=== PATIENT | female | born 1995 | race Caucasian/White ===

== ENCOUNTER 2023-08-20 13:50 | Emergency (ER) | payer SELFPAY ==
[2023-08-20 14:00] VITALS: BP 149/84; PULSE 76; RESP 18; TEMP 36.3; O2SAT 100
--- NOTE | 2023-08-20 14:09 | ED.EAR ---
HPI - Ear Problem General Chief complaint: Ear Stated complaint: Bilateral Ear Irritation Time Seen by Provider: 08/20/23 14:09 Source: patient and RN notes reviewed Mode of arrival: ambulatory Limitations: no limitations History of Present Illness HPI Narrative: 28 year old female accompanied by son presents to [facility] care with complaints of bilateral ear discomfort for the past 4 days. Patient reports that she had sinus issues and cold symptoms before ear pain and has been taking Sudafed and also doing sinus rinse which she feels has helped those symptoms. Patient reports that she she still has a little cough and some sinus drainage, deneis any fevers, chills or sweats or any body aches. Patient reports history of seasonal allergies. MD Complaint: ear pain Location: bilateral Duration: constant Severity: severe Discharge from ear: Reports no Treatment prior to arrival: other (sinus rinse and Sudafed) Related Data Allergies Allergy/AdvReac Type Severity Reaction Status Date / Time latex AdvReac Mild Rash Verified 08/20/23 14:06 Review of Systems Review of Systems: CONSTITUTIONAL: Denies malaise, chills, sweats, or fever. EYES: Denies visual changes, redness, or discharge. ENT: Reports rhinorrhea, congestion, sinus pain, bilateral otalgia and no sore throat. CARDIOVASCULAR: Denies chest pain, palpitations, or edema. RESPIRATORY: Reports cough.? Denies dyspnea. GASTROINTESTINAL: Denies abdominal pain, nausea, vomiting, diarrhea SKIN: Denies rash or itching. MUSCULOSKELETAL: Denies myalgia. NEUROLOGIC: Denies headache. All systems reviewed & are unremarkable except as noted in HPI and below PMFSH Past Medical History Medical History (Updated 08/20/23 @ 14:42 by Harriet Quiles NP) COVID-19 Ear infection History of sinus problem Seasonal allergies Strep throat Surgical History Surgical History (Updated 08/20/23 @ 14:43 by Harriet Quiles NP) Previous section Social History Social History (Updated 08/20/23 @ 14:40 by Harriet Quiles NP) Alcohol intake: former Alcohol use details: no alcohol for 7 years Substance use type: does not use Living arrangements: with family Gender identity (if verbalized by the patient): Female Comments At time of signature, agree with nursing past medical, surgical, social and family history. There is no relevant family history pertinent to the presenting complaint Exam Narrative: GENERAL: Well-appearing, well-nourished, and in no acute distress. HEAD: Normocephalic EYES: PERRLA, conjunctivae clear ENT: Nares clear, turbinates edematous and erythematous, clear discharge. Mucous membranes moist.Bilateral TM's red with bulging right ear; no tragal tenderness. Oropharynx erythematous without lesions. Tonsils not enlarged and without exudate, no drooling, no hoarseness, no trismus, uvula midline.post nasal drainage noted NECK: Supple. No lymphadenopathy CHEST: Clear to auscultation, breath sounds equal. No wheezing, rhonchi, rales, or stridor. No respiratory distress, speaks in full sentences.occasional cough SAO2 100% on room air HEART: Regular rate and rhythm. No murmur heard. SKIN: Warm, dry, no rash. NEURO: Alert and oriented x3. PSYCH: Normal mood and affect Course Course Emergency Course: Patient is aware of diagnosis, understands and agrees to treatment plan.? Anticipatory guidance given.? Patient agrees to follow-up as directed and is aware of reasons to seek care at the emergency department. Portions of this record may have been created with voice recognition software Level of Care: Express Care Visit Vital Signs Vital signs: Vital Signs Temperature 36.3 C L 08/20/23 14:00 Pulse Rate 76 08/20/23 14:00 Respiratory Rate 18 08/20/23 14:00 Blood Pressure 149/84 H 08/20/23 14:00 Pulse Oximetry 100 08/20/23 14:00 Oxygen Delivery Room Air 08/20/23 14:00 Temperature 36.3 C L 08/20/23 14:00 Pulse Rate 76 08/20/23 14:00 Respiratory Rate 18 08/20/23 14:00 Blood Pressure 149/84 H 08/20/23 14:00 Pulse Oximetry 100 08/20/23 14:00 Oxygen Delivery Room Air 08/20/23 14:00 Reviewed Medical Decision Making Differential Diagnosis Differential Diagnosis: URI,otitis media, rhinosinusitis, viral infection, otalgia,pharyngitis Medical Records Medical records reviewed: Yes I reviewed the external patient's medical records. Vital Signs Vital Signs: Vital Signs Temperature 36.3 C L 08/20/23 14:00 Pulse Rate 76 08/20/23 14:00 Respiratory Rate 18 08/20/23 14:00 Blood Pressure 149/84 H 08/20/23 14:00 Pulse Oximetry 100 08/20/23 14:00 Oxygen Delivery Room Air 08/20/23 14:00 Temperature 36.3 C L 08/20/23 14:00 Pulse Rate 76 08/20/23 14:00 Respiratory Rate 18 08/20/23 14:00 Blood Pressure 149/84 H 08/20/23 14:00 Pulse Oximetry 100 08/20/23 14:00 Oxygen Delivery Room Air 08/20/23 14:00 Critical Care Time Critical Care Time Critical Care Time: No Discharge Plan Discharge Clinical Impression: Otitis media Qualifiers: Otitis media type: serous Chronicity: acute Laterality: bilateral Recurrence: non-recurrent Qualified Code(s): H65.03 - Acute serous otitis media, bilateral Patient Disposition: Home, Self-Care Condition: Stable Instructions: Antibiotic Form, Ear Infection (GEN) Additional Instructions: Increase fluids especially juices and water [id number] cough and cold medicine of your choice for your symptoms Zyrtec Claritin or Nusrat daily Tylenol or ibuprofen for any fever pain May continue sinus rinses p.r.n. heat to the face 20-30 minutes 4-6 times a day for pain Salt water gargles, throat lozenges or throat sprays as desired Antibiotic as directed--finished the medication If your symptoms persist, change or worsen significantly before you can contact your personal physician then please, without delay, go to the emergency department for further evaluation. Follow-up with PCP in 7-10 days or sooner if needed Follow up with PCP soon in regards to your blood pressure which is elevated above threshold for referral. Blood pressure above 120/80 may indicate pre-hypertension. 149/84 Prescriptions: New amoxicillin 875 mg tablet 875 mg PO Q12H Qty: 20 0RF Follow-up/Referrals: PHYSICIAN,PROGRAM SUPPORT ASSISTANT [Primary Care Provider] - Time of Disposition: 14:22 Quality [place] Coma Scale Eyes: Open Verbal: Oriented and Alert Motor: Follows Commands Max Coma Total Score: 15
== END 2023-08-20 14:24 | disposition home or self-care (01) ==
PROVIDERS: Emergency Provider Registered Nurse
DX: H65.03 Acute serous otitis media, bilateral (principal); Z86.16 Personal history of COVID-19
CPT/HCPCS: 99213; G0463

== ENCOUNTER 2024-03-06 13:54 | Outpatient (CLI) | payer OTHER, SELFPAY ==
--- NOTE | 2024-03-14 08:32 | WPDHOLTEREM ---
Holter/Event Monitor Holter/Event Monitor Date of procedure: 03/06/24 Holter/Event Procedure: 3-7 Day Holter Monitor Indications: Palpitations Conclusion: 1. 3 days holter monitor on 03/06/24. 2. Underlying rhythm is sinus rhythm. HR range 57-133 bpm; average HR 86 bpm. 3. There are rare premature supraventricular complexes <1%. No supraventricular tachycardia. 4. There occasional premature ventricular complexes 2%, rare ventricular couplets. No ventricular tachycardia. 5. No significant pauses greater than 3 seconds. 6. Patient reports 3 episodes of symptoms of heart fluttering, skipped beats, irregular beats which demonstrate sinus rhythm, HR range 89-102 bpm with 2 episodes with PVC's.
== END 2024-03-06 13:55 | disposition home or self-care (01) ==
LOC: ANHCARD 13:56
PROVIDERS: Visit Provider Advanced Practice Midwife
DX: R00.2 Palpitations (principal)
CPT/HCPCS: 93242

== ENCOUNTER 2024-06-13 10:53 | Outpatient (CLI) | payer OTHER, SELFPAY ==
[2024-06-13] VITALS (7 sets, daily range): BP systolic 92–131; BP diastolic 56–79; PULSE 88–106
[2024-06-13 11:26] LABS: Basophils Percent Auto 0.3 % (0.2-1.2); Eosinophils Absolute Auto 0.1 K/mm3 (0-0.3); Hematocrit 34.3 % (37.0-47.0); Hemoglobin 11.6 g/dL (12.0-15.0); Immature Granulocyte Absolute 0.02 K/mm3 (0.00-0.031); Immature Granulocyte Percent A 0.3 % (0-0.5); Lymphocytes Absolute Auto 1.35 K/mm3 (0.9-3.2); Lymphocytes Percent Auto 19.5 % (18.3-44.2); Mean Corpuscular HGB Conc 33.8 g/dl (32-36); Mean Corpuscular Hemoglobin 30.1 pg (26-34); Mean Corpuscular Volume 89.1 fl (80-100); Mean Platelet Volume 8.9 fl (7.4-10.4); Monocytes Absolute Auto 0.5 K/mm3 (0.1-0.6); Monocytes Percent Auto 7.7 % (2.6-8.5); Neutrophils Absolute Auto 4.9 K/mm3 (1.3-6.7); Neutrophils Percent Auto 71.2 % (45.5-73.1); Platelet Count Result 254 k/mm3 (150-375); Red Blood Count 3.85 M/mm3 (4.2-5.4); Red Cell Distribution Width 12.7 % (11.5-14.5); White Blood Count 6.9 K/mm3 (4.5-10.0)
[2024-06-13 11:37] LABS: Alanine Aminotransferase 16 U/L (6-35); Albumin Level 3.4 g/dL (3.5-5.1); Alkaline Phosphatase 145 U/L (38-126); Anion Gap 8 mmol/L (4-12); Aspartate Amino Transferase 19 U/L (14-36); Bilirubin,Total 0.4 mg/dL (0.2-1.3); Blood Urea Nitrogen 7 mg/dL (7-17); Calcium 9.1 mg/dL (8.4-10.2); Carbon Dioxide 22 mmol/L (22-30); Chloride 105 mmol/L (98-107); Estimated Glomerular Filt Rate > 60; Glucose 103 mg/dL (65-110); Potassium 3.8 mmol/L (3.4-5.0); Sodium 135 mmol/L (137-145); Uric Acid 4.3 mg/dL (2.5-7.5)
[2024-06-13 11:40] LABS: Total Protein Urine Random 7 mg/dL
--- OUTSIDE RECORDS SUMMARY | 2024-06-13 11:49 | XMS_ITS | Clinical Summary ---
Author Organization [facility] [employer] Address [address] [place] [address] Care Team Providers Care Assistant Corporate Secretary Name Role Phone Unknown, Provider Primary Care Provider Unavaila ble Source Comments [facility] [employer],non-owned Affiliates and Associated Physician Practices is amultiple site organization consisting of ambulatory clinics and hospital sitesin [place], [place], [place] and [place]. This disclosure is being madepursuant to the Care Everywhere program and may not contain all information available regarding this patient. Last updated 18.[facility] [employer] Allergies Active Allergy Reactions Criticality Noted Date Comments Latex Rash Medium 04/11/2024 Medications * Be aware that medications may not be up to date on this document. Alwaysverify current medications with the patient. Medication Sig Dispensed Refills Start Date End Date Status Vit-Fe Fumarate-FA ( vitamin) 27-0.8 MG tablet Take 1 (one) tablet by mouth once daily Active aspirin EC (Ecotrin) 81 MG tablet Take 1 (one) tablet by mouth once daily Active IODINE, KELP, PO Take 1 drop by mouth once daily Active Active Problems Problem Noted Date Diagnosed Date Cardiac arrhythmia during 04/11/2024 Overview (04/11/2024): Patient referred to Cardiology for recurrent heart palpitations. Per OSR, Holter monitor is in progress, no results available at this time. Plan: Please send final Cardiology documentation so we may help guide therapy during if needed. History of HELLP syndrome, currently Overview (04/11/2024): HELLP syndrome with last . Delivered at 36 weeks. Following a with HELLP syndrome, there is about a 40-50% risk of some hypertensive disorder of in subsequent pregnancies: ~7% will develop HELLP again, ~18% develop preeclampsia, and ~18% develop gestational hypertension . Plan: Continue LD ASA Monitor BP at every clinic visit and/or ultrasound Start weekly testing at 32 weeks Recommend home BP log 1-2 times a day if able Obesity affecting 04/11/2024 Overview (04/11/2024): Obesity in is associated with increased risk of several adverse maternal and / outcomes. Fetuses exposed to obesity in are at increased risk of loss (both early miscarriage and stillbirth risks are increased), congenital anomalies (particularly cardiac and neural tube defects), , postterm , growth disorders (most commonly LGA/macrosomia), gestational diabetes, and gestational hypertension/preeclampsia. Mothers are at increased risk of anemia, GDM, hypertensive disorders, and maternal morbidity/mortality. Obese patients are more likely to have adverse events surrounding delivery including need for section, anesthesia complications, failed TOLAC, hemorrhage, infections, and VTE. Obese patients are also more likely to have failed cfDNA screening and detection of congenital anomalies can be limited. Recommendations: Limit weight gain to 11-20 pounds Continue LD ASA for preeclampsia prevention Recommend serial growth assessments in the 2nd and 3rd trimester Recommend anesthesia consultation at delivering hospital If patient requires section, a higher dose of preoperative antibiotics may be needed. (3g Ancef for weight >120kg) Recommend prophylactic anticoagulation while inpatient and for up to 6 weeks in highest risk individuals ( section, BMI >40, immobility, infection, etc.) Previous delivery affecting 1 06/12/2023 Overview (04/11/2024): The primary risk with TOLAC is risk of uterine rupture. Current literature estimates this risk ~ 0.5-1.0% for one LTCS, and roughly double that for 2 prior LTCS. Discussed the seriousness of this emergency due to increased morbidity for both mother and baby, particularly if blood supply to the placenta is compromised. Discussed outcomes comparing scheduled repeat CD vs repeat CD after unsuccessful TOLAC vs , including higher blood loss, increased need for blood transfusion, and higher infection rates. Based upon non-recurring indications and data on klein after one , the success rate is stated at 60-80%. The [facility] Network calculator for this patient estimates her success rate at 50%. Discussed this decision is never set in stone and she could change her mind regarding mode of delivery at any point in her . Recommend: Discussion with patient if TOLAC can be offered at your institution. If TOLAC is not offered at your institution, we would be happy to facilitate a transfer of care later in for TOLAC planning purposes at [place]. Estimated Date of Delivery Comme nts Yes 08/06/2024 Based on last me nstrual period of 10/31/2023 Encounters Date Type Department Care Team Description 05/17/2024 10:29 AM VIDEO GAME DESIGNER - 05/17/2024 11:59 PM VIDEO GAME DESIGNER Hospital Encounter [facility] [address] [place] [id number] Mckay Hodge MD Discharge Disposition: Home or Self Care 04/11/2024 1:04 PM VIDEO GAME DESIGNER - 04/11/2024 11:59 PM VIDEO GAME DESIGNER Hospital Encounter [facility] [address] [place] [id number] Jaime Durant MD Discharge Disposition: Home or Self Care 04/11/2024 1:00 PM VIDEO GAME DESIGNER - 04/11/2024 1:03 PM VIDEO GAME DESIGNER Hospital Encounter [facility] [address] [place] [id number] Jaime Durant MD Discharge Disposition: Home or Self Care from Last 3 Months Family History Relation Name Status Comments Father Alive Mother Alive Social History Tobacco Use Types Packs/Day Years Used Date Smoking Tobacco: Never Smokeless Tobacco: Never Tobacco Cessation:Counseling Given: Not Answered Alcohol Use Standard Drinks/Week Comments Not Currently 0 (1 standard drink = 0.6 oz pur e alcohol) Estimated Date of Delivery Comme nts Yes 08/06/2024 Based on last me nstrual period of 10/31/2023 Sex and Gender Information Value Date Recorded Sex Assigned at Not on file Gender Identity Not on file Sexual Orientation Not on file Last Filed Vital Signs Vital Sign Reading Time Taken Comments Blood Pressure 118/60 04/11/2024 2:13 PM VIDEO GAME DESIGNER Pulse 77 04/11/2024 2:13 PM VIDEO GAME DESIGNER Temperature - - Respiratory Rate 18 04/11/2024 2:13 PM VIDEO GAME DESIGNER Oxygen Saturation - - Inhaled Oxygen Concentration - - Weight 95.7 kg (211 lb) 04/11/2024 2:13 PM VIDEO GAME DESIGNER Height 165.1 cm (5' 5 ) 04/11/2024 2:13 PM VIDEO GAME DESIGNER Body Mass Index 35.11 04/11/2024 2:13 PM VIDEO GAME DESIGNER Plan of Treatment Upcoming Encounters Date Type Department Care Team (Late st Contact Info) Description 06/14/2024 11:15 AM VIDEO GAME DESIGNER Hospital Encounter [facility] [address] [place] [address] Gerard Bustamante MD [address] [address] Health Maintenance Due Date Last Done Comments HIV SCREENING 2010 HEPATITIS C SCREENING 05/21/2013 DTAP/TDAP/TD VACCINES (1 - Tdap) 2014 HEPATITIS B VACCINE (1 of 3 - 19+ 3-dose series) 2014 COVID-19 VACCINE ( - 2023-2 5 season) 2024 INFLUENZA VACCINE (#1) 2024 OB-ONE HOUR GLUCOSE 04/30/2024 DEPRESSION SCREENING 05/02/2024 OB-TDAP CURRENT 05/07/2024 OB-RHOGAM INJECTION 05/14/2024 PAP SMEAR 04/30/2025 04/30/2022 ZOSTER VACCINE (1 of 2) 2045 HIB VACCINE Aged Out No longer eligi ble based on patient's age to complete this topic HPV VACCINE Aged Out No longer eligi ble based on patient's age to complete this topic MENINGOCOCCAL (Group B) VACCINE Aged Out No longer eligible based on patient's age to complete this topic MENINGOCOCCAL VACCINE Aged Out No taras tasha eligible based on patient's age to complete this topic PNEUMOCOCCAL VACCINE Aged Out No long er eligible based on patient's age to complete this topic Respiratory Syncytial Virus (RSV) Vaccine Pt: or over 60 yrs (No Doses Required) Completed Procedures Procedure Name Priority Date/Time Associated Diagnosis Comments SONOGRAM - COMPLETE Routine 05/17/2024 1 1:04 AM VIDEO GAME DESIGNER Cardiac arrhythmia during (HCC) History of HELLP syndrome, currently (HCC) Other obesity due to excess calories affecting in third trimester (HCC) Previous delivery affecting (HCC) History of pre-eclampsia in prior , currently ([facility]) History of gestational diabetes in prior , currently (HCC) History of delivery, currently ([facility]) 28 weeks gestation of ([facility]) SONOGRAM - COMPLETE Routine 04/11/2024 1 :20 PM VIDEO GAME DESIGNER Encounter for anatomic survey ([facility]) Palpitations History of pre-eclampsia in prior , currently ([facility]) History of gestational diabetes in prior , currently ([facility]) 23 weeks gestation of ([facility]) History of delivery, currently ([facility]) from Last 3 Months Results * SONOGRAM - COMPLETE (05/17/2024 11:04 AM VIDEO GAME DESIGNER) Only the most recent of2 resultswithin the time period is included. Linked Results Indication ======== Incomplete cardiac views Class I obesity History ====== OB History 2. Para 1 [id number] 1. live 2022. Gest. age 36 w + 5 d. Sex of child: male. Details: IOL d/t HELLP, Preeclampsia, GDM-A1, Emergent d/t failure to progress Lab Tests Test Date Result NIPT Low risk, Male Maternal Assessment Physical Exam Height 165 cm, 5 ft 5 in. Weight 101 kg, 223 lb. Initial weight 94 kg, 208 lb. BMI 37.11 kg/m . Initial BMI 34.61 kg/m . Weight gain 7 kg, 15 lb Method ====== Transabdominal ultrasound. View: Suboptimal view: limited by maternal body habitus, position, and late gestational age ========= Klein . Number of fetuses: 1 Dating ====== Date Details Gest. age AVI LMP 10/31/2023 28 w + 3 d 08/06/2024 Stated AVI 28 w + 3 d 08/06/2024 U/S 05/17/2024 based upon AC, BPD, Femur, HC 30 w + 4 d 07/22/2024 Assigned dating based on the LMP, selected on 04/11/2024 28 w + 3 d 08/06/2024 General Evaluation Cardiac activity present. FHR 124 bpm. movements: visualized. Presentation: cephalic Placenta: Placental site: posterior, fundal Amniotic fluid: Amount of AF: normal. MVP 6.8 cm. NETTE 16.7 cm. Q1 6.8 cm, Q2 3.7 cm, Q3 2.1 cm, Q4 4.1 cm Biometry BPD 74.9 mm 30w 0d 85% Hadlock HC 282.5 mm 31w 0d 89% Hadlock AC 267.0 mm 30w 6d 96% Hadlock Femur 57.9 mm 30w 2d 85% Hadlock Humerus 52.5 mm 30w 4d 93% Benjy HC / AC 1.06 Weight Calculation: EFW 1,604 g 97% Hadlock EFW (lb,oz) 3 lb 9 oz EFW by Hadlock ([id number]) large for gestational age Growth Overview Exam date GA BPD (mm) HC (mm) AC (mm) FL (mm) HL (mm) EFW (g) 04/11/2024 23w 2d 56.8 48% 216.2 50% 194.5 69% 43.3 68% 41.5 89% 658 78% 05/17/2024 28w 3d 74.9 85% 282.5 89% 267 96% 57.9 85% 52.5 93% 1604 97% Anatomy The following structures appear normal: Heart / Thorax [id number] view. The following structures could not be adequately visualized: Heart / Thorax RVOT view. The following structures were documented previously: Head / Neck Cranium. Lateral ventricles. Choroid plexus. Midline falx. Cavum septi pellucidi. Cerebellum. Cisterna magna. Thalami. Nuchal fold. Face Lips. Profile. Nose. Nasal bone. Orbits. Heart / Thorax 4-chamber view. LVOT view. 3-vessel view. Situs. Aortic arch view. Bicaval view. Ductal arch view. Great vessels. Right lung. Left lung. Diaphragm. Abdomen Cord insertion. Stomach. Kidneys. Bladder. Bowel. Genitals. Spine Cervical spine. Thoracic spine. Lumbar spine. Sacral spine. Extremities / Skeleton Arms. Hands. Legs. Feet. sex: male. Impression ========= Single, live, intrauterine at 28w 3d size is large for gestational age Amniotic fluid volume: normal No major malformations were seen within the limits of ultrasound Follow-up ======== Follow up ultrasound for growth and completion of the anatomic survey Coding ====== Procedures [id number]: US Preg Uterus Follow Up [place] PACS Anatomical Region Laterality Modality Other 05/17/2024 11:0 4 AM VIDEO GAME DESIGNER Laura Betts CLIENT SUCCESS MANAGER-DRESSMAKER GARMENT FITTER [facility] ORDERABLES from Last 3 Months Care Teams Assistant Corporate Secretary Relationship Specialty Start Date End Date Unknown, Provider PCP - General 04/11/24
--- OUTSIDE RECORDS SUMMARY | 2024-06-13 11:49 | XMS_ITS | Clinical Summary ---
Author Organization [facility] Address [address] [place] [id number] Care Team Providers Care Timber Setter Name Role Phone None, Provider MD Primary Care Provider Unavaila ble Allergies Active Allergy Reactions Criticality Noted Date Comments Latex Rash Low 04/05/2022 Medications vitamin, low iron, ( VITAMIN WITH IRON) 27-0.8 MG tablet Take 1 tablet by mouth daily. Active ferrous sulfate, 65 mg elemental, 325 (65 FE) MG tablet Take 325 mg by mouth daily with breakfast. Active aspirin EC (ECOTRIN) 81 MG tablet Take 81 mg by mouth daily. Active Vitamin B12 100 MCG tablet Take 50 mcg by mouth daily. Active HYDROcodone-doug taminophen (NORCO) 5-325 MG tabletIndicatio ns:Acute Pain < 7 Day Supply Take 1 tablet by mouth every 4 (four) hours as needed. Indications: Acute Pain < 7 Day Supply 10 tablet Active Additional Information Patient not taking.Reported on 12/28/2023 Active Problems Problem Noted Date Diagnosed Date ([facility]) 05/01/2022 Comments Yes Social History Tobacco Use Types Packs/Day Years Used Date Smoking Tobacco: Never Passive Smoke Exposure: Never Smokeless Tobacco: Never Tobacco Cessation:Counseling Given: No Humiliation, Afraid, Rape, and Kick questionnair e Answer Date Recorded Within the last year, have y ou been afraid of your partner or ex-partner? Patient declined 05/01/2022 Within the last year, have y ou been humiliated or emotionally abused in other ways by your partner or ex-partner? Patient declined 05/01/2022 Within the last year, have y ou been kicked, hit, slapped, or otherwise physically hurt by your partner or ex-partner? Patient declined 05/01/2022 Within the last year, have y ou been raped or forced to have any kind of sexual activity by your partner or ex-partner? Patient declined 05/01/2022 Social Connection and Isolation Panel [NHANES] A nswer Date Recorded In a typical week, how many times do you talk on the phone with family, friends, or neighbors? Patient declined 05/01/2022 How often do you get togethe r with friends or relatives? Patient declined 05/01/2022 How often do you attend jainism or yazdanism serv ices? Patient declined 05/01/2022 Do you belong to any clubs o r organizations such as jainism groups, unions, [employer] or athletic groups, or school groups? Patient declined 05/01/2022 How often do you attend meet ings of the clubs or organizations you belong to? Patient declined 05/01/2022 Are you , , di vorced, , never , or living with a partner? Patient declined 05/01/2022 AUDIT-C Answer Date Recorded Q1: How often do you have a drink containing alc ohol? Patient declined 05/01/2022 Q2: How many drinks containi ng alcohol do you have on a typical day when you are drinking? Patient declined 05/01/2022 Q3: How often do you have si x or more drinks on one occasion? Patient declined 05/01/2022 Overall Financial Resource Strain (CARDIA) Answe r Date Recorded How hard is it for you to pa y for the very basics like food, housing, medical care, and heating? Not hard at all 05/01/2022 PHQ-2 Answer Date Recorded Patient Health Questionnaire-2 Score 0 12/28/2023 [facility] - Occupational Stress Questionnaire Answer Date Recorded Do you feel stress - tense, restless, nervous, or anxious, or unable to sleep at night because your mind is troubled all the time - these days? Not at all 05/01/2022 Exercise Vital Sign Answer Date Recorde d On average, how many days pe r week do you engage in moderate to strenuous exercise (like a brisk walk)? Patient declined On average, how many minutes do you engage in exercise at this level? Patient declined 05/01/2022 Hunger Vital Sign Answer Date Recorded Within the past 12 months, y ou worried that your food would run out before you got the money to buy more. Never true 05/01/20 22 Within the past 12 months, t he food you bought just didn't last and you didn't have money to get more. Never true 05/01/2022 PRAPARE - Transportation Answer Date Re corded In the past 12 months, has l ack of transportation kept you from medical appointments or from getting medications? No 04/03 In the past 12 months, has l ack of transportation kept you from meetings, work, or from getting things needed for daily living? No 05/01/2022 Housing Stability Vital Sign Answer Rich e Recorded In the last 12 months, was t here a time when you were not able to pay the mortgage or rent on time? No 05/01/2022 In the last 12 months, how many places have you lived? 1 05/01/2022 In the last 12 months, was t here a time when you did not have a steady place to sleep or slept in a long-term (including now)? No 05/01/2022 Comments Yes Sex and Gender Information Value Date Recorded Sex Assigned at Not on file Legal Sex Female 4:13 PM CDT Gender Identity Not on file Sexual Orientation Not on file Last Filed Vital Signs Vital Sign Reading Time Taken Comments Blood Pressure 116/71 12/28/2023 12:47 PM CDT Pulse 94 12/28/2023 12:47 PM CDT Temperature 36.6 C (97.9 F) 12/28/2023 12:47 PM CDT Respiratory Rate 17 12/28/2023 12:47 PM CDT Oxygen Saturation 98% 12/28/2023 12:47 PM CDT Inhaled Oxygen Concentration - - Weight 91.7 kg (202 lb 3.2 oz) 12/28/2023 12:47 PM CDT Height 167.6 cm (5' 6 ) 12/28/2023 12:47 PM CDT Body Mass Index 32.64 12/28/2023 12:47 PM CDT Plan of Treatment Health Maintenance Due Date Last Done Comments Cervical Cancer Screening Pa p Smear (Age 21 to 29) Every 3 Years 1995 Cervical Cancer Screening 1995 Annual Physical 1998 DTaP, Tdap and Td Vaccines ( 1 - Tdap) 2014 Hepatitis B Vaccines (1 of 3 - 19+ 3-dose series) 2014 COVID-19 Vaccine ( - 2023-2 5 season) 2024 Influenza Adult (#1) 2024 PHQ-2 (Phys[facility] [place]) 05/02/2024 12/28/2023 RSV Immunization or 60+ Years (1 - 1-dose 75+ series) 2070 Hepatitis C Completed 10/26/2021 HPV Vaccines Aged Out No longer eligi ble based on patient's age to complete this topic Meningococcal B Vaccine Aged Out No l onger eligible based on patient's age to complete this topic Meningococcal Vaccine Aged Out No taras tasha eligible based on patient's age to complete this topic Pneumococcal Vaccine: Pediat rics (0 to 5 Years) and At-Risk Patients (6 to 64 Years) Aged Out No longer eligi ble based on patient's age to complete this topic RSV Immunizations Under 20 Months Aged Out No longer eligible based on patient's age to complete this topic Procedures Procedure Name Priority Date/Time Associated Diagnosis Comments HEPATITIS C ANTIBODY Routine 10/26/2021 from Last 3 Months or Most Recently Relevant to Health Maintenance Results * HEPATITIS C ANTIBODY (10/26/2021) HEPATITIS C AB non-reacti ve us Default History Genericprovider LABORATORY Final Result from Last 3 Months or Most Recently Relevant to Health Maintenance Advance Directives * Full Code (Latest Code Status on File) Date Activated Date Inactivated Comments 05/03/2022 8:07 AM 05/04/2022 11:17 AM * Full Code Date Activated Date Inactivated Comments 05/01/2022 10:05 PM 05/03/2022 8:07 AM * Full Code Date Activated Date Inactivated Comments 04/30/2022 6:24 PM 04/30/2022 10:09 PM * Full Code Date Activated Date Inactivated Comments 04/30/2022 3:18 PM 04/30/2022 4:21 PM * Full Code Date Activated Date Inactivated Comments 04/15/2022 4:58 PM 04/15/2022 7:42 PM Care Teams Timber Setter Relationship Specialty Start Date End Date None, Provider, PCP - General 01/14/22
--- OUTSIDE RECORDS SUMMARY | 2024-06-13 11:49 | XMS_ITS | Patient Health Summary ---
Author Organization [facility] Address [address] [place] [address] Care Team Providers Care Applied Behavior Science Specialist Name Role Phone Unknown, Provider Primary Care Provider Unavaila ble Note from [facility],non-owned Affiliates and Associated Physician Practices is amultiple site organization consisting of ambulatory clinics and hospital sitesin [place], [place], [place] and [place]. This disclosure is being madepursuant to the Care Everywhere program and may not contain all information available regarding this patient. Last updated 18.[facility] Allergies * Latex(Rash) -Medium Criticality Medications * Be aware that medications may not be up to date on this document. Alwaysverify current medications with the patient. * Vit-Fe Fumarate-FA ( vitamin) 27-0.8 MG tablet Take 1 (one) tablet by mouth once daily * aspirin EC (Ecotrin) 81 MG tablet Take 1 (one) tablet by mouth once daily * IODINE, KELP, PO Take 1 drop by mouth once daily Active Problems Problem Noted Date Diagnosed Date Cardiac arrhythmia during 04/11/2024 History of HELLP syndrome, currently Obesity affecting 04/11/2024 Previous delivery affecting 1 06/12/2023 Social History Tobacco Use Types Packs/Day Years [...] Comments Blood Pressure 118/60 04/11/2024 2:13 PM ECONOMICS INSTRUCTOR Pulse 77 04/11/2024 2:13 PM ECONOMICS INSTRUCTOR Temperature - - Respiratory Rate 18 04/11/2024 2:13 PM ECONOMICS INSTRUCTOR Oxygen Saturation - - Inhaled Oxygen Concentration - - Weight 95.7 kg (211 lb) 04/11/2024 2:13 PM ECONOMICS INSTRUCTOR Height 165.1 cm (5' 5 ) 04/11/2024 2:13 PM ECONOMICS INSTRUCTOR Body Mass Index 35.11 04/11/2024 2:13 PM ECONOMICS INSTRUCTOR Procedures * SONOGRAM - COMPLETE(Performed 05/17/2024) Performed for Cardiac arrhythmia during ([facility]), History of HELLP syndrome, currently ([facility]), Other obesity due to excess calories affecting in third trimester ([facility]), Previous delivery affecting ([facility]), History of pre-eclampsia in prior , currentl y ([facility]), History of gestational diabetes in prior , currently ([facility]), History of delivery, currently ([facility]), 28 weeks gestation of ([facility]) * SONOGRAM - COMPLETE(Performed 04/11/2024) Performed for Encounter for anatomic survey ([facility]), Palpitations, History of pre-eclampsia in prior , currently ([facility]), History of gestational diabetes in prior , currently ([facility]), 23 weeks gestation of ([facility]), History of delivery, currently ([facility]) Results * SONOGRAM - COMPLETE (05/17/2024 11:04 AM ECONOMICS INSTRUCTOR) Only the most recent of2 resultswithin the time period is included. Linked Results Indication ======== Incomplete cardiac views Class I obesity History ====== OB History 2. Para 1 [id number] 1. live 2022. Gest. age 36 w [...] habitus, position, and late gestational age ========= Ferrer . Number of fetuses: 1 Dating ====== [...] 3 lb 9 oz EFW by Hadlock ([id number]) large for gestational age Growth Overview Exam date GA BPD (mm) HC (mm) AC (mm) FL (mm) HL (mm) EFW (g) 04/11/2024 23w 2d 56.8 48% 216.2 50% 194.5 69% 43.3 68% 41.5 89% 658 78% 05/17/2024 28w 3d 74.9 85% 282.5 89% 267 96% 57.9 85% 52.5 93% 1604 97% Anatomy The following structures appear normal: Heart / Thorax 1-[id number]-[id number] view. The following structures could not be [...] of the anatomic survey Coding ====== Procedures 30206: US Preg Uterus Follow Up [facility] Caregivers PACS Anatomical Region Laterality Modality Other 05/17/2024 11:0 4 AM ECONOMICS INSTRUCTOR Laura Betts APRN-[facility] ORDERABLES Care Teams Applied Behavior Science Specialist Relationship Specialty Start Date End Date Unknown, Provider PCP - General 04/11/24
--- OUTSIDE RECORDS SUMMARY | 2024-06-13 11:49 | XMS_ITS | Referral Summary ---
Author Organization [facility] Address [address] [place] [address] Care Team Providers Care Desktop Support Engineer Name Role Phone Unknown, Provider Primary Care Provider Unavaila ble Source Comments [facility],non-owned Affiliates and Associated Physician Practices is amultiple site organization consisting of ambulatory clinics and hospital sitesin [place], [place], [place]. This disclosure is being madepursuant to the Care Everywhere program and may not contain all information available regarding this patient. Last updated 18.[facility] Encounters Date Type Department Care Team Description 05/17/2024 10:29 AM AWS CONSULTANT - 05/17/2024 11:59 PM AWS CONSULTANT Hospital Encounter [facility] [address] [place] [address] Mckay Hodge MD Discharge Disposition: Home or Self Care 04/11/2024 1:04 PM AWS CONSULTANT - 04/11/2024 11:59 PM AWS CONSULTANT Hospital Encounter [facility] [address] [place] [address] Jaime Durant MD Discharge Disposition: Home or Self Care 04/11/2024 1:00 PM AWS CONSULTANT - 04/11/2024 1:03 PM AWS CONSULTANT Hospital Encounter [facility] [address] [place] [address] Jaime Durant MD Discharge Disposition: Home or Self Care from Last 3 Months Allergies Active Allergy Reactions Criticality Noted Date [...] success rate is stated at 60-80%. The [facility] Network calculator for this patient estimates her [...] later in for TOLAC planning purposes at [facility]. Estimated Date of Delivery Comme nts Yes 08/06/2024 Based on last me nstrual period of 10/31/2023 Social History Tobacco Use Types Packs/Day Years [...] Comments Blood Pressure 118/60 04/11/2024 2:13 PM AWS CONSULTANT Pulse 77 04/11/2024 2:13 PM AWS CONSULTANT Temperature - - Respiratory Rate 18 04/11/2024 2:13 PM AWS CONSULTANT Oxygen Saturation - - Inhaled Oxygen Concentration - - Weight 95.7 kg (211 lb) 04/11/2024 2:13 PM AWS CONSULTANT Height 165.1 cm (5' 5 ) 04/11/2024 2:13 PM AWS CONSULTANT Body Mass Index 35.11 04/11/2024 2:13 PM AWS CONSULTANT Plan of Treatment Upcoming Encounters Date Type Department Care Team (Late st Contact Info) Description 06/14/2024 11:15 AM AWS CONSULTANT Hospital Encounter [facility] [address] [place] [address] Gerard Bustamante MD [address] [address] Procedures Procedure Name Priority Date/Time Associated Diagnosis Comments SONOGRAM - COMPLETE Routine 05/17/2024 1 1:04 AM AWS CONSULTANT Cardiac arrhythmia during (HCC) History of HELLP syndrome, currently ([facility]) Other obesity due to excess calories affecting in third trimester ([facility]) Previous delivery affecting ([facility]) History of pre-eclampsia in prior , currently ([facility]) History of gestational diabetes in prior , currently ([facility]) History of delivery, currently ([facility]) 28 weeks gestation of ([facility]) SONOGRAM - COMPLETE Routine 04/11/2024 1 :20 PM AWS CONSULTANT Encounter for anatomic survey ([facility]) Palpitations History of pre-eclampsia in prior , currently (HCC) History of gestational diabetes in prior , currently ([facility]) 23 weeks gestation of ([facility]) History of delivery, currently ([facility]) from Last 3 Months Results * SONOGRAM - COMPLETE (05/17/2024 11:04 AM AWS CONSULTANT) Only the most recent of2 resultswithin the time period is included. Linked Results Indication ======== Incomplete cardiac views Class I obesity History ====== OB History 2. Para 1 [id number] 1. live 2022. Gest. age 36 w [...] 3 lb 9 oz EFW by Hadlock ([id number]) large for gestational age Growth Overview Exam date GA BPD (mm) HC (mm) AC (mm) FL (mm) HL (mm) EFW (g) 04/11/2024 23w 2d 56.8 48% 216.2 50% 194.5 69% 43.3 68% 41.5 89% 658 78% 05/17/2024 28w 3d 74.9 85% 282.5 89% 267 96% 57.9 85% 52.5 93% 1604 97% Anatomy The following structures appear normal: Heart / Thorax 4-[id number]-cbsrkun view. The following structures could not be [...] of the anatomic survey Coding ====== Procedures [id number]: US Preg Uterus Follow Up [facility] PACS Anatomical Region Laterality Modality Other 05/17/2024 11:0 4 AM AWS CONSULTANT Laura Betts APRN-[employer] [facility] ORDERABLES from Last 3 Months Care Teams Desktop Support Engineer Relationship Specialty Start Date End Date Unknown, Provider PCP - General 04/11/24
[2024-06-13 12:03] LABS: Add Urine Microscopic? YES; Appearance Urine Cloudy (Clear); Bacteria Urine 1+ /hpf; Bilirubin Urine Negative (Negative); Blood Urine Negative (Negative); Color Urine Dark Yellow (Yellow); Glucose Urine UA Negative (Negative); Ketones Urine Trace mg/dL (Negative); Leukocyte Esterase Ur Negative LEU/UL (Negative); Need Manual Microscopic Reviewed; Nitrate Urine Negative (Negative); Non Pathogenic Casts 0-2; Protein Urine 1+ mg/dL (Negative); RBC Urine 0-2 /hpf (0-2); Specific Grav Ur 1.027 (1.001-1.035); Squamous Epithelial Cell Urine Moderate /hpf (Few); pH Urine 6.5 (5.0-9.0)
[2024-06-13 12:08] LABS: Creatinine Urine 356.3 mg/dL; Ur Ttl Prot Creatinine Ratio 0.02 mg/mg (0-0.20)
== END 2024-06-13 12:14 | disposition home or self-care (01) ==
LOC: ANHOBOP 10:58 → ANHOBPP 11:01
PROVIDERS: Visit Provider Advanced Practice Midwife
DX: O13.9 Gestational [pregnancy-induced] hypertension without significant proteinuria, unspecified trimester (principal); Z3A.00 Weeks of gestation of pregnancy not specified
CPT/HCPCS: 36415; 59025; 80053; 81001; 82570; 84156; 84550; 85025; 99199

== ENCOUNTER 2024-06-21 22:46 | Outpatient (CLI) | payer MEDICAID, SELFPAY ==
[2024-06-21] VITALS (7 sets, daily range): BP systolic 122–134; BP diastolic 67–71; PULSE 101–119; TEMP 37.1; O2SAT 100
--- OUTSIDE RECORDS SUMMARY | 2024-06-21 23:08 | XMS_ITS | Encounter Summary ---
Author Organization [facility] Address [address] [place] [address] Care Team Providers Care Boiler Coverer Name Role Phone Unknown, Provider Primary Care Provider Unavaila ble Reason for Referral * (Routine) - Open Specialty Diagnoses / Procedures Referred By Contac t Referred To Contact Diagnoses Cardiac arrhythmia during (HCC) History of HELLP syndrome, currently (HCC) Previous delivery affecting (HCC) Encounter for screening (HCC) 33 weeks gestation of (HCC) Obesity affecting , antepartum, unspecified obesity type (HCC) Procedures NON-STRESS TEST Moustapha Martinez MD [address] [place] [address] Referral ID Status Reason Start Date Expiration Date Visits Re quested Visits Authorized [id number] Open 06/15/2024 06/15/2025 1 1 R PAD MAKER Reason for Visit * Reason Comments Non-stress Test Encounter Details Date Type Department Care Team (Latest Contact Info) Description 06/19/2024 11:02 AM CHAIR PAD MAKER - 06/19/2024 11:59 PM CHAIR PAD MAKER Hospital Encounter [facility] [address] [place], [place] [id number] Berta Valadez MD [address] [place] [address] Discharge Disposition: Home or Self Care Social History Tobacco Use Types Packs/Day Years Used Date Smoking Tobacco: Never Smokeless Tobacco: Never Alcohol Use Standard Drinks/Week Comments Not Currently 0 (1 standard drink = 0.6 oz pur e alcohol) Estimated Date of Delivery Comme nts Yes 08/06/2024 Based on last me nstrual period of 10/31/2023 Sex and Gender Information Value Date Recorded Sex Assigned at Not on file Gender Identity Not on file Sexual Orientation Not on file documented as of this encounter Last Filed Vital Signs Vital Sign Reading Time Taken Comments Blood Pressure 117/77 06/19/2024 12:02 PM CHAIR PAD MAKER Pulse 89 06/19/2024 12:02 PM CHAIR PAD MAKER Temperature - - Respiratory Rate - - Oxygen Saturation - - Inhaled Oxygen Concentration - - Weight - - Height - - Body Mass Index - - documented in this encounter Medications at Time of Discharge Medication Sig Dispensed Refills Start Date End Date aspirin EC (Ecotrin) 81 MG tablet Take 1 (one) tablet by mouth once daily IODINE, KELP, PO Take 1 drop by mouth once daily Vit-Fe Fumarate-FA ( vitamin) 27-0.8 MG tablet Take 1 (one) tablet by mouth once daily documented as of this encounter Progress Notes * Frieda Motta RN - 06/19/2024 12:04 PM CST Name: Holly Howard Date of : 1995 Today's Date: 06/19/2024 33w1d NST RESULTS (THOMAS) OBJECTIVE FINDINGS , Pulse: 89, , BP: 117/77 NST Indication(s): Pre-eclampsia with previous Uterine Irritability: No Contractions: Not present OBJECTIVE FINDINGS Movement: Present Monitoring Mode: External Baseline: 130 BPM Variability: Moderate Decelerations: None Accelerations: Yes OTHER INFORMATION Comments: NST [id number] Patient reports positive movement. Denies leakage of fluid, vaginal bleeding, cramping and contractions. Denies headache, blurred vision, and RUQ pain. Patient scheduled NST for next Tuesday with [facility]. Has BPP/NST done with primary OB office. Frieda Motta RN R PAD MAKER Associated attestation - Berta Valadez MD - 06/19/2024 2:20 PM CHAIR PAD MAKER MFM Attending NST Interpretation Indication: History of severe preeclampsia, with at 36 weeks Obesity BMI 35 I agree with the above NST interpretation, which is Reactive/ reassuring. Baseline 130 bpm Moderate variability Berta Valadez MD documented in this encounter Plan of Treatment Upcoming Encounters Date Type Department Care Team (Late st Contact Info) Description 06/26/2024 9:45 AM CHAIR PAD MAKER Hospital Encounter [facility] [address] [place], [place] [id number] Scheduled Orders Name Type Priority Associated Diagnoses Orde r Schedule NON-STRESS TEST [facility] MED Routine Cardiac arrhythmia during (HCC) History of HELLP syndrome, currently (HCC) Previous delivery affecting (HCC) Encounter for screening ([facility]) 33 weeks gestation of (HCC) Obesity affecting , antepartum, unspecified obesity type (HCC) 1 Occurrences starting 06/15/2024 until 06/15/2025 documented as of this encounter Visit Diagnoses Diagnosis Cardiac arrhythmia during (HCC)- Primary History of HELLP syndrome, currently (HCC) with other poor obstetric history Previous delivery affecting (HCC) Previous delivery, unspecified as to episode of care or not applicable Encounter for screening (HCC) 33 weeks gestation of (HCC) state, incidental Obesity affecting , antepartum, unspecified obesity type (HCC) Cardiac arrhythmia during (HCC)- Primary History of HELLP syndrome, currently (HCC) with other poor obstetric history Previous delivery affecting (HCC) Previous delivery, unspecified as to episode of care or not applicable Encounter for screening (HCC) 33 weeks gestation of (HCC) state, incidental Obesity affecting , antepartum, unspecified obesity type (HCC) documented in this encounter Care Teams Boiler Coverer Relationship Specialty Start Date End Date Unknown, Provider PCP - General 04/11/24 documented as of this encounter
--- OUTSIDE RECORDS SUMMARY | 2024-06-21 23:08 | XMS_ITS | Data Portability ---
Author Organization [facility] KIMMIENeeraj Address [address] [facility] [place] [address] Care Team Providers Care Natural Remedy Consultant Name Role Phone AMRITA FRIEDA Primary Care Provider Assessment No assessment recorded. Plan of Treatment Reminders Order Date Submit Date Provider Last Modified By Organization Details Last Modified Time Details Appointments None recorded. Lab bacterial vaginosis + vaginitis panel, vaginal 2018 019 ABIQUIU [facility], [address] [place], [place] [address]anthony Kevin, [address], [place], [address], 9 07:15:49 urinalysi s, dipstick 2017 018 [email or web address] In-Office Order, Internal Use Only DO Not Attach Compendium DO Not Attach Compendium, Do Not Delete/merge, [id number] 8 11:24:49 pap, IG + CT/NG/TV + reflex HR HPV 2017 018 ABIQUIU [facility], [address], [address], [place], [address], 8 07:13:37 urinalysi s, dipstick 2016 017 mpass In-Office Order, Internal Use Only DO Not Attach Compendium DO Not Attach Compendium, Do Not Delete/merge, [id number] 7 12:48:00 test, urine 2016 017 mpass In-Office Order, Internal Use Only DO Not Attach Compendium DO Not Attach Compendium, Do Not Delete/merge, [id number] 7 12:48:00 Referral None recorded. Procedures None recorded. Surgeries None recorded. Imaging None recorded. Medication Orders amitripty line 25 mg tablet 2019 020 [id number] [address] [facility], [place], [place], [id number], 0 12:07:18 sumatript an 100 mg tablet 2019 020 [facility], [address] [facility], [place], [place], [id number], 0 12:07:18 butalbita l-acetami nophen-ca ffeine 50 mg-325 mg-40 mg tablet 2019 020 [id number], [address] [facility], [place], [place], [id number], 0 12:09:45 metronida zole 500 mg tablet 2018 019 [facility] #[id number], [address] [facility], [place], [place], [id number], 0 11:36:52 Estarylla 0.25 mg-35 mcg tablet 2018 019 [id number] [address] [facility], [place], [place], [id number], 9 14:49:15 Sprintec (28) 0.25 mg-35 mcg tablet 2017 018 [facility], [address], [place], [id number], 8 11:10:51 Sprintec (28) 0.25 mg-35 mcg tablet 2016 017 mpass Not available 7 14:51:12 Patient TargetsNo targets recorded. Patient Instructions Encounter Date Encounter Id Patient Instructions Last Modified By Organization Details Last Modified Time 06/22/2016 [id number] Follow dressing instructions. Encouraged consistent condom use. mpass Not available 06/22/2016 12:36:33 12/29/2016 [id number] Start OC's. Encouraged consistent use of condoms expecially during the first cycle. mpass Not available 12/29/2016 10:21:50 Holly wants to start OC's. Discussed risks/benefits/si de effects/correct use of OC's. Holly voiced understanding. mpass Not available 12/29/2016 10:21:22 07/28/2018 [id number] bacterial vaginosis: care instructions [email or web address] Not available 07/28/2018 14:49:10 Reason for Referral None Reported. Results Created Date Observation Date Name Description Value Unit Range Abnormal Flag Note LastModifiedBy Organization Detail LastModifiedTime 06/22/19 17 06/22/2016 urina lysis , dipst ick Leukocytes Negati ve Not Available In-Office Order Internal Use Only DO Not Attach Compendium DO Not Attach Compendium, Do Not Delete/merge, 06/22/2016 09:56:30 06/22/1906/22/2016 urina lysis , dipst ick Nitrite negati ve Not Available In-Office Order Internal Use Only DO Not Attach Compendium DO Not Attach Compendium, Do Not Delete/merge, 06/22/2016 09:56:30 06/22/19 17 06/22/2016 urina lysis , dipst ick Urobilinogen .2 Not Available In-Of fice Order Internal Use Only DO Not Attach Compendium DO Not Attach Compendium, Do Not Delete/merge, 06/22/2016 09:56:30 06/22/1906/22/2016 urina lysis , dipst ick Protein Negati ve Not Available In-Office Order Internal Use Only DO Not Attach Compendium DO Not Attach Compendium, Do Not Delete/merge, [id number] 06/22/2016 09:56:30 06/22/19 17 06/22/2016 urina lysis , dipst ick pH 6.0 Not Available In-Office Order Internal Use Only DO Not Attach Compendium DO Not Attach Compendium, Do Not Delete/merge, 06/22/2016 09:56:30 06/22/19 17 06/22/2016 urina lysis , dipst ick Blood Negati ve Not Available In-Office Order Internal Use Only DO Not Attach Compendium DO Not Attach Compendium, Do Not Delete/merge, 06/22/2016 09:56:30 06/22/19 17 06/22/2016 urina lysis , dipst ick Specific [place] 1.020 Not Available In-Off ice Order Internal Use Only DO Not Attach Compendium DO Not Attach Compendium, Do Not Delete/merge, 06/22/2016 09:56:30 06/22/19 17 06/22/2016 urina lysis , dipst ick Ketone Negati ve Not Available In-Office Order Internal Use Only DO Not Attach Compendium DO Not Attach Compendium, Do Not Delete/merge, 06/22/2016 09:56:30 06/22/19 17 06/22/2016 urina lysis , dipst ick Bilirubin Negati ve Not Available In-Office Order Internal Use Only DO Not Attach Compendium DO Not Attach Compendium, Do Not Delete/merge, 06/22/2016 09:56:30 06/22/19 17 06/22/2016 urina lysis , dipst ick Glucose Negati ve Not Available In-Office Order Internal Use Only DO Not Attach Compendium DO Not Attach Compendium, Do Not Delete/merge, 06/22/2016 09:56:30 06/22/19 17 06/22/2016 urina lysis , dipst ick Appearance Clear Not Available In-Offi ce Order Internal Use Only DO Not Attach Compendium DO Not Attach Compendium, Do Not Delete/merge, 06/22/2016 09:56:30 06/22/19 17 06/22/2016 urina lysis , dipst ick Color Yellow Not Available In-Office Order Internal Use Only DO Not Attach Compendium DO Not Attach Compendium, Do Not Delete/merge, 06/22/2016 09:56:30 06/22/19 17 06/22/2016 pregn flo test, urine HCG negati ve Not Available In-Office Order Internal Use Only DO Not Attach Compendium DO Not Attach Compendium, Do Not Delete/merge, [id number] 06/22/2016 09:29:45 05/18/19 18 05/20/2017 pap, IG + CT/NG /TV + refle x HR HPV diagnosis: Ulices t NEGAT DEAN FOR INTRA EPITH ELIAL KANNAN N AND CHRIS SANTOS . Not Available [facility] ([facility]) [address] [facility], [place], [address], 05/21/2017 07:13:37 05/18/19 18 05/20/2017 pap, IG + CT/NG /TV + refle x HR HPV specimen adequacy: Commjamal t Satis facto ry for evalu ation . Endoc ervic al and/o r squam ous metap lasti c cells (endo cervi antoni compo nent) are prese nt. Not Available [facility] ([facility]) [address] [facility] [facility], [place], [address], 05/21/2017 07:13:37 05/18/19 18 05/20/2017 pap, IG + CT/NG /TV + refle x HR HPV clinician provided ICD10: Ulices wilder Z01.4 19 Not Available [facility] ([facility]) [address] [facility], [place], [address], 05/21/2017 07:13:37 05/18/19 18 05/20/2017 pap, IG + CT/NG /TV + refle x HR HPV performed by: Ulices Qureshi in, Cytot echno logis t (ASCP ) Not Available [facility] ([facility]) [address] [place], [address], 05/21/2017 07:13:37 05/18/19 18 05/20/2017 pap, IG + CT/NG /TV + refle x HR HPV . . Not Available [facility] ([facility]) [address] [place], [address], 05/21/2017 07:13:37 05/18/19 18 05/20/2017 pap, IG + CT/NG /TV + refle x HR HPV note: Commen t The Pap smear is a scree arvin test dessubha cueto to aid in the detec tion of alexander ligna nt and malig nant condi tions of the uteri ne cervi x. It is not a diagn ostic proce dure and shoul d not be used as the sole means of detec ting cervi antoni cance r. Both false -posi tive and false -nega tive repor ts do occur . Not Available [facility] ([facility]) [address] [place], [address], 05/21/2017 07:13:37 05/18/19 18 05/20/2017 pap, IG + CT/NG /TV + refle x HR HPV test methodology: Commen t This liqui d based ThinP rep(R ) pap test was scree rom with the use of an image guide d systshelia m. Not Available [facility] ([facility]) [address] [place], [address], 05/21/2017 07:13:37 05/18/19 18 05/20/2017 pap, IG + CT/NG /TV + refle x HR HPV . Commen t The HPV DNA refle x crite almaz were not met with this speci men resul t there fore, no HPV testi ng was perfo rmed. Not Available [facility] ([facility]) [address] [place], [address], 05/21/2017 07:13:37 05/18/19 18 05/20/2017 pap, IG + CT/NG /TV + refle x HR HPV chlamydia, nuc. acid amp Negati ve negati ve Not Available [facility] ([facility]) [address] [place], [address], 05/21/2017 07:13:37 05/18/19 18 05/20/2017 pap, IG + CT/NG /TV + refle x HR HPV gonococcus, nuc. acid amp Negati ve negati ve Not Available [facility] ([facility]) [address] [facility], [place], [address], 05/21/2017 07:13:37 05/18/19 18 05/20/2017 pap, IG + CT/NG /TV + refle x HR HPV trich vag by NEW Negati ve negati ve Not Available [facility] ([facility]) [address] [facility], [place], [address], 05/21/2017 07:13:37 05/18/19 18 05/18/2017 urina lysis , dipst ick Leukocytes Negati ve Not Available In-Office Order Internal Use Only DO Not Attach Compendium DO Not Attach Compendium, Do Not Delete/merge, [id number] 05/18/2017 10:48:49 05/18/19 18 05/18/2017 urina lysis , dipst ick Nitrite negati ve Not Available In-Office Order Internal Use Only DO Not Attach Compendium DO Not Attach Compendium, Do Not Delete/merge, 05/18/2017 10:48:49 05/18/19 18 05/18/2017 urina lysis , dipst ick Urobilinogen .2 Not Available In-Of fice Order Internal Use Only DO Not Attach Compendium DO Not Attach Compendium, Do Not Delete/merge, [id number] 05/18/2017 10:48:49 05/18/19 18 05/18/2017 urina lysis , dipst ick Protein Negati ve Not Available In-Office Order Internal Use Only DO Not Attach Compendium DO Not Attach Compendium, Do Not Delete/merge, 05/18/2017 10:48:49 05/18/19 18 05/18/2017 urina lysis , dipst ick pH 5.5 Not Available In-Office Order Internal Use Only DO Not Attach Compendium DO Not Attach Compendium, Do Not Delete/merge, [id number] 05/18/2017 10:48:49 05/18/19 18 05/18/2017 urina lysis , dipst ick Blood Negati ve Not Available In-Office Order Internal Use Only DO Not Attach Compendium DO Not Attach Compendium, Do Not Delete/merge, [id number] 05/18/2017 10:48:49 05/18/19 18 05/18/2017 urina lysis , dipst ick Specific [place] 1.025 Not Available In-Off ice Order Internal Use Only DO Not Attach Compendium DO Not Attach Compendium, Do Not Delete/merge, 05/18/2017 10:48:49 05/18/19 18 05/18/2017 urina lysis , dipst ick Ketone Negati ve Not Available In-Office Order Internal Use Only DO Not Attach Compendium DO Not Attach Compendium, Do Not Delete/merge, 05/18/2017 10:48:49 05/18/19 18 05/18/2017 urina lysis , dipst ick Bilirubin Negati ve Not Available In-Office Order Internal Use Only DO Not Attach Compendium DO Not Attach Compendium, Do Not Delete/merge, 05/18/2017 10:48:49 05/18/19 18 05/18/2017 urina lysis , dipst ick Glucose Negati ve Not Available In-Office Order Internal Use Only DO Not Attach Compendium DO Not Attach Compendium, Do Not Delete/merge, 05/18/2017 10:48:49 05/18/19 18 05/18/2017 urina lysis , dipst ick Appearance Clear Not Available In-Offi ce Order Internal Use Only DO Not Attach Compendium DO Not Attach Compendium, Do Not Delete/merge, 05/18/2017 10:48:49 05/18/19 18 05/18/2017 urina lysis , dipst ick Color Yellow Not Available In-Office Order Internal Use Only DO Not Attach Compendium DO Not Attach Compendium, Do Not Delete/merge, 05/18/2017 10:48:49 07/29/19 19 08/02/2018 bacte rial vagin osis + vagin itis panel , vagin al trich vag by NEW Negati ve negati ve Not Available [facility] ([facility]) [address] [facility], [place], [address], 08/03/2018 07:15:49 07/29/19 19 08/02/2018 bacte rial vagin osis + vagin itis panel , vagin al chlamydia trachomatis, NEW Negati ve negati ve Not Available [facility] ([facility]) [address] [place], [address], 08/03/2018 07:15:49 07/29/19 19 08/02/2018 bacte rial vagin osis + vagin itis panel , vagin al neisseria gonorrhoeae, NEW Negati ve negati ve Not Available [facility] ([facility]) [address] [place], [address], 08/03/2018 07:15:49 07/29/19 19 08/03/2018 bacte rial vagin osis + vagin itis panel , vagin al atopobium vaginae High - 2 score abnormal Not Available [facility] ([facility]) [address] [place], [address], 08/03/2018 07:15:49 07/29/19 19 08/03/2018 bacte rial vagin osis + vagin itis panel , vagin al bvab 2 High - 2 score abnormal Not Available [facility] ([facility]) [address] [place], [address], 08/03/2018 07:15:49 07/29/19 19 08/03/2018 bacte rial vagin osis + vagin itis panel , vagin al megasphaera 1 High - 2 score abnormal Calcu late total score by addin g the 3 indiv idual bacte rial vagin osis (BV) marke r score s toget her. Total score is inter prete d as follo ws: Total score 0-1: Indic ates the absen ce of BV. Total score 2: Indet ermin ate for BV. Addit ional clini antoni data shoul d be evalu ated to estab meliza a diagn osis. Total score 3-6: Indic ates the prese nce of BV. This test was devel oped and its perfo rmanc e loretta cteri stics deter mined by [employer]. It has not been clear ed or appro katty by the Food and Drug Admin istra tion. The FDA has deter mined that such clear ance or appro terry is not neces anne-marie. Not Available [facility] ([facility]) [address] [facility], [place], [address], 08/03/2018 07:15:49 07/29/1908/03/2018 bacte rial vagin osis + vagin itis panel , vagin al neeraj albicans, NEW Negati ve negati ve Not Available [facility] ([facility]) [address] [facility], [place], [address], 08/03/2018 07:15:49 07/29/1908/03/2018 bacte rial vagin osis + vagin itis panel , vagin al neeraj glabrata, NEW Negati ve negati ve This test was devel oped and its perfo rmanc e loretta cteri stics deter mined by [employer]. It has not been clear ed or appro aktty by the Food and Drug Admin istra tion. The FDA has deter mined that such clear ance or appro terry is not neces anne-marie. Not Available [facility] ([facility]) [address] [facility], [place], [address], 08/03/2018 07:15:49 Result Notes None recorded. Problems Name Problem SNOMED Code Status Onset Date Resolution Date Notes Provider Name and Address Organization Details Recorded Time Bacterial vaginosis 298771129 Active Marianela Pedersen MA null, [place] - [facility] 6 08:49:53 Problem Notes None recorded. Procedures Surgical History Date Name Laterality Status Provider Name and Address Organization Details Recorded Time 8 Date of Last Pap Smear completed Dora Patel [place] [facility] 07/28/2018 13:59:04 7 Control Implant Removal completed Sarah Machado JANET-JUAN Attn: Accounting,[address] [place], [address], [place] [facility] 12/29/2016 10:19:54 7 Control Implant Insertion completed Sarah Machado [facility] Attn: Accounting[address] [place], [address], [facility] 06/22/2016 12:32:18 6 Depo Injection completed Abena Maurermons [place] - [facility] 016 09:31:35 6 Depo Injection completed Abena Maurermons [place] - [facility] 016 10:16:44 6 Depo Injection completed Abena Raymond [place] - [facility] 016 10:07:09 6 Depo Injection completed Marianela Houston [place] - [facility] 07/07/19 16 11:09:47 5 Control Implant Removal completed Sarah Machado [facility] Attn: Accounting[address] [place], [address], [facility] - [facility] 04/08/2015 10:16:29 Imaging Results None recorded. Procedure Notes None recorded. Medical Equipment None Reported. Allergies Allergen ID Allergen Name Allergen Category Reaction Reaction Severity Criticality Documentation Date Start Date Code Code System Note Provider Name and Address Organization Details Recorded Time 23052 latex environme nt,medica tion hives Not available Not available 03/30/2016 64747 91 RxNorm Not Available Not Available Not Available Medications Name Sig Start Date Stop Date Status Note LastModified by Organization Details LastModified Time bupropion HCl SR 150 mg tablet,12 hr sustained-r elease 06/22 completed Not Available Not Available Not Available azithromyci n 250 mg tablet active Not Available Not Available Not Available sumatriptan 100 mg tablet Take 1 tablet by oral route. 2019 active Not Available Not Available Not Avai lable hydrocodone 5 mg-acetamin ophen 325 mg tablet active Not Available Not Available No t Available ondansetron HCl 4 mg tablet active Not Available Not Available Not Available metronidazo le 500 mg tablet Take 1 tablet twice a day by oral route for 7 days. 01/10 completed Not Available Not Available Not Available tramadol 50 mg tablet active Not Available Not Available No t Available butalbital- acetaminoph en-caffeine 50 mg-325 mg-40 mg tablet take one by mouth for migraine uncontrol led by sumatript an. Max3 in 24 hours. 2019 active Not Available Not Available Not Avai lable amitriptyli ne 25 mg tablet Take 1 tablet every day by oral route. 2019 active Not Available Not Available Not Avai lable chlordiazep oxide-clidi nium 5 mg-2.5 mg capsule 06/22 completed Not Available Not Available Not Available ondansetron 4 mg disintegrat ing tablet 06/22 completed Not Available Not Available Not Available medroxyprog esterone 150 mg/mL intramuscul ar suspension Inject 1 mL every 3 months by intramusc ular route. 06/22 completed Not Available Not Available Not Available dicyclomine 10 mg capsule 01/10 completed Not Available Not Available Not Available Nexplanon 68 mg subdermal implant Inject by subcutane ous route. 04/08 completed Not Available Not Available Not Available Estarylla 0.25 mg-35 mcg tablet TAKE 1 TABLET BY MOUTH EVERY DAY 2019 active Not Available Not Available Not Avai labbryan Vitals Date Recorded Body height Body mass index (BMI) Body weight Systolic blood pressure Diastolic blood pressure Provider Name and Address Organization Details Last Updated DateTime 05/18/2017 172.72 cm 25.7 kg/m2 37177.11 g 114 mm[Hg] 60 mm[Hg] Deanne Sherman [place] - [facility] 8 10:48:41 Date Recorded Body weight Systolic blood pressure Diastolic blood pressure Provider Name and Address Organization Details Last Updated DateTime 07/28/2018 00809 g 132 mm[Hg] 92 mm[Hg] Kathy Mariscal [place] - [facility] 07/28/2018 14:04:57 Date Recorded Body weight Body height Body mass index (BMI) Oxygen saturation Oxygen saturation in Arterial blood by Pulse oximetry Heart rate Body temperature Systolic blood pressure Diastolic blood pressure Provider Name and Address Organization Details Last Updated DateTime 0 93081.0 3 g 168.91 cm 28.7 kg/m2 99 % 99 % 78 /min 97.5 [degF] 130 mm[Hg] 80 mm[Hg] Elisabet Medellin MA [facility] 0 11:41:44 Date Recorded Body height Provider Name an d Address Organization Details Last Updated DateTime 06/22/2016 172.72 cm Marianela Pedersen MA [facility] 06/22/2016 09:20:50 Date Recorded Body height Provider Name an d Address Organization Details Last Updated DateTime 12/29/2016 172.72 cm Marianela Pedersen MA [facility] 12/29/2016 09:47:17 Date Recorded Body mass index (BMI) Body weight Systolic blood pressure Diastolic blood pressure Provider Name and Address Organization Details Last Updated DateTime 12/29/2016 25.1 kg/m2 44597.74 g 110 mm[Hg] 70 mm[Hg] Abena Mandi [facility] 12/29/2016 09:53:51 Social History Question Answer Notes LastModified by Organizat ion Details LastModified Time Tobacco Smoking Status Former Smoker Abena thomas [facility] 06/02/2016 09:33:35 Do You Have An Advance Directive? No Information not available 01/11/2020 What Is Your Level Of Alcohol Consumption? None Information not available 01/11/2020 What Is Your Level Of Caffeine Consumption? Occasional Information not available 01/11/2020 How Much Tobacco Do You Chew? None Information not available 01/11/2020 Have You Been To An Area Known To Be High Risk For COVID-19? No Information not available 01/11/2020 What Type Of Diet Are You Following? REGULAR Information not available 01/11/2020 Which Illicit Or Recreational Drugs Have You Used? None Information not available 01/11/2020 Do You Or Have You Ever Used E-cigarettes Or Vape? 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 No Information not available 01/11/2020 Legally Blind In One Or Both Eyes? No Information not available 01/11/2020 Marital Status Single Informatio n not available 01/11/2020 What Was The Date Of Your Most Recent Tobacco Screening? 01/11/2020 Information not available 01/11/2020 Performs Monthly Self-breast Exam? No Information not available 01/11/2020 Seat Belts Used Routinely Yes Information not available 01/11/2020 Smoke Alarm In Home Yes Information not available 01/11/2020 At What Age Did You Start Smoking Tobacco? 13 Information not available 01/11/2020 Do You Or Have You Ever Used Smokeless Tobacco? Never Used Smokeless Tobacco Information not available 01/11/2020 How Much Tobacco Do You Smoke? No Information not available 01/11/2020 General Stress Level Medium Information not available 01/11/2020 Do You Use Sunscreen Routinely? Yes Information not available 01/11/2020 On What Date Was Tobacco Cessation Counseling Provided? 01/11/2020 Information not available 01/11/2020 How Many Years Have You Smoked Tobacco? 6 knealma Information not available 06/22/2016 Sex: Unknown Functional Status Question Answer Note LastModified by Organizat ion Details LastModified Time What is your exercise level? Occasional Information not available 01/11/2020 Mental Status None recorded. Family History Nothing Reported Notes:verified by pt. 9-11-2 0 Medical History Condition Response Coronary Artery Disease N Blood Diseases N Kidney Cyst N Hyperthyroidism N Blood disorders N MRSA N Blood Transfusion N Emphysema N Depression N COPD N Blood Clots N Pneumonia N Peripheral Arterial Disease N Premature N Edema N TIA N Headaches/Migraines N Anxiety Disorder N Obesity N Polyps N Infertility N Acid Reflux (GERD) N Hematuria N Stroke N Neck Injury N Polio N Hospital Admission other than N Neurologic Disorder N Other Sleep Disorders N Rheumatoid Arthritis N Fibromyalgia N Abdominal Aortic Aneurysm Repair N Kidney Disease N Heart Conditions N Heart Disease/Heart Problems N Hospitalizations N Brain Tumors N Acne N Skin Problems N Eating Disorder N Meningitis N Constipation N Tuberculosis N Cerebral Palsy N Myocardial Infarction N Asthma N Substance Abuse N Peripheral Vascular Disease N Vertigo N Sleep Disorder N Cirrhosis N Pulmonary Embolism N Chicken Pox N Hematologic Disease N Flomax Use Past or Present N Anxiety/Depression N Thyroid Disease N Colon Cancer N Lung Disease N Glaucoma N Developmental or Behavioral Disorders N Bipolar N Pacemaker N Diverticulitis/Diverticulosis N Orthopedic Problems N Anesthesia Complications N Orthotics N Head Injury/Concussion N Congenital Anomalies N [place] Bite N Chronic Kidney Disease N Endometriosis N Liver Disease N Schizophrenia N Dialysis N Speech Delay N Chronic Obstructive Pulmonary Disease N Parkinson's Disease N Thyroid Problems N GI Problems Y Developmental Delay N Anemia N Multiple Sclerosis N Immune System Disorder N Colon Polyps N Heart Attack (DC) N Diabetes N Cardiomyopathy N Blood Transfusions N Heart Problems/Murmur N Eye Trauma N Congestive Heart Failure (CHF) N Valvular Heart Disease N Hyperlipidemia N Double Vision N Abuse/Domestic Violence N Hepatitis B N Lupus N Epilepsy/Seizures N Reflux/GERD N Aneurysm N Heart Disease N Bronchitis N Pre-Eclampsia N Hypertension N Heart Failure N Other N Gout N High Blood Pressure N Atrial Fibrillation N Kidney Stones N Head Trauma/Injury N Congenital Heart Disease N Spine Problems N Gastrointestinal Disease N Lung Mass N Sinusitis N Obstructive Sleep Apnea N Muscle, Joint, or Bone Problems N Autoimmune disease N Vision or Eye Problems N Arthritis N Blood Clot N Cancer N Seasonal allergies N Leg or Foot Ulcers N Raynaud's Disease N Aortic Aneurysm N Arrhythmia N Headaches N Heart Problems N Ambloypia N Ear or Hearing Problems N Hyperparathyroidism N Migraines N Artificial Joints N Kidney or Bladder Problems N NSAID Use N Encephalitis N PTSD N Ulcers N Prostate Hypertrophy N Bleeding Disorder N AIDS/HIV N Urinary Tract Infection N Back Problems N Allergies N Atrial Flutter N GERD/Reflux N Hepatitis N Autism Spectrum Disorder (ASD) N Breast Cancer N Hernia N Hypothyroidism N Breast Problem N Genitourinary Disease N Deep Vein Thrombosis N Varicose Veins N Cystic Fibrosis N Hearing Loss N Developmental Problems N Carotid Disease N Vitamin D Deficiency N ADHD N Bladder or Kidney Problems N High Cholesterol N Meniers N Valvular Abnormalities N Psychiatric/Mental Health Condition N Organ Transplant N Foot Deformity N Allergies/Hayfever N Dyslipidemia N Hyponatremia N Diabetic Eye Disease N Osteoporosis/Osteopenia N Back Pain N Proteinuria N Mental Illness N Neurological Problems N Ovarian Cancer N Bedwetting N Seizures/Epilepsy N Kidney Failure N Ocular trauma N Diverticulitis N Dementia N Sleep Apnea N Mental Problems N Warfarin Management N Osteoporosis N Gynecological History Statement/Question Response Flow Moderate Date of LMP 12/28/2019 On BCP's at Conception? N STIs/STDs N Duration of Flow (days) 4 Age at Menarche 13 Current Control Method BCPs Age at First Child Frequency of Cycle (Q days) 28 Sexually Active? Y Menses Monthly Y Date of Last Pap Smear 05/18/2017 Sexual Problems? N LMP Approximate Desired Control Method BCPs Obstetrics History GPAL:G 0 P 0 0 0 0 Type Value Multiple Births 0 Full Term 0 Induced 0 Spontaneous 0 Premature 0 Living 0 Ectopics 0 Total 0 Past Encounters Encounter ID Performer Location Encounter Start Date Encounter Closed Date Diagnosis/Indication Diagnosis SNOMED-CT Code Diagnosis ICD10 Code Diagnosis Note [id number] Marianela Houston [facility] ([facility] 122) [address] [place] [address] 04/08/2015 09:34:08 04/08/2015 10:22:33 detection examination 83911299 Z32.00 Uses depot contraception 125320334 Z30.013 [id number] Sarah Machado [facility] ([facility] 122) [address] [place] [address] 07/07/2015 10:59:07 07/07/2015 14:30:31 Uses depot contraception [id number] Z30.42 [id number] [facility] ([facility] 122) [address] [place] [address] 10/06/2015 09:33:20 10/06/2015 14:20:16 Uses depot contraception 177818843 Z30.42 [id number] Abena Simmons [facility] ([facility] 122) [address] [place] [address] 01/06/2016 09:44:40 01/06/2016 10:27:05 Uses depot contraception 558490677 Z30.42 Gynecologi c examination 31226782 Z01.202 [id number] Sarah Machado [facility] ([facility] 122) [address] [place] [address] 03/30/2016 09:11:11 03/30/2016 10:02:32 Uses depot contraception 711700687 Z30.42 [id number] Sarah Machado [facility] ([facility] 122) [address] [place] [address] 06/02/2016 09:18:26 06/02/2016 14:15:43 Contraception education [id number] Z30.09 [id number] Sarah Machado [facility] ([facility] 122) [address] [facility] [place] [address] 06/22/2016 08:58:36 06/23/2016 08:56:17 Insertion of subcutaneous contraceptive 098076210 Z30.9 At increas ed risk of urinary tract infection 375751669 Z91.89 [id number] Sarah Machado [facility] ([facility] 122) [address] [facility] [place] [address] 12/29/2016 09:41:48 12/29/2016 13:21:52 Removal of subcutaneous contraceptive done [id number] 72584 Z98.890 Surveillan ce of oral contraception 292471674 Z30.41 [id number] MD Lance Jackson [facility] ([facility] 122) [address] [facility] [place] [address] 05/18/2017 10:33:15 05/19/2017 11:52:59 At increased risk of urinary tract infection 265320451 Z91.89 Gynecologi c examination 33631185 Z01.419 CBE and pap smear performed Contraception care 34974 5005 Z30.40 [id number] Gallo Mas MD [place] [address] OB [address] [facility] [address] [place] [address] 07/28/2018 13:51:54 07/28/2018 15:45:21 Contraception care 492332834 Z30.40 Bacterial vaginosis 4197 92591 N76.0 Gynecologi c examination 43258469 Z01.419 CBE and pelvic exam performed Venereal d isease screening 279741862 Z11.3 [id number] Frieda Gudino MD [facility] [address] [place] [address] 01/11/2020 11:27:34 01/14/2020 09:27:10 Migraine 14878879 G43.909 Gastritis 7553969 K29.70 history of excessive vomiting in the teen years after ingestion of unknown substance; still has a finicky stomach and tends to get dyspepsia. Has had endoscopie s done. Advised to not lie down for 1-2 hours after eating or drinking; avoid chocolate and peppermint at bedtime, avoid excessivel y spicy or greasy foods. 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 F41.8 amitriptyl ine may be helpful Health Concerns Section Related Observation LastModified by Organization Detai ls LastModified Time None Recorded Concern Status LastModified by Organization Details LastModified Time None Recorded Advance Directives Directive N: Payers Encounter Date Sequence Insurance Name Policy Number Policy Vogel Covered Member ID Vogel Member ID Guarantor Name 06/22/2016 1 [facility] - DOS PRIOR TO 2020 (MEDICAID REPLACEMENT - HMO) Holly Candice [id number] Holly D Candice 05/18/2017 SLIDING FEE SCHEDULE - DISCOUNT Holly D Candice 07/28/2018 2 *SELF PAY* Si erra D Candice 01/11/2020 2 *SELF PAY* Si erra D Candice 01/11/2020 1 [facility] (MEDICAID HMO) Holly D Candice [id number] Holly D Candice Notes Date Note Type Note Provider Name and Address Organization Details Recorded Time 05/18/2017 text/html Annual GYNReport ed bypatient.History:no gynecologic complaints Menstrual cycle:Normal menses Urinary symptoms:No hematuria; No incontinence; Pt complains of weak urine stream, is concerned she may have a UTI. She deneis burning or increased frequency. Vulva:No genital lesion Vagina:Normal vaginal discharge Breast:No breast pain; No breast lump; No nipple discharge Current Contraception:Oral contraceptives Sexual complaints:No sexual complaints; No pain during intercourse; Normal libido Menopausal Symptoms:No menopausal symptoms; Normal vaginal lubrication Psychological symptoms:No depression; No anxiety; No PMDD Gallo Mas MD Attn: [address] [place], [address], [place] [facility] 05/18/2017 11:12:31 07/28/2018 text/html Annual GYNReport ed bypatient.History:no gynecologic complaints Menstrual cycle:Normal menses Urinary symptoms:No hematuria; No incontinence Vulva:No genital lesion Vagina:Normal vaginal discharge Breast:No breast pain; No breast lump; No nipple discharge Current Contraception:Oral contraceptives Sexual complaints:No sexual complaints; No pain during intercourse; Normal libido Menopausal Symptoms:No menopausal symptoms; Normal vaginal lubrication Psychological symptoms:No depression; No anxiety; No PMDD Gallo Mas MD Attn: [address] , [place], [address], [place] [facility] 07/28/2018 15:43:52 01/11/2020 text/html Anxiety/Depressi onRe ported bypatient.Quality:in creased anxiety Severity:denies suicidal ideations; able to maintain relationships;interf erence with household activities;interfere nce with sleep;interference with work Duration:symptoms lasting over 2 weeks Onset/Timing:gradual ; still present Context:major life stressors;family problems;trouble at work Modifying Factors:counselling; medications as directed Associated Symptoms:denies homicidal ideations; no visual/auditory hallucinations;emoti onal lability;anxiety;hyp ersensitivity;restle ssness/agitation;sle ep disturbances;anhedon ia;feeling guilty;inability to make decisions;low self-esteem;pessimis m;social withdrawal;decreased effectiveness/produc tivity;stomach cramps;anxiety with excessive sweating;flushing;he adaches;shortness of breath; nausea, vomits easily.HeadacheRepor kimmy bypatient.Location:u nilateral; including neck Quality:similar to previous headaches;pain;pierc ing/stabbing (lancinating) Severity:moderate Duration:intermitten t Onset/Timing:gradual ; occur several times a month Context:occurs with exertion; occurs in a cyclical pattern; occurs with menstrual cycle; triggered by life events; stress at work; poor sleep Alleviating factors:laying in a dark room; sleep; rest Associated Symptoms:nausea;vomi ting;rhinorrhea;phot ophobia;blind spots;tearing/watery eyes;confusion;slurr ed speech; hyperacusis, neck painReflux/GERDRepor kimmy bypatient.Severity:m ild Duration:present 5 or more years Onset/Timing:occasio nal Context:non-smoker;r elated to caffeine;related to spicy foods;related to stress; history of GI distress after ingestion of street drugs years ago; has tendencies toward nausea and vomiting ever since. Alleviating Factors:sitting up; non-spicy foods; antacids Aggravating Factors:alcohol use;exertion;lying down;worsened by food;caffeine intake Associated Symptoms:nausea;vomi ting;heartburn;decre ased appetite;fatigue Frieda Gudino MD Attn: [address] [place], [address], [facility] 01/13/2020 20:15:19 OBGyn Episode No OBEpisode recorded.
--- OUTSIDE RECORDS SUMMARY | 2024-06-21 23:08 | XMS_ITS | Clinical Summary ---
Author Organization [facility] Address [address] [place] [address] Care Team Providers Care Digital Marketing Project Manager Name Role Phone Unknown, Provider Primary Care Provider Unavaila ble Source Comments [facility],non-owned Affiliates and Associated Physician Practices is amultiple site organization consisting of ambulatory clinics and hospital sitesin [place], [place], [place] and [place]. This disclosure is being madepursuant to the Care Everywhere program and may not contain all information available regarding this patient. Last updated 18.[facility] Allergies Active Allergy Reactions Criticality Noted Date [...] success rate is stated at 60-80%. The [facility] calculator for this patient estimates [...] later in for TOLAC planning purposes at [place]. Estimated Date of Delivery Comme nts Yes 08/06/2024 Based on last me nstrual period of 10/31/2023 Encounters Date Type Department Care Team Description 06/19/2024 11:02 AM HEDDLER - 06/19/2024 11:59 PM HEDDLER Hospital Encounter [facility] [address] [id number] Berta Valadez MD Discharge Disposition: Home or Self Care 06/19/2024 Travel 06/15/2024 Travel 06/14/2024 11:14 AM HEDDLER - 06/14/2024 11:59 PM HEDDLER Hospital Encounter [facility] [address] [place] [address] Greard Bustamante MD Tomlinson, Tracy M, MD Discharge Disposition: Home or Self Care 05/17/2024 10:29 AM HEDDLER - 05/17/2024 11:59 PM HEDDLER Hospital Encounter [facility] [address] [place] [address] Mckay Hodge MD Discharge Disposition: Home or Self Care 04/11/2024 1:04 PM HEDDLER - 04/11/2024 11:59 PM HEDDLER Hospital Encounter [facility] [address] [place] [address] Jaime Durant MD Discharge Disposition: Home or Self Care 04/11/2024 1:00 PM HEDDLER - 04/11/2024 1:03 PM HEDDLER Hospital Encounter [facility] [address] [place] [address] Jaime Durant MD Discharge Disposition: Home or [...] Comments Blood Pressure 117/77 06/19/2024 12:02 PM HEDDLER Pulse 89 06/19/2024 12:02 PM HEDDLER Temperature - - Respiratory Rate 18 04/11/2024 2:13 PM HEDDLER Oxygen Saturation - - Inhaled Oxygen Concentration - - Weight 95.7 kg (211 lb) 04/11/2024 2:13 PM HEDDLER Height 165.1 cm (5' 5 ) 04/11/2024 2:13 PM HEDDLER Body Mass Index 35.11 04/11/2024 2:13 PM HEDDLER Plan of Treatment Upcoming Encounters Date Type Department Care Team (Late st Contact Info) Description 06/26/2024 9:45 AM HEDDLER Hospital Encounter [facility] [address] [place], [place] [id number] Health Maintenance Due Date Last Done Comments HIV SCREENING 2010 HEPATITIS C SCREENING 05/21/2013 DTAP/TDAP/TD VACCINES (1 - Tdap) 2014 HEPATITIS B VACCINE (1 of 3 - 19+ 3-dose series) 2014 COVID-19 VACCINE ( - 2023-2 5 season) 2024 INFLUENZA VACCINE (#1) 2024 OB-ONE HOUR GLUCOSE 04/30/2024 DEPRESSION SCREENING 05/02/2024 OB-TDAP CURRENT 05/07/2024 OB-RHOGAM INJECTION 05/14/2024 OB-GROUP B STREP SCREEN 07/02/2024 PAP SMEAR 04/30/2025 04/30/2022 ZOSTER VACCINE (1 [...] Associated Diagnosis Comments SONOGRAM - COMPLETE Routine 06/14/2024 1 1:28 AM HEDDLER Cardiac arrhythmia during ([facility]) History of HELLP syndrome, currently ([facility]) Other obesity due to excess calories affecting in third trimester ([facility]) Previous delivery affecting ([facility]) Encounter for ultrasound ([facility]) History of pre-eclampsia in prior , currently ([facility]) History of delivery, currently ([facility]) Second ([facility]) History of gestational diabetes in prior , currently ([facility]) 32 weeks gestation of ([facility]) SONOGRAM - COMPLETE Routine 05/17/2024 1 1:04 AM HEDDLER Cardiac arrhythmia during ([facility]) History of HELLP syndrome, currently ([facility]) Other obesity due to excess calories affecting in third trimester ([facility]) Previous delivery affecting ([facility]) History of pre-eclampsia in prior , currently ([facility]) History of gestational diabetes in prior , currently ([facility]) History of delivery, currently ([facility]) 28 weeks gestation of ([facility]) SONOGRAM - COMPLETE Routine 04/11/2024 1 :20 PM HEDDLER Encounter for anatomic survey ([facility]) Palpitations History of pre-eclampsia in prior , currently ([facility]) History of gestational diabetes in prior , currently ([facility]) 23 weeks gestation of ([facility]) History of delivery, currently ([facility]) from Last 3 Months Results * SONOGRAM - COMPLETE (06/14/2024 11:28 AM HEDDLER) Only the most recent of3 resultswithin the time period is included. Linked Results Indication ======== Incomplete cardiac views Class I obesity Labile hypertension - no meds 06/14 LGA fetus Previous History ====== OB History 2. Para 1 [id number] 1. live 2022. Gest. age 36 w + 5 d. Sex of child: male. Details: IOL d/t HELLP, Preeclampsia, GDM-A1, Emergent d/t failure to progress Lab Tests Test Date Result NIPT Low risk, Male Maternal Assessment Physical Exam Height 165 cm, 5 ft 5 in. Weight 103 kg, 228 lb. Initial weight 94 kg, 208 lb. BMI 37.94 kg/m . Initial BMI 34.61 kg/m . Weight gain 9 kg, 20 lb Method ====== Transabdominal ultrasound. View: Sufficient ========= Klein . Number of fetuses: 1 Dating ====== Date Details Gest. age AVI LMP 10/31/2023 32 w + 3 d 08/06/2024 Stated AVI 32 w + 3 d 08/06/2024 U/S 06/14/2024 based upon AC, BPD, Femur, HC 34 w + 3 d 07/23/2024 Assigned dating based on the LMP, selected on 04/11/2024 32 w + 3 d 08/06/2024 General Evaluation Cardiac activity present. FHR 139 bpm. movements: visualized. Presentation: cephalic Placenta: Placental site: posterior, fundal Amniotic fluid: Amount of AF: normal. MVP 5.2 cm. NETTE 10.8 cm. Q1 5.2 cm, Q2 0.0 cm, Q3 1.5 cm, Q4 4.0 cm Biometry BPD 84.5 mm 34w 0d 85% Hadlock HC 316.6 mm 35w 4d 89% Hadlock AC 306.5 mm 34w 4d 95% Hadlock Femur 65.5 mm 33w 5d 74% Hadlock Humerus 62.8 mm 36w 3d >99% Benjy HC / AC 1.03 Weight Calculation: EFW 2,424 g 92% Hadlock EFW (lb,oz) 5 lb 6 oz EFW by Hadlock ([id number]-FL) LGA Growth Overview Exam date GA BPD (mm) HC (mm) AC (mm) FL (mm) HL (mm) EFW (g) 04/11/2024 23w 2d 56.8 48% 216.2 50% 194.5 69% 43.3 68% 41.5 89% 658 78% 05/17/2024 28w 3d 74.9 85% 282.5 89% 267 96% 57.9 85% 52.5 93% 1604 97% 06/14/2024 32w 3d 84.5 85% 316.6 89% 306.5 95% 65.5 74% 62.8 >99% 2424 92% Anatomy The following structures appear normal: Heart / Thorax RVOT view. Abdomen Stomach. Kidneys. Bladder. The following structures were documented previously: Head / Neck Cranium. Lateral ventricles. Choroid plexus. Midline falx. Cavum septi pellucidi. Cerebellum. Cisterna magna. Thalami. Nuchal fold. Face Lips. Profile. Nose. Nasal bone. Orbits. Heart / Thorax 4-chamber view. LVOT view. 3-vessel view. 2-hnbqsl-uuaznfm view. Situs. Aortic arch view. Bicaval view. Ductal arch view. Great vessels. Right lung. Left lung. Diaphragm. Abdomen Cord insertion. Bowel. Genitals. Spine Cervical spine. Thoracic spine. Lumbar spine. Sacral spine. Extremities / Skeleton Arms. Hands. Legs. Feet. sex: male. Impression ========= Single, live, intrauterine at 32w 3d size is LGA Amniotic fluid volume: normal, normal No major malformations were seen within the limits of ultrasound Comment ======== Pt reports elevated/labile BP at home, visits to hospital last 2 weeks. PIH Workup negative 06/01/24 . ~ no s/sx of PIH reported today. Active baby today with reassuring growth, BPP Follow-up ======== Follow up ultrasound in 1 week for weekly biophysical profile (+ NST if gabriel ) is recommended ~~See us early in week, coordinate with weekly OBG visit w/ BPP/NST later in week BP measure each visit Growth in 4 w Coding ====== Procedures 07636: [place] [address]: Biophysical Profile W/O NST S[employer] PACS Anatomical Region Laterality Modality Other 06/14/2024 11:2 8 AM HEDDLER Laura Betts FLUME MAKER-SENIOR LINUX ENGINEER MFM ORDERABLES from Last 3 Months Care Teams Digital Marketing Project Manager Relationship Specialty Start Date End Date Unknown, Provider PCP - General 04/11/24
--- OUTSIDE RECORDS SUMMARY | 2024-06-21 23:08 | XMS_ITS | Patient Health Summary ---
Author Organization [facility] Address [address] [place] [address] Care Team Providers Care Bus Analyst Name Role Phone Unknown, Provider Primary Care Provider Unavaila ble Note from [facility],non-owned Affiliates and Associated Physician Practices is amultiple site organization consisting of ambulatory clinics and hospital sitesin [place], [place], [place] and [place]. This disclosure is being madepursuant to the Care Everywhere program and may not contain all information available regarding this patient. Last updated 18.[facility] Allergies * Latex(Rash) -Medium Criticality Medications * [...] Comments Blood Pressure 117/77 06/19/2024 12:02 PM HOT MILL ROLLER Pulse 89 06/19/2024 12:02 PM H[facility] M[facility] ROLLER Temperature - - Respiratory Rate 18 04/11/2024 2:13 PM H[facility] M[facility] ROLLER Oxygen Saturation - - Inhaled Oxygen Concentration - - Weight 95.7 kg (211 lb) 04/11/2024 2:13 PM HOT MILL ROLLER Height 165.1 cm (5' 5 ) 04/11/2024 2:13 PM HOT MILL ROLLER Body Mass Index 35.11 04/11/2024 2:13 PM H[facility] M[facility] ROLLER Procedures * SONOGRAM - COMPLETE(Performed 06/14/2024) Performed for Cardiac arrhythmia during ([facility]), History of HELLP syndrome, currently ([facility]), Other obesity due to excess calories affecting in third trimester ([facility]), Previous delivery affecting ([facility]), Encounter for ultrasound ([facility]), History of pre- eclampsia in prior , currently ([facility]), History of delivery, currently ([facility]), Second ([facility]), History of gestational diabetes in prior , currently ([facility]), 32 weeks gestation of ([facility]) * SONOGRAM - COMPLETE(Performed 05/17/2024) Performed for Cardiac arrhythmia during ([facility]), History of HELLP syndrome, currently ([facility]), Other obesity due to excess calories affecting in third trimester ([facility]), Previous delivery affecting ([facility]), History of pre-eclampsia in prior , currentl y ([facility]), History of gestational diabetes in prior , currently ([facility]), History of delivery, currently ([facility]), 28 weeks gestation of ([facility]) * SONOGRAM - COMPLETE(Performed 04/11/2024) Performed for Encounter for anatomic survey ([facility]), Palpitations, History of pre-eclampsia in prior , currently ([facility]), History of gestational diabetes in prior , currently ([facility]), 23 weeks gestation of ([facility]), History of delivery, currently ([facility]) Results * SONOGRAM - COMPLETE (06/14/2024 11:28 AM HOT MILL ROLLER) Only the most recent of3 resultswithin the time period is included. Linked Results Indication ======== Incomplete cardiac views Class I obesity Labile hypertension - no meds 06/14 LGA fetus Previous History ====== OB History 2. Para 1 [id number] 1. live 2022. Gest. age 36 w [...] Method ====== Transabdominal ultrasound. View: Sufficient ========= Ferrer . Number of fetuses: 1 [...] 5 lb 6 oz EFW by Hadlock ([id number]) LGA Growth Overview Exam date GA BPD [...] Thorax 4-chamber view. LVOT view. 3-vessel view. 3-aasrcm-iduwwco view. Situs. Aortic arch view. Bicaval view. [...] Growth in 4 w Coding ====== Procedures 04199: [place] [address]: Biophysical Profile W/O NST [email or web address] PACS Anatomical Region Laterality Modality Other 06/14/2024 11:2 8 AM H[facility]ER Laura Betts MEDICAL OFFICE RECEPTIONIST ASSISTANT-DEICER TESTER MFM ORDERABLES Care Teams Bus Analyst Relationship Specialty Start Date End Date Unknown, Provider PCP - General 04/11/24
--- OUTSIDE RECORDS SUMMARY | 2024-06-21 23:08 | XMS_ITS | Referral Summary ---
Author Organization [facility] Address [address] [place] [address] Care Team Providers Care Lead Quality Technician Name Role Phone Unknown, Provider Primary Care Provider Unavaila ble Source Comments [facility],non-owned Affiliates and Associated Physician Practices is [facility] consisting of ambulatory clinics and hospital sitesin [place], [place], [place] and [place]. This disclosure is being madepursuant to the Care Everywhere program and may not contain all information available regarding this patient. Last updated 18.[facility] Encounters Date Type Department Care Team Description 06/19/2024 Travel 06/19/2024 11:02 AM DESK ASSISTANT - 06/19/2024 11:59 PM DESK ASSISTANT Hospital Encounter [facility] Count includes the [facility] [place] [id number] Berta Valadez MD Discharge Disposition: Home or Self Care 06/15/2024 Travel 06/14/2024 11:14 AM DESK ASSISTANT - 06/14/2024 11:59 PM DESK ASSISTANT Hospital Encounter [facility] [address] [place] [address] Gerard Bustamante MD Tomlinson, Tracy M, MD Discharge Disposition: Home or Self Care 05/17/2024 10:29 AM DESK ASSISTANT - 05/17/2024 11:59 PM DESK ASSISTANT Hospital Encounter [facility] [address] [place] [address] Mckay Hodge MD Discharge Disposition: Home or Self Care 04/11/2024 1:04 PM DESK ASSISTANT - 04/11/2024 11:59 PM DESK ASSISTANT Hospital Encounter [facility] [address] [place] [address] Jaime Durant MD Discharge Disposition: Home or Self Care 04/11/2024 1:00 PM DESK ASSISTANT - 04/11/2024 1:03 PM DESK ASSISTANT Hospital Encounter [facility] [address] [place] [address] Jaime Durant MD Discharge Disposition: Home or [...] success rate is stated at 60-80%. The [facility] Network calculator for this patient [...] later in for TOLAC planning purposes at [place]. Estimated Date of Delivery Comme nts Yes [...] Comments Blood Pressure 117/77 06/19/2024 12:02 PM DESK ASSISTANT Pulse 89 06/19/2024 12:02 PM DESK ASSISTANT Temperature - - Respiratory Rate 18 04/11/2024 2:13 PM DESK ASSISTANT Oxygen Saturation - - Inhaled Oxygen Concentration - - Weight 95.7 kg (211 lb) 04/11/2024 2:13 PM DESK ASSISTANT Height 165.1 cm (5' 5 ) 04/11/2024 2:13 PM DESK ASSISTANT Body Mass Index 35.11 04/11/2024 2:13 PM DESK ASSISTANT Plan of Treatment Upcoming Encounters Date Type Department Care Team (Late st Contact Info) Description 06/26/2024 9:45 AM DESK ASSISTANT Hospital Encounter [facility] [address] [place], [place] [id number] Procedures Procedure Name Priority Date/Time Associated Diagnosis Comments SONOGRAM - COMPLETE Routine 06/14/2024 1 1:28 AM DESK ASSISTANT Cardiac arrhythmia during ([facility]) History of HELLP syndrome, currently ([facility]) Other obesity due to excess calories affecting in third trimester ([facility]) Previous delivery affecting ([facility]) Encounter for ultrasound ([facility]) History of pre-eclampsia in prior , currently ([facility]) History of delivery, currently ([facility]) Second ([facility]) History of gestational diabetes in prior , currently ([facility]) 32 weeks gestation of ([facility]) SONOGRAM - COMPLETE Routine 05/17/2024 1 1:04 AM DESK ASSISTANT Cardiac arrhythmia during ([facility]) History of HELLP syndrome, currently ([facility]) Other obesity due to excess calories affecting in third trimester ([facility]) Previous delivery affecting ([facility]) History of pre-eclampsia in prior , currently ([facility]) History of gestational diabetes in prior , currently ([facility]) History of delivery, currently ([facility]) 28 weeks gestation of ([facility]) SONOGRAM - COMPLETE Routine 04/11/2024 1 :20 PM DESK ASSISTANT Encounter for anatomic survey ([facility]) Palpitations History of pre-eclampsia in prior , currently ([facility]) History of gestational diabetes in prior , currently ([facility]) 23 weeks gestation of ([facility]) History of delivery, currently ([facility]) from Last 3 Months Results * SONOGRAM - COMPLETE (06/14/2024 11:28 AM DESK ASSISTANT) Only the most recent of3 resultswithin the time period is included. Linked Results Indication ======== Incomplete cardiac views Class I obesity Labile hypertension - no meds 06/14 LGA fetus Previous History ====== OB History 2. Para 1 [id number] 1. live 2022. Gest. age 36 w [...] 5 lb 6 oz EFW by Hadlock ([id number]) LGA Growth Overview Exam date GA BPD [...] Thorax 4-chamber view. LVOT view. 3-vessel view. 3-mlnfgn-wskvhnu view. Situs. Aortic arch view. Bicaval view. [...] Growth in 4 w Coding ====== Procedures 98488: [place] [address]: Biophysical Profile W/O NST NumberPicture PACS Anatomical Region Laterality Modality Other 06/14/2024 11:2 8 AM DESK ASSISTANT Laura Betts [employer] M ORDERABLES from Last 3 Months Care Teams Lead Quality Technician Relationship Specialty Start Date End Date Unknown, Provider PCP - General 04/11/24
--- OUTSIDE RECORDS SUMMARY | 2024-06-21 23:08 | XMS_ITS | Clinical Summary ---
Author Organization [facility] Address [address] [place] [id number] Care Team Providers Care Lodging House Keeper Name Role Phone None, Provider MD Primary [...] Active Problems Problem Noted Date Diagnosed Date ([facility]) 05/01/2022 Comments Yes Social History Tobacco [...] declined 05/01/2022 How often do you attend orthodox or anglican serv ices? Patient declined 05/01/2022 Do you belong to any clubs o r organizations such as orthodox groups, unions, fraBloomThat or athletic groups, or school groups? Patient [...] Recorded Patient Health Questionnaire-2 Score 0 12/28/2023 [facility] - Occupational [...] place to sleep or slept in a group home (including now)? No 05/01/2022 Comments Yes Sex [...] 2024 Influenza Adult (#1) 2024 PHQ-2 (Physician [place]) 05/02/2024 12/28/2023 RSV Immunization or 60+ Years [...] 4:58 PM 04/15/2022 7:42 PM Care Teams Lodging House Keeper Relationship Specialty Start Date End Date None, Provider, PCP - General 01/14/22
--- OUTSIDE RECORDS SUMMARY | 2024-06-21 23:09 | XMS_ITS | Data Portability ---
Author Organization [facility] [place] Address [address] [place] [address] Assessment Encounter Date Assessment Date Assessment LastModified by Organization Details LastModified Time 06/15/2024 06/15/2024 Patient is __32_weeks . Discussed plan. Not available 06/15/2024 13:26:15 Plan of Treatment Reminders Order Date Submit Date Provider Last Modified By Organization Details Last Modified Time Details Appointments NST 2024 03:00P M NST SCHEDULE Not available Not available Not available U/S OB BPP 2024 03:30P M ULTRASOUND Not available Not available Not available OB ROUTINE 2024 03:45P M Laura Betts CNM Not available Not available Not available U/S OB BPP 2024 09:30A M ULTRASOUND Not available Not available Not available NST 2024 10:00A M NST SCHEDULE Not available Not available Not available OB ROUTINE 2024 10:45A M Laura Betts CNM Not available Not available Not available NST 2024 10:30A M NST SCHEDULE Not available Not available Not available U/S OB BPP 2024 11:00A M ULTRASOUND Not available Not available Not available OB ROUTINE 2024 11:30A M Laura Betts CNM Not available Not available Not available U/S OB BPP 2024 10:00A M ULTRASOUND Not available Not available Not available NST 2024 10:30A M NST SCHEDULE Not available Not available Not available OB ROUTINE 2024 11:00A M Laura Betts, CNM Not available Not available Not available NST 2024 09:00A M NST SCHEDULE Not available Not available Not available U/S OB BPP 2024 09:30A M ULTRASOUND Not available Not available Not available OB ROUTINE 2024 10:15A M Laura Betts, CNM Not available Not available Not available U/S OB BPP 2024 08:30A M ULTRASOUND Not available Not available Not available NST 2024 09:00A M NST SCHEDULE Not available Not available Not available OB ROUTINE 2024 09:30A M Laura Betts, CNM Not available Not available Not available U/S OB P 2024 08:30A M ULTRASOUND Not available Not available Not available NST 2024 09:00A M NST SCHEDULE Not available Not available Not available OB ROUTINE 2024 09:30A M Laura Betts, CNM Not available Not available Not available Lab None recorde d. Referral None recorde d. Procedures None recorde d. Surgeries None recorde d. Imaging US, obstetr ic, biophys ical profile + non-str ess test 2024 [address], [address], [place], [address], 06/16/2024 22:46:33 non-str ess test [address] [facility] [place] [address], [place], [address], 06/18/2024 23:05:02 non-str ess test 2024 025 leila [address], [address], [place], [address], 06/07/2024 08:28:52 US, obstetr ic, biophys ical profile + non-str ess test 2024 [address], [address], [place], [address], 06/06/2024 20:09:28 Medication Orders None recorde d. Patient TargetsNo targets recorded. Patient InstructionsNo instructions recorded. Reason for Referral None Reported. Results Created Date Observation Date Name Description Value Unit Range Abnormal Flag Note LastModifiedBy Organization Detail LastModifiedTime 05/14/1905/14/2024 HEMAT OCRIT (HCT) HCT 34.6 % (based on docume nted legal sex) 34.0-4 5.0 Not Available [facility] (Lab) [address], [place], [address], 05/15/2024 22:18:14 05/14/19 25 05/14/2024 HEMOG LOBIN A1C hemoglobin A1C 5.3 % 4.0-5. 6 The Ameri can [employer] clarissa [employer] iatio n recom mends that a prima ry goal of thera py shoul d be a HBA1C of < 7% and that physi cians shoul d reeva luate the treat ment regim en in patie nts with HBA1C value s consi stent ly > 8%. <5.7% Enid l 5.7 - 6.4% Incre ased risk for diabe clarissa >=6.5 % Diagn ostic of diabe clarissa <7.0% Goal of thera py >8.0% Actio n sugge sted Not Available [facility] (Lab) [address], [place], [address], 05/15/2024 22:18:14 05/14/19 25 05/14/2024 GTT - GESTA WAYEN L SCREE N, ACOG OB glucose, 1 hour screen 104 mg/dL 70-135 Not Available [facility] (Lab) [address], [place], [address], 05/15/2024 22:18:15 05/14/19 25 05/14/2024 HIV 1/2 ANTIG EN/AN TIBOD Y, REFLE X CONFI RMATI ON HIV antigen/anti body Nonrea ctive nonrea ctive HIV-1 antig en and HIV-1 /HIV- 2 antib odies were not detec kimmy. No labor atory evide nce of HIV infec tion. Not Available [facility] (Lab) [address], [place], [address], 05/15/2024 22:18:15 05/14/19 25 05/14/2024 RPR SCREE N, REFLE X TITER /CONF IRMAT ION RPR screen Nonrea ctive nonrea ctive Not Available [facility] (Lab) [address], [place], [address], 05/15/2024 22:18:15 06/01/19 25 06/01/2024 CBC W/DIF F WBC 10.9 10'3/ uL 3.5-10 .5 high Not Available [facility] (Lab) [address], [place], [address], 06/02/2024 04:59:40 06/01/19 25 06/01/2024 CBC W/DIF F RBC 3.73 10'6/ uL (based on docume nted legal sex) 3.80-5 .20 low Not Available [facility] (Lab) [address], [place], [address], 06/02/2024 04:59:40 06/01/19 25 06/01/2024 CBC W/DIF F HGB 11.3 g/dL (based on docume nted legal sex) 11.6-1 5.4 low Not Available [facility] (Lab) [address], [place], [address], 06/02/2024 04:59:40 06/01/19 25 06/01/2024 CBC W/DIF F HCT 34.1 % (based on docume nted legal sex) 34.0-4 5.0 Not Available [facility] (Lab) [address], [place], [address], 06/02/2024 04:59:40 06/01/19 25 06/01/2024 CBC W/DIF F MCV 91.4 fL 80.0-9 9.0 Not Available [facility] (Lab) [address], [place], [address], 06/02/2024 04:59:40 06/01/19 25 06/01/2024 CBC W/DIF F MCH 30.3 pg 27.0-3 4.0 Not Available [facility] (Lab) [address], [place], [address], 06/02/2024 04:59:40 06/01/19 25 06/01/2024 CBC W/DIF F MCHC 33.1 g/dL 32.0-3 5.5 Not Available [facility] (Lab) [address], [place], [address], 06/02/2024 04:59:40 06/01/19 25 06/01/2024 CBC W/DIF F RDW 12.9 % 11.0-1 5.0 Not Available [facility] (Lab) [address], [place], [address], 06/02/2024 04:59:40 06/01/19 25 06/01/2024 CBC W/DIF F plt 301 10'3/ uL 150-40 0 Not Available [facility] (Lab) [address], [place], [address], 06/02/2024 04:59:40 06/01/19 25 06/01/2024 CBC W/DIF F MPV 9.4 fL 8.8-12 .1 Not Available [facility] (Lab) [address], [place], [address], 06/02/2024 04:59:40 06/01/19 25 06/01/2024 CBC W/DIF F neutrophils 73.5 % 34.0-7 3.0 high Not Available [facility] (Lab) [address] [place], [address], 06/02/2024 04:59:40 06/01/19 25 06/01/2024 CBC W/DIF F lymphocytes 18.9 % 15.0-5 0.0 Not Available [facility] (Lab) [address] [facility], [place], [address], 06/02/2024 04:59:40 06/01/19 25 06/01/2024 CBC W/DIF F monocytes 6.3 % 1.0-15 .0 Not Available [facility] (Lab) [address] [facility], [place], [address], 06/02/2024 04:59:40 06/01/19 25 06/01/2024 CBC W/DIF F eosinophils 0.7 % 0.0-8. 0 Not Available [facility] (Lab) [address] [facility], [place], [address], 06/02/2024 04:59:40 06/01/19 25 06/01/2024 CBC W/DIF F basophils 0.3 % 0.0-2. 0 Not Available [facility] (Lab) [address] [facility], [place], [address], 06/02/2024 04:59:40 06/01/19 25 06/01/2024 CBC W/DIF F immature granulocytes 0.3 % no define d refere nce range Immat ure Granu locyt es (IG) repre sents autom ated enume ratio n of Metam yeloc ytes, Myelo cytes and Promy elocy clarissa when IG is < 5%. Blast s are not inclu ded in IG and repor kimmy separ ately if prese nt. Not Available [facility] (Lab) [address] [place], [address], 06/02/2024 04:59:40 06/01/19 25 06/01/2024 CBC W/DIF F absolute neutrophils 8.0 10'3/ uL 1.5-8. 0 Not Available [facility] (Lab) [address] [facility], [place], [address], 06/02/2024 04:59:40 06/01/19 25 06/01/2024 CBC W/DIF F absolute lymphocytes 2.1 10'3/ uL 1.0-4. 0 Not Available [facility] (Lab) [address] [facility], [place], [address], 06/02/2024 04:59:40 06/01/19 25 06/01/2024 CBC W/DIF F absolute monocytes 0.7 10'3/ uL 0.2-1. 0 Not Available [facility] (Lab) [address] [facility], [place], [address], 06/02/2024 04:59:40 06/01/19 25 06/01/2024 CBC W/DIF F absolute eosinophils 0.1 10'3/ uL 0.0-0. 6 Not Available [facility] (Lab) [address] [facility], [place], [address], 06/02/2024 04:59:40 06/01/19 25 06/01/2024 CBC W/DIF F absolute basophils 0.0 10'3/ uL 0.0-0. 3 Not Available [facility] (Lab) [address] [facility], [place], [address], 06/02/2024 04:59:40 06/01/19 25 06/01/2024 CBC W/DIF F absolute immature granulocytes 0.0 10'3/ uL 0.00-0 .10 Refer ence range s for nonbi nary/ inter sex or unspe cifie d gende r patie nts have not been estab lishe d. Pleas e refer to the myao wing table for range s estab lishe d for cisge nder patie nts and evalu ate in the clini antoni miri xt of the indiv idual patie nt: https ://jason fountain book. nm.or g/Gen derX Not Available [facility] (Lab) [address], [place], [address], 06/02/2024 04:59:40 06/01/19 25 06/01/2024 URIC ACID uric acid 4.3 mg/dL 2.3-6. 6 Not Available [facility] (Lab) [address] [facility], [place], [address], 06/02/2024 04:59:40 06/01/19 25 06/01/2024 CMP(C OMPRE HENSI VE METAB OLIC PANEL ) sodium 140 mmol/ L 133-14 6 Not Available [facility] (Lab) [address] [facility], [place], [address], 06/02/2024 04:59:41 06/01/19 25 06/01/2024 CMP(C OMPRE HENSI VE METAB OLIC PANEL ) potassium 4.0 mmol/ L 3.5-5. 1 Not Available [facility] (Lab) [address] [facility], [place], [address], 06/02/2024 04:59:41 06/01/19 25 06/01/2024 CMP(C OMPRE HENSI VE METAB OLIC PANEL ) chloride 103 mmol/ L 98-107 Not Available [facility] (Lab) [address] [facility], [place], [address], 06/02/2024 04:59:41 06/01/19 25 06/01/2024 CMP(C OMPRE HENSI VE METAB OLIC PANEL ) carbon dioxide 27 mmol/ L 21-31 Not Available [facility] (Lab) [address] [facility], [place], [address], 06/02/2024 04:59:41 06/01/19 25 06/01/2024 CMP(C OMPRE HENSI VE METAB OLIC PANEL ) anion gap 10 mmol/ L 4-13 Not Available [facility] (Lab) [address] [place], [address], 06/02/2024 04:59:41 06/01/19 25 06/01/2024 CMP(C OMPRE HENSI VE METAB OLIC PANEL ) blood urea nitrogen 8 mg/dL 7-25 Not Available [facility] (Lab) [address] [facility], [place], [address], 06/02/2024 04:59:41 06/01/19 25 06/01/2024 CMP(C OMPRE HENSI VE METAB OLIC PANEL ) creatinine 0.55 mg/dL 0.60-1 .30 low Not Available [facility] (Lab) [address] [facility], [place], [address], 06/02/2024 04:59:41 06/01/19 25 06/01/2024 CMP(C OMPRE HENSI VE METAB OLIC PANEL ) egfrcr (CKD-epi 2020) >90 mL/mi n/1.7 3_m2 >=60 Not Available [facility] (Lab) [address] [facility], [place], [address], 06/02/2024 04:59:41 06/01/19 25 06/01/2024 CMP(C OMPRE HENSI VE METAB OLIC PANEL ) calcium 9.2 mg/dL 8.3-10 .5 Not Available [facility] (Lab) [address] [facility], [place], [address], 06/02/2024 04:59:41 06/01/19 25 06/01/2024 CMP(C OMPRE HENSI VE METAB OLIC PANEL ) glucose 73 mg/dL 70-100 Not Available [facility] (Lab) [address] [facility], [place], [address], 06/02/2024 04:59:41 06/01/19 25 06/01/2024 CMP(C OMPRE HENSI VE METAB OLIC PANEL ) protein, total 6.1 g/dL 6.4-8. 3 low Not Available [facility] (Lab) [address] [facility], [place], [address], 06/02/2024 04:59:41 06/01/19 25 06/01/2024 CMP(C OMPRE HENSI VE METAB OLIC PANEL ) albumin 3.6 g/dL 3.5-5. 0 Not Available [facility] (Lab) [address] [facility], [place], [address], 06/02/2024 04:59:41 06/01/19 25 06/01/2024 CMP(C OMPRE HENSI VE METAB OLIC PANEL ) ALT 8 units /L 9-43 low Not Available [facility] (Lab) [address] [facility], [place], [address], 06/02/2024 04:59:41 06/01/19 25 06/01/2024 CMP(C OMPRE HENSI VE METAB OLIC PANEL ) alkaline phosphatase 119 units /L 34-104 high Not Available [facility] (Lab) [address] [facility], [place], [address], 06/02/2024 04:59:41 06/01/19 25 06/01/2024 CMP(C OMPRE HENSI VE METAB OLIC PANEL ) AST 10 units /L 13-39 low Not Available [facility] (Lab) [address] [facility], [place], [address], 06/02/2024 04:59:41 06/01/19 25 06/01/2024 CMP(C OMPRE HENSI VE METAB OLIC PANEL ) bilirubin, total 0.4 mg/dL 0.2-1. 2 Not Available [facility] (Lab) [address] [place], [address], 06/02/2024 04:59:41 06/01/19 25 06/01/2024 PROTE IN/CR EATIN INE RATIO , URINE creatinine, urine 91.2 mg/dL R-No refer ence range estab lishe d for this assay Not Available [facility] (Lab) [address] [facility], [place], [address], 06/02/2024 04:59:41 06/01/19 25 06/01/2024 PROTE IN/CR EATIN INE RATIO , URINE protein, urine 8 mg/dL R-No refer ence range estab lishe d for this assay Not Available [facility] (Lab) [address] [facility], [place], [address], 06/02/2024 04:59:41 06/01/19 25 06/01/2024 PROTE IN/CR EATIN INE RATIO , URINE protein/crea tinine ratio, urine 0.09 . No Refer ence Range avail able for Rando m Urine s. A prote in to creat inine ratio of >=0.1 9 is a good predi ctor of signi fican t prote inuri a. A level of <0.14 can rule out signi fican t prote inuri a. Not Available [facility] (Lab) [address] [facility], [place], [address], 06/02/2024 04:59:41 05/18/19 25 05/17/2024 US, obste tric, follo w-up No observ ation record ed. [email or web address] [facility] [address] [place] [address], [address], 06/06/2024 09:26:32 06/06/19 25 06/06/2024 US, obste tric, bioph ysica l profi le No observ ation record ed. [address], [place], [address], 06/07/2024 12:45:19 06/06/19 25 06/06/2024 non-s tress test No observ ation record ed. [email or web address] [place] [address], [place], [address], 06/06/2024 11:04:03 06/06/19 25 06/06/2024 US, obste tric, bioph ysica l profi le + non-s tress test No observ ation record ed. [email or web address] [place] [address], [place], [address], 06/06/2024 13:26:08 06/11/19 25 06/11/2024 non-s tress test No observ ation record ed. [address] [facility] [address] [facility] [address], [place], [address], 06/13/2024 11:20:56 06/11/19 25 06/11/2024 US, obste tric, follo w-up No observ ation record ed. [place] [id number], [place], [address], 06/13/2024 12:26:00 06/13/19 25 06/13/2024 non-s tress test No observ ation record ed. [facility] [address] [facility] [address], [place], [address], 06/13/2024 15:52:52 06/15/19 25 06/14/2024 imagi ng/di agnos tic resul t No observ ation record ed. [address] [facility] [address] [place] [address], [address], 06/15/2024 15:17:50 06/15/19 25 06/15/2024 non-s tress test No observ ation record ed. [place] [address], [place], [address], 06/15/2024 12:51:05 06/15/19 25 06/15/2024 US, obste tric, bioph ysica l profi le + non-s tress test No observ ation record ed. [email or web address] [place] [address], [place], [address], 06/15/2024 17:10:29 06/15/19 25 06/15/2024 US, obste tric, follo w-up No observ ation record ed. [address], [place], [address], 06/18/2024 09:43:47 Result Notes None recorded. Problems Name Problem SNOMED Code Status Onset Date Resolution Date Notes Provider Name and Address Organization Details Recorded Time Past pregnanc y history of pre-ecla mpsia 37554565149 9100 Active [facility] MFM rec weekly testing at 32wks elevated BP at home 2 143/75, 146/87, 137/92 Kellie Reji thomas, [facility] 5 17:57:42 Migraine 93360621 Active exedrin tension/f ioricet do not work-imit juve to pharmacy Laura Betts CNM [address], [place], [address], [facility] 4 12:38:19 Past pregnanc y history of gestatio nal diabetes mellitus 891688904 Active Alison thomas, [facility] 4 10:06:47 History of alcohol abuse 427553421 Active 2023 clean since 2015 Alison thomas, [facility] 4 10:58:08 Pregnanc y 58326200 Active 2023 Alison thomas, [facility] 4 10:06:14 Past pregnanc y history of pre-ecla mpsia 94506206089 9100 Active b[facility] MFM rec weekly testing at 32wks elevated BP at home 06/12 143/75, 146/87, 137/92 Kellie thomas, [facility] 5 17:57:42 Past pregnanc y history of gestatio nal diabetes mellitus 182521227 Active Alison thomas [facility] 4 10:06:47 Migraine 57366788 Active exedrin tension/f ioricet do not work-imit juve to pharmacy Laura Betts CNM [address], [place], [address], [facility] 4 12:38:19 Obesity 266364198 Active bmi 32 Laura Betts CNM [address], [place], [address], [facility] 4 12:36:35 Alcoholi 6792478 Active history of abuse, sober since 2015 Laura Betts CNM [address], [place], [address], [facility] 4 14:17:06 Past pregnanc y history of section 937438843 Active 2022 due to preeclamp nisha, elevating liver enzymes Laura Betts CNM [address], [place], [address], [facility] 4 14:19:28 Palpitat ions 95983139 Active 72 hour holter monitor order faxed 03/02 [facility]- Referral faxed Cardiolog y consult Dr Fabian Liang 04/03/24 Make sure records faxed to [facility] Kellie thomas, [facility] 5 22:25:41 Palpitat ions 46621491 Active 72 hour holter monitor order faxed 03/02 [facility]- Referral faxed Cardiolog y consult Dr Fabian Liang 04/03/24 Make sure records faxed to [facility] Kellie Reji thomas, [facility] 5 22:25:41 anatomy study Active incomplet e cardiac views x [address] [facility] 04/03 to complete anatomy Scheduled [facility] 04/11 1:00PM Level II US and consult 05/17 10:30AM US only Kellie Mendoza martha, [facility] 5 12:38:29 anatomy study Active incomplet e cardiac views x [address] [facility] 04/03 to complete anatomy Scheduled [facility] 04/11 1:00PM Level II US and consult 05/17 10:30AM US only Kellei Reji thomas [facility] 5 12:38:29 Problem Notes None recorded. Procedures Surgical History Date Name Laterality Status Provider Name and Address Organization Details Recorded Time 4 Date of Last Pap Smear completed Alison Sosa [facility] 01/06/2024 10:44:49 3 Caesarean Section completed Alison Sosa [facility] 01/06/2024 10:44:50 Imaging Results Imaging Date Name Status LastModified by Organiz ation Details LastModified Time 05/17/2024 US, obstetric, follow-up completed [email or web address] [facility] [address] [place] [address], [address], 06/06/2024 09:26:32 06/06/2024 US, obstetric, biophysical profile completed [address], [place], [address], 06/07/2024 12:45:19 06/06/2024 non-stress test completed [email or web address] [place] [address], [place], [address], 06/06/2024 11:04:03 06/06/2024 US, obstetric, biophysical profile + non-stress test completed [email or web address] [place] [address], [place], [address], 06/06/2024 13:26:08 06/11/2024 non-stress test completed [address] [place] [address], [address], 06/13/2024 11:20:56 06/11/2024 US, obstetric, follow-up completed [place] [id number], [address], 06/13/2024 12:26:00 06/13/2024 non-stress test completed [facility] [address], [place], [address], 06/13/2024 15:52:52 06/14/2024 imaging/diagnos tic result active [facility] [address] [place], [address], 06/15/2024 15:17:50 06/15/2024 non-stress test completed [address], [place], [address], 06/15/2024 12:51:05 06/15/2024 US, obstetric, biophysical profile + non-stress test completed [facility] [address], [place], [address], 06/15/2024 17:10:29 06/15/2024 US, obstetric, follow-up completed [email or web address], [place], [address], 06/18/2024 09:43:47 Procedure Notes None recorded. Medical Equipment None Reported. Allergies Allergen ID Allergen Name Allergen Category Reaction Reaction Severity Criticality Documentation Date Start Date Code Code System Note Provider Name and Address Organization Details Recorded Time 66605 latex environme nt,medica tion itching mild Not available 01/06/2024 44879 91 RxNorm Alison Sosa [facility] [place] - [facility] 10:44:49 Medications Name Sig Start Date Stop Date Status Note LastModified by Organization Details LastModified Time amoxicillin 875 mg tablet TAKE 1 TABLET BY MOUTH EVERY 12 HOURS 01/05 completed Not Available Not Available Not Available ondansetron 4 mg disintegrat ing tablet DISSOLVE 1 TABLET IN MOUTH EVERY 8 HOURS active Not Available Not Available No t Available Imitrex 25 mg tablet Take 1 tablet every 8 hours as needed for migraines . Not to exceed 3 tablets per day. 2024 active Not Available Not Available Not Avai lable Fioricet 02/02 completed Not Available Not Available Not Available Vitals Date Recorded Body height Body mass index (BMI) Body weight Systolic blood pressure Diastolic blood pressure Provider Name and Address Organization Details Last Updated DateTime 06/06/2024 166.37 cm 38.3 kg/m2 127950.6 1 g 128 mm[Hg] 79 mm[Hg] Catalina Castaneda [facility] 10:48:21 Date Recorded Body weight Body mass index (BMI) Body height Systolic blood pressure Diastolic blood pressure Provider Name and Address Organization Details Last Updated DateTime 06/15/2024 473579.8 3747 g 37.9 kg/m2 166.37 cm 132 mm[Hg] 82 mm[Hg] Alison Sosa [facility] 13:09:44 Social History Question Answer Notes LastModified by Organizat ion Details LastModified Time Tobacco Smoking Status Former Smoker Alison Sosa [facility], [facility] 01/06/2024 10:53:38 Do You Have An Advance Directive? No [email or web address] Information not available 05/04/2024 What Is Your Level Of Alcohol Consumption? None 8 Year Sober [email or web address] Information not available 01/06/2024 If You Are , What Was Your Level Of Alcohol Consumption Prior To ? None [email or web address] Information not available 01/06/2024 Are You Blind Or Do You Have Difficulty Seeing? No [email or web address] Information not available 01/06/2024 What Is Your Level Of Caffeine Consumption? Moderate [email or web address] Information not available 05/14/2024 How Much Tobacco Do You Chew? None [email or web address] Information not available 01/06/2024 In The 14 Days Before Symptom Onset, Have You Had Close Contact With A Laboratory-confi rmed COVID-19 While That Case Was Ill? No [email or web address] Information not available 01/06/2024 In The 14 Days Before Symptom Onset, Have You Had Close Contact With A Person Who Is Under Investigation For COVID-19 While That Person Was Ill? No Information not available 01/06/2024 Have You Been To An Area Known To Be High Risk For COVID-19? No [email or web address] Information not available 01/06/2024 Are You Deaf Or Do You Have Serious Difficulty Hearing? No Information not available 01/06/2024 What Type Of Diet Are You Following? REGULAR [email or web address] Information not available 01/06/2024 What Is The Highest Grade Or Level Of School You Have Completed Or The Highest Degree You Have Received? 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 No [email or web address] Information not available 01/06/2024 Do You Use Protection During Sex? No [email or web address] Information not available 01/06/2024 Do You Use Your Seat Belt Or Car Seat Routinely? Yes Information not available 01/06/2024 Do You Have Smoke And Carbon Monoxide Detectors In Your Home? Yes Information not available 01/06/2024 How Much Tobacco Do You Smoke? No [email or web address] Information not available 01/06/2024 Do You Feel Stressed (tense, Restless, Nervous, Or Anxious, Or Unable To Sleep At Night)? [id number] [email or web address] Information not available 01/06/2024 Do You Use Any Illicit Or Recreational Drugs? No Lorena [email or web address] Information not available 01/06/2024 Do You Use Sunscreen Routinely? Yes [email or web address] Information not available 01/06/2024 Has Tobacco Cessation Counseling Been Provided? Yes [email or web address] Information not available 01/06/2024 On What Date Was Tobacco Cessation Counseling Provided? 06/15/2024 [email or web address] Information not available 06/15/2024 Have You Used IV Drugs? No [email or web address] Information not available 01/06/2024 Do You Or Have You Ever Used Any Other Forms Of Tobacco Or Nicotine? No [email or web address] Information not available 01/06/2024 Sex: Unknown Functional Status Question Answer Note LastModified by Organizat ion Details LastModified Time Do you have difficulty walking or climbing stairs? No [email or web address] Information not available 01/06/2024 Are you able to walk? YESWOREST [email or web address] Information not available 01/06/2024 Are you able to care for yourself? Yes Information not available 01/06/2024 Do you have difficulty dressing or bathing? No [email or web address] Information not available 01/06/2024 What is your exercise level? Moderate [email or web address] Information not available 01/06/2024 Mental Status None recorded. Family History Relationship Description Onset Age of this Age Resolved Age Notes LastModified by Organization Details LastModified Time Unspecified Relation Family history unknown [email or web address] Not available 2024 09:54:09 Unspecified Relation Malignant tumor of breast great matern al aunt, great patern al aunt [email or web address] Not available 06/01/2024 09:40:33 Paternal Grandmother Malignant tumor of breast [email or web address] Not available 2024 09:40:33 Medical History Condition Response Allergies (Food, seasonal, environmental ) N Other N Breast Cancer N Drug/Latex Allergies/Reactions Y Blood Transfusion N Lung Disease N Dermatologic Disorders N Defects or Inherited Disease N Breast Problem N Gestational Diabetes Y Hematologic disorders N Anesthesia Complications N History of STI N Deep Vein Thrombosis N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
[2024-06-21 23:21] LABS: Basophils Percent Auto 0.1 % (0.2-1.2); Eosinophils Absolute Auto 0.1 K/mm3 (0-0.3); Eosinophils Percent Auto 0.4 % (0-4.4); Hematocrit 31.6 % (37.0-47.0); Hemoglobin 10.6 g/dL (12.0-15.0); Immature Granulocyte Absolute 0.05 K/mm3 (0.00-0.031); Immature Granulocyte Percent A 0.3 % (0-0.5); Lymphocytes Absolute Auto 2.17 K/mm3 (0.9-3.2); Lymphocytes Percent Auto 14.7 % (18.3-44.2); Mean Corpuscular HGB Conc 33.5 g/dl (32-36); Mean Corpuscular Hemoglobin 29.9 pg (26-34); Mean Corpuscular Volume 89.3 fl (80-100); Mean Platelet Volume 9.2 fl (7.4-10.4); Monocytes Percent Auto 6.9 % (2.6-8.5); Neutrophils Absolute Auto 11.4 K/mm3 (1.3-6.7); Neutrophils Percent Auto 77.6 % (45.5-73.1); Platelet Count Result 276 k/mm3 (150-375); Red Blood Count 3.54 M/mm3 (4.2-5.4); Red Cell Distribution Width 12.4 % (11.5-14.5); White Blood Count 14.7 K/mm3 (4.5-10.0)
[2024-06-21 23:41] LABS: Alanine Aminotransferase 15 U/L (6-35); Albumin Level 3.2 g/dL (3.5-5.1); Alkaline Phosphatase 150 U/L (38-126); Anion Gap 10 mmol/L (4-12); Aspartate Amino Transferase 18 U/L (14-36); Bilirubin,Total 0.4 mg/dL (0.2-1.3); Blood Urea Nitrogen 5 mg/dL (7-17); Calcium 8.9 mg/dL (8.4-10.2); Carbon Dioxide 19 mmol/L (22-30); Chloride 107 mmol/L (98-107); Estimated Glomerular Filt Rate > 60; Glucose 149 mg/dL (65-110); Potassium 3.5 mmol/L (3.4-5.0); Sodium 136 mmol/L (137-145); Uric Acid 4.4 mg/dL (2.5-7.5)
[2024-06-21 23:54] LABS: Add Urine Microscopic? NO; Appearance Urine Clear (Clear); Bilirubin Urine Negative (Negative); Blood Urine Negative (Negative); Color Urine Yellow (Yellow); Glucose Urine UA 1+ mg/dL (Negative); Ketones Urine Trace mg/dL (Negative); Leukocyte Esterase Ur Negative LEU/UL (Negative); Nitrate Urine Negative (Negative); Protein Urine Negative (Negative); Specific Grav Ur 1.008 (1.001-1.035); Urobilinogen Urine 0.2 mg/dL (<2.0); pH Urine 6.5 (5.0-9.0)
[2024-06-22] LABS: Creatinine Urine 47.4 mg/dL; Total Protein Urine Random 9 mg/dL; Ur Ttl Prot Creatinine Ratio 0.19 mg/mg (0-0.20)
[2024-06-22 00:03] VITALS: PULSE 106; O2SAT 99
[2024-06-22 00:08] VITALS: BP 123/74; PULSE 106; PULSE 119; O2SAT 99; BMI 37.3
[2024-06-22 00:13] VITALS: PULSE 121; O2SAT 98
== END 2024-06-22 00:18 | disposition home or self-care (01) ==
LOC: ANHOBOP 23:06 → ANHLDR 23:49
PROVIDERS: Obstetrics & Gynecology; Visit Provider Advanced Practice Midwife
DX: O36.8190 Decreased fetal movements, unspecified trimester, not applicable or unspecified (principal); O13.9 Gestational [pregnancy-induced] hypertension without significant proteinuria, unspecified trimester; R51.9 Headache, unspecified; Z3A.00 Weeks of gestation of pregnancy not specified
CPT/HCPCS: 36415; 59025; 80053; 81003; 82570; 84156; 84550; 85025; 99199

== ENCOUNTER 2024-06-21 22:46 | Outpatient (RCR) | payer OTHER, SELFPAY ==
[2024-06-11 13:43] VITALS: BP 118/68; PULSE 85
--- NOTE | ~2024-06-21 | US_ITS ---
EXAMINATION: US OB BPP wo non-stress DATE: 06/11/2024 14:32 INDICATION: Increased movement. Maternal illness during third trimester . TECHNIQUE: Real-time pelvic ultrasound was performed. The interpreting radiologist was not present fo r the study. COMPARISON: None. FINDINGS: There is a single living fetus in vertex presentation. The placenta is fundal. heart rate is 1 39 beats per minute (bpm). Amniotic fluid volume is subjectively normal with normal deepest vertical pocket measurement of 5.0 cm. Normal cervical length of 4.0 cm. Biophysical profile performed by the technologist: breathing (30 sec sustained breathing in 30 minutes): 2 out of 2 movement (3 gross body movements in 30 minutes): 2 out of 2 tone (one episode of vkrvket-lnygoezqt-iessdpm limb movement): 2 out of 2 Amniotic fluid pocket (2 cm): 2 out of 2 Total score: 8 out of 8 IMPRESSION: 1. Single living fetus in vertex presentation with heart rate of 139 bpm. 2. Biophysical profile 8 out of 8. Reviewed, dictated and finalized at location A. APPRENTICE
== END 2024-08-22 17:11 | disposition home or self-care (01) ==
LOC: ANHOBOP 22:46
PROVIDERS: Visit Provider Advanced Practice Midwife
DX: O99.891 Other specified diseases and conditions complicating pregnancy (principal)
CPT/HCPCS: 59025; 76819

== ENCOUNTER 2024-06-26 17:25 | Outpatient (CLI) | payer MEDICAID, SELFPAY ==
[2024-06-26 17:50] VITALS: BP 120/76; PULSE 83
[2024-06-26 17:55] VITALS: BMI 38.5
[2024-06-26 18:01] VITALS: BP 126/72; PULSE 91
[2024-06-26 18:02] LABS: Basophils Percent Auto 0.2 % (0.2-1.2); Eosinophils Absolute Auto 0.1 K/mm3 (0-0.3); Eosinophils Percent Auto 0.8 % (0-4.4); Hematocrit 37.9 % (37.0-47.0); Hemoglobin 12.1 g/dL (12.0-15.0); Immature Granulocyte Absolute 0.03 K/mm3 (0.00-0.031); Immature Granulocyte Percent A 0.3 % (0-0.5); Lymphocytes Absolute Auto 2.25 K/mm3 (0.9-3.2); Lymphocytes Percent Auto 21.3 % (18.3-44.2); Mean Corpuscular HGB Conc 31.9 g/dl (32-36); Mean Corpuscular Hemoglobin 29.2 pg (26-34); Mean Corpuscular Volume 91.3 fl (80-100); Mean Platelet Volume 9.1 fl (7.4-10.4); Monocytes Absolute Auto 0.6 K/mm3 (0.1-0.6); Monocytes Percent Auto 5.4 % (2.6-8.5); Neutrophils Absolute Auto 7.6 K/mm3 (1.3-6.7); Platelet Count Result 315 k/mm3 (150-375); Red Blood Count 4.15 M/mm3 (4.2-5.4); Red Cell Distribution Width 12.5 % (11.5-14.5); White Blood Count 10.5 K/mm3 (4.5-10.0)
[2024-06-26 18:03] LABS: Add Urine Microscopic? NO; Appearance Urine Clear (Clear); Bilirubin Urine Negative (Negative); Blood Urine Negative (Negative); Color Urine Yellow (Yellow); Glucose Urine UA Negative (Negative); Ketones Urine 1+ mg/dL (Negative); Leukocyte Esterase Ur Negative LEU/UL (Negative); Nitrate Urine Negative (Negative); Protein Urine Negative (Negative); Specific Grav Ur 1.013 (1.001-1.035); Urobilinogen Urine 0.2 mg/dL (<2.0); pH Urine 6.5 (5.0-9.0)
[2024-06-26 18:09] LABS: Creatinine Urine 55.6 mg/dL; Total Protein Urine Random 10 mg/dL; Ur Ttl Prot Creatinine Ratio 0.18 mg/mg (0-0.20)
[2024-06-26 18:14] LABS: Alanine Aminotransferase 15 U/L (6-35); Albumin Level 3.9 g/dL (3.5-5.1); Alkaline Phosphatase 203 U/L (38-126); Anion Gap 11 mmol/L (4-12); Aspartate Amino Transferase 22 U/L (14-36); Bilirubin,Total 0.3 mg/dL (0.2-1.3); Blood Urea Nitrogen 7 mg/dL (7-17); Calcium 9.6 mg/dL (8.4-10.2); Carbon Dioxide 22 mmol/L (22-30); Chloride 106 mmol/L (98-107); Estimated CRCL calculation 167 ml/min; Estimated Glomerular Filt Rate > 60; Glucose 79 mg/dL (65-110); Potassium 3.7 mmol/L (3.4-5.0); Sodium 139 mmol/L (137-145); Uric Acid 4.3 mg/dL (2.5-7.5)
[2024-06-26 18:16] VITALS: BP 114/85; PULSE 90
[2024-06-26 18:31] VITALS: BP 125/68; PULSE 91
[2024-06-26 18:37] VITALS: PULSE 91
--- OUTSIDE RECORDS SUMMARY | 2024-06-26 19:00 | XMS_ITS | Patient Health Summary ---
Author Organization [facility] Address [address] [place] [address] Care Team Providers Care Traffic Representative Name Role Phone Unknown, Provider Primary Care Provider Unavaila ble Note from [facility],non-owned Affiliates and Associated Physician Practices is amultiple site organization consisting of ambulatory clinics and hospital sitesin [place], [place], [place] and [place]. This disclosure is being madepursuant to the Care Everywhere program and may not contain all information available regarding this patient. Last updated 18.[facility] Allergies * Latex(Rash) -Medium Criticality [...] Sign Reading Time Taken Comments Blood Pressure 116/62 06/26/2024 9:53 AM VAULT SERVICE MECHANIC Pulse 91 06/26/2024 9:53 AM VAULT SERVICE MECHANIC Temperature - - Respiratory Rate 18 04/11/2024 2:13 PM VAULT SERVICE MECHANIC Oxygen Saturation - - Inhaled Oxygen Concentration - - Weight 95.7 kg (211 lb) 04/11/2024 2:13 PM VAULT SERVICE MECHANIC Height 165.1 cm (5' 5 ) 04/11/2024 2:13 PM VAULT SERVICE MECHANIC Body Mass Index 35.11 04/11/2024 2:13 PM VAULT SERVICE MECHANIC Procedures * SONOGRAM - COMPLETE(Performed 06/14/2024) Performed for Cardiac arrhythmia during ([facility]), History of HELLP syndrome, currently ([facility]), Other obesity due to excess calories affecting in third trimester ([facility]), Previous delivery affecting ([facility]), Encounter for ultrasound ([facility]), History of pre- eclampsia in prior , currently ([facility]), History of delivery, currently ([facility]), Second ([facility]), History of gestational diabetes in prior , currently ([facility]), 32 weeks gestation of ([facility]) * SONOGRAM - COMPLETE(Performed 05/17/2024) Performed for Cardiac arrhythmia during ([facility]), History of HELLP syndrome, currently ([facility]), Other obesity due to excess calories affecting in third trimester ([facility]), Previous delivery affecting ([facility]), History of pre-eclampsia in prior , currentl y ([facility]), History of gestational diabetes in prior , currently ([facility]), History of delivery, currently ([facility]), 28 weeks gestation of ([facility]) * SONOGRAM - COMPLETE(Performed 04/11/2024) Performed for Encounter for anatomic survey ([facility]), Palpitations, History of pre-eclampsia in prior , currently ([facility]), History of gestational diabetes in prior , currently ([facility]), 23 weeks gestation of ([facility]), History of delivery, currently ([facility]) Results * SONOGRAM - COMPLETE (06/14/2024 11:28 AM VAULT SERVICE MECHANIC) Only the most recent of3 resultswithin the time period is included. Linked Results Indication ======== Incomplete cardiac views Class I obesity Labile hypertension - no meds 06/14 LGA fetus Previous History ====== OB History 2. Para 1 [id number] 1. live 2022. Gest. age 36 w [...] 5 lb 6 oz EFW by Hadlock ([id number]) LGA Growth Overview Exam date GA BPD [...] Thorax 4-chamber view. LVOT view. 3-vessel view. 6-pzzfev-gdoilbi view. Situs. Aortic arch view. Bicaval view. [...] Growth in 4 w Coding ====== Procedures 14901: [place] [address]: Biophysical Profile W/O NST CH4e PACS Anatomical Region Laterality Modality Other 06/14/2024 11:2 8 AM VAULT SERVICE MECHANIC Laura Betts EARLY CHILDHOOD ASSOCIATE-COLLISION ESTIMATOR MFM ORDERABLES Care Teams Traffic Representative Relationship Specialty Start Date End Date Unknown, Provider PCP - General 04/11/24
--- OUTSIDE RECORDS SUMMARY | 2024-06-26 19:00 | XMS_ITS | Clinical Summary ---
Author Organization [facility] Address [address] [place] [id number] Care Team Providers Care Straight Line Edger Name Role Phone None, Provider MD Primary [...] Active Problems Problem Noted Date Diagnosed Date ([facility]) 05/01/2022 Comments Yes Social History Tobacco Use [...] declined 05/01/2022 How often do you attend tenriism or yazidi serv ices? Patient declined 05/01/2022 Do you belong to any clubs o r organizations such as tenriism groups, unions, frathinkingphones or athletic groups, or school groups? Patient [...] Recorded Patient Health Questionnaire-2 Score 0 12/28/2023 [facility] - Occupational [...] place to sleep or slept in a prison (including now)? No 05/01/2022 Comments Yes Sex [...] 2024 Influenza Adult (#1) 2024 PHQ-2 (Physician Nathrop) 05/02/2024 12/28/2023 RSV Immunization or 60+ Years [...] 4:58 PM 04/15/2022 7:42 PM Care Teams Straight Line Edger Relationship Specialty Start Date End Date None, Provider, PCP - General 01/14/22
--- OUTSIDE RECORDS SUMMARY | 2024-06-26 19:00 | XMS_ITS | Encounter Summary ---
Author Organization [facility] Address [address] [place] [address] Care Team Providers Care Coal Conveyor Operator Name Role Phone Unknown, Provider Primary Care Provider Unavaila ble Reason for Referral * (Routine) - Open Specialty Diagnoses / Procedures Referred By Contac t Referred To Contact Diagnoses Cardiac arrhythmia during (HCC) History of HELLP syndrome, currently (HCC) Previous delivery affecting (HCC) Encounter for screening (HCC) 33 weeks gestation of (HCC) Obesity affecting , antepartum, unspecified obesity type (HCC) Procedures NON-STRESS TEST Laura Betts APRN-CNP [address] [place] [address] [place] [phone] Referral ID Status Reason Start Date Expiration Date Visits Re quested Visits Authorized [id number] Open 06/19/2024 06/19/2025 5 5 HEALTH ADMINISTRATOR * (Routine) - Open Specialty Diagnoses / Procedures Referred By Contac t Referred To Contact Diagnoses Cardiac arrhythmia during (HCC) History of HELLP syndrome, currently (HCC) Previous delivery affecting (HCC) Encounter for screening (HCC) 33 weeks gestation of (HCC) Obesity affecting , antepartum, unspecified obesity type (HCC) Procedures NON-STRESS TEST Laura Betts APRN-CNP [address] [place] [address] Referral ID Status Reason Start Date Expiration Date Visits Re quested Visits Authorized [id number] Open 06/19/2024 06/19/2025 5 5 HEALTH ADMINISTRATOR * (Routine) - Open Specialty Diagnoses / Procedures Referred By Contac t Referred To Contact Diagnoses Cardiac arrhythmia during (HCC) History of HELLP syndrome, currently (HCC) Previous delivery affecting (HCC) Encounter for screening (HCC) 33 weeks gestation of (HCC) Obesity affecting , antepartum, unspecified obesity type (HCC) Procedures NON-STRESS TEST Moustapha Martinez MD [address] [facility] [address] [place] [address] Referral ID Status Reason Start Date Expiration Date Visits Re quested Visits Authorized [id number] Open 06/15/2024 06/15/2025 1 1 HEALTH ADMINISTRATOR Reason for Visit * Reason Comments Non-stress Test * (Routine) - Open Specialty Diagnoses / Procedures Referred By Contac t Referred To Contact Diagnoses Cardiac arrhythmia during (HCC) History of HELLP syndrome, currently (HCC) Previous delivery affecting (HCC) Encounter for screening (HCC) 33 weeks gestation of (HCC) Obesity affecting , antepartum, unspecified obesity type (HCC) Procedures NON-STRESS TEST Laura Betts, CORRECTIONS CASEWORKER-TRAFFIC RATE CLERK [address] [address] Referral ID Status Reason Start Date Expiration Date Visits Re quested Visits Authorized [id number] Open 06/19/2024 06/19/2025 5 5 Encounter Details Date Type Department Care Team (Late st Contact Info) Description 06/26/2024 9:36 AM HOME HEALTH ADMINISTRATOR Hospital Encounter [facility] [address] [place] [id number] Gerard Bustamante MD [address] [address] [place] [address] Social History Tobacco Use Types Packs/Day Years [...] Comments Blood Pressure 116/62 06/26/2024 9:53 AM HOME HEALTH ADMINISTRATOR Pulse 91 06/26/2024 9:53 AM HOME HEALTH ADMINISTRATOR Temperature - - Respiratory Rate - - Oxygen Saturation - - Inhaled Oxygen Concentration - - Weight - - Height - - Body Mass Index - - documented in this encounter Progress Notes * Gerard Bustamante MD - 06/26/2024 10:17 AM CST Name: Holly Hoawrd Date of : 1995 Today's Date: 06/26/2024 34w1d NST RESULTS ([facility]OM[facility]) OBJECTIVE FINDINGS , Pulse: 91, , BP: 116/62 NST Indication(s): Pre-eclampsia with previous (history of HELLP syndrome, cardiac arrthymia) Uterine Irritability: Yes Contractions: Not present OBJECTIVE FINDINGS Movement: Present Monitoring Mode: External Baseline: 140 BPM Variability: Moderate Decelerations: None Accelerations: Yes OTHER INFORMATION Reports positive movement. Denies cramping, leakage of fluid, vaginal bleeding. Denies headache, blurred vision, RUQ pain. Reports occasional contractions, nothing regular. Patient states she almost had 6 contractions per hour on Tuesday but they subsided. PTL precautions reviewed. Patient to schedule FU NST only next week with our office, all other testing, appts done with primary OB office. Frieda Motta RN I have reviewed the heart rate (FHR) tracings and find the NST reactive with moderate tbjd-dt-rfkw variability & normal FHR baseline & no clinically significant heart rate decelerations. Gerard Bustamante MD HEALTH ADMINISTRATOR documented in this encounter Plan of Treatment Upcoming Encounters Date Type Department Care Team (Late st Contact Info) Description 07/02/2024 9:00 AM HOME HEALTH ADMINISTRATOR Hospital Encounter [facility] Care [address] [place], [place] [id number] Scheduled Orders Name Type Priority Associated Diagnoses Orde r Schedule NON-STRESS TEST [facility] Routine Cardiac arrhythmia during ([facility]) History of HELLP syndrome, currently ([facility]) Previous delivery affecting ([facility]) Encounter for screening ([facility]) 33 weeks gestation of ([facility]) Obesity affecting , antepartum, unspecified obesity type ([facility]) 1 Occurrences starting 06/19/2024 until 06/19/2024 NON-STRESS TEST [facility] Routine Cardiac arrhythmia during ([facility]) History of HELLP syndrome, currently ([facility]) Previous delivery affecting ([facility]) Encounter for screening ([facility]) 33 weeks gestation of ([facility]) Obesity affecting , antepartum, unspecified obesity type ([facility]) Once per Week for 5 Occurrences starting 06/19/2024 until 06/19/2025 NON-STRESS TEST [facility] Routine Cardiac arrhythmia during ([facility]) History of HELLP syndrome, currently ([facility]) Previous delivery affecting ([facility]) Encounter for screening ([facility]) 33 weeks gestation of ([facility]) Obesity affecting , antepartum, unspecified obesity type ([facility]) 1 Occurrences starting 06/26/2024 until 06/26/2024 documented as of this encounter Visit Diagnoses Diagnosis Cardiac arrhythmia during (HCC)- Primary History of HELLP syndrome, currently ([facility]) with other poor obstetric history Previous delivery affecting ([facility]) Previous delivery, unspecified as to episode of care or not applicable Encounter for screening ([facility]) 33 weeks gestation of ([facility]) state, incidental Obesity affecting , antepartum, unspecified obesity type ([facility]) Cardiac arrhythmia during ([facility])- Primary History of HELLP syndrome, currently ([facility]) with other poor obstetric history Obesity affecting , antepartum, unspecified obesity type ([facility]) Previous delivery affecting ([facility]) Previous delivery, unspecified as to episode of care or not applicable Encounter for screening ([facility]) 35 weeks gestation of ([facility]) state, incidental documented in this encounter Care Teams Coal Conveyor Operator Relationship Specialty Start Date End Date Unknown, Provider PCP - General 04/11/24 documented as of this encounter
--- OUTSIDE RECORDS SUMMARY | 2024-06-26 19:00 | XMS_ITS | Clinical Summary ---
Author Organization [facility] Address [address] [place] [address] Care Team Providers Care Foundry Superintendant Name Role Phone Unknown, Provider Primary Care Provider Unavaila ble Source Comments [facility],non-owned Affiliates and Associated Physician Practices is amultiple site organization consisting of ambulatory clinics and hospital sitesin [place], [place], [place] and [place]. This disclosure is being madepursuant to the Care Everywhere program and may not contain all information available regarding this patient. Last updated 18.[facility] Allergies Active Allergy Reactions Criticality Noted Date [...] success rate is stated at 60-80%. The [facility] Network calculator for this patient [...] later in for TOLAC planning purposes at [place]. Estimated Date of Delivery Comme nts Yes 08/06/2024 Based on last me nstrual period of 10/31/2023 Encounters Date Type Department Care Team Description 06/26/2024 9:36 AM TRAFFIC SIGN ERECTION SUPERVISOR Hospital Encounter [facility] [address] [place] [phone] Gerard Bustamante MD 06/19/2024 11:02 AM TRAFFIC SIGN ERECTION SUPERVISOR - 06/19/2024 11:59 PM TRAFFIC SIGN ERECTION SUPERVISOR Hospital Encounter [facility] [address] [place] [phone] Berta Valadez MD Discharge Disposition: Home or Self Care 06/19/2024 Travel 06/15/2024 Travel 06/14/2024 11:14 AM TRAFFIC SIGN ERECTION SUPERVISOR - 06/14/2024 11:59 PM TRAFFIC SIGN ERECTION SUPERVISOR Hospital Encounter [facility] [address] [place] [address] Gerard Bustamante MD Tomlinson, Tracy M, MD Discharge Disposition: Home or Self Care 05/17/2024 10:29 AM TRAFFIC SIGN ERECTION SUPERVISOR - 05/17/2024 11:59 PM TRAFFIC SIGN ERECTION SUPERVISOR Hospital Encounter [facility] [address] [place] [phone] Mckay Hodge MD Discharge Disposition: Home or Self Care 04/11/2024 1:04 PM TRAFFIC SIGN ERECTION SUPERVISOR - 04/11/2024 11:59 PM TRAFFIC SIGN ERECTION SUPERVISOR Hospital Encounter [facility] [address] [place] [phone] Jaime Durant MD Discharge Disposition: Home or Self Care 04/11/2024 1:00 PM TRAFFIC SIGN ERECTION SUPERVISOR - 04/11/2024 1:03 PM TRAFFIC SIGN ERECTION SUPERVISOR Hospital Encounter [facility] [address] [place] [address] Jaime Durant MD Discharge Disposition: Home or [...] Comments Blood Pressure 116/62 06/26/2024 9:53 AM TRAFFIC SIGN ERECTION SUPERVISOR Pulse 91 06/26/2024 9:53 AM TRAFFIC SIGN ERECTION SUPERVISOR Temperature - - Respiratory Rate 18 04/11/2024 2:13 PM TRAFFIC SIGN ERECTION SUPERVISOR Oxygen Saturation - - Inhaled Oxygen Concentration - - Weight 95.7 kg (211 lb) 04/11/2024 2:13 PM TRAFFIC SIGN ERECTION SUPERVISOR Height 165.1 cm (5' 5 ) 04/11/2024 2:13 PM TRAFFIC SIGN ERECTION SUPERVISOR Body Mass Index 35.11 04/11/2024 2:13 PM TRAFFIC SIGN ERECTION SUPERVISOR Plan of Treatment Upcoming Encounters Date Type Department Care Team (Late st Contact Info) Description 07/02/2024 9:00 AM TRAFFIC SIGN ERECTION SUPERVISOR Hospital Encounter [facility] [address] [place] [address] Health Maintenance Due Date Last Done Comments [...] - COMPLETE Routine 06/14/2024 1 1:28 AM TRAFFIC SIGN ERECTION SUPERVISOR Cardiac arrhythmia during ([facility]) History of HELLP syndrome, currently ([facility]) Other obesity due to excess calories affecting in third trimester ([facility]) Previous delivery affecting ([facility]) Encounter for ultrasound ([facility]) History of pre-eclampsia in prior , currently ([facility]) History of delivery, currently ([facility]) Second ([facility]) History of gestational diabetes in prior , currently ([facility]) 32 weeks gestation of ([facility]) SONOGRAM - COMPLETE Routine 05/17/2024 1 1:04 AM TRAFFIC SIGN ERECTION SUPERVISOR Cardiac arrhythmia during ([facility]) History of HELLP syndrome, currently ([facility]) Other obesity due to excess calories affecting in third trimester ([facility]) Previous delivery affecting ([facility]) History of pre-eclampsia in prior , currently ([facility]) History of gestational diabetes in prior , currently ([facility]) History of delivery, currently ([facility]) 28 weeks gestation of ([facility]) SONOGRAM - COMPLETE Routine 04/11/2024 1 :20 PM TRAFFIC SIGN ERECTION SUPERVISOR Encounter for anatomic survey ([facility]) Palpitations History of pre-eclampsia in prior , currently ([facility]) History of gestational diabetes in prior , currently ([facility]) 23 weeks gestation of ([facility]) History of delivery, currently ([facility]) from Last 3 Months Results * SONOGRAM - COMPLETE (06/14/2024 11:28 AM TRAFFIC SIGN ERECTION SUPERVISOR) Only the most recent of3 resultswithin the time period is included. Linked Results Indication ======== Incomplete cardiac views Class I obesity Labile hypertension - no meds 06/14 LGA fetus Previous History ====== OB History 2. Para 1 [id number] 1. live 2022. Gest. age 36 w [...] 5 lb 6 oz EFW by Hadlock ([id number]) LGA Growth Overview Exam date [place] BPD [...] Thorax 4-chamber view. LVOT view. 3-vessel view. 1-whguvn-avafyzm view. Situs. Aortic arch view. Bicaval view. [...] Growth in 4 w Coding ====== Procedures 83929: [place] [address]: Biophysical Profile W/O [facility] PACS Anatomical Region Laterality Modality Other 06/14/2024 11:2 8 AM TRAFFIC SIGN ERECTION SUPERVISOR Laura Betts APRN-GLORIA M ORDERABLES from Last 3 Months Care Teams Foundry Superintendant Relationship Specialty Start Date End Date Unknown, Provider PCP - General 04/11/24
--- OUTSIDE RECORDS SUMMARY | 2024-06-26 19:00 | XMS_ITS | Referral Summary ---
Author Organization [facility] Address [address] [place] [address] Care Team Providers Care Fruit Picker Machine Operator Name Role Phone Unknown, Provider Primary Care Provider Unavaila ble Source Comments [facility],non-owned Affiliates and Associated Physician Practices is [facility] organization consisting of ambulatory clinics and hospital sitesin [place], [place], [place] and [place]. This disclosure is being madepursuant to the Care Everywhere program and may not contain all information available regarding this patient. Last updated 18.[facility] Encounters Date Type Department Care Team Description 06/26/2024 9:36 AM MACHINE SETTER AUTOMATIC Hospital Encounter Formerly [facility], [facility] Maternal & Care [address] [place] [address] Gerard Bustamante MD 06/19/2024 Travel 06/19/2024 11:02 AM MACHINE SETTER AUTOMATIC - 06/19/2024 11:59 PM MACHINE SETTER AUTOMATIC Hospital Encounter Formerly [facility], [facility] Maternal & Care [address] [place] [address] Berta Valadez MD Discharge Disposition: Home or Self Care 06/15/2024 Travel 06/14/2024 11:14 AM MACHINE SETTER AUTOMATIC - 06/14/2024 11:59 PM MACHINE SETTER AUTOMATIC Hospital Encounter Formerly [facility], [facility] Maternal & Care [address] [place] [address] Gerard Bustamante MD Tomlinson, Tracy M, MD Discharge Disposition: Home or Self Care 05/17/2024 10:29 AM MACHINE SETTER AUTOMATIC - 05/17/2024 11:59 PM MACHINE SETTER AUTOMATIC Hospital Encounter Formerly [facility], [facility] Maternal & Care [address] [place] [address] Mckay Hodge MD Discharge Disposition: Home or Self Care 04/11/2024 1:04 PM MACHINE SETTER AUTOMATIC - 04/11/2024 11:59 PM MACHINE SETTER AUTOMATIC Hospital Encounter Formerly [facility], [facility] Maternal & Care [address] [place] [address] Jaime Durant MD Discharge Disposition: Home or Self Care 04/11/2024 1:00 PM MACHINE SETTER AUTOMATIC - 04/11/2024 1:03 PM MACHINE SETTER AUTOMATIC Hospital Encounter Formerly [facility], [facility] Maternal & Care [address] [place] [address] Jaime Durant MD Discharge Disposition: Home or [...] success rate is stated at 60-80%. The [facility] calculator for this patient estimates [...] later in for TOLAC planning purposes at [place]. Estimated Date of Delivery Comme nts Yes [...] Comments Blood Pressure 116/62 06/26/2024 9:53 AM MACHINE SETTER AUTOMATIC Pulse 91 06/26/2024 9:53 AM MACHINE SETTER AUTOMATIC Temperature - - Respiratory Rate 18 04/11/2024 2:13 PM MACHINE SETTER AUTOMATIC Oxygen Saturation - - Inhaled Oxygen Concentration - - Weight 95.7 kg (211 lb) 04/11/2024 2:13 PM MACHINE SETTER AUTOMATIC Height 165.1 cm (5' 5 ) 04/11/2024 2:13 PM MACHINE SETTER AUTOMATIC Body Mass Index 35.11 04/11/2024 2:13 PM MACHINE SETTER AUTOMATIC Plan of Treatment Upcoming Encounters Date Type Department Care Team (Late st Contact Info) Description 07/02/2024 9:00 AM MACHINE SETTER AUTOMATIC Hospital Encounter [facility] [address] [place], [place] [id number] Procedures Procedure Name Priority Date/Time Associated Diagnosis Comments SONOGRAM - COMPLETE Routine 06/14/2024 1 1:28 AM MACHINE SETTER AUTOMATIC Cardiac arrhythmia during (HCC) History of HELLP syndrome, currently ([facility]) Other obesity due to excess calories affecting in third trimester ([facility]) Previous delivery affecting ([facility]) Encounter for ultrasound ([facility]) History of pre-eclampsia in prior , currently (HCC) History of delivery, currently (HCC) Second (HCC) History of gestational diabetes in prior , currently (HCC) 32 weeks gestation of ([facility]) SONOGRAM - COMPLETE Routine 05/17/2024 1 1:04 AM MACHINE SETTER AUTOMATIC Cardiac arrhythmia during ([facility]) History of HELLP syndrome, currently ([facility]) Other obesity due to excess calories affecting in third trimester ([facility]) Previous delivery affecting ([facility]) History of pre-eclampsia in prior , currently ([facility]) History of gestational diabetes in prior , currently ([facility]) History of delivery, currently ([facility]) 28 weeks gestation of ([facility]) SONOGRAM - COMPLETE Routine 04/11/2024 1 :20 PM MACHINE SETTER AUTOMATIC Encounter for anatomic survey ([facility]) Palpitations History of pre-eclampsia in prior , currently ([facility]) History of gestational diabetes in prior , currently ([facility]) 23 weeks gestation of ([facility]) History of delivery, currently ([facility]) from Last 3 Months Results * SONOGRAM - COMPLETE (06/14/2024 11:28 AM MACHINE SETTER AUTOMATIC) Only the most recent of3 resultswithin the time period is included. Linked Results Indication ======== Incomplete cardiac views Class I obesity Labile hypertension - no meds 06/14 LGA fetus Previous History ====== OB History 2. Para 1 [id number] 1. live 2022. Gest. age 36 w [...] 5 lb 6 oz EFW by Hadlock ([id number]) LGA Growth Overview Exam date GA BPD [...] Thorax 4-chamber view. LVOT view. 3-vessel view. 1-wzusqw-xbtlkmw view. Situs. Aortic arch view. Bicaval view. [...] Growth in 4 w Coding ====== Procedures 24124: [place] [address]: Biophysical Profile W/O NST [employer] PACS Anatomical Region Laterality Modality Other 06/14/2024 11:2 8 AM MACHINE SETTER AUTOMATIC Laura Betts [employer] CREWMAN-DRY CLEANING SUPERVISOR [facility] ORDERABLES from Last 3 Months Care Teams Fruit Picker Machine Operator Relationship Specialty Start Date End Date Unknown, Provider PCP - General 04/11/24
--- OUTSIDE RECORDS SUMMARY | 2024-06-26 19:00 | XMS_ITS | Data Portability ---
Author Organization [facility] KIMMIENeeraj Address [address] [facility] [facility] [address] Care Team Providers Care Patient Relations Manager Name Role Phone AMRITA FRIEDA Primary Care Provider Assessment No assessment recorded. Plan of Treatment Reminders Order Date Submit Date Provider Last Modified By Organization Details Last Modified Time Details Appointments None recorded. Lab bacterial vaginosis + vaginitis panel, vaginal 2018 019 [place] [facility], [address] [place], [place] [address]anthony Kevin, [address], [place], [address], 9 07:15:49 urinalysi s, dipstick 2017 018 [email or web address] In-Office Order, Internal Use Only DO Not Attach Compendium DO Not Attach Compendium, Do Not Delete/merge, [id number] 8 11:24:49 pap, IG + CT/NG/TV + reflex HR HPV 2017 018 [place] [facility], [address] [facility], [address], [place], [address], 8 07:13:37 urinalysi s, dipstick 2016 017 mpass In-Office Order, Internal Use Only DO Not Attach Compendium DO Not Attach Compendium, Do Not Delete/merge, [id number] 7 12:48:00 test, urine 2016 017 mpass In-Office Order, Internal Use Only DO Not Attach Compendium DO Not Attach Compendium, Do Not Delete/merge, [id number] 7 12:48:00 Referral None recorded. Procedures None recorded. Surgeries None recorded. Imaging None recorded. Medication Orders amitripty line 25 mg tablet 2019 020 [id number], [address] [facility], [place], [id number], 0 12:07:18 sumatript an 100 mg tablet 2019 020 [facility], [address] [facility], [place], [place], [id number], 0 12:07:18 butalbita l-acetami nophen-ca ffeine 50 mg-325 mg-40 mg tablet 2019 020 [facility], [address] [facility], [place], [place], [id number], 0 12:09:45 metronida zole 500 mg tablet 2018 019 sdevriesma [facility] [employer] Store #77638, [address] [facility], [place], [place], [id number], 0 11:36:52 Estarylla 0.25 mg-35 mcg tablet [address] [facility], [address] [facility], [place], [place], [id number], 9 14:49:15 Sprintec (28) 0.25 mg-35 mcg tablet 2017 018 [facility], [address], [place], [id number], 8 11:10:51 Sprintec (28) 0.25 mg-35 mcg tablet 2016 017 mpass Not available 7 14:51:12 Patient TargetsNo targets recorded. Patient Instructions Encounter Date Encounter Id Patient Instructions Last Modified By Organization Details Last Modified Time 06/22/2016 [id number] Follow dressing instructions. Encouraged consistent condom use. mpass Not available 06/22/2016 12:36:33 12/29/2016 [id number] Start OC's. Encouraged consistent use of condoms expecially during the first cycle. mpass Not available 12/29/2016 10:21:50 Holly wants to start OC's. Discussed risks/benefits/si de effects/correct use of OC's. Holly voiced understanding. mpass Not available 12/29/2016 10:21:22 07/28/2018 [id number] bacterial vaginosis: care instructions [email or web address] Not available [...] DO Not Attach Compendium, Do Not Delete/merge, [id number] 06/22/2016 09:56:30 06/22/19 17 06/22/2016 urina lysis [...] 06/22/2016 urina lysis , dipst ick Specific [place] 1.020 Not Available In-Off ice Order Internal [...] DO Not Attach Compendium, Do Not Delete/merge, [id number] 06/22/2016 09:29:45 05/18/19 18 05/20/2017 pap, IG + CT/NG /TV + refle x HR HPV diagnosis: Ulices t NEGAT DEAN FOR INTRA EPITH ELIAL KANNAN N AND CHRIS SANTOS . Not Available [facility] ([facility]) [address] [facility], [place], [address], 05/21/2017 07:13:37 05/18/19 18 05/20/2017 pap, IG + CT/NG /TV + refle x HR HPV specimen adequacy: Commjamal t Satis facto ry for evalu ation . Endoc ervic al and/o r squam ous metap lasti c cells (endo cervi antoni compo nent) are prese nt. Not Available [facility] ([facility]) [address] [facility], [place], [address], 05/21/2017 07:13:37 05/18/19 18 05/20/2017 pap, IG + CT/NG /TV + refle x HR HPV clinician provided ICD10: Ulices wilder Z01.4 19 Not Available [facility] ([facility]) [address] [facility], [place], [address], 05/21/2017 07:13:37 05/18/19 18 05/20/2017 pap, IG + CT/NG /TV + refle x HR HPV performed by: Ulices Qureshi in, Cytot echno logis t (ASCP ) Not Available [facility] ([facility]) [address] [place], [address], 05/21/2017 07:13:37 05/18/19 18 05/20/2017 pap, IG + CT/NG /TV + refle x HR HPV . . Not Available [facility] ([facility]) [address] [place], [address], 05/21/2017 07:13:37 05/18/19 18 05/20/2017 pap, IG [...] ts do occur . Not Available [facility] ([facility]) [address] [place], [address], 05/21/2017 07:13:37 05/18/19 18 05/20/2017 pap, IG + CT/NG /TV + refle x HR HPV test methodology: Commen t This liqui d based ThinP rep(R ) pap test was scree rom with the use of an image guide d systshelia m. Not Available [facility] ([facility]) [address] [place], [address], 05/21/2017 07:13:37 05/18/19 18 05/20/2017 pap, IG + CT/NG /TV + refle x HR HPV . Commen t The HPV DNA refle x crite almaz were not met with this speci men resul t there fore, no HPV testi ng was perfo rmed. Not Available [facility] ([facility]) [address] [place], [address], 05/21/2017 07:13:37 05/18/19 18 05/20/2017 pap, IG + CT/NG /TV + refle x HR HPV chlamydia, nuc. acid amp Negati ve negati ve Not Available [facility] ([facility]) [address] [place], [address], 05/21/2017 07:13:37 05/18/19 18 05/20/2017 pap, IG + CT/NG /TV + refle x HR HPV gonococcus, nuc. acid amp Negati ve negati ve Not Available [facility] ([facility]) [address] [facility], [place], [address], 05/21/2017 07:13:37 05/18/19 18 05/20/2017 pap, IG + CT/NG /TV + refle x HR HPV trich vag by NEW Negati ve negati ve Not Available [facility] ([facility]) [address] [facility], [place], [address], 05/21/2017 07:13:37 05/18/19 18 05/18/2017 urina lysis , dipst ick Leukocytes Negati ve Not Available In-Office Order Internal Use Only DO Not Attach Compendium DO Not Attach Compendium, Do Not Delete/merge, [id number] 05/18/2017 10:48:49 05/18/19 18 05/18/2017 urina lysis , dipst ick Nitrite negati ve Not Available In-Office Order Internal Use Only DO Not Attach Compendium DO Not Attach Compendium, Do Not Delete/merge, 05/18/2017 10:48:49 05/18/19 18 05/18/2017 urina lysis , dipst ick Urobilinogen .2 Not Available In-Of fice Order Internal Use Only DO Not Attach Compendium DO Not Attach Compendium, Do Not Delete/merge, [id number] 05/18/2017 10:48:49 05/18/19 18 05/18/2017 urina lysis , dipst ick Protein Negati ve Not Available In-Office Order Internal Use Only DO Not Attach Compendium DO Not Attach Compendium, Do Not Delete/merge, 05/18/2017 10:48:49 05/18/19 18 05/18/2017 urina lysis , dipst ick pH 5.5 Not Available In-Office Order Internal Use Only DO Not Attach Compendium DO Not Attach Compendium, Do Not Delete/merge, [id number] 05/18/2017 10:48:49 05/18/19 18 05/18/2017 urina lysis , dipst ick Blood Negati ve Not Available In-Office Order Internal Use Only DO Not Attach Compendium DO Not Attach Compendium, Do Not Delete/merge, [id number] 05/18/2017 10:48:49 05/18/19 18 05/18/2017 urina lysis , dipst ick Specific [place] 1.025 Not Available In-Off ice Order Internal [...] Negati ve negati ve Not Available [facility] ([facility]) [address] [facility], [place], [address], 08/03/2018 07:15:49 07/29/19 19 08/02/2018 bacte rial vagin osis + vagin itis panel , vagin al chlamydia trachomatis, NEW Negati ve negati ve Not Available [facility] ([facility]) [address] [place], [address], 08/03/2018 07:15:49 07/29/19 19 08/02/2018 bacte rial vagin osis + vagin itis panel , vagin al neisseria gonorrhoeae, NEW Negati ve negati ve Not Available [facility] ([facility]) [address] [place], [address], 08/03/2018 07:15:49 07/29/19 19 08/03/2018 bacte rial vagin osis + vagin itis panel , vagin al atopobium vaginae High - 2 score abnormal Not Available [facility] ([facility]) [address] [place], [address], 08/03/2018 07:15:49 07/29/19 19 08/03/2018 bacte rial vagin osis + vagin itis panel , vagin al bvab 2 High - 2 score abnormal Not Available [facility] ([facility]) [address] [place], [address], 08/03/2018 07:15:49 07/29/19 19 08/03/2018 bacte rial [...] e loretta cteri stics deter mined by [employer]. It has not been clear ed or appro katty by the Food and Drug Admin istra tion. The FDA has deter mined that such clear ance or appro terry is not neces anne-marie. Not Available [facility] ([facility]) [address] [facility], [place], [address], 08/03/2018 07:15:49 07/29/1908/03/2018 bacte rial vagin osis + vagin itis panel , vagin al neeraj albicans, NEW Negati ve negati ve Not Available [facility] ([facility]) [address] [facility], [place], [address], 08/03/2018 07:15:49 07/29/1908/03/2018 bacte rial vagin osis + vagin itis panel , vagin al neeraj glabrata, NEW Negati ve negati ve This test was devel oped and its perfo rmanc e loretta cteri stics deter mined by [employer]. It has not been clear ed or appro katty by the Food and Drug Admin istra tion. The FDA has deter mined that such clear ance or appro terry is not neces anne-marie. Not Available [facility] ([facility]) [address] [facility], [place], [address], 08/03/2018 07:15:49 Result Notes None recorded. Problems Name Problem SNOMED Code Status Onset Date Resolution Date Notes Provider Name and Address Organization Details Recorded Time Bacterial vaginosis 103731642 Active Marianela Pedersen MA null, [place] - [facility] 6 08:49:53 Problem Notes None recorded. Procedures Surgical History Date Name Laterality Status Provider Name and Address Organization Details Recorded Time 8 Date of Last Pap Smear completed Dora Patel [place] - [facility] 07/28/2018 13:59:04 7 Control Implant Removal completed Sarah Machado JANET-JUAN Attn: Accounting[address] [place], [address], [place] 12/29/2016 10:19:54 7 Control Implant Insertion completed Sarah Machado [facility] Attn: Accounting[address] [place], [address], [facility] - [place] 06/22/2016 12:32:18 6 Depo Injection completed Abena Maurermons [place] - [facility] 016 09:31:35 6 Depo Injection completed Abena Maurermons [place] - [facility]16 10:16:44 6 Depo Injection completed Abena Raymond [place] - [facility] 016 10:07:09 6 Depo Injection completed Marianela Houston [place] - [facility] 07/07/19 16 11:09:47 5 Control Implant Removal completed Sarah Machado [facility] Attn: Accounting[address] [place], [address], [facility] - [facility] 04/08/2015 10:16:29 Imaging Results None recorded. Procedure Notes None recorded. Medical Equipment None Reported. Allergies Allergen ID Allergen Name Allergen Category Reaction Reaction Severity Criticality Documentation Date Start Date Code Code System Note Provider Name and Address Organization Details Recorded Time 85214 latex environme nt,medica tion hives Not available Not available 03/30/2016 92597 91 RxNorm Not Available Not Available Not [...] Updated DateTime 05/18/2017 172.72 cm 25.7 kg/m2 19234.11 g 114 mm[Hg] 60 mm[Hg] Deanne Sherman [place] - [facility] 8 10:48:41 Date Recorded Body weight Systolic blood pressure Diastolic blood pressure Provider Name and Address Organization Details Last Updated DateTime 07/28/2018 99489 g 132 mm[Hg] 92 mm[Hg] Kathy Mariscal [place] - [facility] 07/28/2018 14:04:57 Date Recorded Body weight Body height Body mass index (BMI) Oxygen saturation Oxygen saturation in Arterial blood by Pulse oximetry Heart rate Body temperature Systolic blood pressure Diastolic blood pressure Provider Name and Address Organization Details Last Updated DateTime 0 26937.0 3 g 168.91 cm 28.7 kg/m2 99 % 99 % 78 /min 97.5 [degF] 130 mm[Hg] 80 mm[Hg] Elisabet Medellin MA [facility] 0 11:41:44 Date Recorded Body height Provider Name an d Address Organization Details Last Updated DateTime 06/22/2016 172.72 cm Marianela Pedersen MA [facility] 06/22/2016 09:20:50 Date Recorded Body height Provider Name an d Address Organization Details Last Updated DateTime 12/29/2016 172.72 cm Marianela Pedersen MA [facility] 12/29/2016 09:47:17 Date Recorded Body mass index (BMI) Body weight Systolic blood pressure Diastolic blood pressure Provider Name and Address Organization Details Last Updated DateTime 12/29/2016 25.1 kg/m2 58194.74 g 110 mm[Hg] 70 mm[Hg] Abena Mandi [facility] 12/29/2016 09:53:51 Social History Question Answer Notes LastModified by Organizat ion Details LastModified Time Tobacco Smoking Status Former Smoker Abena thomas [facility] 06/02/2016 09:33:35 Do You Have An Advance [...] not available 01/11/2020 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 Information not available 01/11/2020 Hard Of Hearing [...] N Kidney Cyst N Hyperthyroidism N Blood Transfusion N MRSA N Blood disorders N Emphysema N COPD N Blood Clots N Depression N Pneumonia N Peripheral Arterial Disease N Premature N Edema N TIA N Headaches/Migraines N Anxiety Disorder N Obesity N Infertility N Polyps N Acid Reflux (GERD) N Hematuria N Stroke N Neck Injury N Polio N Hospital Admission other than N Neurologic Disorder N Other Sleep Disorders N Rheumatoid Arthritis N Fibromyalgia N Abdominal Aortic Aneurysm Repair N Kidney Disease N Heart Conditions N Heart Disease/Heart Problems N Hospitalizations N Brain Tumors N Acne N Eating Disorder N Skin Problems N Constipation N Meningitis N Tuberculosis N Cerebral Palsy N Myocardial Infarction N Asthma N Substance Abuse N Peripheral Vascular Disease N Vertigo N Sleep Disorder N Cirrhosis N Pulmonary Embolism N Chicken Pox N Flomax Use Past or Present N Hematologic Disease N Anxiety/Depression N Thyroid Disease N Colon Cancer N Glaucoma N Lung Disease N Developmental or Behavioral Disorders N Bipolar N Pacemaker N Diverticulitis/Diverticulosis N Anesthesia Complications N Orthopedic Problems N Orthotics N Head Injury/Concussion N Congenital Anomalies N [place] Bite N Chronic Kidney Disease N Endometriosis N Liver Disease N Dialysis N Schizophrenia N Speech Delay N Chronic Obstructive Pulmonary Disease N Parkinson's Disease N Thyroid Problems N GI Problems Y Developmental Delay N Anemia N Immune System Disorder N Multiple Sclerosis N Colon Polyps N Heart Attack ([place]) N Diabetes N Cardiomyopathy N Blood Transfusions N Heart Problems/Murmur N Eye Trauma N Congestive Heart Failure (CHF) N Valvular Heart Disease N Hyperlipidemia N Double Vision N Abuse/Domestic Violence N Hepatitis B N Lupus N Epilepsy/Seizures N Reflux/GERD N Aneurysm N Bronchitis N Heart Disease N Hypertension N Pre-Eclampsia N Heart Failure N Other N Gout [...] N Kidney Failure N Ocular trauma N Dementia N Diverticulitis N Sleep Apnea N Mental Problems N [...] SNOMED-CT Code Diagnosis ICD10 Code Diagnosis Note [id number] Marianela Houston [facility] ([facility]) [address] [place] [address] 04/08/2015 09:34:08 04/08/2015 10:22:33 detection examination 15884953 Z32.00 Uses depot contraception 418590959 Z30.013 [id number] Sarah Machado [facility] ([facility]) [address] [place] [address] 07/07/2015 10:59:07 07/07/2015 14:30:31 Uses depot contraception 352787288 Z30.42 [id number] [facility] ([facility]) [address] [place] [address] 10/06/2015 09:33:20 10/06/2015 14:20:16 Uses depot contraception 257256178 Z30.42 [id number] Abena Simmons [employer] ([facility] [address]) [address] [place] [address] 01/06/2016 09:44:40 01/06/2016 10:27:05 Uses depot contraception 210591774 Z30.42 Gynecologi c examination 08870909 Z01.841 [id number] Sarah Machado [facility] ([facility] [address]) [address] [place] [address] 03/30/2016 09:11:11 03/30/2016 10:02:32 Uses depot contraception 660215510 Z30.42 [id number] Sarah Machado [facility] ([facility] [address]) [address] [place] [address] 06/02/2016 09:18:26 06/02/2016 14:15:43 Contraception education 927439796 Z30.09 [id number] Sarah Machado [facility] [employer] ([facility]) [address] [facility] [place] [address] 06/22/2016 08:58:36 06/23/2016 08:56:17 Insertion of subcutaneous contraceptive 764208469 Z30.9 At increas ed risk of urinary tract infection 237754818 Z91.89 [id number] Sarah Machado [facility] ([facility]) [address] [facility] [place] [address] 12/29/2016 09:41:48 12/29/2016 13:21:52 Removal of subcutaneous contraceptive done 8199208323 82691 Z98.890 Surveillan ce of oral contraception 173941778 Z30.41 [id number] MD Lance Jackson [facility] ([facility]) [address] [facility] [place] [address] 05/18/2017 10:33:15 05/19/2017 11:52:59 At increased risk of urinary tract infection 468953289 Z91.89 Gynecologi c examination 99490451 Z01.419 CBE and pap smear performed Contraception care 30215 5005 Z30.40 [id number] Gallo Mas MD [place] [address] [facility] [address] [place] [address] 07/28/2018 13:51:54 07/28/2018 15:45:21 Contraception care 012115026 Z30.40 Bacterial vaginosis 4197 85943 N76.0 Gynecologi c examination 60290348 Z01.419 CBE and pelvic exam performed Venereal d isease screening 659397663 Z11.3 [id number] Frieda Gudino MD [facility] [address] [place] [address] 01/11/2020 11:27:34 01/14/2020 09:27:10 Migraine 57546779 G43.909 Gastritis 2946563 K29.70 history of excessive vomiting in the teen years after ingestion of unknown substance; still has a finicky stomach and tends to get dyspepsia. Has had endoscopie s done. Advised to not lie down for 1-2 hours after eating or drinking; avoid chocolate and peppermint at bedtime, avoid excessivel y spicy or greasy foods. 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 F41.8 amitriptyl ine may be helpful Health Concerns Section Related Observation LastModified by Organization Detai ls LastModified Time None Recorded Concern Status LastModified by Organization Details LastModified Time None Recorded Advance Directives Directive N: Payers Encounter Date Sequence Insurance Name Policy Number Policy Vogel Covered Member ID Vogel Member ID Guarantor Name 06/22/2016 1 [facility] - DOS PRIOR TO 2020 (MEDICAID REPLACEMENT - HMO) Holly Candice [id number] Holly D Candice 05/18/2017 SLIDING FEE SCHEDULE - DISCOUNT Holly D Candice 07/28/2018 2 *SELF PAY* Si erra D Candice 01/11/2020 2 *SELF PAY* Si erra D Candice 01/11/2020 1 [facility] (MEDICAID HMO) Holly D Candice [id number] Holly D Candice Notes Date Note Type [...] PMDD Gallo Mas MD Attn: [address]ing[address] [place], [address], [place] [facility] 05/18/2017 11:12:31 07/28/2018 text/html [...] MD Attn: [address]ing[address] , [place], [address], [place] - [facility] 07/28/2018 15:43:52 01/11/2020 text/html [...] appetite;fatigue Frieda Gudino MD Attn: [address]ing[address] [place], [address], [facility] - [facility] 01/13/2020 20:15:19 OBGyn Episode No OBEpisode recorded.
--- OUTSIDE RECORDS SUMMARY | 2024-06-26 19:00 | XMS_ITS | Data Portability ---
Author Organization [facility] [place] Address [address] [place] [address] Assessment Encounter Date Assessment Date Assessment LastModified by Organization Details LastModified Time 06/22/2024 06/22/2024 Patient is _33__weeks . Discussed plan. Not available 06/22/2024 17:03:35 Plan of Treatment Reminders Order Date Submit Date Provider Last Modified By Organization Details Last Modified Time Details Appointments U/S OB BPP 2024 09:30A M ULTRASOUND [...] available OB ROUTINE 2024 11:00A M Laura Betts CNM Not available Not [...] profile + non-str ess test [address], [address], [place], [address], 06/22/2024 18:02:25 non-str ess test [address], [facility] [address], [place], [address], 06/26/2024 01:08:00 US, obstetr ic, biophys ical profile + non-str ess test [address] [address], [address], [place], [address], 06/16/2024 22:46:33 non-str ess test [address], [facility] [address], [place], [address], 06/18/2024 23:05:02 Medication Orders None recorde d. Patient TargetsNo targets recorded. Patient InstructionsNo instructions recorded. Reason for Referral None Reported. Results Created Date Observation Date Name Description Value Unit Range Abnormal Flag Note LastModifiedBy Organization Detail LastModifiedTime 06/01/19 25 06/01/2024 CBC W/DIF F WBC 10.9 10'3/ uL 3.5-10 .5 high Not Available [facility] (Lab) [address], [place], [address], 06/02/2024 04:59:40 06/01/19 25 06/01/2024 CBC W/DIF F RBC 3.73 10'6/ uL (based on docume nted legal sex) 3.80-5 .20 low Not Available [facility] (Lab) [address], [place], [address], 06/02/2024 04:59:40 06/01/19 25 06/01/2024 CBC W/DIF F HGB 11.3 g/dL (based on docume nted legal sex) 11.6-1 5.4 low Not Available [facility] (Lab) [address], [place], [address], 06/02/2024 04:59:40 06/01/19 25 06/01/2024 CBC W/DIF F HCT 34.1 % (based on docume nted legal sex) 34.0-4 5.0 Not Available [facility] (Lab) [address], [place], [address], 06/02/2024 04:59:40 06/01/19 25 06/01/2024 CBC W/DIF F MCV 91.4 fL 80.0-9 9.0 Not Available [facility] (Lab) [address], [place], [address], 06/02/2024 04:59:40 06/01/19 25 06/01/2024 CBC W/DIF F MCH 30.3 pg 27.0-3 4.0 Not Available [facility] (Lab) [address], [place], [address], 06/02/2024 04:59:40 06/01/19 25 06/01/2024 CBC W/DIF F MCHC 33.1 g/dL 32.0-3 5.5 Not Available [facility] (Lab) [address], [place], [address], 06/02/2024 04:59:40 06/01/19 25 06/01/2024 CBC W/DIF F RDW 12.9 % 11.0-1 5.0 Not Available [facility] (Lab) [address], [place], [address], 06/02/2024 04:59:40 06/01/19 25 06/01/2024 CBC W/DIF F plt 301 10'3/ uL 150-40 0 Not Available [facility] (Lab) [address], [place], [address], 06/02/2024 04:59:40 06/01/19 25 06/01/2024 CBC W/DIF F MPV 9.4 fL 8.8-12 .1 Not Available [facility] (Lab) [address], [place], [address], 06/02/2024 04:59:40 06/01/19 25 06/01/2024 CBC W/DIF F neutrophils 73.5 % 34.0-7 3.0 high Not Available [facility] (Lab) [address], [place], [address], 06/02/2024 04:59:40 06/01/19 25 06/01/2024 CBC W/DIF F lymphocytes 18.9 % 15.0-5 0.0 Not Available [facility] (Lab) [address], [place], [address], 06/02/2024 04:59:40 06/01/19 25 06/01/2024 CBC W/DIF F monocytes 6.3 % 1.0-15 .0 Not Available [facility] (Lab) [address], [place], [address], 06/02/2024 04:59:40 06/01/19 25 06/01/2024 CBC W/DIF F eosinophils 0.7 % 0.0-8. 0 Not Available [facility] (Lab) [address], [place], [address], 06/02/2024 04:59:40 06/01/19 25 06/01/2024 CBC W/DIF F basophils 0.3 % 0.0-2. 0 Not Available [facility] (Lab) [address], [place], [address], 06/02/2024 04:59:40 06/01/19 25 06/01/2024 CBC W/DIF [...] Available [facility] (Lab) [address] , [place], [address], 06/02/2024 04:59:40 06/01/19 25 06/01/2024 CBC W/DIF F absolute neutrophils 8.0 10'3/ uL 1.5-8. 0 Not Available [facility] (Lab) [address], [place], [address], 06/02/2024 04:59:40 06/01/19 25 06/01/2024 CBC W/DIF F absolute lymphocytes 2.1 10'3/ uL 1.0-4. 0 Not Available [facility] (Lab) [address] [place], [address], 06/02/2024 04:59:40 06/01/19 25 06/01/2024 CBC W/DIF F absolute monocytes 0.7 10'3/ uL 0.2-1. 0 Not Available [facility] (Lab) [address], [place], [address], 06/02/2024 04:59:40 06/01/19 25 06/01/2024 CBC W/DIF F absolute eosinophils 0.1 10'3/ uL 0.0-0. 6 Not Available [facility] (Lab) [address], [place], [address], 06/02/2024 04:59:40 06/01/19 25 06/01/2024 CBC W/DIF F absolute basophils 0.0 10'3/ uL 0.0-0. 3 Not Available [facility] (Lab) [address] [facility], [place], [address], 06/02/2024 04:59:40 06/01/19 25 06/01/2024 CBC W/DIF F absolute immature granulocytes 0.0 10'3/ uL 0.00-0 .10 Refer ence range s for nonbi nary/ inter sex or unspe cifie d gende r patie nts have not been estab lishe d. Pleas e refer to the follo wing table for range s estab lishe d for cisge nder patie nts and evalu ate in the clini antoni miri xt of the indiv idual patie nt: https ://jason fountain book. nm.or g/Gen derX Not Available [facility] (Lab) [address], [place], [address], 06/02/2024 04:59:40 06/01/19 25 06/01/2024 URIC ACID uric acid 4.3 mg/dL 2.3-6. 6 Not Available [facility] (Lab) [address] [facility], [place], [address], 06/02/2024 04:59:40 06/01/19 25 06/01/2024 CMP(C OMPRE HENSI VE METAB OLIC PANEL ) sodium 140 mmol/ L 133-14 6 Not Available [facility] (Lab) [address] [facility], [place], [address], 06/02/2024 04:59:41 06/01/19 25 06/01/2024 CMP(C OMPRE HENSI VE METAB OLIC PANEL ) potassium 4.0 mmol/ L 3.5-5. 1 Not Available [facility] (Lab) [address] [facility], [place], [address], 06/02/2024 04:59:41 06/01/19 25 06/01/2024 CMP(C OMPRE HENSI VE METAB OLIC PANEL ) chloride 103 mmol/ L 98-107 Not Available [facility] (Lab) [address] [facility], [place], [address], 06/02/2024 04:59:41 06/01/19 25 06/01/2024 CMP(C OMPRE HENSI VE METAB OLIC PANEL ) carbon dioxide 27 mmol/ L 21-31 Not Available [facility] (Lab) [address] [facility], [place], [address], 06/02/2024 04:59:41 06/01/19 25 06/01/2024 CMP(C OMPRE HENSI VE METAB OLIC PANEL ) anion gap 10 mmol/ L 4-13 Not Available [facility] (Lab) [address] [facility], [place], [address], 06/02/2024 04:59:41 06/01/19 25 06/01/2024 CMP(C OMPRE HENSI VE METAB OLIC PANEL ) blood urea nitrogen 8 mg/dL 7-25 Not Available [facility] (Lab) [address] [facility], [place], [address], 06/02/2024 04:59:41 06/01/19 25 06/01/2024 CMP(C OMPRE HENSI VE METAB OLIC PANEL ) creatinine 0.55 mg/dL 0.60-1 .30 low Not Available [facility] (Lab) [address] [facility], [place], [address], 06/02/2024 04:59:41 06/01/19 25 06/01/2024 CMP(C OMPRE HENSI VE METAB OLIC PANEL ) egfrcr (CKD-epi 2020) >90 mL/mi n/1.7 3_m2 >=60 Not Available [facility] (Lab) [address] [facility], [place], [address], 06/02/2024 04:59:41 06/01/19 25 06/01/2024 CMP(C OMPRE HENSI VE METAB OLIC PANEL ) calcium 9.2 mg/dL 8.3-10 .5 Not Available [facility] (Lab) [address] [facility], [place], [address], 06/02/2024 04:59:41 06/01/19 25 06/01/2024 CMP(C OMPRE HENSI VE METAB OLIC PANEL ) glucose 73 mg/dL 70-100 Not Available [facility] (Lab) [address] [facility], [place], [address], 06/02/2024 04:59:41 06/01/19 25 06/01/2024 CMP(C OMPRE HENSI VE METAB OLIC PANEL ) protein, total 6.1 g/dL 6.4-8. 3 low Not Available [facility] (Lab) [address] [place], [address], 06/02/2024 04:59:41 06/01/19 25 06/01/2024 CMP(C OMPRE HENSI VE METAB OLIC PANEL ) albumin 3.6 g/dL 3.5-5. 0 Not Available [facility] (Lab) [address] [facility], [place], [address], 06/02/2024 04:59:41 06/01/19 25 06/01/2024 CMP(C OMPRE HENSI VE METAB OLIC PANEL ) ALT 8 units /L 9-43 low Not Available [facility] (Lab) [address] [place], [address], 06/02/2024 04:59:41 06/01/19 25 06/01/2024 CMP(C OMPRE HENSI VE METAB OLIC PANEL ) alkaline phosphatase 119 units /L 34-104 high Not Available [facility] (Lab) [address] [facility], [place], [address], 06/02/2024 04:59:41 06/01/19 25 06/01/2024 CMP(C OMPRE HENSI VE METAB OLIC PANEL ) AST 10 units /L 13-39 low Not Available [facility] (Lab) [address] [facility], [place], [address], 06/02/2024 04:59:41 06/01/19 25 06/01/2024 CMP(C OMPRE HENSI VE METAB OLIC PANEL ) bilirubin, total 0.4 mg/dL 0.2-1. 2 Not Available [facility] (Lab) [address] [facility], [place], [address], 06/02/2024 04:59:41 06/01/19 25 06/01/2024 PROTE IN/CR EATIN INE RATIO , URINE creatinine, urine 91.2 mg/dL R-No refer ence range estab lishe d for this assay Not Available [facility] (Lab) [address] [place], [address], 06/02/2024 04:59:41 06/01/19 25 06/01/2024 PROTE IN/CR EATIN INE RATIO , URINE protein, urine 8 mg/dL R-No refer ence range estab lishe d for this assay Not Available [facility] (Lab) [address] [place], [address], 06/02/2024 04:59:41 06/01/19 25 06/01/2024 PROTE IN/CR [...] Not Available [facility] (Lab) [address], [place], [address], 06/02/2024 04:59:41 05/18/19 25 05/17/2024 US, obste tric, follo w-up No observ ation record ed. [email or web address] [facility] [address] [facility], [place], [address], 06/06/2024 09:26:32 06/06/19 25 06/06/2024 US, obste tric, bioph ysica l profi le No observ ation record ed. [email or web address] [address] [facility], [place], [address], 06/07/2024 12:45:19 06/06/19 25 06/06/2024 non-s tress test No observ ation record ed. [place] [address], [place], [address], 06/06/2024 11:04:03 06/06/19 25 06/06/2024 US, obste tric, bioph ysica l profi le + non-s tress test No observ ation record ed. [email or web address] [place] [address], [place], [address], 06/06/2024 13:26:08 06/11/19 25 06/11/2024 non-s tress test No observ ation record ed. [address] [facility] [address], [place], [address], 06/13/2024 11:20:56 06/11/19 25 06/11/2024 US, obste tric, follo w-up No observ ation record ed. [address], [place], [address], 06/13/2024 12:26:00 06/13/19 25 06/13/2024 non-s tress test No observ ation record ed. [facility] [address], [place], [address], 06/13/2024 15:52:52 06/15/19 25 06/14/2024 US, obste tric, follo w-up No observ ation record ed. [email or web address] [facility] [address] [place], [address], 06/25/2024 10:29:07 06/15/19 25 06/15/2024 non-s tress test No observ ation record ed. [email or web address] [place] [address], [place], [address], 06/15/2024 12:51:05 06/15/19 25 06/15/2024 US, obste tric, bioph ysica l profi le + non-s tress test No observ ation record ed. [facility] [address], [place], [address], 06/15/2024 17:10:29 06/15/19 25 06/15/2024 US, obste tric, follo w-up No observ ation record ed. [email or web address] [address], [place], [address], 06/18/2024 09:43:47 06/22/19 25 06/22/2024 non-s tress test No observ ation record ed. [place] [address], [place], [address], 06/22/2024 17:22:15 06/22/19 25 06/22/2024 US, obste tric, bioph ysica l profi le + non-s tress test No observ ation record ed. [facility] [address], [place], [address], 06/22/2024 17:56:41 06/22/19 25 06/22/2024 US, obste tric, bioph ysica l profi le + non-s tress test No observ ation record ed. [email or web address] [address], [place], [address], 06/22/2024 19:24:55 Result Notes None recorded. Problems Name Problem SNOMED Code Status Onset Date Resolution Date Notes Provider Name and Address Organization Details Recorded Time Past pregnanc y history of pre-ecla mpsia 11887808865 9100 Active [facility] MFM rec weekly testing at 32wks elevated BP at home 06/12 143/75, 146/87, 137/92 Kellie thomas [facility] 5 17:57:42 Migraine 19658696 Active exedrin tension/f ioricet do not work-imit juve to pharmacy Laura Betts CNM [address], [place], [address], [facility] 4 12:38:19 Past pregnanc y history of gestatio nal diabetes mellitus 292498625 Active Alison thomas, [facility] 4 10:06:47 History of alcohol abuse 815370271 Active 2023 clean since 2015 Alison thomas [facility] 4 10:58:08 Pregnanc y 75511090 Active 2023 Alison thomas [facility] 4 10:06:14 Past pregnanc y history of pre-ecla mpsia 30183469369 9100 Active [facility] MFM rec weekly testing at 32wks elevated BP at home 06/12 143/75, 146/87, 137/92 Kellie thomas, [facility] 5 17:57:42 Past pregnanc y history of gestatio nal diabetes mellitus 782726996 Active Alison Sosa [facility] 4 10:06:47 Migraine 46971042 Active exedrin tension/f ioricet do not work-imit juve to pharmacy Laura Betts CNM [address], [place], [address], [facility] 4 12:38:19 Obesity 372424741 Active bmi 32 Laura Betts CNM [address], [place], [address], [facility] 4 12:36:35 Alcoholi sm 7901142 Active history of abuse, sober since 2015 Laura Betts CNM [address], [place], [address], [facility] 4 14:17:06 Past pregnanc y history of section 368066929 Active 2022 due to preeclamp nisha, elevating liver enzymes Laura Betts CNM [address], [place], [address], [facility] 4 14:19:28 Palpitat ions 31708562 Active 72 hour holter monitor order faxed 03/02 Noe Outpatien t Cardiolog y- Referral faxed Cardiolog y consult Dr Fabian Liang 04/03/24 Make sure records faxed to [facility] Kellie Mendoza [facility] 5 22:25:41 Palpitat ions 51329354 Active 72 hour holter monitor order faxed 03/02 Noe Outpatien t Cardiolog y- Referral faxed Cardiolog y consult Dr Fabian Liang 04/03/24 Make sure records faxed to [facility] Kellie Mendoza [facility] 5 22:25:41 anatomy study Active incomplet e cardiac views x 2 referral faxed [facility] 123 to complete anatomy Scheduled [facility] 04/11 1:00PM Level II US and consult 05/17 10:30AM US only Kellie thomas, [facility] 5 12:38:29 anatomy study Active incomplet e cardiac views x 2 referral faxed [facility] 12/3 to complete anatomy Scheduled [facility] 04/11 1:00PM Level II US and consult 05/17 10:30AM US only Kellie thomas, [facility] 5 12:38:29 Pregnanc y-induce d hyperten [place] 56216426 Active ALEM Evans [address], [place], [address], [place] [facility] 5 17:03:29 Problem Notes None recorded. Procedures Surgical History Date Name Laterality Status Provider Name and Address Organization Details Recorded Time 4 Date of Last Pap Smear completed Alison Sosa [facility] 01/06/2024 10:44:49 3 [facility]/06/2024 10:44:50 Imaging Results Imaging Date Name Status LastModified by Organiz ation Details LastModified Time 05/17/2024 US, obstetric, follow-up completed [email or web address] [facility] [address] [place] [address], [address], 06/06/2024 09:26:32 06/06/2024 US, obstetric, biophysical profile completed [email or web address] [address], [place], [address], 06/07/2024 12:45:19 06/06/2024 non-stress test completed [email or web address] [place] [address], [place], [address], 06/06/2024 11:04:03 06/06/2024 US, obstetric, biophysical profile + non-stress test completed [email or web address] [place] [address], [place], [address], 06/06/2024 13:26:08 06/11/2024 non-stress test completed [address] [facility] [address], [place], [address], 06/13/2024 11:20:56 06/11/2024 US, obstetric, follow-up completed [address], [place], [address], 06/13/2024 12:26:00 06/13/2024 non-stress test completed [facility] [address], [place], [address], 06/13/2024 15:52:52 06/14/2024 US, obstetric, follow-up active [email or web address] [facility] [address] [place] [address], [address], 06/25/2024 10:29:07 06/15/2024 non-stress test completed [address], [place], [address], 06/15/2024 12:51:05 06/15/2024 US, obstetric, biophysical profile + non-stress test completed [facility] [address], [place], [address], 06/15/2024 17:10:29 06/15/2024 US, obstetric, follow-up completed [email or web address] [address], [place], [address], 06/18/2024 09:43:47 06/22/2024 non-stress test completed [address], [place], [address], 06/22/2024 17:22:15 06/22/2024 US, obstetric, biophysical profile + non-stress test completed [facility] [address], [place], [address], 06/22/2024 17:56:41 06/22/2024 US, obstetric, biophysical profile + non-stress test completed [email or web address] [address], [place], [address], 06/22/2024 19:24:55 Procedure Notes None recorded. Medical Equipment None Reported. Allergies Allergen ID Allergen Name Allergen Category Reaction Reaction Severity Criticality Documentation Date Start Date Code Code System Note Provider Name and Address Organization Details Recorded Time 08877 latex environme nt,medica tion itching mild Not available 01/06/2024 39513 91 RxNorm Alison Sosa [facility] 10:44:49 Medications Name Sig Start Date Stop Date Status Note LastModified by Organization Details LastModified Time Zithromax Z-Brien 250 mg tablet TAKE 2 TABLETS (500 MG) BY ORAL ROUTE ONCE DAILY FOR 1 DAY THEN 1 TABLET (250 MG) BY ORAL ROUTE ONCE DAILY FOR 4 DAYS 2024 active Not Available Not Available Not Avai lable amoxicillin 875 mg tablet TAKE 1 TABLET [...] Available Not Available Vitals Date Recorded Body weight Body mass index (BMI) Body height Systolic blood pressure Diastolic blood pressure Provider Name and Address Organization Details Last Updated DateTime 06/15/2024 577753.8 3747 g 37.9 kg/m2 166.37 cm 132 mm[Hg] 82 mm[Hg] Alison Sosa [facility] 5 13:09:44 Date Recorded Body height Body mass index (BMI) Body weight Systolic blood pressure Diastolic blood pressure Provider Name and Address Organization Details Last Updated DateTime 06/22/2024 166.37 cm 38.7 kg/m2 757415.8 g 141 mm[Hg] 81 mm[Hg] TEAGAN Lovelace [facility] 5 16:17:24 Date Recorded Body height Body mass index (BMI) Body weight Systolic blood pressure Diastolic blood pressure Provider Name and Address Organization Details Last Updated DateTime 06/22/2024 166.37 cm 38.7 kg/m2 069921.8 g 140 mm[Hg] 80 mm[Hg] Alison Sosa [facility] 5 16:52:09 Social History Question Answer Notes LastModified by Organizat ion Details LastModified Time Tobacco Smoking Status Former Smoker Alison Sosa [facility] 01/06/2024 10:53:38 Do You Have An Advance Directive? No [email or web address] Information not available 05/04/2024 What Is Your Level Of Alcohol Consumption? None 8 Year Sober [email or web address] Information not available 01/06/2024 If You Are , What Was Your Level Of Alcohol Consumption Prior To ? None [email or web address] Information not available 01/06/2024 Are You Blind Or Do You Have Difficulty Seeing? No [email or web address] Information not available 01/06/2024 What Is Your Level Of Caffeine Consumption? Moderate [email or web address] Information not available 05/14/2024 How Much Tobacco Do You Chew? None Information not available 01/06/2024 In The 14 Days Before Symptom Onset, Have You Had Close Contact With A Laboratory-confi rmed COVID-19 While That Case Was Ill? No [email or web address] Information not available 01/06/2024 In The 14 Days Before Symptom Onset, Have You Had Close Contact With A Person Who Is Under Investigation For COVID-19 While That Person Was Ill? No [email or web address] Information not available 01/06/2024 Have You Been To An Area Known To Be High Risk For COVID-19? No [email or web address] Information not available 01/06/2024 Are You Deaf Or Do You Have Serious Difficulty Hearing? No [email or web address] Information not available 01/06/2024 What Type Of Diet Are You Following? REGULAR [email or web address] Information not available 01/06/2024 What Is The Highest Grade Or Level Of School You Have Completed Or The Highest Degree You Have Received? 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 No [email or web address] Information not available 01/06/2024 Do You Use Protection During Sex? No [email or web address] Information not available 01/06/2024 Do You Use Your Seat Belt Or Car Seat Routinely? Yes Information not available 01/06/2024 Do You Have Smoke And Carbon Monoxide Detectors In Your Home? Yes [email or web address] Information not available 01/06/2024 How Much Tobacco Do You Smoke? No [email or web address] Information not available 01/06/2024 Do You Feel Stressed (tense, Restless, Nervous, Or Anxious, Or Unable To Sleep At Night)? [id number] Information not available 01/06/2024 Do You Use Any Illicit Or Recreational Drugs? No Lorena [email or web address] Information not available 01/06/2024 Do You Use Sunscreen Routinely? Yes Information not available 01/06/2024 Has Tobacco Cessation Counseling Been Provided? Yes [email or web address] Information not available 01/06/2024 On What Date Was Tobacco Cessation Counseling Provided? 06/15/2024 Information not available 06/15/2024 Have You Used IV Drugs? No [email or web address] Information not available 01/06/2024 Do You Or Have You Ever Used Any Other Forms Of Tobacco Or Nicotine? No [email or web address] Information not available 01/06/2024 Sex: Unknown Functional Status Question Answer Note LastModified by Organizat ion Details LastModified Time Do you have difficulty walking or climbing stairs? No [email or web address] Information not available 01/06/2024 Are you able to walk? YESWOREST [email or web address] Information not available 01/06/2024 Are you able to care for yourself? Yes [email or web address] Information not available 01/06/2024 Do you have difficulty dressing or bathing? No [email or web address] Information not available 01/06/2024 What is your exercise level? Moderate [email or web address] Information not available 01/06/2024 Mental Status None recorded. Family History Relationship Description Onset Age of this Age Resolved Age Notes LastModified by Organization Details LastModified Time Unspecified Relation Family history unknown Not available 2024 09:54:09 Unspecified Relation Malignant tumor of breast great matern al aunt, great patern al aunt [email or web address] Not available 06/01/2024 09:40:33 Paternal Grandmother Malignant tumor of breast [email or web address] Not available 2024 09:40:33 Medical History Condition Response Allergies (Food, seasonal, environmental ) N Other N Breast Cancer N Drug/Latex Allergies/Reactions Y Blood Transfusion N Dermatologic Disorders N Lung Disease N Defects or Inherited Disease N Breast [...] SNOMED-CT Code Diagnosis ICD10 Code Diagnosis Note [id number] [facility] [address],[place] [address] 01/06/2024 09:45:37 01/06/2024 10:22:53 [id number] Laura eBtts [facility] [address] [place] [address] 01/06/2024 09:47:42 01/06/2024 11:24:41 Amenorrhea 34614382 N91.2 Venereal d isease screening 815881688 Z11.3 Past pregn flo history of pre-eclampsia [id number] 92886 Z87.59 Nausea and vomiting 1693 1999 R11.2 [id number] [facility] [address] [place] [address] 02/03/2024 08:56:12 02/03/2024 09:32:50 screening [id number] Z36.82 Z3A.13 [id number] Laura Betts [facility] [address] [place] [address] 02/03/2024 08:56:35 02/03/2024 14:48:26 screening 697652192 Z36.89 Routine an tenatal care 390143165 Z34.90 Gestation period, 13 weeks 26800526 Z3A.13 Migraine 28332141 G43.90 9 [id number] Laura Betts [facility] [address] [place] [address] 03/02/2024 09:38:21 03/02/2024 10:16:08 Routine care [id number] Z34.90 [id number] [facility] [address] [place] [address] 03/28/2024 09:27:53 03/28/2024 10:43:33 screening for malformation 106551610 Z36.3 Z3A.21 [id number] Laura Betts [facility] [address] [place] [address] 03/28/2024 09:28:17 03/28/2024 11:08:36 Gestation period, 21 weeks 75050578 Z3A.21 - induced hypertension 82568030 O13.9 [id number] Laura Betts [facility] [address],[place] [address] 05/04/2024 15:36:25 05/04/2024 16:37:35 Migraine 48082165 G43.909 [id number] FRED RAMIREZ [facility] [address],[place] [address] 05/14/2024 09:53:55 05/14/2024 10:44:15 Past history of gestational diabetes mellitus 630876842 Z86.32 - GCT today Past pregn flo history of pre-eclampsia [id number] 56486 Z87.59 - BP wnl, asymptomat ic- discussed warning signs- 32 week testing per MFM- 162mg ASA per MFM Uterine sc ar from previous surgery affecting 56423360 O34.29 - desires TOLAC, ok with induction and pitocin if needed Gestation period, 28 weeks 94993169 Z3A.28 - continue PNV Migraine 13530741 G43.90 9 - improved with imitrex [id number] Laura Betts [facility] [address],[place] [address] 06/01/2024 09:40:17 06/01/2024 11:22:19 Gestation period, 30 weeks 08942216 Z3A.30 check labs, discussed Gestationa l HTN vs preeclamps iaantenata l teting next week [id number] [facility] [address],[place] [address] 06/06/2024 09:19:47 06/06/2024 11:10:13 Chronic hypertension complicating AND/OR reason for care during 50822224 O16.3 Z87.59 Z3A.31 [id number] Catalina Castaneda [facility] [address],[place] [address] 06/06/2024 09:20:09 06/06/2024 11:07:57 Chronic hypertension complicating AND/OR reason for care during 96828485 O16.9 [id number] FRED RAMIREZ MD [facility] [address],[place] [address] 06/06/2024 09:20:30 06/06/2024 11:18:31 Past history of gestational diabetes mellitus 748749905 Z86.32 - GCT wnl Past pregn flo history of pre-eclampsia 4521299286 89025 Z87.59 - BP wnl, asymptomat ic- discussed warning signs- 32 week testing per MFM- 162mg ASA per MFM Breech presentation 6096 002 O32.1XX9 - discussed spinning babies- continue to monitor position Gestation period, 31 weeks 42195945 Z3A.31 - continue PNV [id number] TEAGAN [place] [facility] [address],[place] [address] 06/15/2024 11:56:35 06/15/2024 13:30:31 -induced hypertension 68575372 O13.9 [id number] Aida Andrez [facility] [address],[place] [address] 06/15/2024 11:57:20 06/15/2024 13:30:11 Chronic hypertension complicating AND/OR reason for care during 78014020 O16.3 Z87.59 Z3A.32 [id number] Laura Betts CNM [facility] [address],[place] [address] 06/15/2024 11:57:47 06/15/2024 13:30:04 Gestation period, 32 weeks 8088544 Z3A.32 continue vitamin [id number] Laura Betts CNM [facility] [address],[place] [address] 06/22/2024 15:32:03 06/25/2024 11:35:12 Maternal obesity complicating , childbirth and the puerperium, antepartum 8577266177 07 O99.210 [id number] Aida Maguire [facility] [address] [address] 06/22/2024 15:33:55 06/25/2024 07:53:04 Chronic hypertension complicating AND/OR reason for care during 67590248 O16.3 Z87.59 Z3A.33 [id number] Laura Betts, [facility] [address] [address] 06/22/2024 15:34:41 06/25/2024 04:09:58 Gestation period, 33 weeks 43408316 Z3A.33 Health Concerns Section Related Observation LastModified by Organization Detai ls LastModified Time None Recorded Concern Status LastModified by Organization Details LastModified Time None Recorded Advance Directives Directive N: Payers Encounter Date Sequence Insurance Name Policy Number Policy Vogel Covered Member ID Vogel Member ID Guarantor Name 06/15/2024 1 [place] [facility] [place] [id number] [place] 06/15/2024 1 [place] [facility] Holly [place] [id number] Holly [place] 06/22/2024 1 [place] [facility] Holly [place] [id number] Holly [place] 06/22/2024 1 [place] [facility] Holly [place] [id number] Holly [place] 06/22/2024 1 [place] [facility] Holly [place] [id number] Holly [place] OBGyn Episode Ob Episode Information Episode Created Date Number of Fetuses Patient Bloodtype Patient rh Status Prepregnancy Weight lbs Domestic Partner Domestic Partner Phone Father Name Biller Status 02/03/20 24 1 A Positive 197 [address] [place] OPEN Fetus Data First Name Last Name Admitted to NICU Weight (g) Sex Living Outcome Pediatric Complications Fetus ID Race Codes Race Delivery Type 09595 Problems Problem Notes M recommendations BP lo g at home 1-2x [...] Date Resolution Snomed Code Not e Obesity 243741857 bmi 32 -induced hypertension 49230517 Past history of gestational diabetes mellitus 957541935 Palpitations 97464568 72 hour holter monitor order faxed 03/02 [facility]- Referral faxed Cardiology consult Dr Fabian Liang 04/03/24Make sure records faxed to [facility] Past history of pre-eclampsia [id number] bASAM rec weekly testing at 32wkselevated BP at home 06/12 143/75, 146/87, 137/92 Migraine 73248535 exedrin tension/fioricet do not work-imitrex to pharmacy Alcoholism 1258170 history o f abuse, sober since 2015 Past history of section 055493663 2022 due to preeclampsia, elevating liver enzymes anatomy study 030051156 incomplete card iac views x 2 referral faxed [facility] 04/03 to complete anatomyScheduled [facility] Izabela 04/11 1:00PM Level II US and [...] Type Weight in lbs Pre/Post Dialysis Refused 200.346076191379 BP Diastolic BP Location Tested BP Systolic [...] Type Weight in lbs Pre/Post Dialysis Refused 202.243166909162 BP Diastolic BP Location Tested BP Systolic BP Type 74 117 Fetus Heart Rate Present A 145 Present Fetus Movement A Yes Comments Patient states that is havin g some heart palpatations at night and is having some BH contractions. plan monitoring specialist, +FM doing well f/u 3 weeks precautions [...] Type Weight in lbs Pre/Post Dialysis Refused 208.277013659669 BP Diastolic BP Location Tested BP Systolic [...] hellp wanting unmedicated TOLAC have consult with [facility] baseline pih labs today. +fm precautions and education Flowsheet Date 05/04/2024 Prabhakar Score Blood Edema Fundus Height Fundus Units Glucose Ketones Leukocytes Nitrite Labor Signs Protein Cervic Dilation Cervic Effacement Cervic Station none Type Weight in lbs Pre/Post Dialysis Refused 222.37871236378 BP Diastolic BP Location Tested BP Systolic BP Type 74 113 Fetus Heart Rate Present Fetus Movement A Yes Comments reviewed rec from [facility] 50% ch ance of tolac, discussed pre-e [...] Weight in lbs Pre/Post Dialysis Refused Weight 223.290962132582 BP Diastolic BP Location Tested BP Systolic [...] Type Weight in lbs Pre/Post Dialysis Refused 228.629536007821 BP Diastolic BP Location Tested BP Systolic [...] testing next week. has f/u growth at [facility]. Flowsheet Date 06/06/2024 Prabhakar Score Blood Edema [...] Weight in lbs Pre/Post Dialysis Refused Weight 234.606498161148 BP Diastolic BP Location Tested BP Systolic BP Type 79 L arm 128 sitting Fetus Heart Rate Present A 150 Fetus Movement A Yes Comments Patient c/o of pelvic pain, [place]. Good movement. No cramping or bleeding. [...] Type Weight in lbs Pre/Post Dialysis Refused 231.011344854018 BP Diastolic BP Location Tested BP Systolic BP Type 82 132 Fetus Heart Rate Present Fetus Movement A Yes Comments Patient states that having i ssues with blood pressure, BH contractions, discharge and nausea. bps at home 140's/70, will discuss with dr. ramirez, labs wnl at hospital bpp today 10 f/u next week precautions and education Flowsheet Date 06/22/2024 Prabhakar Score Blood Edema Fundus Height Fundus Units Glucose Ketones Leukocytes Nitrite Labor Signs Protein Cervic Dilation Cervic Effacement Cervic Station Type Weight in lbs Pre/Post Dialysis Refused Weight 236.762601970107 BP Diastolic BP Location Tested BP Systolic BP Type 81 L arm 141 sitting Fetus Heart Rate Present Fetus Movement Comments Flowsheet Date 06/22/2024 Prabhakar Score Blood Edema Fundus Height Fundus Units Glucose Ketones Leukocytes Nitrite Labor Signs Protein Cervic Dilation Cervic Effacement Cervic Station Type Weight in lbs Pre/Post Dialysis Refused BP Diastolic BP Location Tested BP Systolic BP Type Fetus Heart Rate Present Fetus Movement Comments Flowsheet Date 06/22/2024 Prabhakar Score Blood Edema Fundus Height Fundus Units Glucose Ketones Leukocytes Nitrite Labor Signs Protein Cervic Dilation Cervic Effacement Cervic Station Type Weight in lbs Pre/Post Dialysis Refused Weight 236.460501493171 BP Diastolic BP Location Tested BP Systolic BP Type 80 140 Fetus Heart Rate Present Fetus Movement Comments vertex, bpp 8/8, GHTN, monit oring at home 140/70-80's, denies current mercedes, visual changes, epigastric pain, in LD last night labs reviewed. f/u one wek, call for preadmit, plan IOL around 07/16 Menstrual History Last Menstrual Date Menses Monthly [...] Domestic Partner Domestic Partner Phone Father Name Biller Status 01/06/20 24 1 CLOSED Fetus Data First Name Last Name Admitted to NICU Weight (g) Sex Living Outcome Pediatric Complications Fetus ID Race Codes Race Delivery Type 3118.44 5 M Prematur e [id number] Primary [place] Calculation Initial [place] Date Initial [...]
== END 2024-06-26 18:42 | disposition home or self-care (01) ==
LOC: ANHOBOP 17:35 → ANHLDR 17:36
PROVIDERS: Visit Provider Obstetrics & Gynecology
DX: O13.9 Gestational [pregnancy-induced] hypertension without significant proteinuria, unspecified trimester (principal); Z3A.00 Weeks of gestation of pregnancy not specified
CPT/HCPCS: 36415; 59025; 80053; 81003; 82570; 84156; 84550; 85025; 99199

== ENCOUNTER 2024-07-01 15:24 | Outpatient (CLI) | payer MEDICAID, SELFPAY ==
--- OUTSIDE RECORDS SUMMARY | 2024-07-01 15:30 | XMS_ITS | Data Portability ---
Author Organization [facility] KIMMIENeeraj Address [address] [place] [address] Care Team Providers Care [facility] Mortician Name Role Phone AMRITA FRIEDA Primary Care Provider [phone] Assessment No assessment recorded. Plan of Treatment Reminders Order Date Submit Date Provider Last Modified By Organization Details Last Modified Time Details Appointments None recorded. Lab bacterial vaginosis + vaginitis panel, vaginal 2018 019 [facility], [address] [place], [place] [address]anthony Kevin, [address], [place], [address], 9 07:15:49 urinalysi s, dipstick 2017 018 [email or web address] In-Office Order, Internal Use Only DO Not Attach Compendium DO Not Attach Compendium, Do Not Delete/merge, [id number] 8 11:24:49 pap, IG + CT/NG/TV + reflex HR HPV 2017 018 [facility], [address], [address], [place], [address], 8 07:13:37 urinalysi s, dipstick 2016 017 mpass In-Office Order, Internal Use Only DO Not Attach Compendium DO Not Attach Compendium, Do Not Delete/merge, [id number] 7 12:48:00 test, urine 2016 017 mpass In-Office Order, Internal Use Only DO Not Attach Compendium DO Not Attach Compendium, Do Not Delete/merge, [id number] 7 12:48:00 Referral None recorded. Procedures None recorded. Surgeries None recorded. Imaging None recorded. Medication Orders amitripty line 25 mg tablet 2019 020 [id number], [address] [facility], [place], [place], [id number], 0 12:07:18 sumatript an 100 mg tablet 2019 020 [facility], [address] [facility], [place], [place], [id number], 0 12:07:18 butalbita l-acetami nophen-ca ffeine 50 mg-325 mg-40 mg tablet 2019 020 INTERFACE [facility]04452, [address], [place], [place], [id number], 0 12:09:45 metronida zole 500 mg tablet 2018 019 [email or web address] [facility] #68377, [address], [place], [place], [id number], 0 11:36:52 Estarylla 0.25 mg-35 mcg tablet 2018 019 [facility], [address], [place], [place], [id number], 9 14:49:15 Sprintec (28) 0.25 mg-35 mcg tablet 2017 018 INTERFACE [facility] #70550, [address], [place], [id number], 8 11:10:51 Sprintec (28) 0.25 mg-35 mcg tablet 2016 017 mpass Not available 7 14:51:12 Patient TargetsNo targets recorded. Patient Instructions Encounter Date Encounter Id Patient Instructions Last Modified By Organization Details Last Modified Time 06/22/2016 [id number] Follow dressing instructions. Encouraged consistent condom use. mpass Not available 06/22/2016 12:36:33 12/29/2016 [id number] Start OC's. Encouraged consistent use of condoms expecially during the first cycle. mpass Not available 12/29/2016 10:21:50 Holly wants to start OC's. Discussed risks/benefits/si de effects/correct use of OC's. Holly voiced understanding. mpass Not available 12/29/2016 10:21:22 07/28/2018 [id number] bacterial vaginosis: care instructions [email or web address] Not available [...] DO Not Attach Compendium, Do Not Delete/merge, [id number] 06/22/2016 09:56:30 06/22/19 17 06/22/2016 urina lysis [...] 06/22/2016 urina lysis , dipst ick Specific [place] 1.020 Not Available In-Off ice Order [...] DO Not Attach Compendium, Do Not Delete/merge, [id number] 06/22/2016 09:29:45 05/18/19 18 05/20/2017 pap, IG + CT/NG /TV + refle x HR HPV diagnosis: Ulices t NEGAT DEAN FOR INTRA EPITH ELIAL KANNAN N AND CHRIS SANTOS . Not Available [facility] ([facility]) [address], [place], [address], 05/21/2017 07:13:37 05/18/19 18 05/20/2017 pap, IG + CT/NG /TV + refle x HR HPV specimen adequacy: Commjamal t Satis facto ry for evalu ation . Endoc ervic al and/o r squam ous metap lasti c cells (endo cervi antoni compo nent) are prese nt. Not Available [facility] ([facility]) [address] [facility] [address], [place], [address], 05/21/2017 07:13:37 05/18/19 18 05/20/2017 pap, IG + CT/NG /TV + refle x HR HPV clinician provided ICD10: Ulices wilder Z01.4 19 Not Available [facility] ([facility]) [address] [facility] [address] [facility] [address], [place], [address], 05/21/2017 07:13:37 05/18/19 18 05/20/2017 pap, IG + CT/NG /TV + refle x HR HPV performed by: Ulices Qureshi in, Cytot echno logis t (ASCP ) Not Available [facility] ([facility]) [address] [place], [address], 05/21/2017 07:13:37 05/18/19 18 05/20/2017 pap, IG + CT/NG /TV + refle x HR HPV . . Not Available [facility] ([facility]) [address] [place], [address], 05/21/2017 07:13:37 05/18/19 18 05/20/2017 pap, IG [...] ts do occur . Not Available [facility] ([facility]) [address] [place], [address], 05/21/2017 07:13:37 05/18/19 18 05/20/2017 pap, IG + CT/NG /TV + refle x HR HPV test methodology: Commen t This liqui d based ThinP rep(R ) pap test was scree rom with the use of an image guide d systshelia m. Not Available [facility] ([facility]) [address] [place], [address], 05/21/2017 07:13:37 05/18/19 18 05/20/2017 pap, IG + CT/NG /TV + refle x HR HPV . Commen t The HPV DNA refle x crite almaz were not met with this speci men resul t there fore, no HPV testi ng was perfo rmed. Not Available [facility] ([facility]) [address] [place], [address], 05/21/2017 07:13:37 05/18/19 18 05/20/2017 pap, IG + CT/NG /TV + refle x HR HPV chlamydia, nuc. acid amp Negati ve negati ve Not Available [facility] ([facility]) [address] [place], [address], 05/21/2017 07:13:37 05/18/19 18 05/20/2017 pap, IG + CT/NG /TV + refle x HR HPV gonococcus, nuc. acid amp Negati ve negati ve Not Available [facility] ([facility]) [address] [facility] [address], [place], [address], 05/21/2017 07:13:37 05/18/19 18 05/20/2017 pap, IG + CT/NG /TV + refle x HR HPV trich vag by NEW Negati ve negati ve Not Available [facility] ([facility]) [address] [facility] [address], [place], [address], 05/21/2017 07:13:37 05/18/19 18 05/18/2017 urina lysis , dipst ick Leukocytes Negati ve Not Available In-Office Order Internal Use Only DO Not Attach Compendium DO Not Attach Compendium, Do Not Delete/merge, [id number] 05/18/2017 10:48:49 05/18/19 18 05/18/2017 urina lysis , dipst ick Nitrite negati ve Not Available In-Office Order Internal Use Only DO Not Attach Compendium DO Not Attach Compendium, Do Not Delete/merge, 05/18/2017 10:48:49 05/18/19 18 05/18/2017 urina lysis , dipst ick Urobilinogen .2 Not Available In-Of fice Order Internal Use Only DO Not Attach Compendium DO Not Attach Compendium, Do Not Delete/merge, [id number] 05/18/2017 10:48:49 05/18/19 18 05/18/2017 urina lysis , dipst ick Protein Negati ve Not Available In-Office Order Internal Use Only DO Not Attach Compendium DO Not Attach Compendium, Do Not Delete/merge, 05/18/2017 10:48:49 05/18/19 18 05/18/2017 urina lysis , dipst ick pH 5.5 Not Available In-Office Order Internal Use Only DO Not Attach Compendium DO Not Attach Compendium, Do Not Delete/merge, [id number] 05/18/2017 10:48:49 05/18/19 18 05/18/2017 urina lysis , dipst ick Blood Negati ve Not Available In-Office Order Internal Use Only DO Not Attach Compendium DO Not Attach Compendium, Do Not Delete/merge, [id number] 05/18/2017 10:48:49 05/18/19 18 05/18/2017 urina lysis , dipst ick Specific [place] 1.025 Not Available In-Off ice Order [...] Negati ve negati ve Not Available [facility] ([facility]) [address], [place], [address], 08/03/2018 07:15:49 07/29/19 19 08/02/2018 bacte rial vagin osis + vagin itis panel , vagin al chlamydia trachomatis, NEW Negati ve negati ve Not Available [facility] ([facility]) [address] [place], [address], 08/03/2018 07:15:49 07/29/19 19 08/02/2018 bacte rial vagin osis + vagin itis panel , vagin al neisseria gonorrhoeae, NEW Negati ve negati ve Not Available [facility] ([facility]) [address] [place], [address], 08/03/2018 07:15:49 07/29/19 19 08/03/2018 bacte rial vagin osis + vagin itis panel , vagin al atopobium vaginae High - 2 score abnormal Not Available [facility] ([facility]) [address] [place], [address], 08/03/2018 07:15:49 07/29/19 19 08/03/2018 bacte rial vagin osis + vagin itis panel , vagin al bvab 2 High - 2 score abnormal Not Available [facility] ([facility]) [address] [place], [address], 08/03/2018 07:15:49 07/29/19 19 08/03/2018 bacte rial [...] e loretta cteri stics deter mined by [employer]. It has not been clear ed or appro katty by the Food and Drug Admin istra tion. The FDA has deter mined that such clear ance or appro terry is not neces anne-marie. Not Available [facility] ([facility]) [address], [place], [address], 08/03/2018 07:15:49 07/29/1908/03/2018 bacte rial vagin osis + vagin itis panel , vagin al neeraj albicans, NEW Negati ve negati ve Not Available [facility] ([facility]) [address] [facility] [address] [facility] [address], [place], [address], 08/03/2018 07:15:49 07/29/1908/03/2018 bacte rial vagin osis + vagin itis panel , vagin al neeraj glabrata, NEW Negati ve negati ve This test was devel oped and its perfo rmanc e loretta cteri stics deter mined by [employer]. It has not been clear ed or appro katty by the Food and Drug Admin istra tion. The FDA has deter mined that such clear ance or appro terry is not neces anne-marie. Not Available [facility] ([facility]) [address], [place], [address], 08/03/2018 07:15:49 Result Notes None recorded. Problems Name Problem SNOMED Code Status Onset Date Resolution Date Notes Provider Name and Address Organization Details Recorded Time Bacterial vaginosis 585300216 Active Marianela Pedersen [place] null, [place] [facility] 6 08:49:53 Problem Notes None recorded. Procedures Surgical History Date Name Laterality Status Provider Name and Address Organization Details Recorded Time 8 Date of Last Pap Smear completed Dora Patel [place] [facility] 07/28/2018 13:59:04 7 Control Implant Removal completed Sarah Machado JANET-JUAN Attn: Accounting[address] [place], [address], [place] 12/29/2016 10:19:54 7 Control Implant Insertion completed Sarah Machado [facility] Attn: Accounting[address] [place], [address], [facility] - [facility] 06/22/2016 12:32:18 6 Depo Injection completed Abena Maurermons [place] [facility]16 09:31:35 6 Depo Injection completed Abena [place]urermons [place] [facility]16 10:16:44 6 Depo Injection completed Abena Raymond [place] [facility] 016 10:07:09 6 Depo Injection completed Marianela Houston [place] [facility] 07/07/19 16 11:09:47 5 Control Implant Removal completed Sarah Machado [facility] Attn: Accounting[address] [place], [address], [facility] - [facility] 04/08/2015 10:16:29 Imaging Results None recorded. Procedure Notes None recorded. Medical Equipment None Reported. Allergies Allergen ID Allergen Name Allergen Category Reaction Reaction Severity Criticality Documentation Date Start Date Code Code System Note Provider Name and Address Organization Details Recorded Time 71032 latex environme nt,medica tion hives Not available Not available 03/30/2016 03750 91 RxNorm Not Available Not Available Not [...] Updated DateTime 05/18/2017 172.72 cm 25.7 kg/m2 45040.11 g 114 mm[Hg] 60 mm[Hg] Deanne Sherman [place] [facility] 8 10:48:41 Date Recorded Body weight Systolic blood pressure Diastolic blood pressure Provider Name and Address Organization Details Last Updated DateTime 07/28/2018 60330 g 132 mm[Hg] 92 mm[Hg] Kathy Mariscal [place] [facility] 07/28/2018 14:04:57 Date Recorded Body weight Body height Body mass index (BMI) Oxygen saturation Oxygen saturation in Arterial blood by Pulse oximetry Heart rate Body temperature Systolic blood pressure Diastolic blood pressure Provider Name and Address Organization Details Last Updated DateTime 0 93448.0 3 g 168.91 cm 28.7 kg/m2 99 % 99 % 78 /min 97.5 [degF] 130 mm[Hg] 80 mm[Hg] Elisabet Medellin MA [facility] 0 11:41:44 Date Recorded Body height Provider Name an d Address Organization Details Last Updated DateTime 06/22/2016 172.72 cm Marianela Pedersen MA [facility] 06/22/2016 09:20:50 Date Recorded Body height Provider Name an d Address Organization Details Last Updated DateTime 12/29/2016 172.72 cm Marianela Pedersen MA [facility] 12/29/2016 09:47:17 Date Recorded Body mass index (BMI) Body weight Systolic blood pressure Diastolic blood pressure Provider Name and Address Organization Details Last Updated DateTime 12/29/2016 25.1 kg/m2 34113.74 g 110 mm[Hg] 70 mm[Hg] Abena Mandi [facility] 12/29/2016 09:53:51 Social History Question Answer Notes LastModified by Organizat ion Details LastModified Time Tobacco Smoking Status Former Smoker Abena thomas [facility] 06/02/2016 09:33:35 Do You Have An Advance [...] not available 01/11/2020 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 01/11/2020 Hard Of Hearing [...] Sclerosis N Colon Polyps N Heart Attack ([place]) N Diabetes N Cardiomyopathy N Blood Transfusions [...] SNOMED-CT Code Diagnosis ICD10 Code Diagnosis Note [id number] Marianela Houston [facility] ([facility] [address]) [address] [place] [address] 04/08/2015 09:34:08 04/08/2015 10:22:33 detection examination 84843345 Z32.00 Uses depot contraception 483621852 Z30.013 [id number] Sarah Machado [facility] ([facility] [address]) [address] [place] [address] 07/07/2015 10:59:07 07/07/2015 14:30:31 Uses depot contraception 842934405 Z30.42 [id number] Sarah Machado [facility] ([facility] [address]) [address] [place] [address] 10/06/2015 09:33:20 10/06/2015 14:20:16 Uses depot contraception 447334905 Z30.42 [id number] Abena Simmons [facility] ([facility] [address]) [address] [place] [address] 01/06/2016 09:44:40 01/06/2016 10:27:05 Uses depot contraception 250860485 Z30.42 Gynecologi c examination 77284232 Z01.252 [id number] Sarah Machado [facility] ([facility] [address]) [address] [place] [address] 03/30/2016 09:11:11 03/30/2016 10:02:32 Uses depot contraception 519512851 Z30.42 [id number] Sarah Machado [facility] ([facility] [address]) [address] [place] [address] 06/02/2016 09:18:26 06/02/2016 14:15:43 Contraception education 246128060 Z30.09 [id number] Sarah Machado [facility] ([facility] [address]) [address] [facility] [place] [address] 06/22/2016 08:58:36 06/23/2016 08:56:17 Insertion of subcutaneous contraceptive 596267249 Z30.9 At increas ed risk of urinary tract infection 333637019 Z91.89 [id number] Sarah Machado [facility] ([facility] [address]) [address] [facility] [place] [address] 12/29/2016 09:41:48 12/29/2016 13:21:52 Removal of subcutaneous contraceptive done 8992219226 26141 Z98.890 Surveillan ce of oral contraception 735183096 Z30.41 [id number] MD Lance [facility] ([facility] [address]) [address] [facility] [place] [address] 05/18/2017 10:33:15 05/19/2017 11:52:59 At increased risk of urinary tract infection 130789970 Z91.89 Gynecologi c examination 36932067 Z01.419 CBE and pap smear performed Contraception care 68304 5005 Z30.40 [id number] Gallo Mas MD [place] [address] OB [address] [facility] [address] [place] [address] 07/28/2018 13:51:54 07/28/2018 15:45:21 Contraception care 215655540 Z30.40 Bacterial vaginosis 4197 51583 N76.0 Gynecologi c examination 09788017 Z01.419 CBE and pelvic exam performed Venereal d isease screening 489223181 Z11.3 [id number] Frieda Gudino MD [facility] [address] [place] [address] 01/11/2020 11:27:34 01/14/2020 09:27:10 Migraine 43479724 G43.909 Gastritis 8204168 K29.70 history of excessive vomiting in the teen years after ingestion of unknown substance; still has a finicky stomach and tends to get dyspepsia. Has had endoscopie s done. Advised to not lie down for 1-2 hours after eating or drinking; avoid chocolate and peppermint at bedtime, avoid excessivel y spicy or greasy foods. 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 F41.8 amitriptyl ine may be helpful Health Concerns Section Related Observation LastModified by Organization Detai ls LastModified Time None Recorded Concern Status LastModified by Organization Details LastModified Time None Recorded Advance Directives Directive N: Payers Encounter Date Sequence Insurance Name Policy Number Policy Vogel Covered Member ID Vogel Member ID Guarantor Name 06/22/2016 1 [facility] - DOS PRIOR TO 2020 (MEDICAID REPLACEMENT - HMO) Holly Candice [id number] Holly D Candice 05/18/2017 SLIDING FEE SCHEDULE - DISCOUNT Holly D Candice 07/28/2018 2 *SELF PAY* Si erra D Candice 01/11/2020 2 *SELF PAY* Si erra D Candice 01/11/2020 1 [facility] (MEDICAID HMO) Holly D Candice [id number] Holly D Candice Notes Date Note Type [...] PMDD Gallo Mas MD Attn: Accounting[address] [place], [address], [place] [facility] 05/18/2017 11:12:31 07/28/2018 text/html [...] MD Attn: [address]ing[address] , [place], [address], [place] [facility] 07/28/2018 15:43:52 01/11/2020 text/html [...] appetite;fatigue Frieda Gudino MD Attn: Accounting[address] [place], [address], [facility] - [facility] 01/13/2020 20:15:19 OBGyn Episode No OBEpisode recorded.
--- OUTSIDE RECORDS SUMMARY | 2024-07-01 15:30 | XMS_ITS | Referral Summary ---
Author Organization [facility] Address [address] [place] [address] Care Team Providers Care Mobile Designer Name Role Phone Unknown, Provider Primary Care Provider Unavaila ble Source Comments [facility],non-owned Affiliates and Associated Physician Practices is [facility] consisting of ambulatory clinics and hospital sitesin [place], [place], [place] and [place]. This disclosure is being madepursuant to the Care Everywhere program and may not contain all information available regarding this patient. Last updated 18.[facility] Encounters Date Type Department Care Team Description 06/26/2024 9:36 AM ENGINEERING SECRETARY - 06/26/2024 11:59 PM ENGINEERING SECRETARY Hospital Encounter [facility] [address] [place] [id number] Gerard Bustamante MD Discharge Disposition: Home or Self Care 06/19/2024 Travel 06/19/2024 11:02 AM ENGINEERING SECRETARY - 06/19/2024 11:59 PM ENGINEERING SECRETARY Hospital Encounter [facility] [address] [place] [address] Berta Valadez MD Discharge Disposition: Home or Self Care 06/15/2024 Travel 06/14/2024 11:14 AM ENGINEERING SECRETARY - 06/14/2024 11:59 PM ENGINEERING SECRETARY Hospital Encounter [facility] [address] [place] [address] Gerard Bustamante MD Tomlinson, Tracy M, MD Discharge Disposition: Home or Self Care 05/17/2024 10:29 AM ENGINEERING SECRETARY - 05/17/2024 11:59 PM ENGINEERING SECRETARY Hospital Encounter [facility] [address] [place] [address] Mckay Hodge MD Discharge Disposition: Home or Self Care 04/11/2024 1:04 PM ENGINEERING SECRETARY - 04/11/2024 11:59 PM ENGINEERING SECRETARY Hospital Encounter [facility] [address] [place] [address] Jaime Durant MD Discharge Disposition: Home or Self Care 04/11/2024 1:00 PM ENGINEERING SECRETARY - 04/11/2024 1:03 PM ENGINEERING SECRETARY Hospital Encounter [facility] [address] [place] [address] Jaime Durant MD Discharge Disposition: Home or [...] success rate is stated at 60-80%. The [facility] Network calculator for this patient estimates her [...] later in for TOLAC planning purposes at [place]. Estimated Date of Delivery Comme nts Yes [...] Comments Blood Pressure 116/62 06/26/2024 9:53 AM ENGINEERING SECRETARY Pulse 91 06/26/2024 9:53 AM ENGINEERING SECRETARY Temperature - - Respiratory Rate 18 04/11/2024 2:13 PM ENGINEERING SECRETARY Oxygen Saturation - - Inhaled Oxygen Concentration - - Weight 95.7 kg (211 lb) 04/11/2024 2:13 PM ENGINEERING SECRETARY Height 165.1 cm (5' 5 ) 04/11/2024 2:13 PM ENGINEERING SECRETARY Body Mass Index 35.11 04/11/2024 2:13 PM ENGINEERING SECRETARY Plan of Treatment Upcoming Encounters Date Type Department Care Team (Late st Contact Info) Description 07/02/2024 9:00 AM ENGINEERING SECRETARY Hospital Encounter [facility] [address] [place] [address] Moustapha Martinez MD [address] [place] [address] Procedures Procedure Name Priority Date/Time Associated Diagnosis Comments SONOGRAM - COMPLETE Routine 06/14/2024 1 1:28 AM ENGINEERING SECRETARY Cardiac arrhythmia during (HCC) History of HELLP syndrome, currently (HCC) Other obesity due to excess calories affecting in third trimester (HCC) Previous delivery affecting (HCC) Encounter for ultrasound (HCC) History of pre-eclampsia in prior , currently (HCC) History of delivery, currently (HCC) Second (HCC) History of gestational diabetes in prior , currently ([facility]) 32 weeks gestation of ([facility]) SONOGRAM - COMPLETE Routine 05/17/2024 1 1:04 AM ENGINEERING SECRETARY Cardiac arrhythmia during ([facility]) History of HELLP syndrome, currently ([facility]) Other obesity due to excess calories affecting in third trimester ([facility]) Previous delivery affecting ([facility]) History of pre-eclampsia in prior , currently ([facility]) History of gestational diabetes in prior , currently ([facility]) History of delivery, currently ([facility]) 28 weeks gestation of ([facility]) SONOGRAM - COMPLETE Routine 04/11/2024 1 :20 PM ENGINEERING SECRETARY Encounter for anatomic survey ([facility]) Palpitations History of pre-eclampsia in prior , currently ([facility]) History of gestational diabetes in prior , currently ([facility]) 23 weeks gestation of ([facility]) History of delivery, currently ([facility]) from Last 3 Months Results * SONOGRAM - COMPLETE (06/14/2024 11:28 AM ENGINEERING SECRETARY) Only the most recent of3 resultswithin the time period is included. Linked Results Indication ======== Incomplete cardiac views Class I obesity Labile hypertension - no meds 06/14 LGA fetus Previous History ====== OB History 2. Para 1 [id number] 1. live 2022. Gest. age 36 w [...] 5 lb 6 oz EFW by Hadlock ([id number]) LGA Growth Overview Exam date [place] BPD [...] Thorax 4-chamber view. LVOT view. 3-vessel view. 1-socqzu-lshcsvv view. Situs. Aortic arch view. Bicaval view. [...] Growth in 4 w Coding ====== Procedures 56000: [place] [address]: Biophysical Profile W/O NST . [facility] [employer] PACS Anatomical Region Laterality Modality Other 06/14/2024 11:2 8 AM ENGINEERING SECRETARY Laura Betts APRN-[employer] PILOT M ORDERABLES from Last 3 Months Care Teams Mobile Designer Relationship Specialty Start Date End Date Unknown, Provider PCP - General 04/11/24
--- OUTSIDE RECORDS SUMMARY | 2024-07-01 15:30 | XMS_ITS | Patient Health Summary ---
Author Organization [facility] Address [address] [place] [address] Care Team Providers Care [employer] Supervisor Name Role Phone Unknown, Provider Primary Care Provider Unavaila ble Note from [facility],non-owned Affiliates and Associated Physician Practices is amultiple site organization consisting of ambulatory clinics and hospital sitesin [place], [place], [place] and [place]. This disclosure is being madepursuant to the Care Everywhere program and may not contain all information available regarding this patient. Last updated 18.[facility] Allergies * Latex(Rash) -Medium Criticality Medications [...] Comments Blood Pressure 116/62 06/26/2024 9:53 AM ATTENDING PATHOLOGIST Pulse 91 06/26/2024 9:53 AM ATTENDING PATHOLOGIST Temperature - - Respiratory Rate 18 04/11/2024 2:13 PM ATTENDING PATHOLOGIST Oxygen Saturation - - Inhaled Oxygen Concentration - - Weight 95.7 kg (211 lb) 04/11/2024 2:13 PM ATTENDING PATHOLOGIST Height 165.1 cm (5' 5 ) 04/11/2024 2:13 PM ATTENDING PATHOLOGIST Body Mass Index 35.11 04/11/2024 2:13 PM ATTENDING PATHOLOGIST Procedures * SONOGRAM - COMPLETE(Performed 06/14/2024) Performed for Cardiac arrhythmia during ([facility]), History of HELLP syndrome, currently ([facility]), Other obesity due to excess calories affecting in third trimester ([facility]), Previous delivery affecting ([facility]), Encounter for ultrasound ([facility]), History of pre- eclampsia in prior , currently ([facility]), History of delivery, currently ([facility]), Second ([facility]), History of gestational diabetes in prior , currently ([facility]), 32 weeks gestation of ([facility]) * SONOGRAM - COMPLETE(Performed 05/17/2024) Performed for Cardiac arrhythmia during ([facility]), History of HELLP syndrome, currently ([facility]), Other obesity due to excess calories affecting in third trimester ([facility]), Previous delivery affecting ([facility]), History of pre-eclampsia in prior , currentl y ([facility]), History of gestational diabetes in prior , currently ([facility]), History of delivery, currently ([facility]), 28 weeks gestation of ([facility]) * SONOGRAM - COMPLETE(Performed 04/11/2024) Performed for Encounter for anatomic survey ([facility]), Palpitations, History of pre-eclampsia in prior , currently ([facility]), History of gestational diabetes in prior , currently ([facility]), 23 weeks gestation of ([facility]), History of delivery, currently ([facility]) Results * SONOGRAM - COMPLETE (06/14/2024 11:28 AM ATTENDING PATHOLOGIST) Only the most recent of3 resultswithin the time period is included. Linked Results Indication ======== Incomplete cardiac views Class I obesity Labile hypertension - no meds 06/14 LGA fetus Previous History ====== OB History 2. Para 1 [id number] 1. live 2022. Gest. age 36 w [...] 5 lb 6 oz EFW by Hadlock ([id number]) LGA Growth Overview Exam date [place] BPD [...] Thorax 4-chamber view. LVOT view. 3-vessel view. 0-cfqqqb-kssmouh view. Situs. Aortic arch view. Bicaval view. [...] Growth in 4 w Coding ====== Procedures 05764: [place] [address]: Biophysical Profile W/O NST [employer] PACS Anatomical Region Laterality Modality Other 06/14/2024 11:2 8 AM ATTENDING PATHOLOGIST Laura Betts FAST FOOD SHIFT SUPERVISOR-COMPENSATION ADJUSTER MFM ORDERABLES Care Teams [employer] Supervisor Relationship Specialty Start Date End Date Unknown, Provider PCP - General 04/11/24
--- OUTSIDE RECORDS SUMMARY | 2024-07-01 15:30 | XMS_ITS | Clinical Summary ---
Author Organization [facility] Address [address] [place] [address] Care Team Providers Care Fence Installer Helper Name Role Phone Unknown, Provider Primary Care Provider Unavaila ble Source Comments [facility],non-owned Affiliates and Associated Physician Practices is amultiple site organization consisting of ambulatory clinics and hospital sitesin [place], [place], [place] and [place]. This disclosure is being madepursuant to the Care Everywhere program and may not contain all information available regarding this patient. Last updated 18.[facility] Allergies Active Allergy Reactions Criticality Noted Date [...] success rate is stated at 60-80%. The [facility] Network calculator for this patient [...] later in for TOLAC planning purposes at [place]. Estimated Date of Delivery Comme nts Yes 08/06/2024 Based on last me nstrual period of 10/31/2023 Encounters Date Type Department Care Team Description 06/26/2024 9:36 AM NURSE INFORMATICIST - 06/26/2024 11:59 PM NURSE INFORMATICIST Hospital Encounter [facility] [address] [place] [address] Gerard Bustamante MD Discharge Disposition: Home or Self Care 06/19/2024 11:02 AM NURSE INFORMATICIST - 06/19/2024 11:59 PM NURSE INFORMATICIST Hospital Encounter [facility] [address] [place] [address] Berta Valadez MD Discharge Disposition: Home or Self Care 06/19/2024 Travel 06/15/2024 Travel 06/14/2024 11:14 AM NURSE INFORMATICIST - 06/14/2024 11:59 PM NURSE INFORMATICIST Hospital Encounter [facility] [address] [place] [address] Gerard Bustamante MD Tomlinson, Tracy M, MD Discharge Disposition: Home or Self Care 05/17/2024 10:29 AM NURSE INFORMATICIST - 05/17/2024 11:59 PM NURSE INFORMATICIST Hospital Encounter [facility] [address] [place] [address] Mckay Hodge MD Discharge Disposition: Home or Self Care 04/11/2024 1:04 PM NURSE INFORMATICIST - 04/11/2024 11:59 PM NURSE INFORMATICIST Hospital Encounter [facility] [address] [place] [address] Jaime Durant MD Discharge Disposition: Home or Self Care 04/11/2024 1:00 PM NURSE INFORMATICIST - 04/11/2024 1:03 PM NURSE INFORMATICIST Hospital Encounter [facility] [address] [id number] Jaime Durant MD Discharge Disposition: Home or [...] Comments Blood Pressure 116/62 06/26/2024 9:53 AM NURSE INFORMATICIST Pulse 91 06/26/2024 9:53 AM NURSE INFORMATICIST Temperature - - Respiratory Rate 18 04/11/2024 2:13 PM NURSE INFORMATICIST Oxygen Saturation - - Inhaled Oxygen Concentration - - Weight 95.7 kg (211 lb) 04/11/2024 2:13 PM NURSE INFORMATICIST Height 165.1 cm (5' 5 ) 04/11/2024 2:13 PM NURSE INFORMATICIST Body Mass Index 35.11 04/11/2024 2:13 PM NURSE INFORMATICIST Plan of Treatment Upcoming Encounters Date Type Department Care Team (Late st Contact Info) Description 07/02/2024 9:00 AM NURSE INFORMATICIST Hospital Encounter [facility] Critical access hospital[address] [phone] Moustapha Martinez MD [address] [place] [address] Health Maintenance Due Date Last Done Comments [...] - COMPLETE Routine 06/14/2024 1 1:28 AM NURSE INFORMATICIST Cardiac arrhythmia during ([facility]) History of HELLP syndrome, currently ([facility]) Other obesity due to excess calories affecting in third trimester ([facility]) Previous delivery affecting ([facility]) Encounter for ultrasound ([facility]) History of pre-eclampsia in prior , currently ([facility]) History of delivery, currently ([facility]) Second ([facility]) History of gestational diabetes in prior , currently ([facility]) 32 weeks gestation of ([facility]) SONOGRAM - COMPLETE Routine 05/17/2024 1 1:04 AM NURSE INFORMATICIST Cardiac arrhythmia during ([facility]) History of HELLP syndrome, currently ([facility]) Other obesity due to excess calories affecting in third trimester ([facility]) Previous delivery affecting ([facility]) History of pre-eclampsia in prior , currently ([facility]) History of gestational diabetes in prior , currently ([facility]) History of delivery, currently ([facility]) 28 weeks gestation of ([facility]) SONOGRAM - COMPLETE Routine 04/11/2024 1 :20 PM NURSE INFORMATICIST Encounter for anatomic survey ([facility]) Palpitations History of pre-eclampsia in prior , currently ([facility]) History of gestational diabetes in prior , currently (HCC) 23 weeks gestation of (HCC) History of delivery, currently ([facility]) from Last 3 Months Results * SONOGRAM - COMPLETE (06/14/2024 11:28 AM NURSE INFORMATICIST) Only the most recent of3 resultswithin the time period is included. Linked Results Indication ======== Incomplete cardiac views Class I obesity Labile hypertension - no meds 06/14 LGA fetus Previous History ====== OB History 2. Para 1 [id number] 1. live 2022. Gest. age 36 w [...] 5 lb 6 oz EFW by Hadlock ([id number]) LGA Growth Overview Exam date [place] BPD [...] Thorax 4-chamber view. LVOT view. 3-vessel view. 3-afgzyq-jorvjhu view. Situs. Aortic arch view. Bicaval view. [...] Growth in 4 w Coding ====== Procedures 98520: [place] [address]: Biophysical Profile W/O NST [employer] PACS Anatomical Region Laterality Modality Other 06/14/2024 11:2 8 AM NURSE INFORMATICIST Laura Betts AGRONOMY PROFESSOR-BOX COVERING MACHINE OPERATOR MFM ORDERABLES from Last 3 Months Care Teams Fence Installer Helper Relationship Specialty Start Date End Date Unknown, Provider PCP - General 04/11/24
--- OUTSIDE RECORDS SUMMARY | 2024-07-01 15:30 | XMS_ITS | Clinical Summary ---
Author Organization [facility] Address [address] [place] [id number] Care Team Providers Care Marketing [employer] Name Role Phone None, Provider MD Primary [...] Active Problems Problem Noted Date Diagnosed Date ([facility]) 05/01/2022 Comments Yes Social History [...] declined 05/01/2022 How often do you attend samaritan or orthodox serv ices? Patient declined 05/01/2022 Do you belong to any clubs o r organizations such as samaritan groups, unions, [employer]right[employer] or athletic groups, or school groups? Patient [...] Recorded Patient Health Questionnaire-2 Score 0 12/28/2023 [facility] - Occupational [...] place to sleep or slept in a long term (including now)? No 05/01/2022 Comments Yes Sex [...] 2024 Influenza Adult (#1) 2024 PHQ-2 (Physician [place]) 05/02/2024 12/28/2023 RSV Immunization or 60+ Years [...] 4:58 PM 04/15/2022 7:42 PM Care Teams [employer] Relationship Specialty Start Date End Date None, Provider, PCP - General 01/14/22
--- OUTSIDE RECORDS SUMMARY | 2024-07-01 15:31 | XMS_ITS | Data Portability ---
Author Organization [facility] [address] Address [address] [place] [address] Assessment Encounter Date Assessment Date Assessment LastModified by Organization Details LastModified Time 06/29/2024 06/29/2024 Patient is _34__weeks . Discussed plan. Not available 06/29/2024 12:50:59 Plan of Treatment Reminders Order Date Submit Date Provider Last Modified By Organization Details Last Modified Time Details Appointments NST 2024 10:30A M NST SCHEDULE Not available Not available Not available U/S OB BPP 2024 11:00A M ULTRASOUND Not available Not available Not available OB ROUTINE 2024 11:30A M ALEM MariaM Not available Not available Not available U/S OB BPP 2024 10:00A M ULTRASOUND Not available Not available Not available NST 2024 10:30A M NST SCHEDULE Not available Not available Not available OB ROUTINE 2024 11:00A M ALEM [email or web address] Not available Not available Not available INDUCTI ON 2024 06:00A M Laura Betts CNM Not available Not available Not available NST 2024 09:00A M NST SCHEDULE Not available Not available Not available U/S OB BPP 2024 09:30A M ULTRASOUND Not available Not available Not available OB ROUTINE 2024 10:15A M Laura Betts CNM Not available Not [...] recorde d. Surgeries None recorde d. Imaging non-str ess test 2024 025 [email or web address], [address], [place], [address], 06/29/2024 17:50:52 US, obstetr ic, biophys ical profile + non-str ess test [address], [address], [place], [address], 06/30/2024 00:58:34 US, obstetr ic, biophys ical profile + non-str ess test [email or web address], [address], [place], [address], 06/22/2024 18:02:25 non-str ess test 2024 025 [email or web address] [address], [address], [place], [address], 06/26/2024 01:08:00 Medication Orders None recorde d. Patient TargetsNo targets recorded. Patient InstructionsNo instructions recorded. Reason for Referral None Reported. Results Created Date Observation Date Name Description Value Unit Range Abnormal Flag Note LastModifiedBy Organization Detail LastModifiedTime 06/01/1906/01/2024 CBC W/DIF F WBC 10.9 10'3/ uL 3.5-10 .5 high Not Available [facility] (Lab) [address], [place], [address], 06/02/2024 04:59:40 06/01/19 25 06/01/2024 CBC W/DIF F RBC 3.73 10'6/ uL (based on docume nted legal sex) 3.80-5 .20 low Not Available [facility] (Lab) [address], [place], [address], 06/02/2024 04:59:40 06/01/19 25 06/01/2024 CBC W/DIF F HGB 11.3 g/dL (based on docume nted legal sex) 11.6-1 5.4 low Not Available [facility] (Lab) [address], [place], [address], 06/02/2024 04:59:40 06/01/19 25 06/01/2024 CBC W/DIF F HCT 34.1 % (based on docume nted legal sex) 34.0-4 5.0 Not Available [facility] (Lab) [address], [place], [address], 06/02/2024 04:59:40 06/01/19 25 06/01/2024 CBC W/DIF F MCV 91.4 fL 80.0-9 9.0 Not Available [facility] (Lab) [address], [place], [address], 06/02/2024 04:59:40 06/01/19 25 06/01/2024 CBC W/DIF F MCH 30.3 pg 27.0-3 4.0 Not Available [facility] (Lab) [address] [place], [address], 06/02/2024 04:59:40 06/01/19 25 06/01/2024 CBC W/DIF F MCHC 33.1 g/dL 32.0-3 5.5 Not Available [facility] (Lab) [address], [place], [address], 06/02/2024 04:59:40 06/01/19 25 06/01/2024 CBC W/DIF F RDW 12.9 % 11.0-1 5.0 Not Available [facility] (Lab) [address] [facility], [place], [address], 06/02/2024 04:59:40 06/01/19 25 06/01/2024 CBC W/DIF F plt 301 10'3/ uL 150-40 0 Not Available [facility] (Lab) [address] [facility], [place], [address], 06/02/2024 04:59:40 06/01/19 25 06/01/2024 CBC W/DIF F MPV 9.4 fL 8.8-12 .1 Not Available [facility] (Lab) [address] [facility], [place], [address], 06/02/2024 04:59:40 06/01/19 25 06/01/2024 CBC W/DIF F neutrophils 73.5 % 34.0-7 3.0 high Not Available [facility] (Lab) [address] [facility], [place], [address], 06/02/2024 04:59:40 06/01/19 25 06/01/2024 CBC W/DIF F lymphocytes 18.9 % 15.0-5 0.0 Not Available [facility] (Lab) [address] [facility], [place], [address], 06/02/2024 04:59:40 06/01/19 25 06/01/2024 CBC W/DIF F monocytes 6.3 % 1.0-15 .0 Not Available [facility] (Lab) [address] [facility], [place], [address], 06/02/2024 04:59:40 06/01/19 25 06/01/2024 CBC W/DIF F eosinophils 0.7 % 0.0-8. 0 Not Available [facility] (Lab) [address] [facility], [place], [address], 06/02/2024 04:59:40 06/01/19 25 06/01/2024 CBC W/DIF F basophils 0.3 % 0.0-2. 0 Not Available [facility] (Lab) [address] [facility], [place], [address], 06/02/2024 04:59:40 06/01/19 25 06/01/2024 CBC W/DIF [...] separ ately if prese nt. Not Available [facility] (Lab) [address] [facility], [place], [address], 06/02/2024 04:59:40 06/01/19 25 06/01/2024 CBC W/DIF F absolute neutrophils 8.0 10'3/ uL 1.5-8. 0 Not Available [facility] (Lab) [address] [facility], [place], [address], 06/02/2024 04:59:40 06/01/19 25 06/01/2024 CBC W/DIF F absolute lymphocytes 2.1 10'3/ uL 1.0-4. 0 Not Available [facility] (Lab) [address] [facility], [place], [address], 06/02/2024 04:59:40 06/01/19 25 06/01/2024 CBC W/DIF F absolute monocytes 0.7 10'3/ uL 0.2-1. 0 Not Available [facility] (Lab) [address] [facility], [place], [address], 06/02/2024 04:59:40 06/01/19 25 06/01/2024 CBC W/DIF F absolute eosinophils 0.1 10'3/ uL 0.0-0. 6 Not Available [facility] (Lab) [address], [place], [address], 06/02/2024 04:59:40 06/01/19 25 06/01/2024 CBC W/DIF F absolute basophils 0.0 10'3/ uL 0.0-0. 3 Not Available [facility] (Lab) [address], [place], [address], 06/02/2024 04:59:40 06/01/19 25 06/01/2024 CBC W/DIF F absolute immature granulocytes 0.0 10'3/ uL 0.00-0 .10 Refer ence range s for nonbi nary/ inter sex or unspe cifie d gende r patie nts have not been estab lishe d. Pleas e refer to the [facility] wing table for range s estab lishe d for cisge nder patie nts and evalu ate in the clini antoni miri xt of the indiv idual patie nt: https ://jason fountain book. nm.or g/Gen derX Not Available [facility] (Lab) [address], [place], [address], 06/02/2024 04:59:40 06/01/19 25 06/01/2024 URIC ACID uric acid 4.3 mg/dL 2.3-6. 6 Not Available [facility] (Lab) [address], [place], [address], 06/02/2024 04:59:40 06/01/19 25 06/01/2024 CMP(C OMPRE HENSI VE METAB OLIC PANEL ) sodium 140 mmol/ L 133-14 6 Not Available [facility] (Lab) [address], [place], [address], 06/02/2024 04:59:41 06/01/19 25 06/01/2024 CMP(C OMPRE HENSI VE METAB OLIC PANEL ) potassium 4.0 mmol/ L 3.5-5. 1 Not Available [facility] (Lab) [address] [facility], [place], [address], 06/02/2024 04:59:41 06/01/19 25 06/01/2024 CMP(C OMPRE HENSI VE METAB OLIC PANEL ) chloride 103 mmol/ L 98-107 Not Available [facility] (Lab) [address] [facility], [place], [address], 06/02/2024 04:59:41 06/01/19 25 06/01/2024 CMP(C OMPRE HENSI VE METAB OLIC PANEL ) carbon dioxide 27 mmol/ L 21-31 Not Available [facility] (Lab) [address] [facility], [place], [address], 06/02/2024 04:59:41 06/01/19 25 06/01/2024 CMP(C OMPRE HENSI VE METAB OLIC PANEL ) anion gap 10 mmol/ L 4-13 Not Available [facility] (Lab) [address] [facility], [place], [address], 06/02/2024 04:59:41 06/01/19 25 06/01/2024 CMP(C OMPRE HENSI VE METAB OLIC PANEL ) blood urea nitrogen 8 mg/dL 7-[address] [facility] (Lab) [address] [facility], [place], [address], 06/02/2024 04:59:41 06/01/19 25 06/01/2024 CMP(C OMPRE HENSI VE METAB OLIC PANEL ) creatinine 0.55 mg/dL 0.60-1 .30 low Not Available [facility] (Lab) [address] [facility], [place], [address], 06/02/2024 04:59:41 06/01/19 25 06/01/2024 CMP(C OMPRE HENSI VE METAB OLIC PANEL ) egfrcr (CKD-epi 2020) >90 mL/mi n/1.7 3_m2 >=60 Not Available [facility] (Lab) [address] [facility], [place], [address], 06/02/2024 04:59:41 06/01/19 25 06/01/2024 CMP(C OMPRE HENSI VE METAB OLIC PANEL ) calcium 9.2 mg/dL 8.3-10 .5 Not Available [facility] (Lab) [address] [facility], [place], [address], 06/02/2024 04:59:41 06/01/19 25 06/01/2024 CMP(C OMPRE HENSI VE METAB OLIC PANEL ) glucose 73 mg/dL 70-100 Not Available [facility] (Lab) [address] [facility], [place], [address], 06/02/2024 04:59:41 06/01/19 25 06/01/2024 CMP(C OMPRE HENSI VE METAB OLIC PANEL ) protein, total 6.1 g/dL 6.4-8. 3 low Not Available [facility] (Lab) [address] [facility], [place], [address], 06/02/2024 04:59:41 06/01/19 25 06/01/2024 CMP(C OMPRE HENSI VE METAB OLIC PANEL ) albumin 3.6 g/dL 3.5-5. 0 Not Available [facility] (Lab) [address] [facility], [place], [address], 06/02/2024 04:59:41 06/01/19 25 06/01/2024 CMP(C OMPRE HENSI VE METAB OLIC PANEL ) ALT 8 units /L 9-43 low Not Available [facility] (Lab) [address] [facility], [place], [address], 06/02/2024 04:59:41 06/01/19 25 06/01/2024 CMP(C OMPRE HENSI VE METAB OLIC PANEL ) alkaline phosphatase 119 units /L 34-104 high Not Available [facility] (Lab) [address] [facility], [place], [address], 06/02/2024 04:59:41 06/01/19 25 06/01/2024 CMP(C OMPRE HENSI VE METAB OLIC PANEL ) AST 10 units /L 13-39 low Not Available [facility] (Lab) [address] [facility], [place], [address], 06/02/2024 04:59:41 06/01/19 25 06/01/2024 CMP(C OMPRE HENSI VE METAB OLIC PANEL ) bilirubin, total 0.4 mg/dL 0.2-1. 2 Not Available [facility] (Lab) [address] [facility], [place], [address], 06/02/2024 04:59:41 06/01/19 25 06/01/2024 PROTE IN/CR EATIN INE RATIO , URINE creatinine, urine 91.2 mg/dL R-No refer ence range estab lishe d for this assay Not Available [facility] (Lab) [address] [facility], [place], [address], 06/02/2024 04:59:41 06/01/19 25 06/01/2024 PROTE IN/CR EATIN INE RATIO , URINE protein, urine 8 mg/dL R-No refer ence range estab lishe d for this assay Not Available [facility] (Lab) [address] [facility], [place], [address], 06/02/2024 04:59:41 06/01/19 25 06/01/2024 PROTE IN/CR [...] fican t prote inuri a. Not Available [facility] (Lab) [address] [facility], [place], [address], 06/02/2024 04:59:41 06/06/19 25 06/06/2024 US, obste tric, bioph ysica l profi le No observ ation record ed. [email or web address] [address], [place], [address], 06/07/2024 12:45:19 06/06/19 25 06/06/2024 non-s tress test No observ ation record ed. [email or web address] [address], [place], [address], 06/06/2024 11:04:03 06/06/19 25 06/06/2024 US, obste tric, bioph ysica l profi le + non-s tress test No observ ation record ed. [email or web address] [address], [place], [address], 06/06/2024 13:26:08 06/11/19 25 06/11/2024 non-s tress test No observ ation record ed. [address], [place], [address], 06/13/2024 11:20:56 06/11/19 25 06/11/2024 US, obste tric, follo w-up No observ ation record ed. [address], [place], [address], 06/13/2024 12:26:00 06/13/19 25 06/13/2024 non-s tress test No observ ation record ed. [email or web address] [address], [place], [address], 06/13/2024 15:52:52 06/15/19 25 06/14/2024 US, obste tric, follo w-up No observ ation record ed. [email or web address] [facility] [address] [place] [address], [address], 06/25/2024 10:29:07 06/15/19 25 06/15/2024 non-s tress test No observ ation record ed. [email or web address] [address], [place], [address], 06/15/2024 12:51:05 06/15/19 25 06/15/2024 US, obste tric, bioph ysica l profi le + non-s tress test No observ ation record ed. [facility] [address], [place], [address], 06/15/2024 17:10:29 06/15/19 25 06/15/2024 US, obste tric, follo w-up No observ ation record ed. [email or web address] [address], [place], [address], 06/18/2024 09:43:47 06/22/19 25 06/22/2024 non-s tress test No observ ation record ed. [email or web address] [address], [place], [address], 06/22/2024 17:22:15 06/22/19 25 06/22/2024 US, obste tric, bioph ysica l profi le + non-s tress test No observ ation record ed. [facility] [address], [place], [address], 06/22/2024 17:56:41 06/22/19 25 06/22/2024 US, obste tric, bioph ysica l profi le + non-s tress test No observ ation record ed. [email or web address] [address], [place], [address], 06/22/2024 19:24:55 06/29/19 25 06/29/2024 US, obste tric, bioph ysica l profi le + non-s tress test No observ ation record ed. [email or web address] [address], [place], [address], 06/29/2024 18:37:30 06/29/19 25 06/29/2024 US, obste tric, bioph ysica l profi le + non-s tress test No observ ation record ed. [email or web address] [address], [place], [address], 06/30/2024 00:26:02 06/29/19 25 06/29/2024 non-s tress test No observ ation record ed. [email or web address] [address], [place], [address], 06/29/2024 17:50:13 06/29/19 25 06/29/2024 non-s tress test No observ ation record ed. [email or web address] [address], [place], [address], 06/29/2024 18:22:05 Result Notes None recorded. Problems Name Problem SNOMED Code Status Onset Date Resolution Date Notes Provider Name and Address Organization Details Recorded Time Past pregnanc y history of pre-ecla mpsia 48335709463 9100 Active [facility] MFM rec weekly testing at 32wks elevated BP at home 06/12 143/75, 146/87, 137/92 Kellie thomas, [facility] 5 17:57:42 Migraine 15510145 Active exedrin tension/f ioricet do not work-imit juve to pharmacy Laura Betts CNM [address], [place], [address], [facility] 4 12:38:19 Past pregnanc y history of gestatio nal diabetes mellitus 443873419 Active Alison thomas, [facility] 4 10:06:47 History of alcohol abuse 800916666 Active 2023 clean since 2015 Alison Sosa null, [facility] 4 10:58:08 Pregnanc y 01822507 Active 2023 Alison Sosa null, [facility] 4 10:06:14 Past pregnanc y history of pre-ecla mpsia 53026204183 9100 Active bASA MFM rec weekly testing at 32wks elevated BP at home 06/12 143/75, 146/87, 137/92 Kellie Mendoza null, [facility] 5 17:57:42 Past pregnanc y history of gestatio nal diabetes mellitus 908065083 Active Alison Sosa null, [facility] 4 10:06:47 Migraine 80664106 Active exedrin tension/f ioricet do not work-imit juve to pharmacy Laura Betts CNM [address], [place], [address], [facility] 4 12:38:19 Obesity 558632107 Active bmi 32 Laura Betts CNM [address], [place], [address], [facility] 4 12:36:35 Alcoholi 8494549 Active history of abuse, sober since 2015 Laura Betts CNM [address], [place], [address], [facility] 4 14:17:06 Past pregnanc y history of section 037615958 Active 2022 due to preeclamp nisha, elevating liver enzymes Laura Betts CNM [address], [place], [address], [facility] 4 14:19:28 Palpitat ions 52570793 Active 72 hour holter monitor order faxed 03/02 [facility]- Referral faxed Cardiolog y consult Dr Fabian Liang 04/03/24 Make sure records faxed to [facility] 22:25:41 Palpitat ions 62518605 Active 72 hour holter monitor order faxed 03/02 [facility]- Referral faxed Cardiolog y consult Dr Fabain Liang 04/03/24 Make sure records faxed to [facility] 22:25:41 anatomy study Active incomplet e cardiac views x 2 referral faxed [facility] 12/3 to complete anatomy Scheduled [facility] 04/11 1:00PM Level II US and consult 05/17 10:30AM US only [facility] 12:38:29 anatomy study Active incomplet e cardiac views x 2 referral faxed [facility] 12/3 to complete anatomy Scheduled [facility] 04/11 1:00PM Level II US and consult 05/17 10:30AM US only [facility] 12:38:29 Pregnanc y-induce d hyperten [place] 08516702 Active Laura Betts CNM [address], [place], [address], [facility] 5 17:03:29 Problem Notes None recorded. Procedures Surgical History Date Name Laterality Status Provider Name and Address Organization Details Recorded Time 4 Date of Last Pap Smear completed Alison Sosa [facility] 01/06/2024 10:44:49 3 Caesarean Section completed Alison Sosa [facility] 01/06/2024 10:44:50 Imaging Results Imaging Date Name Status LastModified by Organjaja ation Details LastModified Time 06/06/2024 US, obstetric, biophysical profile completed [email or web address] [address], [place], [address], 06/07/2024 12:45:19 06/06/2024 non-stress test completed [email or web address] [address], [place], [address], 06/06/2024 11:04:03 06/06/2024 US, obstetric, biophysical profile + non-stress test completed [email or web address] [address], [place], [address], 06/06/2024 13:26:08 06/11/2024 non-stress test completed [address] [facility], [place], [address], 06/13/2024 11:20:56 06/11/2024 US, obstetric, follow-up completed [place] [id number], [place], [address], 06/13/2024 12:26:00 06/13/2024 non-stress test completed [facility] [address], [place], [address], 06/13/2024 15:52:52 06/14/2024 US, obstetric, follow-up active [email or web address] [facility] [address] [place] [address], [address], 06/25/2024 10:29:07 06/15/2024 non-stress test completed [email or web address] [address], [place], [address], 06/15/2024 12:51:05 06/15/2024 US, obstetric, biophysical profile + non-stress test completed [facility] [address], [place], [address], 06/15/2024 17:10:29 06/15/2024 US, obstetric, follow-up completed [email or web address], [place], [address], 06/18/2024 09:43:47 06/22/2024 non-stress test completed [address], [place], [address], 06/22/2024 17:22:15 06/22/2024 US, obstetric, biophysical profile + non-stress test completed [place] [address], [place], [address], 06/22/2024 17:56:41 06/22/2024 US, obstetric, biophysical profile + non-stress test completed [email or web address] [address], [place], [address], 06/22/2024 19:24:55 06/29/2024 US, obstetric, biophysical profile + non-stress test completed [facility] [address], [place], [address], 06/29/2024 18:37:30 06/29/2024 US, obstetric, biophysical profile + non-stress test active [email or web address] [address], [place], [address], 06/30/2024 00:26:02 06/29/2024 non-stress test completed [facility] [address], [place], [address], 06/29/2024 17:50:13 06/29/2024 non-stress test completed [email or web address] [place] [address], [place], [address], 06/29/2024 18:22:05 Procedure Notes None recorded. Medical Equipment None Reported. Allergies Allergen ID Allergen Name Allergen Category Reaction Reaction Severity Criticality Documentation Date Start Date Code Code System Note Provider Name and Address Organization Details Recorded Time 09639 latex environme nt,medica tion itching mild Not available 01/06/2024 00434 91 RxNorm Alison Sosa [facility] 4 10:44:49 Medications Name Sig Start Date Stop Date Status Note LastModified by Organization Details LastModified Time Zithromax Z-Brien 250 mg tablet TAKE 2 TABLETS (500 MG) BY ORAL ROUTE ONCE DAILY FOR 1 DAY THEN 1 TABLET (250 MG) BY ORAL ROUTE ONCE DAILY FOR 4 DAYS 06/29 completed Not Available Not Available Not Available amoxicillin 875 mg tablet TAKE 1 TABLET [...] Not Available Not Available Not Avai [email or web address] Bean 02/02 completed Not Available Not Available Not Available Vitals Date Recorded Body height Body mass index (BMI) Body weight Systolic blood pressure Diastolic blood pressure Provider Name and Address Organization Details Last Updated DateTime 06/22/2024 166.37 cm 38.7 kg/m2 555346.8 g 141 mm[Hg] 81 mm[Hg] TEAGAN [place] [facility] 5 16:17:24 Date Recorded Body height Body mass index (BMI) Body weight Systolic blood pressure Diastolic blood pressure Provider Name and Address Organization Details Last Updated DateTime 06/22/2024 166.37 cm 38.7 kg/m2 727378.8 g 140 mm[Hg] 80 mm[Hg] Alison Sosa [facility] 5 16:52:09 Date Recorded Body height Body weight Body height Body mass index (BMI) Body weight Systolic blood pressure Diastolic blood pressure Systolic blood pressure Diastolic blood pressure Provider Name and Address Organization Details Last Updated DateTime 5 166.37 cm 116281. 87122 g 166.37 cm 38.5 kg/m2 938651. 21 g 140 mm[Hg] 83 mm[Hg] 140 mm[Hg] 83 mm[Hg] Alison Israeltz [facility] 5 17:48:39 Social History Question Answer Notes LastModified by Organizat ion Details LastModified Time Tobacco Smoking Status Former Smoker Alison Sosa null, [facility] 01/06/2024 10:53:38 Do You Have An Advance Directive? No Information not available 05/04/2024 What Is Your Level Of Alcohol Consumption? None 8 Year Sober [email or web address] Information not available 01/06/2024 If You Are , What Was Your Level Of Alcohol Consumption Prior To ? None [email or web address] Information not available 01/06/2024 Are You Blind Or Do You Have Difficulty Seeing? No [email or web address] Information not available 01/06/2024 What Is Your Level Of Caffeine Consumption? Moderate [email or web address] Information not available 05/14/2024 How Much Tobacco Do You Chew? None Information not available 01/06/2024 In The 14 Days Before Symptom Onset, Have You Had Close Contact With A Laboratory-confi rmed COVID-19 While That Case Was Ill? No [email or web address] Information not available 01/06/2024 In The 14 Days Before Symptom Onset, Have You Had Close Contact With A Person Who Is Under Investigation For COVID-19 While That Person Was Ill? No Information not available 01/06/2024 Have You Been To An Area Known To Be High Risk For COVID-19? No [email or web address] Information not available 01/06/2024 Are You Deaf Or Do You Have Serious Difficulty Hearing? No [email or web address] Information not available 01/06/2024 What Type Of Diet Are You Following? REGULAR [email or web address] Information not available 01/06/2024 What Is The Highest Grade Or Level Of School You Have Completed Or The Highest Degree You Have Received? 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 No [email or web address] Information not available 01/06/2024 Do You Use Protection During Sex? No [email or web address] Information not available 01/06/2024 Do You Use Your Seat Belt Or Car Seat Routinely? Yes [email or web address] Information not available 01/06/2024 Do You Have Smoke And Carbon Monoxide Detectors In Your Home? Yes [email or web address] Information not available 01/06/2024 How Much Tobacco Do You Smoke? No [email or web address] Information not available 01/06/2024 Do You Feel Stressed (tense, Restless, Nervous, Or Anxious, Or Unable To Sleep At Night)? TX6188-7 [email or web address] Information not available 01/06/2024 Do You Use Any Illicit Or Recreational Drugs? No Lorena [email or web address] Information not available 01/06/2024 Do You Use Sunscreen Routinely? Yes Information not available 01/06/2024 Has Tobacco Cessation Counseling Been Provided? Yes [email or web address] Information not available 01/06/2024 On What Date Was Tobacco Cessation Counseling Provided? 06/29/2024 [email or web address] Information not available 06/29/2024 Have You Used IV Drugs? No [email or web address] Information not available 01/06/2024 Do You Or Have You Ever Used Any Other Forms Of Tobacco Or Nicotine? No [email or web address] Information not available 01/06/2024 Sex: Unknown Functional Status Question Answer Note LastModified by Organizat ion Details LastModified Time Do you have difficulty walking or climbing stairs? No [email or web address] Information not available 01/06/2024 Are you able to walk? YESWOREST [email or web address] Information not available 01/06/2024 Are you able to care for yourself? Yes [email or web address] Information not available 01/06/2024 Do you have difficulty dressing or bathing? No [email or web address] Information not available 01/06/2024 What is your exercise level? Moderate [email or web address] Information not available 01/06/2024 Mental Status None recorded. Family History Relationship Description Onset Age of this Age Resolved Age Notes LastModified by Organization Details LastModified Time Unspecified Relation Family history unknown [email or web address] Not available 2024 09:54:09 Unspecified Relation Malignant tumor of breast great matern al aunt, great patern al aunt Not available 06/01/2024 09:40:33 Paternal Grandmother Malignant tumor of breast [email or web address] Not available 2024 09:40:33 Medical History Condition [...] SNOMED-CT Code Diagnosis ICD10 Code Diagnosis Note [id number] Demetrice [facility] [address] [address] 01/06/2024 09:45:37 01/06/2024 10:22:53 [id number] Laura Betts [facility] [address],[place] [address] 01/06/2024 09:47:42 01/06/2024 11:24:41 Amenorrhea 38318719 N91.2 Venereal d isease screening 055651914 Z11.3 Past pregn flo history of pre-eclampsia 0934441868 83108 Z87.59 Nausea and vomiting 1693 1999 R11.2 [id number] Demetrice [facility] [address],[place] [address] 02/03/2024 08:56:12 02/03/2024 09:32:50 screening 606381421 Z36.82 Z3A.13 [id number] Laura Betts [facility] [address],[place] [address] 02/03/2024 08:56:35 02/03/2024 14:48:26 screening 601518360 Z36.89 Routine an tenatal care 811396341 Z34.90 Gestation period, 13 weeks 19392646 Z3A.13 Migraine 40973148 G43.90 9 [id number] Laura Betts [facility] [address],[place] [address] 03/02/2024 09:38:21 03/02/2024 10:16:08 Routine care 169737095 Z34.90 [id number] [facility] [address] [place] [address] 03/28/2024 09:27:53 03/28/2024 10:43:33 screening for malformation 453066264 Z36.3 Z3A.21 [id number] Laura Betts [facility] [address],[place] [address] 03/28/2024 09:28:17 03/28/2024 11:08:36 Gestation period, 21 weeks 60225573 Z3A.21 - induced hypertension 03547849 O13.9 [id number] [facility] [address],[place] [address] 05/04/2024 15:36:25 05/04/2024 16:37:35 Migraine 45742366 G43.909 [id number] FRED RAMIREZ MD [facility] [address],[place] [address] 05/14/2024 09:53:55 05/14/2024 10:44:15 Past history of gestational diabetes mellitus 126497543 Z86.32 - GCT today Past pregn flo history of pre-eclampsia 2057307640 21150 Z87.59 - BP wnl, asymptomat ic- discussed warning signs- 32 week testing per MFM- 162mg ASA per MFM Uterine sc ar from previous surgery affecting 77008318 O34.29 - desires TOLAC, ok with induction and pitocin if needed Gestation period, 28 weeks 17288977 Z3A.28 - continue PNV Migraine 40016976 G43.90 9 - improved with imitrex [id number] [facility] [address],[place] [address] 06/01/2024 09:40:17 06/01/2024 11:22:19 Gestation period, 30 weeks 13157269 Z3A.30 check labs, discussed Gestationa l HTN vs preeclamps iaantenata l teting next week [id number] Aida Maguire [facility] [address],[place] [address] 06/06/2024 09:19:47 06/06/2024 11:10:13 Chronic hypertension complicating AND/OR reason for care during 87193513 O16.3 Z87.59 Z3A.31 [id number] Catalina Castaneda [facility] [address],[place] [address] 06/06/2024 09:20:09 06/06/2024 11:07:57 Chronic hypertension complicating AND/OR reason for care during 50044299 O16.9 [id number] FRED RAMIREZ MD [facility] [address],[place] [address] 06/06/2024 09:20:30 06/06/2024 11:18:31 Past history of gestational diabetes mellitus 711702369 Z86.32 - GCT wnl Past pregn flo history of pre-eclampsia 8178887104 53889 Z87.59 - BP wnl, asymptomat ic- discussed warning signs- 32 week testing per MFM- 162mg ASA per MFM Breech presentation 6096 002 O32.1XX9 - discussed spinning babies- continue to monitor position Gestation period, 31 weeks 58556694 Z3A.31 - continue PNV [id number] [facility] [address],[place] [address] 06/15/2024 11:56:35 06/15/2024 13:30:31 -induced hypertension 81502203 O13.9 [id number] [facility] [address],[place] [address] 06/15/2024 11:57:20 06/15/2024 13:30:11 Chronic hypertension complicating AND/OR reason for care during 01669056 O16.3 Z87.59 Z3A.32 [id number] Laura Betts [facility] [address],[place] [address] 06/15/2024 11:57:47 06/15/2024 13:30:04 Gestation period, 32 weeks 0405101 Z3A.32 continue vitamin [id number] Laura Betts [facility] [address],[place] [address] 06/22/2024 15:32:03 06/25/2024 11:35:12 Maternal obesity complicating , childbirth and the puerperium, antepartum 2870534391 07 O99.210 [id number] [facility] [address],[place] [address] 06/22/2024 15:33:55 06/25/2024 07:53:04 Chronic hypertension complicating AND/OR reason for care during 09876472 O16.3 Z87.59 Z3A.33 [id number] [facility] [address],[place] [address] 06/22/2024 15:34:41 06/25/2024 04:09:58 Gestation period, 33 weeks 49386979 Z3A.33 [id number] Alison Sosa [facility] [address],[place] [address] 06/29/2024 10:29:38 06/29/2024 17:50:57 -induced hypertension 77535231 O13.9 [id number] Aida Maguire [facility] [address],[place] [address] 06/29/2024 10:30:19 06/29/2024 11:37:04 Chronic hypertension complicating AND/OR reason for care during 15705266 O16.3 Z87.59 Z3A.34 [id number] Laura Betts [facility] [address],[place] [address] 06/29/2024 10:30:51 06/29/2024 13:03:05 -induced hypertension 61422597 O13.9 Gestation period, 34 weeks 92935002 Z3A.34 Health Concerns Section Related Observation LastModified by Organization Detai ls LastModified Time None Recorded Concern Status LastModified by Organization Details LastModified Time None Recorded Advance Directives Directive N: Payers Encounter Date Sequence Insurance Name Policy Number Policy Vogel Covered Member ID Vogel Member ID Guarantor Name 06/22/2024 1 [place] [facility] [place] [id number] [place] 06/22/2024 1 [place] [facility] [place] [id number] Holly [place] 06/29/2024 1 [place] [facility] [place] [id number] Holly [place] 06/29/2024 1 [place] [facility] [place] [id number] Holly [place] 06/29/2024 1 [place] [facility] [place] [id number] [place] OBGyn Episode Ob Episode Information Episode Created Date Number of Fetuses Patient Bloodtype Patient rh Status Prepregnancy Weight lbs Domestic Partner Domestic Partner Phone Father Name Motion Picture Projectionist Apprentice Status 02/03/20 24 1 A Positive 197 Daniel [place] OPEN Fetus Data First Name Last Name Admitted to NICU Weight (g) Sex Living Outcome Pediatric Complications Fetus ID Race Codes Race Delivery Type [id number] Problems Problem Notes [facility] recommendations BP lo g at home 1-2x [...] Date Resolution Snomed Code Not e Obesity 057411928 bmi 32 -induced hypertension 48700304 Past history of gestational diabetes mellitus 179982996 Palpitations 22289744 72 hour holter monitor order faxed 03/02 Noe Outpatient Cardiology- Referral faxed Cardiology consult Dr Fabian Liang 04/03/24Make sure records faxed to [facility] Past history of pre-eclampsia [id number] [facility] rec weekly testing at 32wkselevated BP at home 06/12 143/75, 146/87, 137/92 Migraine 30663486 exedrin tension/fioricet do not work-imitrex to pharmacy Alcoholism 4848558 history o f abuse, sober since 2015 Past history of section 860788441 2022 due to preeclampsia, elevating liver enzymes anatomy study 539086164 incomplete card iac views x 2 referral faxed [facility] 04/03 to complete anatomyScheduled [facility] Izabela 04/11 1:00PM Level II [...] Ultra Sound Latest Days Gestation 0 0 Pre-taiwo Flowsheet Flowsheet Date 02/03/2024 Prabhakar Score Blood Edema Fundus Height Fundus Units Glucose Ketones Leukocytes Nitrite Labor Signs Protein Cervic Dilation Cervic Effacement Cervic Station neg none none trace Type Weight in lbs Pre/Post Dialysis Refused 200.935901446608 BP Diastolic BP Location Tested BP Systolic [...] Type Weight in lbs Pre/Post Dialysis Refused 202.762008237718 BP Diastolic BP Location Tested BP Systolic BP Type 74 117 Fetus Heart Rate Present A 145 Present Fetus Movement A Yes Comments Patient states that is havin g some heart palpatations at night and is having some BH contractions. 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 +fm precautions and education Flowsheet Date 05/04/2024 Prabhakar Score Blood Edema Fundus Height Fundus Units Glucose Ketones Leukocytes Nitrite Labor Signs Protein Cervic Dilation Cervic Effacement Cervic Station none Type Weight in lbs Pre/Post Dialysis Refused 222.40379785698 BP Diastolic BP Location Tested BP Systolic BP Type 74 113 Fetus Heart Rate Present Fetus Movement A Yes Comments reviewed rec from [facility] 50% ch ance of tolac, discussed [...] Weight in lbs Pre/Post Dialysis Refused Weight 223.907608314450 BP Diastolic BP Location Tested BP Systolic [...] Type Weight in lbs Pre/Post Dialysis Refused 228.125471441661 BP Diastolic BP Location Tested BP Systolic [...] testing next week. has f/u growth at [facility]. Flowsheet Date 06/06/2024 Prabhakar Score Blood [...] Weight in lbs Pre/Post Dialysis Refused Weight 234.799288166911 BP Diastolic BP Location Tested BP Systolic BP Type 79 L arm 128 sitting Fetus Heart Rate Present A 150 Fetus Movement A Yes Comments Patient c/o of pelvic pain, [place] Conrad. Good movement. No cramping or bleeding. [...] Type Weight in lbs Pre/Post Dialysis Refused 231.079130710203 BP Diastolic BP Location Tested BP Systolic BP Type 82 132 Fetus Heart Rate Present Fetus Movement A Yes Comments Patient states that having i ssues with blood pressure, BH contractions, discharge and nausea. bps at home 140's/70, will discuss with dr. ramirez, labs wnl at hospital bpp today 10/10 f/u next week precautions and education Flowsheet Date 06/22/2024 Prabhakar Score Blood Edema Fundus Height Fundus Units Glucose Ketones Leukocytes Nitrite Labor Signs Protein Cervic Dilation Cervic Effacement Cervic Station Type Weight in lbs Pre/Post Dialysis Refused Weight 236.855122487532 BP Diastolic BP Location Tested BP Systolic [...] Weight in lbs Pre/Post Dialysis Refused Weight 236.812741422811 BP Diastolic BP Location Tested BP Systolic BP Type 80 140 Fetus Heart Rate Present Fetus Movement Comments vertex, bpp 8/8, GHTN, monit oring at home 140/70-80's, denies current mercedes, visual changes, epigastric pain, in LD last night labs reviewed. f/u one wek, call for preadmit, plan IOL around 07/16 Flowsheet Date 06/29/2024 Prabhakar Score Blood Edema Fundus Height Fundus Units Glucose Ketones Leukocytes Nitrite Labor Signs Protein Cervic Dilation Cervic Effacement Cervic Station Type Weight in lbs Pre/Post Dialysis Refused BP Diastolic BP Location Tested BP Systolic BP Type Fetus Heart Rate Present Fetus Movement Comments Flowsheet Date 06/29/2024 Prabhakar Score Blood Edema Fundus Height Fundus Units Glucose Ketones Leukocytes Nitrite Labor Signs Protein Cervic Dilation Cervic Effacement Cervic Station Type Weight in lbs Pre/Post Dialysis Refused Weight 235.179010036516 BP Diastolic BP Location Tested BP Systolic BP Type 83 140 Fetus Heart Rate Present Fetus Movement Comments Flowsheet Date 06/29/2024 Prabhakar Score Blood Edema Fundus Height Fundus Units Glucose Ketones Leukocytes Nitrite Labor Signs Protein Cervic Dilation Cervic Effacement Cervic Station Type Weight in lbs Pre/Post Dialysis Refused 235.614482738112 BP Diastolic BP Location Tested BP Systolic BP Type 83 140 Fetus Heart Rate Present Fetus Movement A Yes Comments bpp 10/10, blood pressure cu ff at home reading similar to our reading here, went through how to get more accurate at home. +FM, IOL 07/16 at 0600. precautions and education, labs from this week in ld wnl, f/u one week Menstrual History Last Menstrual Date Menses Monthly [...] Domestic Partner Domestic Partner Phone Father Name Motion Picture Projectionist Apprentice Status 01/06/20 24 1 CLOSED Fetus Data First Name Last Name Admitted to NICU Weight (g) Sex Living Outcome Pediatric Complications Fetus ID Race Codes Race Delivery Type 3118.44 5 M Prematur e 00938 Primary Kenyon Calculation Initial Kenyon Date Initial [...]
[2024-07-01 15:35] VITALS: BP 123/72
[2024-07-01 16:01] VITALS: BP 123/71; PULSE 104
[2024-07-01 16:03] LABS: Basophils Percent Auto 0.2 % (0.2-1.2); Eosinophils Percent Auto 0.2 % (0-4.4); Hematocrit 32.4 % (37.0-47.0); Hemoglobin 10.8 g/dL (12.0-15.0); Immature Granulocyte Absolute 0.04 K/mm3 (0.00-0.031); Immature Granulocyte Percent A 0.5 % (0-0.5); Lymphocytes Absolute Auto 1.07 K/mm3 (0.9-3.2); Lymphocytes Percent Auto 12.1 % (18.3-44.2); Mean Corpuscular HGB Conc 33.3 g/dl (32-36); Mean Corpuscular Hemoglobin 29.5 pg (26-34); Mean Corpuscular Volume 88.5 fl (80-100); Mean Platelet Volume 9.1 fl (7.4-10.4); Monocytes Absolute Auto 0.5 K/mm3 (0.1-0.6); Monocytes Percent Auto 5.5 % (2.6-8.5); Neutrophils Absolute Auto 7.2 K/mm3 (1.3-6.7); Neutrophils Percent Auto 81.5 % (45.5-73.1); Platelet Count Result 264 k/mm3 (150-375); Red Blood Count 3.66 M/mm3 (4.2-5.4); Red Cell Distribution Width 12.6 % (11.5-14.5); White Blood Count 8.9 K/mm3 (4.5-10.0)
[2024-07-01 16:09] LABS: Alanine Aminotransferase 15 U/L (6-35); Albumin Level 3.3 g/dL (3.5-5.1); Alkaline Phosphatase 189 U/L (38-126); Anion Gap 8 mmol/L (4-12); Aspartate Amino Transferase 22 U/L (14-36); Bilirubin,Total 0.2 mg/dL (0.2-1.3); Blood Urea Nitrogen 8 mg/dL (7-17); Calcium 8.6 mg/dL (8.4-10.2); Carbon Dioxide 21 mmol/L (22-30); Chloride 105 mmol/L (98-107); Estimated Glomerular Filt Rate > 60; Glucose 82 mg/dL (65-110); Potassium 3.6 mmol/L (3.4-5.0); Sodium 134 mmol/L (137-145); Uric Acid 5.3 mg/dL (2.5-7.5)
[2024-07-01 16:11] LABS: Creatinine Urine 162.9 mg/dL
[2024-07-01 16:16] VITALS: BP 113/70; PULSE 101
[2024-07-01 16:23] LABS: Total Protein Urine Random < 5 mg/dL; Ur Ttl Prot Creatinine Ratio < 0.03 mg/mg (0-0.20)
[2024-07-01 16:31] VITALS: BP 116/64; PULSE 96
[2024-07-01 16:35] VITALS: BP 123/71; PULSE 118
[2024-07-01 16:38] LABS: Add Urine Microscopic? YES; Appearance Urine Cloudy (Clear); Bacteria Urine Rare /hpf; Bilirubin Urine Negative (Negative); Blood Urine Negative (Negative); Color Urine Yellow (Yellow); Glucose Urine UA Negative (Negative); Ketones Urine 3+ mg/dL (Negative); Leukocyte Esterase Ur Negative LEU/UL (Negative); Nitrate Urine Negative (Negative); Non Pathogenic Casts 0-2; Protein Urine Negative (Negative); RBC Urine 0-2 /hpf (0-2); Squamous Epithelial Cell Urine Moderate /hpf (Few); WBC Urine 0-5 /hpf (0-3); pH Urine 6.5 (5.0-9.0)
== END 2024-07-01 16:40 | disposition home or self-care (01) ==
LOC: ANHOBOP 15:28 → ANHOBPP 15:30
PROVIDERS: Obstetrics & Gynecology; Visit Provider Advanced Practice Midwife
DX: O13.9 Gestational [pregnancy-induced] hypertension without significant proteinuria, unspecified trimester (principal); Z3A.00 Weeks of gestation of pregnancy not specified
CPT/HCPCS: 36415; 59025; 80053; 81001; 82570; 84156; 84550; 85025; 99199

== ENCOUNTER 2024-07-10 11:43 | Outpatient (CLI) | payer MEDICAID, SELFPAY ==
[2024-07-10] VITALS (14 sets, daily range): BP systolic 120–129; BP diastolic 70–78; PULSE 73–101; O2SAT 97–100; BMI 38.2
--- NOTE | ~2024-07-10 | US_ITS ---
LIMITED OBSTETRIC ULTRASOUND/BIOPHYSICAL PROFILE Ordering provider: Willi Wilkinson MD History: . Elevated BP/Variable deceleration . Comparison: None. FINDINGS: MATERNAL CERVIX: Not visualized. PRESENTATION: Vertex. Longitudinal lie. PLACENTAL LOCATION: Fundal No previa. HEART RATE: 130 bpm (normal is between 110 to 160 bpm). AMNIOTIC FLUID INDEX: Largest vertical pocket is 3.3 cm. OTHER: Maternal ovaries not visualized. SCORE: breathing movements: 2 movements: 2 tone: 2 Amniotic fluid volume: 2 Total: 8 IMPRESSION: Normal biophysical profile. Reviewed, dictated and finalized at location A. IMPRESSION: Normal biophysical profile.
[2024-07-10 12:17] LABS: Basophils Percent Auto 0.2 % (0.2-1.2); Eosinophils Absolute Auto 0.1 K/mm3 (0-0.3); Eosinophils Percent Auto 0.7 % (0-4.4); Hematocrit 33.4 % (37.0-47.0); Hemoglobin 10.9 g/dL (12.0-15.0); Immature Granulocyte Absolute 0.09 K/mm3 (0.00-0.031); Lymphocytes Absolute Auto 2.51 K/mm3 (0.9-3.2); Lymphocytes Percent Auto 27.9 % (18.3-44.2); Mean Corpuscular HGB Conc 32.6 g/dl (32-36); Mean Corpuscular Hemoglobin 29.2 pg (26-34); Mean Corpuscular Volume 89.5 fl (80-100); Mean Platelet Volume 9.5 fl (7.4-10.4); Monocytes Absolute Auto 0.6 K/mm3 (0.1-0.6); Monocytes Percent Auto 7.1 % (2.6-8.5); Neutrophils Absolute Auto 5.7 K/mm3 (1.3-6.7); Neutrophils Percent Auto 63.1 % (45.5-73.1); Platelet Count Result 236 k/mm3 (150-375); Red Blood Count 3.73 M/mm3 (4.2-5.4); Red Cell Distribution Width 12.8 % (11.5-14.5)
[2024-07-10 12:33] LABS: Add Urine Microscopic? YES; Appearance Urine Cloudy (Clear); Bacteria Urine 2+ /hpf; Bilirubin Urine Negative (Negative); Blood Urine Negative (Negative); Calcium Oxalate Crystals Urine Present /hpf; Color Urine Dark Yellow (Yellow); Glucose Urine UA Trace mg/dL (Negative); Ketones Urine Trace mg/dL (Negative); Leukocyte Esterase Ur Negative LEU/UL (Negative); Mucus Urine Present /lpf; Nitrate Urine Negative (Negative); Non Pathogenic Casts 0-2; Protein Urine Trace mg/dL (Negative); RBC Urine 0-2 /hpf (0-2); Specific Grav Ur 1.023 (1.001-1.035); Squamous Epithelial Cell Urine Moderate /hpf (Few)
[2024-07-10 12:34] LABS: Alanine Aminotransferase 22 U/L (6-35); Alkaline Phosphatase 208 U/L (38-126); Anion Gap 4 mmol/L (4-12); Aspartate Amino Transferase 24 U/L (14-36); Bilirubin,Total 0.2 mg/dL (0.2-1.3); Blood Urea Nitrogen 6 mg/dL (7-17); Calcium 8.9 mg/dL (8.4-10.2); Carbon Dioxide 25 mmol/L (22-30); Chloride 108 mmol/L (98-107); Estimated Glomerular Filt Rate > 60; Glucose 102 mg/dL (65-110); Potassium 3.8 mmol/L (3.4-5.0); Sodium 137 mmol/L (137-145); Uric Acid 6.1 mg/dL (2.5-7.5)
[2024-07-10 12:57] LABS: Creatinine Urine 244.7 mg/dL; Total Protein Urine Random 17 mg/dL; Ur Ttl Prot Creatinine Ratio 0.07 mg/mg (0-0.20)
--- NOTE | 2024-07-10 13:01 | PC.NURSE ---
Called Dr. Wilkinson with lab results and BPs. Informed of 1 variable noted with contraction on tracing, but none since and otherwise reactive. May D/C home if BPP 12/07.
--- OUTSIDE RECORDS SUMMARY | 2024-07-10 13:24 | XMS_ITS | Patient Health Summary ---
Author Organization [facility] Address [address] [place] [address] Care Team Providers Care Marketing Communications Manager Name Role Phone Unknown, Provider Primary Care Provider Unavaila ble Note from [facility] [place] [place],non-owned Affiliates and Associated Physician Practices is amultiple site organization consisting of ambulatory clinics and hospital sitesin [place], [place], [place]. This disclosure is being madepursuant to the Care Everywhere program and may not contain all information available regarding this patient. Last updated 18.[facility] Allergies * Latex(Rash) -Medium Criticality Medications * [...] Comments Blood Pressure 116/62 06/26/2024 9:53 AM TELEVISION PRODUCTION ASSISTANT Pulse 91 06/26/2024 9:53 AM TELEVISION PRODUCTION ASSISTANT Temperature - - Respiratory Rate 18 04/11/2024 2:13 PM TELEVISION PRODUCTION ASSISTANT Oxygen Saturation - - Inhaled Oxygen Concentration - - Weight 95.7 kg (211 lb) 04/11/2024 2:13 PM TELEVISION PRODUCTION ASSISTANT Height 165.1 cm (5' 5 ) 04/11/2024 2:13 PM TELEVISION PRODUCTION ASSISTANT Body Mass Index 35.11 04/11/2024 2:13 PM TELEVISION PRODUCTION ASSISTANT Procedures * SONOGRAM - COMPLETE(Performed 06/14/2024) Performed for Cardiac arrhythmia during ([facility]), History of HELLP syndrome, currently ([facility]), Other obesity due to excess calories affecting in third trimester ([facility]), Previous delivery affecting ([facility]), Encounter for ultrasound ([facility]), History of pre- eclampsia in prior , currently ([facility]), History of delivery, currently ([facility]), Second ([facility]), History of gestational diabetes in prior , currently ([facility]), 32 weeks gestation of ([facility]) * SONOGRAM - COMPLETE(Performed 05/17/2024) Performed for Cardiac arrhythmia during ([facility]), History of HELLP syndrome, currently ([facility]), Other obesity due to excess calories affecting in third trimester ([facility]), Previous delivery affecting ([facility]), History of pre-eclampsia in prior , currentl y ([facility]), History of gestational diabetes in prior , currently ([facility]), History of delivery, currently ([facility]), 28 weeks gestation of ([facility]) * SONOGRAM - COMPLETE(Performed 04/11/2024) Performed for Encounter for anatomic survey ([facility]), Palpitations, History of pre-eclampsia in prior , currently ([facility]), History of gestational diabetes in prior , currently ([facility]), 23 weeks gestation of ([facility]), History of delivery, currently ([facility]) Results * SONOGRAM - COMPLETE (06/14/2024 11:28 AM TELEVISION PRODUCTION ASSISTANT) Only the most recent of3 resultswithin the time period is included. Linked Results Indication ======== Incomplete cardiac views Class I obesity Labile hypertension - no meds 06/14 LGA fetus Previous History ====== OB History 2. Para 1 [id number] 1. live 2022. Gest. age 36 w [...] 5 lb 6 oz EFW by Hadlock ([id number]) LGA Growth Overview Exam date GA BPD [...] Thorax 4-chamber view. LVOT view. 3-vessel view. 3-rrztox-qcgcddd view. Situs. Aortic arch view. Bicaval view. [...] Growth in 4 w Coding ====== Procedures 53332: [place] [address]: Biophysical Profile W/O [facility] VetCompare PACS Anatomical Region Laterality Modality Other 06/14/2024 11:2 8 AM TELEVISION PRODUCTION ASSISTANT Laura Betts APRN-GLORIA M ORDERABLES Care Teams Marketing Communications Manager Relationship Specialty Start Date End Date Unknown, Provider PCP - General 04/11/24
--- OUTSIDE RECORDS SUMMARY | 2024-07-10 13:24 | XMS_ITS | Data Portability ---
Author Organization [facility] [place] Address [address] [place] [address] Assessment No assessment recorded. Plan of Treatment Reminders Order Date Submit Date Provider Last Modified By Organization Details Last Modified Time Details Appointments U/S OB BPP 2024 10:00A M ULTRASOUND Not available Not available Not available NST 2024 10:30A M NST SCHEDULE Not available Not available Not available OB ROUTINE 2024 11:00A M ALEM MariaM Not available Not available Not available INDUCTI ON 2024 06:00A M Laura Betts CNM Not available Not available Not available NST 2024 09:00A M NST SCHEDULE Not available Not available Not available U/S OB BPP 2024 09:30A M ULTRASOUND Not available Not available Not available OB ROUTINE 2024 10:15A M ALEM MariaM Not available Not available Not available U/S OB BPP 2024 08:30A M ULTRASOUND Not available Not available Not available NST 2024 09:00A M NST SCHEDULE Not available Not available Not available OB ROUTINE 2024 09:30A M Laura Betts CNM Not available Not available Not available U/S OB BPP 2024 08:30A M ULTRASOUND Not available Not available Not available NST 2024 09:00A M NST SCHEDULE Not available Not available Not available OB ROUTINE 2024 09:30A M Laura Betts CNM Not available Not available Not available Lab CBC w/ auto diff 2024 025 [facility] (Lab), [address], [place], [address], 07/07/2024 05:11:49 uric acid, serum or plasma 2024 025 [facility] (Lab), [address], [place], [address], 07/07/2024 05:11:50 CMP, serum or plasma 2024 025 [facility] (Lab), [address], [place], [address], 07/07/2024 05:11:50 protein :creati nine ratio, urine 2024 025 [facility] (Lab), [address] [place], [address], 07/07/2024 05:11:50 Referral None recorde d. Procedures None recorde d. Surgeries None recorde d. Imaging US, obstetr ic, follow- up 2024 025 [email or web address] [place], [address], [address], [place], [address], 07/06/2024 16:12:42 US, obstetr ic, biophys ical profile + non-str ess test 2024 025 [facility], [address], [address], [place], [address], 07/06/2024 17:35:52 non-str ess test 2024 025 [email or web address] [place], [address], [address], [place], [address], 07/09/2024 03:05:36 non-str ess test 2024 025 [email or web address] [place], [address], [place], [address], 07/02/2024 14:56:03 US, obstetr ic, biophys ical profile + non-str ess test 2024 025 [email or web address], [address], [place], [address], 06/30/2024 00:58:34 Medication Orders None recorde d. Patient TargetsNo targets recorded. Patient InstructionsNo instructions recorded. Reason for Referral None Reported. Results Created Date Observation Date Name Description Value Unit Range Abnormal Flag Note LastModifiedBy Organization Detail LastModifiedTime 06/01/1906/01/2024 CBC W/DIF F WBC 10.9 10'3/ uL 3.5-10 .5 high Not Available [facility] (Lab) [address], [place], [address], 06/02/2024 04:59:40 06/01/19 25 06/01/2024 CBC W/DIF F RBC 3.73 10'6/ uL (based on docume nted legal sex) 3.80-5 .20 low Not Available [facility] (Lab) [address] , [place], [address], 06/02/2024 04:59:40 06/01/19 25 06/01/2024 CBC W/DIF F HGB 11.3 g/dL (based on docume nted legal sex) 11.6-1 5.4 low Not Available [facility] (Lab) [address] , [place], [address], 06/02/2024 04:59:40 06/01/19 25 06/01/2024 CBC W/DIF F HCT 34.1 % (based on docume nted legal sex) 34.0-4 5.0 Not Available [facility] (Lab) [address] , [place], [address], 06/02/2024 04:59:40 06/01/19 25 06/01/2024 CBC W/DIF F MCV 91.4 fL 80.0-9 9.0 Not Available [facility] (Lab) [address], [place], [address], 06/02/2024 04:59:40 06/01/19 25 06/01/2024 CBC W/DIF F MCH 30.3 pg 27.0-3 4.0 Not Available [facility] (Lab) [address], [place], [address], 06/02/2024 04:59:40 06/01/19 25 06/01/2024 CBC W/DIF F MCHC 33.1 g/dL 32.0-3 5.5 Not Available [facility] (Lab) [address], [place], [address], 06/02/2024 04:59:40 06/01/19 25 06/01/2024 CBC W/DIF F RDW 12.9 % 11.0-1 5.0 Not Available [facility] (Lab) [address], [place], [address], 06/02/2024 04:59:40 06/01/19 25 06/01/2024 CBC W/DIF F plt 301 10'3/ uL 150-40 0 Not Available [facility] (Lab) [address], [place], [address], 06/02/2024 04:59:40 06/01/19 25 06/01/2024 CBC W/DIF F MPV 9.4 fL 8.8-12 .1 Not Available [facility] (Lab) [address], [place], [address], 06/02/2024 04:59:40 06/01/19 25 06/01/2024 CBC W/DIF F neutrophils 73.5 % 34.0-7 3.0 high Not Available [facility] (Lab) [address], [place], [address], 06/02/2024 04:59:40 06/01/19 25 06/01/2024 CBC W/DIF F lymphocytes 18.9 % 15.0-5 0.0 Not Available [facility] (Lab) [address], [place], [address], 06/02/2024 04:59:40 06/01/19 25 06/01/2024 CBC W/DIF F monocytes 6.3 % 1.0-15 .0 Not Available [facility] (Lab) [address], [place], [address], 06/02/2024 04:59:40 06/01/19 25 06/01/2024 CBC W/DIF F eosinophils 0.7 % 0.0-8. 0 Not Available [facility] (Lab) [address], [place], [address], 06/02/2024 04:59:40 06/01/19 25 06/01/2024 CBC W/DIF F basophils 0.3 % 0.0-2. 0 Not Available [facility] (Lab) [address], [place], [address], 06/02/2024 04:59:40 06/01/19 25 06/01/2024 CBC W/DIF [...] separ ately if prese nt. Not Available [facility] (Lab) [address], [place], [address], 06/02/2024 04:59:40 06/01/19 25 06/01/2024 CBC W/DIF F absolute neutrophils 8.0 10'3/ uL 1.5-8. 0 Not Available [facility] (Lab) [address], [place], [address], 06/02/2024 04:59:40 06/01/19 25 06/01/2024 CBC W/DIF F absolute lymphocytes 2.1 10'3/ uL 1.0-4. 0 Not Available [facility] (Lab) [address], [place], [address], 06/02/2024 04:59:40 06/01/19 25 06/01/2024 CBC W/DIF F absolute monocytes 0.7 10'3/ uL 0.2-1. 0 Not Available [facility] (Lab) [address], [place], [address], 06/02/2024 04:59:40 06/01/19 25 06/01/2024 CBC W/DIF F absolute eosinophils 0.1 10'3/ uL 0.0-0. 6 Not Available [facility] (Lab) [address], [place], [address], 06/02/2024 04:59:40 06/01/19 25 06/01/2024 CBC W/DIF F absolute basophils 0.0 10'3/ uL 0.0-0. 3 Not Available [facility] (Lab) [address], [place], [address], 06/02/2024 04:59:40 06/01/19 25 06/01/2024 CBC W/DIF F absolute immature granulocytes 0.0 10'3/ uL 0.00-0 .10 Refer ence range s for nonbi nary/ inter sex or unspe cifie d gende r patie nts have not been estab lishe d. Pleas e refer to [facility] for range s estab lishe d for cisge nder patie nts and evalu ate in the clini antoni miri xt of the indiv idual patie nt: https ://jason fountain book. nm.or g/Gen derX Not Available [facility] (Lab) [address] , [place], [address], 06/02/2024 04:59:40 06/01/19 25 06/01/2024 URIC ACID uric acid 4.3 mg/dL 2.3-6. 6 Not Available [facility] (Lab) [address], [place], [address], 06/02/2024 04:59:40 06/01/19 25 06/01/2024 CMP(C OMPRE HENSI VE METAB OLIC PANEL ) sodium 140 mmol/ L 133-14 6 Not Available [facility] (Lab) [address], [place], [address], 06/02/2024 04:59:41 06/01/19 25 06/01/2024 CMP(C OMPRE HENSI VE METAB OLIC PANEL ) potassium 4.0 mmol/ L 3.5-5. 1 Not Available [facility] (Lab) [address], [place], [address], 06/02/2024 04:59:41 06/01/19 25 06/01/2024 CMP(C OMPRE HENSI VE METAB OLIC PANEL ) chloride 103 mmol/ L 98-107 Not Available [facility] (Lab) [address], [place], [address], 06/02/2024 04:59:41 06/01/19 25 06/01/2024 CMP(C OMPRE HENSI VE METAB OLIC PANEL ) carbon dioxide 27 mmol/ L 21-31 Not Available [facility] (Lab) [address], [place], [address], 06/02/2024 04:59:41 06/01/19 25 06/01/2024 CMP(C OMPRE HENSI VE METAB OLIC PANEL ) anion gap 10 mmol/ L 4-13 Not Available [facility] (Lab) [address], [place], [address], 06/02/2024 04:59:41 06/01/19 25 06/01/2024 CMP(C OMPRE HENSI VE METAB OLIC PANEL ) blood urea nitrogen 8 mg/dL 7-25 Not Available [facility] (Lab) [address], [place], [address], 06/02/2024 04:59:41 06/01/19 25 06/01/2024 CMP(C OMPRE HENSI VE METAB OLIC PANEL ) creatinine 0.55 mg/dL 0.60-1 .30 low Not Available [facility] (Lab) [address], [place], [address], 06/02/2024 04:59:41 06/01/19 25 06/01/2024 CMP(C OMPRE HENSI VE METAB OLIC PANEL ) egfrcr (CKD-epi 2020) >90 mL/mi n/1.7 3_m2 >=60 Not Available [facility] (Lab) [address], [place], [address], 06/02/2024 04:59:41 06/01/19 25 06/01/2024 CMP(C OMPRE HENSI VE METAB OLIC PANEL ) calcium 9.2 mg/dL 8.3-10 .5 Not Available [facility] (Lab) [address], [place], [address], 06/02/2024 04:59:41 06/01/19 25 06/01/2024 CMP(C OMPRE HENSI VE METAB OLIC PANEL ) glucose 73 mg/dL 70-100 Not Available [facility] (Lab) [address], [place], [address], 06/02/2024 04:59:41 06/01/19 25 06/01/2024 CMP(C OMPRE HENSI VE METAB OLIC PANEL ) protein, total 6.1 g/dL 6.4-8. 3 low Not Available [facility] (Lab) [address], [place], [address], 06/02/2024 04:59:41 06/01/19 25 06/01/2024 CMP(C OMPRE HENSI VE METAB OLIC PANEL ) albumin 3.6 g/dL 3.5-5. 0 Not Available [facility] (Lab) [address], [place], [address], 06/02/2024 04:59:41 06/01/19 25 06/01/2024 CMP(C OMPRE HENSI VE METAB OLIC PANEL ) ALT 8 units /L 9-43 low Not Available [facility] (Lab) [address], [place], [address], 06/02/2024 04:59:41 06/01/19 25 06/01/2024 CMP(C OMPRE HENSI VE METAB OLIC PANEL ) alkaline phosphatase 119 units /L 34-104 high Not Available [facility] (Lab) [address], [place], [address], 06/02/2024 04:59:41 06/01/19 25 06/01/2024 CMP(C OMPRE HENSI VE METAB OLIC PANEL ) AST 10 units /L 13-39 low Not Available [facility] (Lab) [address], [place], [address], 06/02/2024 04:59:41 06/01/19 25 06/01/2024 CMP(C OMPRE HENSI VE METAB OLIC PANEL ) bilirubin, total 0.4 mg/dL 0.2-1. 2 Not Available [facility] (Lab) [address] [place], [address], 06/02/2024 04:59:41 06/01/19 25 06/01/2024 PROTE IN/CR EATIN INE RATIO , URINE creatinine, urine 91.2 mg/dL R-No refer ence range estab lishe d for this assay Not Available [facility] (Lab) [address] [place], [address], 06/02/2024 04:59:41 06/01/19 25 06/01/2024 PROTE IN/CR EATIN INE RATIO , URINE protein, urine 8 mg/dL R-No refer ence range estab lishe d for this assay Not Available [facility] (Lab) [address], [place], [address], 06/02/2024 04:59:41 06/01/1906/01/2024 PROTE IN/CR EATIN INE RATIO , URINE protein/crea tinine ratio, urine 0.09 . No Refer ence Range avail able for Danielle m Urine s. A prote in to creat inine ratio of >=0.1 9 is a good predi ctor of signi fican t prote inuri a. A level of <0.14 can rule out signi fican t prote inuri a. Not Available [facility] (Lab) [address], [place], [address], 06/02/2024 04:59:41 07/07/1907/06/2024 CBC W/DIF F WBC 6.9 10'3/ uL 3.5-10 .5 Not Available [facility] (Lab) [address], [place], [address], 07/07/2024 05:11:49 07/07/19 25 07/06/2024 CBC W/DIF F RBC 4.07 10'6/ uL (based on docume nted legal sex) 3.80-5 .20 Not Available [facility] (Lab) [address], [place], [address], 07/07/2024 05:11:49 07/07/19 25 07/06/2024 CBC W/DIF F HGB 11.8 g/dL (based on docume nted legal sex) 11.6-1 5.4 Not Available [facility] (Lab) [address], [place], [address], 07/07/2024 05:11:49 07/07/19 25 07/06/2024 CBC W/DIF F HCT 36.1 % (based on docume nted legal sex) 34.0-4 5.0 Not Available [facility] (Lab) [address], [place], [address], 07/07/2024 05:11:49 07/07/19 25 07/06/2024 CBC W/DIF F MCV 88.7 fL 80.0-9 9.0 Not Available [facility] (Lab) [address], [place], [address], 07/07/2024 05:11:49 07/07/19 25 07/06/2024 CBC W/DIF F MCH 29.0 pg 27.0-3 4.0 Not Available [facility] (Lab) [address], [place], [address], 07/07/2024 05:11:49 07/07/19 25 07/06/2024 CBC W/DIF F MCHC 32.7 g/dL 32.0-3 5.5 Not Available [facility] (Lab) [address], [place], [address], 07/07/2024 05:11:49 07/07/1907/06/2024 CBC W/DIF F RDW 12.7 % 11.0-1 5.0 Not Available [facility] (Lab) [address], [place], [address], 07/07/2024 05:11:49 07/07/19 25 07/06/2024 CBC W/DIF F plt 303 10'3/ uL 150-40 0 Not Available [facility] (Lab) [address], [place], [address], 07/07/2024 05:11:49 07/07/19 25 07/06/2024 CBC W/DIF F MPV 9.6 fL 8.8-12 .1 Not Available [facility] (Lab) [address], [place], [address], 07/07/2024 05:11:49 07/07/19 25 07/06/2024 CBC W/DIF F neutrophils 54.1 % 34.0-7 3.0 Not Available [facility] (Lab) [address], [place], [address], 07/07/2024 05:11:49 07/07/19 25 07/06/2024 CBC W/DIF F lymphocytes 38.3 % 15.0-5 0.0 Not Available [facility] (Lab) [address], [place], [address], 07/07/2024 05:11:49 07/07/19 25 07/06/2024 CBC W/DIF F monocytes 6.1 % 1.0-15 .0 Not Available [facility] (Lab) [address], [place], [address], 07/07/2024 05:11:49 07/07/19 25 07/06/2024 CBC W/DIF F eosinophils 0.4 % 0.0-8. 0 Not Available [facility] (Lab) [address], [place], [address], 07/07/2024 05:11:49 07/07/19 25 07/06/2024 CBC W/DIF F basophils 0.4 % 0.0-2. 0 Not Available [facility] (Lab) [address], [place], [address], 07/07/2024 05:11:49 07/07/19 25 07/06/2024 CBC W/DIF F immature granulocytes 0.7 % no define d refere nce range Immat ure Granu locyt es (IG) repre sents autom ated enume ratio n of Metam yeloc ytes, Myelo cytes and Promy elocy clarissa when IG is < 5%. Blast s are not inclu ded in IG and repor kimmy separ ately if prese nt. Not Available [facility] (Lab) [address], [place], [address], 07/07/2024 05:11:49 07/07/19 25 07/06/2024 CBC W/DIF F absolute neutrophils 3.7 10'3/ uL 1.5-8. 0 Not Available [facility] (Lab) [address], [place], [address], 07/07/2024 05:11:49 07/07/19 25 07/06/2024 CBC W/DIF F absolute lymphocytes 2.6 10'3/ uL 1.0-4. 0 Not Available [facility] (Lab) [address], [place], [address], 07/07/2024 05:11:49 07/07/19 25 07/06/2024 CBC W/DIF F absolute monocytes 0.4 10'3/ uL 0.2-1. 0 Not Available [facility] (Lab) [address], [place], [address], 07/07/2024 05:11:49 07/07/19 25 07/06/2024 CBC W/DIF F absolute eosinophils 0.0 10'3/ uL 0.0-0. 6 Not Available [facility] (Lab) [address], [place], [address], 07/07/2024 05:11:49 07/07/19 25 07/06/2024 CBC W/DIF F absolute basophils 0.0 10'3/ uL 0.0-0. 3 Not Available [facility] (Lab) [address], [place], [address], 07/07/2024 05:11:49 07/07/19 25 07/06/2024 CBC W/DIF F absolute immature granulocytes 0.1 10'3/ uL 0.00-0 .10 025 1:16 AM: P indic ates parti al resul ts on a panel have been relea sed. Addit ional resul ts will follo w. Refer ence range s for nonbi nary/ inter sex or unspe cifie d gende r patie nts have not been estab lishe d. Pleas e refer to the myao wing table for range s estab lishe d for cisge nder patie nts and evalu ate in the clini antoni miri xt of the indiv idual patie nt: https ://jason fountain book. nm.or g/gen derx 025 1:43 AM: This resul t has been final verif ied. No addit ional or barrett ed resul ts are expec kimmy. Not Available [facility] (Lab) [address], [place], [address], 07/07/2024 05:11:49 07/07/19 25 07/06/2024 BLOOD SMEAR EXAM, RBC MORPH OLOGY RBC morphology Review ed Not Available [facility] (Lab) [address], [place], [address], 07/07/2024 05:11:49 07/07/19 25 07/06/2024 BLOOD SMEAR EXAM, RBC MORPH OLOGY platelet morphology Review ed Not Available [facility] (Lab) [address], [place], [address], 07/07/2024 05:11:49 07/07/19 25 07/06/2024 URIC ACID uric acid 8.9 mg/dL 2.3-6. 6 high Not Available [facility] (Lab) [address], [place], [address], 07/07/2024 05:11:50 07/07/19 25 07/06/2024 CMP(C OMPRE HENSI VE METAB OLIC PANEL ) sodium 140 mmol/ L 133-14 6 Not Available [facility] (Lab) [address] [place], [address], 07/07/2024 05:11:50 07/07/19 25 07/06/2024 CMP(C OMPRE HENSI VE METAB OLIC PANEL ) potassium 4.2 mmol/ L 3.5-5. 1 Not Available [facility] (Lab) [address] [place], [address], 07/07/2024 05:11:50 07/07/19 25 07/06/2024 CMP(C OMPRE HENSI VE METAB OLIC PANEL ) chloride 108 mmol/ L 98-107 high Not Available [facility] (Lab) [address] [place], [address], 07/07/2024 05:11:50 07/07/19 25 07/06/2024 CMP(C OMPRE HENSI VE METAB OLIC PANEL ) carbon dioxide 22 mmol/ L 21-31 Not Available [facility] (Lab) [address], [place], [address], 07/07/2024 05:11:50 07/07/19 25 07/06/2024 CMP(C OMPRE HENSI VE METAB OLIC PANEL ) anion gap 10 mmol/ L 4-13 Not Available [facility] (Lab) [address], [place], [address], 07/07/2024 05:11:50 07/07/19 25 07/06/2024 CMP(C OMPRE HENSI VE METAB OLIC PANEL ) blood urea nitrogen 9 mg/dL 7-25 Not Available [facility] (Lab) [address], [place], [address], 07/07/2024 05:11:50 07/07/19 25 07/06/2024 CMP(C OMPRE HENSI VE METAB OLIC PANEL ) creatinine 0.78 mg/dL 0.60-1 .30 Not Available [facility] (Lab) [address], [place], [address], 07/07/2024 05:11:50 07/07/19 25 07/06/2024 CMP(C OMPRE HENSI VE METAB OLIC PANEL ) egfrcr (CKD-epi 2020) >90 mL/mi n/1.7 3_m2 >=60 Not Available [facility] (Lab) [address], [place], [address], 07/07/2024 05:11:50 07/07/19 25 07/06/2024 CMP(C OMPRE HENSI VE METAB OLIC PANEL ) calcium 9.5 mg/dL 8.3-10 .5 Not Available [facility] (Lab) [address], [place], [address], 07/07/2024 05:11:50 07/07/19 25 07/06/2024 CMP(C OMPRE HENSI VE METAB OLIC PANEL ) glucose 77 mg/dL 70-100 Not Available [facility] (Lab) [address] [place], [address], 07/07/2024 05:11:50 07/07/19 25 07/06/2024 CMP(C OMPRE HENSI VE METAB OLIC PANEL ) protein, total 5.5 g/dL 6.4-8. 3 low Not Available [facility] (Lab) [address] [place], [address], 07/07/2024 05:11:50 07/07/19 25 07/06/2024 CMP(C OMPRE HENSI VE METAB OLIC PANEL ) albumin 3.3 g/dL 3.5-5. 0 low Not Available [facility] (Lab) [address] [place], [address], 07/07/2024 05:11:50 07/07/19 25 07/06/2024 CMP(C OMPRE HENSI VE METAB OLIC PANEL ) ALT 22 units /L 9-43 Not Available [facility] (Lab) [address] [place], [address], 07/07/2024 05:11:50 07/07/19 25 07/06/2024 CMP(C OMPRE HENSI VE METAB OLIC PANEL ) alkaline phosphatase 196 units /L 34-104 high Not Available [facility] (Lab) [address] [place], [address], 07/07/2024 05:11:50 07/07/19 25 07/06/2024 CMP(C OMPRE HENSI VE METAB OLIC PANEL ) AST 37 units /L 13-39 Not Available [facility] (Lab) [address] [place], [address], 07/07/2024 05:11:50 07/07/19 25 07/06/2024 CMP(C OMPRE HENSI VE METAB OLIC PANEL ) bilirubin, total 0.3 mg/dL 0.2-1. 2 Not Available [facility] (Lab) [address], [place], [address], 07/07/2024 05:11:50 07/07/19 25 07/06/2024 PROTE IN/CR EATIN INE RATIO , URINE creatinine, urine 393.6 mg/dL R-No refer ence range estab lishe d for this assay Not Available [facility] (Lab) [address], [place], [address], 07/07/2024 05:11:50 07/07/19 25 07/06/2024 PROTE IN/CR EATIN INE RATIO , URINE protein, urine 53 mg/dL R-No refer ence range estab lishe d for this assay Not Available [facility] (Lab) [address] [place], [address], 07/07/2024 05:11:50 07/07/19 25 07/06/2024 PROTE IN/CR EATIN INE RATIO , URINE protein/crea tinine ratio, urine 0.13 . No Refer ence Range avail able for Rando m Urine s. A prote in to creat inine ratio of >=0.1 9 is a good predi ctor of signi fican t prote inuri a. A level of <0.14 can rule out signi fican t prote inuri a. Not Available [facility] (Lab) [address], [place], [address], 07/07/2024 05:11:50 06/06/19 25 06/06/2024 US, obste tric, bioph ysica l profi le No observ ation record ed. [email or web address] [address], [place], [address], 06/07/2024 12:45:19 06/06/19 25 06/06/2024 non-s tress test No observ ation record ed. [email or web address] [address], [place], [address], 06/06/2024 11:04:03 06/06/19 25 06/06/2024 US, obste tric, bioph ysica l profi le + non-s tress test No observ ation record ed. [email or web address] [place] [address], [place], [address], 06/06/2024 13:26:08 06/11/19 25 06/11/2024 non-s tress test No observ ation record ed. [address] [facility] [address] [facility] [address] [facility], [place], [address], 06/13/2024 11:20:56 06/11/19 25 06/11/2024 US, obste tric, follo w-up No observ ation record ed. [address], [place], [address], 06/13/2024 12:26:00 06/13/19 25 06/13/2024 non-s tress test No observ ation record ed. [email or web address] [address] [facility] [address], [place], [address], 06/13/2024 15:52:52 06/15/19 25 06/14/2024 US, obste tric, follo w-up No observ ation record ed. [email or web address] [facility] [address] [place] [address], [address], 07/04/2024 15:14:40 06/15/19 25 06/15/2024 non-s tress test No observ ation record ed. [email or web address] [place] [address], [place], [address], 06/15/2024 12:51:05 06/15/19 25 06/15/2024 US, obste tric, bioph ysica l profi le + non-s tress test No observ ation record ed. [facility] [address], [place], [address], 06/15/2024 17:10:29 06/15/19 25 06/15/2024 US, obste tric, follo w-up No observ ation record ed. [email or web address] [address], [place], [address], 06/18/2024 09:43:47 06/22/19 25 06/22/2024 non-s tress test No observ ation record ed. [address], [place], [address], 06/22/2024 17:22:15 06/22/19 25 06/22/2024 US, obste tric, bioph ysica l profi le + non-s tress test No observ ation record ed. [facility] [address], [place], [address], 06/22/2024 17:56:41 06/22/19 25 06/22/2024 US, obste tric, bioph ysica l profi le + non-s tress test No observ ation record ed. [email or web address] [place] [address], [place], [address], 06/22/2024 19:24:55 06/29/19 25 06/29/2024 US, obste tric, bioph ysica l profi le + non-s tress test No observ ation record ed. [facility] [address], [place], [address], 06/29/2024 18:37:30 06/29/19 25 06/29/2024 US, obste tric, follo w-up No observ ation record ed. [address], [place], [address], 07/01/2024 21:30:14 06/29/19 25 06/29/2024 non-s tress test No observ ation record ed. [email or web address] [facility] [place] [address], [place], [address], 06/29/2024 17:50:13 06/29/19 25 06/29/2024 non-s tress test No observ ation record ed. [email or web address] [facility] [place] [address], [place], [address], 06/29/2024 18:22:05 07/07/19 25 07/06/2024 US, obste tric, follo w-up No observ ation record ed. [address], [place], [address], 07/06/2024 17:37:39 07/07/19 25 07/06/2024 US, obste tric, follo w-up No observ ation record ed. roger [facility] [place] [address], [place], [address], 07/06/2024 17:35:41 07/07/19 25 07/06/2024 US, milad sullivan, bioph ysica l profi le + non-s tress test No observ ation record ed. roger [facility] [place] [address], [place], [address], 07/06/2024 17:35:52 07/07/19 25 07/06/2024 non-s tress test No observ ation record ed. [email or web address] [facility] [address], [place], [address], 07/06/2024 16:11:56 07/07/19 25 07/06/2024 non-s tress test No observ ation record ed. [email or web address] [facility] [place] [address], [place], [address], 07/06/2024 16:58:03 Result Notes None recorded. Problems Name Problem SNOMED Code Status Onset Date Resolution Date Notes Provider Name and Address Organization Details Recorded Time Past pregnanc y history of pre-ecla mpsia 92517759604 9100 Active bASA MFM rec weekly testing at 32wks elevated BP at home 2 143/75, 146/87, 137/92 Kellie thomas, [facility] 5 17:57:42 Migraine 19988273 Active exedrin tension/f ioricet do not work-imit juve to pharmacy ALEM Evans [address], [place], [address], [facility] 4 12:38:19 Past pregnanc y history of gestatio nal diabetes mellitus 284449511 Active Alison Sosa [facility], [facility] 4 10:06:47 History of alcohol abuse 069667436 Active 2023 clean since 2015 Alison thomas, [facility] 4 10:58:08 Pregnanc y 92315065 Active 2023 Alison thomas, [facility] 4 10:06:14 Past pregnanc y history of pre-ecla mpsia 74411620936 9100 Active bASA MFM rec weekly testing at 32wks elevated BP at home 211 143/75, 146/87, 137/92 Kellie thomas, [facility] 5 17:57:42 Past pregnanc y history of gestatio nal diabetes mellitus 543748764 Active Alison thomas [facility] 4 10:06:47 Migraine 89698331 Active exedrin tension/f ioricet do not work-imit juve to pharmacy Laura Betts CNM [address], [place], [address], [facility] 4 12:38:19 Obesity 179135732 Active bmi 32 Laura Betts CNM [address], [place], [address], [facility] 4 12:36:35 Alcoholi 5593187 Active history of abuse, sober since 2015 Laura Betts CNM [address], [place], [address], [facility] 4 14:17:06 Past pregnanc y history of section 789948305 Active 2022 due to preeclamp nisha, elevating liver enzymes Laura Betts CNM [address], [place], [address], [facility] 4 14:19:28 Palpitat ions 77023747 Active 72 hour holter monitor order faxed 03/02 Noe Outpatien t Cardiolog y- Referral faxed Cardiolog y consult Dr Fabian Liang 04/03/24 Make sure records faxed to [facility] Kellie thomas [facility] 5 22:25:41 Palpitat ions 26588631 Active 72 hour holter monitor order faxed 03/02 Noe Outpatien t Cardiolog y- Referral faxed Cardiolog y consult Dr Fabian Liang 04/03/24 Make sure records faxed to [facility] Kellie thomas [facility] 5 22:25:41 anatomy study Active incomplet e cardiac views x 2 referral faxed [facility] 04/03 to complete anatomy Scheduled [facility] Izabela 04/11 1:00PM Level II US and consult 05/17 10:30AM US only Kellie thomas, [facility] 5 12:38:29 anatomy study Active incomplet e cardiac views x 2 referral faxed [facility] 04/03 to complete anatomy Scheduled [facility] [place] 04/11 1:00PM Level II US and consult 05/17 10:30AM US only Kellie Mendoza martha, [facility] 5 12:38:29 Pregnanc y-induce d hyperten [place] 98094747 Active Laura Betts CNM [address], [place], [address], [place] [facility] 5 17:03:29 Problem Notes None recorded. Procedures Surgical History Date Name Laterality Status Provider Name and Address Organization Details Recorded Time 4 Date of Last Pap Smear completed Alison Sosa [facility] 01/06/2024 10:44:49 3 Caesarean Section completed Alison Sosa [facility] 01/06/2024 10:44:50 Imaging Results Imaging Date Name Status LastModified by Organiz ation Details LastModified Time 06/06/2024 US, obstetric, biophysical profile completed [email or web address] [address], [place], [address], 06/07/2024 12:45:19 06/06/2024 non-stress test completed [email or web address] [place] [address], [place], [address], 06/06/2024 11:04:03 06/06/2024 US, obstetric, biophysical profile + non-stress test completed [email or web address] [place] [address], [place], [address], 06/06/2024 13:26:08 06/11/2024 non-stress test completed [address] [facility] [address], [place], [address], 06/13/2024 11:20:56 06/11/2024 US, obstetric, follow-up completed [address], [place], [address], 06/13/2024 12:26:00 06/13/2024 non-stress test completed [facility] [address], [place], [address], 06/13/2024 15:52:52 06/14/2024 US, obstetric, follow-up completed [email or web address] [facility] [address] [place], [address], 07/04/2024 15:14:40 06/15/2024 non-stress test completed [address], [place], [address], 06/15/2024 12:51:05 06/15/2024 US, obstetric, biophysical profile + non-stress test completed [facility] [address], [place], [address], 06/15/2024 17:10:29 06/15/2024 US, obstetric, follow-up completed [address], [place], [address], 06/18/2024 09:43:47 06/22/2024 non-stress test completed [address], [place], [address], 06/22/2024 17:22:15 06/22/2024 US, obstetric, biophysical profile + non-stress test completed [facility] [address], [place], [address], 06/22/2024 17:56:41 06/22/2024 US, obstetric, biophysical profile + non-stress test completed [email or web address] [address], [place], [address], 06/22/2024 19:24:55 06/29/2024 US, obstetric, biophysical profile + non-stress test completed [place] [address], [place], [address], 06/29/2024 18:37:30 06/29/2024 US, obstetric, follow-up completed [email or web address] [address], [place], [address], 07/01/2024 21:30:14 06/29/2024 non-stress test completed [email or web address] [place] [address], [place], [address], 06/29/2024 17:50:13 06/29/2024 non-stress test completed [email or web address] [place] [address], [place], [address], 06/29/2024 18:22:05 07/06/2024 US, obstetric, follow-up completed [email or web address] [address], [place], [address], 07/06/2024 17:37:39 07/06/2024 US, obstetric, follow-up completed [facility] [address], [place], [address], 07/06/2024 17:35:41 07/06/2024 US, obstetric, biophysical profile + non-stress test [facility] [address], [place], [address], 07/06/2024 17:35:52 07/06/2024 non-stress test completed [email or web address] [place] [address], [place], [address], 07/06/2024 16:11:56 07/06/2024 non-stress test completed [email or web address] [place] [address], [place], [address], 07/06/2024 16:58:03 Procedure Notes None recorded. Medical Equipment None Reported. Allergies Allergen ID Allergen Name Allergen Category Reaction Reaction Severity Criticality Documentation Date Start Date Code Code System Note Provider Name and Address Organization Details Recorded Time 12547 latex environme nt,medica tion itching mild Not available 01/06/2024 79001 91 RxNorm Alison Sosa [facility] 10:44:49 Medications Name Sig Start Date [...] Not Available Not Available Not Avai [email or web address] Fioricet 02/02 completed Not Available Not Available Not Available Vitals Date Recorded Body height Body weight Body height Body mass index (BMI) Body weight Systolic blood pressure Diastolic blood pressure Systolic blood pressure Diastolic blood pressure Provider Name and Address Organization Details Last Updated DateTime 5 166.37 cm 609484. 20856 g 166.37 cm 38.5 kg/m2 476507. 21 g 140 mm[Hg] 83 mm[Hg] 140 mm[Hg] 83 mm[Hg] Alison Sosa [facility] 5 17:48:39 Date Recorded Body height Body mass index (BMI) Body weight Systolic blood pressure Diastolic blood pressure Provider Name and Address Organization Details Last Updated DateTime 07/06/2024 166.37 cm 38 kg/m2 291280.4 3 g 122 mm[Hg] 79 mm[Hg] Catalina Castaneda [facility] 5 12:37:31 Date Recorded Body height Body mass index (BMI) Body weight Systolic blood pressure Diastolic blood pressure Provider Name and Address Organization Details Last Updated DateTime 07/06/2024 166.37 cm 38 kg/m2 329060.4 3 g 122 mm[Hg] 79 mm[Hg] Alison Sosa [facility] 5 15:58:53 Social History Question Answer Notes LastModified by Organizat ion Details LastModified Time Tobacco Smoking Status Former Smoker Alison Sosa [facility] 01/06/2024 10:53:38 Do You Have An Advance Directive? No [email or web address] Information not available 05/04/2024 What Is Your Level Of Alcohol Consumption? None 8 Year Sober [email or web address] Information not available 01/06/2024 If You Are , What Was Your Level Of Alcohol Consumption Prior To ? None [email or web address] Information not available 01/06/2024 Are You Blind Or Do You Have Difficulty Seeing? No [email or web address] Information not available 01/06/2024 What Is Your Level Of Caffeine Consumption? Moderate [email or web address] Information not available 05/14/2024 How Much Tobacco Do You Chew? None [email or web address] Information not available 01/06/2024 In The 14 Days Before Symptom Onset, Have You Had Close Contact With A Laboratory-confi rmed COVID-19 While That Case Was Ill? No [email or web address] Information not available 01/06/2024 In The 14 Days Before Symptom Onset, Have You Had Close Contact With A Person Who Is Under Investigation For COVID-19 While That Person Was Ill? No Information not available 01/06/2024 Have You Been To An Area Known To Be High Risk For COVID-19? No [email or web address] Information not available 01/06/2024 Are You Deaf Or Do You Have Serious Difficulty Hearing? No [email or web address] Information not available 01/06/2024 What Type Of Diet Are You Following? REGULAR [email or web address] Information not available 01/06/2024 What Is The Highest Grade Or Level Of School You Have Completed Or The Highest Degree You Have Received? 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 No [email or web address] Information not available 01/06/2024 Do You Use Protection During Sex? No Information not available 01/06/2024 Do You Use Your Seat Belt Or Car Seat Routinely? Yes [email or web address] Information not available 01/06/2024 Do You Have Smoke And Carbon Monoxide Detectors In Your Home? Yes [email or web address] Information not available 01/06/2024 How Much Tobacco Do You Smoke? No [email or web address] Information not available 01/06/2024 Do You Feel Stressed (tense, Restless, Nervous, Or Anxious, Or Unable To Sleep At Night)? [id number] [email or web address] Information not available 01/06/2024 Do You Use Any Illicit Or Recreational Drugs? No Marjuana [email or web address] Information not available 01/06/2024 Do You Use Sunscreen Routinely? Yes [email or web address] Information not available 01/06/2024 Has Tobacco Cessation Counseling Been Provided? Yes [email or web address] Information not available 01/06/2024 On What Date Was Tobacco Cessation Counseling Provided? 06/29/2024 [email or web address] Information not available 06/29/2024 Have You Used IV Drugs? No [email or web address] Information not available 01/06/2024 Do You Or Have You Ever Used Any Other Forms Of Tobacco Or Nicotine? No [email or web address] Information not available 01/06/2024 Sex: Unknown Functional Status Question Answer Note LastModified by Organizat ion Details LastModified Time Do you have difficulty walking or climbing stairs? No [email or web address] Information not available 01/06/2024 Are you able to walk? YESWOREST [email or web address] Information not available 01/06/2024 Are you able to care for yourself? Yes [email or web address] Information not available 01/06/2024 Do you have difficulty dressing or bathing? No [email or web address] Information not available 01/06/2024 What is your exercise level? Moderate [email or web address] Information not available 01/06/2024 Mental Status None recorded. Family History Relationship Description Onset Age of this Age Resolved Age Notes LastModified by Organization Details LastModified Time Unspecified Relation Family history unknown [email or web address] Not available 2024 11:12:32 Unspecified Relation Malignant tumor of breast great matern al aunt, great patern al aunt [email or web address] Not available 06/01/2024 09:40:33 Paternal Grandmother Malignant tumor of breast [email or web address] Not available 2024 09:40:33 Medical History Condition [...] SNOMED-CT Code Diagnosis ICD10 Code Diagnosis Note [id number] [facility] [address],[place] [address] 01/06/2024 09:45:37 01/06/2024 10:22:53 [id number] [facility] [address] [place] [address] 01/06/2024 09:47:42 01/06/2024 11:24:41 Amenorrhea 50228889 N91.2 Venereal d isease screening 805894186 Z11.3 Past pregn flo history of pre-eclampsia 3649677236 96101 Z87.59 Nausea and vomiting 1693 1999 R11.2 [id number] [facility] [address] [place] [address] 02/03/2024 08:56:12 02/03/2024 09:32:50 screening 514638092 Z36.82 Z3A.13 [id number] Laura Betts [facility] [address] [place] [address] 02/03/2024 08:56:35 02/03/2024 14:48:26 screening 240600827 Z36.89 Routine an tenatal care 470746727 Z34.90 Gestation period, 13 weeks 47235355 Z3A.13 Migraine 51143375 G43.90 9 [id number] [facility] [address] [place] [address] 03/02/2024 09:38:21 03/02/2024 10:16:08 Routine care 693615526 Z34.90 [id number] Aida Maguire [place] [address] [place] [address] 03/28/2024 09:27:53 03/28/2024 10:43:33 screening for malformation 393071281 Z36.3 Z3A.21 [id number] Laura Betts [facility] [address] [address] 03/28/2024 09:28:17 03/28/2024 11:08:36 Gestation period, 21 weeks 02247466 Z3A.21 - induced hypertension 59949335 O13.9 [id number] Laura Betts [facility] [address],[place] [address] 05/04/2024 15:36:25 05/04/2024 16:37:35 Migraine 26209773 G43.909 [id number] FRED RAMIREZ MD [place] [address],[place] [address] 05/14/2024 09:53:55 05/14/2024 10:44:15 Past history of gestational diabetes mellitus 144364878 Z86.32 - GCT today Past pregn flo history of pre-eclampsia 5012266338 48007 Z87.59 - BP wnl, asymptomat ic- discussed warning signs- 32 week testing per MFM- 162mg ASA per MF Uterine sc ar from previous surgery affecting 12689213 O34.29 - desires TOLAC, ok with induction and pitocin if needed Gestation period, 28 weeks 39771430 Z3A.28 - continue PNV Migraine 55033315 G43.90 9 - improved with imitrex [id number] Laura Betts [facility] [address],[place] [address] 06/01/2024 09:40:17 06/01/2024 11:22:19 Gestation period, 30 weeks 35745498 Z3A.30 check labs, discussed Gestationa l HTN vs preeclamps iaantenata l teting next week [id number] Aida Maguire [place] [address],[place] [address] 06/06/2024 09:19:47 06/06/2024 11:10:13 Chronic hypertension complicating AND/OR reason for care during 14681263 O16.3 Z87.59 Z3A.31 [id number] Catalina Castaneda [place] [address],[place] [address] 06/06/2024 09:20:09 06/06/2024 11:07:57 Chronic hypertension complicating AND/OR reason for care during 21219240 O16.9 [id number] FRED RAMIREZ MD [place] [address],[place] [address] 06/06/2024 09:20:30 06/06/2024 11:18:31 Past history of gestational diabetes mellitus 940357961 Z86.32 - GCT wnl Past pregn flo history of pre-eclampsia 2070628500 12880 Z87.59 - BP wnl, asymptomat ic- discussed warning signs- 32 week testing per MFM- 162mg ASA per MFM Breech presentation 6096 002 O32.1XX9 - discussed spinning babies- continue to monitor position Gestation period, 31 weeks 54964781 Z3A.31 - continue PNV [id number] TEAGANSMITA Lovelace [place] [address],[place] [address] 06/15/2024 11:56:35 06/15/2024 13:30:31 -induced hypertension 12665526 O13.9 [id number] [facility] [address],[place] [address] 06/15/2024 11:57:20 06/15/2024 13:30:11 Chronic hypertension complicating AND/OR reason for care during 27417180 O16.3 Z87.59 Z3A.32 [id number] Laura Betts CNM [place] [address],[place] [address] 06/15/2024 11:57:47 06/15/2024 13:30:04 Gestation period, 32 weeks 2136416 Z3A.32 continue vitamin [id number] Laura Betts CNM [place] [address] [place] [address] 06/22/2024 15:32:03 06/25/2024 11:35:12 Maternal obesity complicating , childbirth and the puerperium, antepartum 7115781693 07 O99.210 [id number] [facility] [address],[place] [address] 06/22/2024 15:33:55 06/25/2024 07:53:04 Chronic hypertension complicating AND/OR reason for care during 12957857 O16.3 Z87.59 Z3A.33 [id number] [facility] [address],[place] [address] 06/22/2024 15:34:41 06/25/2024 04:09:58 Gestation period, 33 weeks 80278754 Z3A.33 [id number] Alison Sosa [place] [address],[place] [address] 06/29/2024 10:29:38 07/02/2024 14:56:03 -induced hypertension 39233575 O13.9 [id number] [facility] [address],[place] [address] 06/29/2024 10:30:19 06/29/2024 11:37:04 Chronic hypertension complicating AND/OR reason for care during 04154000 O16.3 Z87.59 Z3A.34 [id number] Laura Betts [facility] [address],[place] [address] 06/29/2024 10:30:51 06/29/2024 13:03:05 -induced hypertension 48324884 O13.9 Gestation period, 34 weeks 01291988 Z3A.34 [id number] Alison Sosa [place] [address],[place] [address] 07/06/2024 11:12:18 07/06/2024 16:38:19 -induced hypertension 89567992 O13.9 [id number] [facility] [address],[place] [address] 07/06/2024 11:50:19 07/06/2024 13:31:32 Chronic hypertension complicating AND/OR reason for care during 15536283 O16.3 Z87.59 Z3A.35 [id number] FRED RAMIREZ MD [place] [address] [address] 07/06/2024 11:50:42 07/06/2024 13:15:05 -induced hypertension 66537446 O13.9 - asymptomat ic- BP wnl today- 37 week induction planned- continue testing Past pregn flo history of gestational diabetes mellitus 493642976 Z86.32 - GCT wnl Past pregn flo history of pre-eclampsia 9701849867 24193 Z87.59 - BP wnl, asymptomat ic- discussed warning signs- 32 week testing per MFM- 162mg ASA per MFM Gestation period, 35 weeks 46995250 Z3A.35 Health Concerns Section Related Observation LastModified by Organization Detai ls LastModified Time None Recorded Concern Status LastModified by Organization Details LastModified Time None Recorded Advance Directives Directive N: Payers Encounter Date Sequence Insurance Name Policy Number Policy Vogel Covered Member ID Vogel Member ID Guarantor Name 06/29/2024 1 [place] [facility] [employer] [place] [id number] [place] 06/29/2024 1 [place] [facility] [employer] [place] [id number] [place] 07/06/2024 1 [place] [facility] [place] [id number] [place] 07/06/2024 1 [place] [facility] [place] [id number] [place] 07/06/2024 1 [place] [facility] PUBLIC AID [place] [id number] [place] OBGyn Episode Ob Episode Information Episode Created Date Number of Fetuses Patient Bloodtype Patient rh Status Prepregnancy Weight lbs Domestic Partner Domestic Partner Phone Father Name Aerial Applicator Pilot Status 02/03/20 24 1 A Positive 197 [place] OPEN Fetus Data First Name Last Name Admitted to NICU Weight (g) Sex Living Outcome Pediatric Complications Fetus ID Race Codes Race Delivery Type [id number] Problems Problem Notes [facility] recommendations BP lo g at home [...] Date Resolution Snomed Code Not e Obesity 700438130 bmi 32 -induced hypertension 14599245 Past history of gestational diabetes mellitus 741618750 Palpitations 71399291 72 hour holter monitor order faxed 03/02 Noe Outpatient Cardiology- Referral faxed Cardiology consult Dr Fabian Liang 04/03/24Make sure records faxed to [facility] Past history of pre-eclampsia 252073507950013 [facility] rec weekly testing at 32wkselevated BP at home 06/12 143/75, 146/87, 137/92 Migraine 30271092 exedrin tension/fioricet do not work-imitrex to pharmacy Alcoholism 3474955 history o f abuse, sober since 2015 Past history of section 893481536 2022 due to preeclampsia, elevating liver enzymes anatomy study 423531103 incomplete card iac views x 2 referral faxed [facility] 04/03 to complete anatomyScheduled [facility] Izabela 04/11 1:00PM Level II US and [...] Type Weight in lbs Pre/Post Dialysis Refused 200.197257403869 BP Diastolic BP Location Tested BP Systolic [...] Type Weight in lbs Pre/Post Dialysis Refused 202.305385809507 BP Diastolic BP Location Tested BP Systolic BP Type 74 117 Fetus Heart Rate Present A 145 Present Fetus Movement A Yes Comments Patient states that is havin g some heart palpatations at night and is having some BH contractions. plan cardiac technologist, +FM doing well f/u 3 weeks precautions [...] Type Weight in lbs Pre/Post Dialysis Refused 208.891576498116 BP Diastolic BP Location Tested BP Systolic [...] hellp wanting unmedicated TOLAC have consult with [facility] baseline pih labs today. +fm precautions and education Flowsheet Date 05/04/2024 Prabhakar Score Blood Edema Fundus Height Fundus Units Glucose Ketones Leukocytes Nitrite Labor Signs Protein Cervic Dilation Cervic Effacement Cervic Station none Type Weight in lbs Pre/Post Dialysis Refused 222.13336382190 BP Diastolic BP Location Tested BP Systolic [...] Weight in lbs Pre/Post Dialysis Refused Weight 223.984199370926 BP Diastolic BP Location Tested BP Systolic [...] Type Weight in lbs Pre/Post Dialysis Refused 228.463258006693 BP Diastolic BP Location Tested BP Systolic [...] Weight in lbs Pre/Post Dialysis Refused Weight 234.072825416304 BP Diastolic BP Location Tested BP Systolic BP Type 79 L arm 128 sitting Fetus Heart Rate Present A 150 Fetus Movement A Yes Comments Patient c/o of pelvic pain, [place]. Good movement. No cramping or bleeding. [...] Type Weight in lbs Pre/Post Dialysis Refused 231.167314431796 BP Diastolic BP Location Tested BP Systolic [...] Weight in lbs Pre/Post Dialysis Refused Weight 236.693501995574 BP Diastolic BP Location Tested BP Systolic [...] Weight in lbs Pre/Post Dialysis Refused Weight 236.896572118873 BP Diastolic BP Location Tested BP Systolic [...] Weight in lbs Pre/Post Dialysis Refused Weight 235.098049237217 BP Diastolic BP Location Tested BP Systolic BP Type 83 140 Fetus Heart Rate Present Fetus Movement Comments Flowsheet Date 06/29/2024 Prabhakar Score Blood Edema Fundus Height Fundus Units Glucose Ketones Leukocytes Nitrite Labor Signs Protein Cervic Dilation Cervic Effacement Cervic Station Type Weight in lbs Pre/Post Dialysis Refused 235.036117910128 BP Diastolic BP Location Tested BP Systolic BP Type 83 140 Fetus Heart Rate Present Fetus Movement A Yes Comments bpp 10/10, blood pressure cu ff at home reading similar to our reading here, went through how to get more accurate at home. +FM, IOL 07/16 at 0600. precautions and education, labs from this week in ld wnl, f/u one week Flowsheet Date 07/06/2024 Prabhakar Score Blood Edema Fundus Height Fundus Units Glucose Ketones Leukocytes Nitrite Labor Signs Protein Cervic Dilation Cervic Effacement Cervic Station Type Weight in lbs Pre/Post Dialysis Refused Weight 232.3203584867 BP Diastolic BP Location Tested BP Systolic BP Type 79 122 Fetus Heart Rate Present Fetus Movement Comments Flowsheet Date 07/06/2024 Prabhakar Score Blood Edema Fundus Height Fundus Units Glucose Ketones Leukocytes Nitrite Labor Signs Protein Cervic Dilation Cervic Effacement Cervic Station Type Weight in lbs Pre/Post Dialysis Refused BP Diastolic BP Location Tested BP Systolic BP Type Fetus Heart Rate Present Fetus Movement Comments Flowsheet Date 07/06/2024 Prabhakar Score Blood Edema Fundus Height Fundus Units Glucose Ketones Leukocytes Nitrite Labor Signs Protein Cervic Dilation Cervic Effacement Cervic Station neg none 0cm 50% -3 Type Weight in lbs Pre/Post Dialysis Refused Weight 232.7350618318 BP Diastolic BP Location Tested BP Systolic BP Type 79 L arm 122 sitting Fetus Heart Rate Present A 133 Fetus Movement A Yes Comments Patient c/o [place] Conrad. G ood movement. No LOF or VB. EFW 85%, NETTE wnl. BPP 02/08. Denies headaches, vision changes, chest pain, dyspnea, RUQ pain or epigastric pain. Discussed plan for induction at 37 weeks, FB/pit. GBS collected today. Labor precautions reviewed. Menstrual History Last Menstrual Date Menses Monthly [...] Domestic Partner Domestic Partner Phone Father Name Aerial Applicator Pilot Status 01/06/20 24 1 CLOSED Fetus Data First Name Last Name Admitted to NICU Weight (g) Sex Living Outcome Pediatric Complications Fetus ID Race Codes Race Delivery Type 3118.44 5 M Prematur e [id number] Primary Kenyon Calculation Initial Kenyon Date Initial [...]
--- OUTSIDE RECORDS SUMMARY | 2024-07-10 13:24 | XMS_ITS | Data Portability ---
Author Organization [facility] KIMMIENeeraj Address [address] [place] [address] Care Team Providers Care Sail Finisher Machine Name Role Phone AMRITA FRIEDA Primary Care Provider Assessment No assessment recorded. Plan of Treatment Reminders Order Date Submit Date Provider Last Modified By Organization Details Last Modified Time Details Appointments None recorded. Lab bacterial vaginosis + vaginitis panel, vaginal 2018 019 [facility], [address] [place], [place] [address]anthony Kevin, [address], [place], [address], 9 07:15:49 urinalysi s, dipstick 2017 018 [email or web address] In-Office Order, Internal Use Only DO Not Attach Compendium DO Not Attach Compendium, Do Not Delete/merge, [id number] 8 11:24:49 pap, IG + CT/NG/TV + reflex HR HPV 2017 018 [facility], [address], [address], [place], [address], 8 07:13:37 urinalysi s, dipstick 2016 017 mpass In-Office Order, Internal Use Only DO Not Attach Compendium DO Not Attach Compendium, Do Not Delete/merge, [id number] 7 12:48:00 test, urine 2016 017 mpass In-Office Order, Internal Use Only DO Not Attach Compendium DO Not Attach Compendium, Do Not Delete/merge, [id number] 7 12:48:00 Referral None recorded. Procedures None recorded. Surgeries None recorded. Imaging None recorded. Medication Orders amitripty line 25 mg tablet 2019 020 [id number], [address], [place], [place], [id number], 0 12:07:18 sumatript an 100 mg tablet 2019 020 [facility], [address], [place], [place], [id number], 0 12:07:18 butalbita l-acetami nophen-ca ffeine 50 mg-325 mg-40 mg tablet 2019 020 [facility], [address], [place], [place], [id number], 0 12:09:45 metronida zole 500 mg tablet 2018 019 [email or web address] [facility] #80474, [address], [place], [place], [id number], 0 11:36:52 Estarylla 0.25 mg-35 mcg tablet 2018 019 [facility], [address], [place], [place], [id number], 9 14:49:15 Sprintec (28) 0.25 mg-35 mcg tablet 2017 018 [facility], [address], [place], [id number], 8 11:10:51 Sprintec (28) 0.25 mg-35 mcg tablet 2016 017 mpass Not available 7 14:51:12 Patient TargetsNo targets recorded. Patient Instructions Encounter Date Encounter Id Patient Instructions Last Modified By Organization Details Last Modified Time 06/22/2016 [id number] Follow dressing instructions. Encouraged consistent condom use. mpass Not available 06/22/2016 12:36:33 12/29/2016 [id number] Start OC's. Encouraged consistent use of condoms expecially during the first cycle. mpass Not available 12/29/2016 10:21:50 Holly wants to start OC's. Discussed risks/benefits/si de effects/correct use of OC's. Holly voiced understanding. mpass Not available 12/29/2016 10:21:22 07/28/2018 [id number] bacterial vaginosis: care instructions [email or web address] Not available [...] DO Not Attach Compendium, Do Not Delete/merge, [id number] 06/22/2016 09:56:30 06/22/19 17 06/22/2016 urina lysis [...] 06/22/2016 urina lysis , dipst ick Specific Allons 1.020 Not Available In-Off ice Order Internal [...] DO Not Attach Compendium, Do Not Delete/merge, [id number] 06/22/2016 09:29:45 05/18/19 18 05/20/2017 pap, IG + CT/NG /TV + refle x HR HPV diagnosis: Ulices t NEGAT DEAN FOR INTRA EPITH ELIAL KANNAN N AND CHRIS SANTOS . Not Available [facility] ([facility]) [address], [place], [address], 05/21/2017 07:13:37 05/18/19 18 05/20/2017 pap, IG + CT/NG /TV + refle x HR HPV specimen adequacy: Commjamal t Satis facto ry for evalu ation . Endoc ervic al and/o r squam ous metap lasti c cells (endo cervi antoni compo nent) are prese nt. Not Available [facility] ([facility]) [address] [facility] [address], [place], [address], 05/21/2017 07:13:37 05/18/19 18 05/20/2017 pap, IG + CT/NG /TV + refle x HR HPV clinician provided ICD10: Ulices wilder Z01.4 19 Not Available [facility] ([facility]) [address] [facility] [address] [facility], [place], [address], 05/21/2017 07:13:37 05/18/19 18 05/20/2017 pap, IG + CT/NG /TV + refle x HR HPV performed by: Ulices Qureshi in, Cytot echno logis t (ASCP ) Not Available [facility] ([facility]) [address] [place], [address], 05/21/2017 07:13:37 05/18/19 18 05/20/2017 pap, IG + CT/NG /TV + refle x HR HPV . . Not Available [facility] ([facility]) [address] [place], [address], 05/21/2017 07:13:37 05/18/19 18 05/20/2017 pap, IG [...] ts do occur . Not Available [facility] ([facility]) [address] [place], [address], 05/21/2017 07:13:37 05/18/19 18 05/20/2017 pap, IG + CT/NG /TV + refle x HR HPV test methodology: Commen t This liqui d based ThinP rep(R ) pap test was scree rom with the use of an image guide d systshelia m. Not Available [facility] ([facility]) [address] [place], [address], 05/21/2017 07:13:37 05/18/19 18 05/20/2017 pap, IG + CT/NG /TV + refle x HR HPV . Commen t The HPV DNA refle x crite almaz were not met with this speci men resul t there fore, no HPV testi ng was perfo rmed. Not Available [facility] ([facility]) [address] [place], [address], 05/21/2017 07:13:37 05/18/19 18 05/20/2017 pap, IG + CT/NG /TV + refle x HR HPV chlamydia, nuc. acid amp Negati ve negati ve Not Available [facility] ([facility]) [address] [place], [address], 05/21/2017 07:13:37 05/18/19 18 05/20/2017 pap, IG + CT/NG /TV + refle x HR HPV gonococcus, nuc. acid amp Negati ve negati ve Not Available [facility] ([facility]) [address] [facility], [place], [address], 05/21/2017 07:13:37 05/18/19 18 05/20/2017 pap, IG + CT/NG /TV + refle x HR HPV trich vag by NEW Negati ve negati ve Not Available [facility] ([facility]) [address] [facility], [place], [address], 05/21/2017 07:13:37 05/18/19 18 05/18/2017 urina lysis , dipst ick Leukocytes Negati ve Not Available In-Office Order Internal Use Only DO Not Attach Compendium DO Not Attach Compendium, Do Not Delete/merge, [id number] 05/18/2017 10:48:49 05/18/19 18 05/18/2017 urina lysis , dipst ick Nitrite negati ve Not Available In-Office Order Internal Use Only DO Not Attach Compendium DO Not Attach Compendium, Do Not Delete/merge, 05/18/2017 10:48:49 05/18/19 18 05/18/2017 urina lysis , dipst ick Urobilinogen .2 Not Available In-Of fice Order Internal Use Only DO Not Attach Compendium DO Not Attach Compendium, Do Not Delete/merge, [id number] 05/18/2017 10:48:49 05/18/19 18 05/18/2017 urina lysis , dipst ick Protein Negati ve Not Available In-Office Order Internal Use Only DO Not Attach Compendium DO Not Attach Compendium, Do Not Delete/merge, 05/18/2017 10:48:49 05/18/19 18 05/18/2017 urina lysis , dipst ick pH 5.5 Not Available In-Office Order Internal Use Only DO Not Attach Compendium DO Not Attach Compendium, Do Not Delete/merge, [id number] 05/18/2017 10:48:49 05/18/19 18 05/18/2017 urina lysis , dipst ick Blood Negati ve Not Available In-Office Order Internal Use Only DO Not Attach Compendium DO Not Attach Compendium, Do Not Delete/merge, [id number] 05/18/2017 10:48:49 05/18/19 18 05/18/2017 urina lysis , dipst ick Specific Allons 1.025 Not Available In-Off ice Order Internal [...] Negati ve negati ve Not Available [facility] ([facility]) [address] [facility] [address], [place], [address], 08/03/2018 07:15:49 07/29/19 19 08/02/2018 bacte rial vagin osis + vagin itis panel , vagin al chlamydia trachomatis, NEW Negati ve negati ve Not Available [facility] ([facility]) [address] [place], [address], 08/03/2018 07:15:49 07/29/19 19 08/02/2018 bacte rial vagin osis + vagin itis panel , vagin al neisseria gonorrhoeae, NEW Negati ve negati ve Not Available [facility] ([facility]) [address] [place], [address], 08/03/2018 07:15:49 07/29/19 19 08/03/2018 bacte rial vagin osis + vagin itis panel , vagin al atopobium vaginae High - 2 score abnormal Not Available [facility] ([facility]) [address] [place], [address], 08/03/2018 07:15:49 07/29/19 19 08/03/2018 bacte rial vagin osis + vagin itis panel , vagin al bvab 2 High - 2 score abnormal Not Available [facility] ([facility] [address] [place], [address], 08/03/2018 07:15:49 07/29/19 19 08/03/2018 bacte rial [...] shoul d be evalu ated to estab melzia a diagn osis. Total score 3-6: Indic ates the prese nce of BV. This test was devel oped and its perfo rmanc e loretta cteri stics deter mined by [employer]. It has not been clear ed or appro katty by the Food and Drug Admin istra tion. The FDA has deter mined that such clear ance or appro terry is not neces anne-marie. Not Available [facility] ([facility]) [address] [facility], [place], [address], 08/03/2018 07:15:49 07/29/1908/03/2018 bacte rial vagin osis + vagin itis panel , vagin al neeraj albicans, NEW Negati ve negati ve Not Available [facility] ([facility]) [address] [facility], [place], [address], 08/03/2018 07:15:49 07/29/1908/03/2018 bacte rial vagin osis + vagin itis panel , vagin al neeraj glabrata, NEW Negati ve negati ve This test was devel oped and its perfo rmanc e loretta cteri stics deter mined by [employer]. It has not been clear ed or appro katty by the Food and Drug Admin istra tion. The FDA has deter mined that such clear ance or appro terry is not neces anne-marie. Not Available [facility] ([facility]) [address] [facility], [place], [address], 08/03/2018 07:15:49 Result Notes None recorded. Problems Name Problem SNOMED Code Status Onset Date Resolution Date Notes Provider Name and Address Organization Details Recorded Time Bacterial vaginosis 038168418 Active Marianela Pedersen MA null, [place] - [facility] 6 08:49:53 Problem Notes None recorded. Procedures Surgical History Date Name Laterality Status Provider Name and Address Organization Details Recorded Time 8 Date of Last Pap Smear completed Dora Patel [place] - [facility] 07/28/2018 13:59:04 7 Control Implant Removal completed Sarah Machado JANET-JUAN Attn: Accounting[address] [place], [address], [place] 12/29/2016 10:19:54 7 Control Implant Insertion completed Sarah Machado [facility] Attn: Accounting[address] [place], [address], [facility] - [facility] 06/22/2016 12:32:18 6 Depo Injection completed Abena Maurermons [place] - [facility] 016 09:31:35 6 Depo Injection completed Abena Maurermons [place] - [facility] 016 10:16:44 6 Depo Injection completed Abena [place] - [facility] 016 10:07:09 6 Depo Injection completed Marianela Houston [place] - [facility] 07/07/19 16 11:09:47 5 Control Implant Removal completed Sarah Machado [facility] Attn: Accounting[address] [place], [address], [facility] - [facility] 04/08/2015 10:16:29 Imaging Results None recorded. Procedure Notes None recorded. Medical Equipment None Reported. Allergies Allergen ID Allergen Name Allergen Category Reaction Reaction Severity Criticality Documentation Date Start Date Code Code System Note Provider Name and Address Organization Details Recorded Time 07309 latex environme nt,medica tion hives Not available Not available 03/30/2016 10311 91 RxNorm Not Available Not Available Not [...] Updated DateTime 05/18/2017 172.72 cm 25.7 kg/m2 17887.11 g 114 mm[Hg] 60 mm[Hg] Deanne Sherman [place] - [facility] 8 10:48:41 Date Recorded Body weight Systolic blood pressure Diastolic blood pressure Provider Name and Address Organization Details Last Updated DateTime 07/28/2018 17606 g 132 mm[Hg] 92 mm[Hg] Kathy Mariscal [place] - [facility] 07/28/2018 14:04:57 Date Recorded Body weight Body height Body mass index (BMI) Oxygen saturation Oxygen saturation in Arterial blood by Pulse oximetry Heart rate Body temperature Systolic blood pressure Diastolic blood pressure Provider Name and Address Organization Details Last Updated DateTime 0 19582.0 3 g 168.91 cm 28.7 kg/m2 99 % 99 % 78 /min 97.5 [degF] 130 mm[Hg] 80 mm[Hg] Elisabet Medellin MA [facility] 0 11:41:44 Date Recorded Body height Provider Name an d Address Organization Details Last Updated DateTime 06/22/2016 172.72 cm Marianela Pedersen MA [facility] 06/22/2016 09:20:50 Date Recorded Body height Provider Name an d Address Organization Details Last Updated DateTime 12/29/2016 172.72 cm Marianela Pedersen MA [facility] 12/29/2016 09:47:17 Date Recorded Body mass index (BMI) Body weight Systolic blood pressure Diastolic blood pressure Provider Name and Address Organization Details Last Updated DateTime 12/29/2016 25.1 kg/m2 04107.74 g 110 mm[Hg] 70 mm[Hg] Abena Mandi [facility] 12/29/2016 09:53:51 Social History Question Answer Notes LastModified by Organizat ion Details LastModified Time Tobacco Smoking Status Former Smoker Abena thomas [facility] 06/02/2016 09:33:35 Do You Have An Advance [...] not available 01/11/2020 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 Information not available 01/11/2020 Hard Of Hearing [...] History Condition Response Coronary Artery Disease N Kidney Cyst N Blood Diseases N Hyperthyroidism N Blood disorders N Blood Transfusion N MRSA N Emphysema N Depression N COPD N Blood Clots N Pneumonia N Premature N Peripheral Arterial Disease N Edema N TIA N Headaches/Migraines N [...] Disorder N Colon Polyps N Heart Attack (SD) N Diabetes N Cardiomyopathy N Blood Transfusions [...] SNOMED-CT Code Diagnosis ICD10 Code Diagnosis Note [id number] Marianela Houston [facility] ([facility] [address]) [address] [place] [address] 04/08/2015 09:34:08 04/08/2015 10:22:33 detection examination 30673902 Z32.00 Uses depot contraception 610964938 Z30.013 [id number] Sarah Machado [facility] ([facility] [address]) [address] [place] [address] 07/07/2015 10:59:07 07/07/2015 14:30:31 Uses depot contraception 120032660 Z30.42 [id number] [facility] ([facility] [address]) [address] [place] [address] 10/06/2015 09:33:20 10/06/2015 14:20:16 Uses depot contraception 790075819 Z30.42 [id number] Abena Simmons [facility] ([facility] [address]) [address] [place] [address] 01/06/2016 09:44:40 01/06/2016 10:27:05 Uses depot contraception 401651161 Z30.42 Gynecologi c examination 29531198 Z01.344 [id number] Sarah Machado [facility] ([facility] [address]) [address] [place] [address] 03/30/2016 09:11:11 03/30/2016 10:02:32 Uses depot contraception 342605857 Z30.42 [id number] Sarah Machado [facility] ([facility] [address]) [address] [place] [address] 06/02/2016 09:18:26 06/02/2016 14:15:43 Contraception education 152017800 Z30.09 [id number] Sarah Machado [facility] ([facility] [address]) [address] [facility] [place] [address] 06/22/2016 08:58:36 06/23/2016 08:56:17 Insertion of subcutaneous contraceptive 247413768 Z30.9 At increas ed risk of urinary tract infection 581021202 Z91.89 [id number] Sarah Machado [facility] ([facility] [address]) [address] [facility] [place] [address] 12/29/2016 09:41:48 12/29/2016 13:21:52 Removal of subcutaneous contraceptive done 8954628419 51817 Z98.890 Surveillan ce of oral contraception 290263877 Z30.41 [id number] MD Lance [facility] ([facility] [address]) [address] [facility] [place] [address] 05/18/2017 10:33:15 05/19/2017 11:52:59 At increased risk of urinary tract infection 175579499 Z91.89 Gynecologi c examination 78634637 Z01.419 CBE and pap smear performed Contraception care 90983 5005 Z30.40 [id number] Gallo Mas MD [place] [address] OB [address] [facility] [address] [place] [address] 07/28/2018 13:51:54 07/28/2018 15:45:21 Contraception care 098577950 Z30.40 Bacterial vaginosis 4197 19482 N76.0 Gynecologi c examination 52489751 Z01.419 CBE and pelvic exam performed Venereal d isease screening 209306348 Z11.3 [id number] Frieda Gudino MD [facility] [address] [place] [address] 01/11/2020 11:27:34 01/14/2020 09:27:10 Migraine 34989487 G43.909 Gastritis 2637757 K29.70 history of excessive vomiting in the teen years after ingestion of unknown substance; still has a finicky stomach and tends to get dyspepsia. Has had endoscopie s done. Advised to not lie down for 1-2 hours after eating or drinking; avoid chocolate and peppermint at bedtime, avoid excessivel y spicy or greasy foods. 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 F41.8 amitriptyl ine may be helpful Health Concerns Section Related Observation LastModified by Organization Detai ls LastModified Time None Recorded Concern Status LastModified by Organization Details LastModified Time None Recorded Advance Directives Directive N: Payers Encounter Date Sequence Insurance Name Policy Number Policy Vogel Covered Member ID Vogel Member ID Guarantor Name 06/22/2016 1 [facility] - DOS PRIOR TO 2020 (MEDICAID REPLACEMENT - HMO) Holly Candice [id number] Holly D Candice 05/18/2017 SLIDING FEE SCHEDULE - DISCOUNT Holly D Candice 07/28/2018 2 *SELF PAY* Si erra D Candice 01/11/2020 2 *SELF PAY* Si erra D Candice 01/11/[address] [facility] (MEDICAID HMO) Holly D Candice [id number] Holly D Candice Notes Date Note Type [...] PMDD Gallo Mas MD Attn: Accounting[address] [place], [address], [facility] - [facility] 05/18/2017 11:12:31 07/28/2018 text/html Annual [...] Mas MD Attn: Accounting[address] [place], [address], [place] - [facility] 07/28/2018 15:43:52 01/11/2020 text/html [...] appetite;fatigue Frieda Gudino MD Attn: Accounting[address] [place], [address], [facility] - [facility] 01/13/2020 20:15:19 OBGyn Episode No OBEpisode recorded.
--- OUTSIDE RECORDS SUMMARY | 2024-07-10 13:24 | XMS_ITS | Clinical Summary ---
Author Organization [facility] Address [address] [place] [address] Care Team Providers Care Chemical Engineering Teacher Name Role Phone None, Provider MD Primary [...] Active Problems Problem Noted Date Diagnosed Date ([facility]) 05/01/2022 Comments Yes Social History Tobacco Use [...] declined 05/01/2022 How often do you attend taoism or church serv ices? Patient declined 05/01/2022 Do you belong to any clubs o r organizations such as taoism groups, unions, fraTranSwitch or athletic groups, or school groups? Patient [...] Recorded Patient Health Questionnaire-2 Score 0 12/28/2023 [facility] - Occupational [...] place to sleep or slept in a mcc (including now)? No 05/01/2022 Comments Yes Sex [...] 2024 Influenza Adult (#1) 2024 PHQ-2 (Physician [employer]) 05/02/2024 12/28/2023 RSV Immunization or 60+ Years [...] 4:58 PM 04/15/2022 7:42 PM Care Teams Chemical Engineering Teacher Relationship Specialty Start Date End Date None, Provider, PCP - General 01/14/22
--- OUTSIDE RECORDS SUMMARY | 2024-07-10 13:24 | XMS_ITS | Referral Summary ---
Author Organization [facility] Address [address] [address] Care Team Providers Care Student Services Counselor Name Role Phone Unknown, Provider Primary Care Provider Unavaila ble Source Comments [facility],non-owned Affiliates and Associated Physician Practices is [facility] organization consisting of ambulatory clinics and hospital sitesin [place], [place], [place] and [place]. This disclosure is being madepursuant to the Care Everywhere program and may not contain all information available regarding this patient. Last updated 18.[facility] Encounters Date Type Department Care Team Description 06/26/2024 9:36 AM PROFESSIONAL BUILDER - 06/26/2024 11:59 PM PROFESSIONAL BUILDER Hospital Encounter [facility] [address] [place] [address] Gerard Bustamante MD Discharge Disposition: Home or Self Care 06/19/2024 Travel 06/19/2024 11:02 AM PROFESSIONAL BUILDER - 06/19/2024 11:59 PM PROFESSIONAL BUILDER Hospital Encounter [facility] [address] [place] [address] Berta Valadez MD Discharge Disposition: Home or Self Care 06/15/2024 Travel 06/14/2024 11:14 AM PROFESSIONAL BUILDER - 06/14/2024 11:59 PM PROFESSIONAL BUILDER Hospital Encounter [facility] [address] [place] [address] Gerard Bustamante MD Tomlinson, Tracy M, MD Discharge Disposition: Home or Self Care 05/17/2024 10:29 AM PROFESSIONAL BUILDER - 05/17/2024 11:59 PM PROFESSIONAL BUILDER Hospital Encounter [facility] [address] [place] [address] Mckay Hodge MD Discharge Disposition: Home or Self Care 04/11/2024 1:04 PM PROFESSIONAL BUILDER - 04/11/2024 11:59 PM PROFESSIONAL BUILDER Hospital Encounter [facility] [address] [place] [address] Jaime Durant MD Discharge Disposition: Home or Self Care 04/11/2024 1:00 PM PROFESSIONAL BUILDER - 04/11/2024 1:03 PM PROFESSIONAL BUILDER Hospital Encounter [facility] [address] [place] [address] Jaime Durant MD Discharge Disposition: Home or [...] success rate is stated at 60-80%. The [facility] Network calculator for this patient estimates [...] later in for TOLAC planning purposes at [place]. Estimated Date of Delivery Comme nts Yes [...] Comments Blood Pressure 116/62 06/26/2024 9:53 AM PROFESSIONAL BUILDER Pulse 91 06/26/2024 9:53 AM PROFESSIONAL BUILDER Temperature - - Respiratory Rate 18 04/11/2024 2:13 PM PROFESSIONAL BUILDER Oxygen Saturation - - Inhaled Oxygen Concentration - - Weight 95.7 kg (211 lb) 04/11/2024 2:13 PM PROFESSIONAL BUILDER Height 165.1 cm (5' 5 ) 04/11/2024 2:13 PM PROFESSIONAL BUILDER Body Mass Index 35.11 04/11/2024 2:13 PM PROFESSIONAL BUILDER Plan of Treatment Not on file Procedures Procedure Name Priority Date/Time Associated Diagnosis Comments SONOGRAM - COMPLETE Routine 06/14/2024 1 1:28 AM PROFESSIONAL BUILDER Cardiac arrhythmia during ([facility] History of HELLP syndrome, currently ([facility]) Other obesity due to excess calories affecting in third trimester ([facility]) Previous delivery affecting ([facility]) Encounter for ultrasound ([facility]) History of pre-eclampsia in prior , currently ([facility]) History of delivery, currently ([facility]) Second ([facility]) History of gestational diabetes in prior , currently ([facility]) 32 weeks gestation of ([facility]) SONOGRAM - COMPLETE Routine 05/17/2024 1 1:04 AM PROFESSIONAL BUILDER Cardiac arrhythmia during ([facility]) History of HELLP syndrome, currently ([facility]) Other obesity due to excess calories affecting in third trimester ([facility]) Previous delivery affecting ([facility]) History of pre-eclampsia in prior , currently ([facility]) History of gestational diabetes in prior , currently ([facility]) History of delivery, currently ([facility]) 28 weeks gestation of ([facility]) SONOGRAM - COMPLETE Routine 04/11/2024 1 :20 PM PROFESSIONAL BUILDER Encounter for anatomic survey ([facility]) Palpitations History of pre-eclampsia in prior , currently ([facility]) History of gestational diabetes in prior , currently ([facility]) 23 weeks gestation of ([facility]) History of delivery, currently ([facility]) from Last 3 Months Results * SONOGRAM - COMPLETE (06/14/2024 11:28 AM PROFESSIONAL BUILDER) Only the most recent of3 resultswithin the time period is included. Linked Results Indication ======== Incomplete cardiac views Class I obesity Labile hypertension - no meds 06/14 LGA fetus Previous History ====== OB History 2. Para 1 [id number] 1. live 2022. Gest. age 36 w [...] 5 lb 6 oz EFW by Hadlock ([id number]) LGA Growth Overview Exam date [place] BPD [...] Thorax 4-chamber view. LVOT view. 3-vessel view. 0-aixuvs-dcfohmn view. Situs. Aortic arch view. Bicaval view. [...] Growth in 4 w Coding ====== Procedures 95275: [place] [address]: Biophysical Profile W/O NST [employer] PACS Anatomical Region Laterality Modality Other 06/14/2024 11:2 8 AM PROFESSIONAL BUILDER Laura Betts LINE MAINTAINER-ASSOCIATE EDITOR [facility] ORDERABLES from Last 3 Months Care Teams Student Services Counselor Relationship Specialty Start Date End Date Unknown, Provider PCP - General 04/11/24
--- OUTSIDE RECORDS SUMMARY | 2024-07-10 13:24 | XMS_ITS | Clinical Summary ---
Author Organization [facility] Address [address] [place] [address] Care Team Providers Care Emergency Medical Dispatcher Name Role Phone Unknown, Provider Primary Care Provider Unavaila ble Source Comments [facility],non-owned Affiliates and Associated Physician Practices is amultiple site organization consisting of ambulatory clinics and hospital sitesin [place], [place], [place] and [place]. This disclosure is being madepursuant to the Care Everywhere program and may not contain all information available regarding this patient. Last updated 18.[facility] [employer] Allergies Active Allergy Reactions Criticality Noted Date [...] success rate is stated at 60-80%. The [facility] Network calculator for this patient [...] later in for TOLAC planning purposes at [place]. Estimated Date of Delivery Comme nts Yes 08/06/2024 Based on last me nstrual period of 10/31/2023 Encounters Date Type Department Care Team Description 06/26/2024 9:36 AM SOLAR SALES ADVISOR - 06/26/2024 11:59 PM SOLAR SALES ADVISOR Hospital Encounter [facility] [address] [place] [address] Gerard Bustamante MD Discharge Disposition: Home or Self Care 06/19/2024 11:02 AM SOLAR SALES ADVISOR - 06/19/2024 11:59 PM SOLAR SALES ADVISOR Hospital Encounter [facility] [address] [place] [address] Berta Valadez MD Discharge Disposition: Home or Self Care 06/19/2024 Travel 06/15/2024 Travel 06/14/2024 11:14 AM SOLAR SALES ADVISOR - 06/14/2024 11:59 PM SOLAR SALES ADVISOR Hospital Encounter [facility] [address] [place] [address] Gerard Bustamante MD Tomlinson, Tracy M, MD Discharge Disposition: Home or Self Care 05/17/2024 10:29 AM SOLAR SALES ADVISOR - 05/17/2024 11:59 PM SOLAR SALES ADVISOR Hospital Encounter [facility] [address] [place] [address] Mckay Hodge MD Discharge Disposition: Home or Self Care 04/11/2024 1:04 PM SOLAR SALES ADVISOR - 04/11/2024 11:59 PM SOLAR SALES ADVISOR Hospital Encounter [facility] [address] [place] [address] Jaime Durant MD Discharge Disposition: Home or Self Care 04/11/2024 1:00 PM SOLAR SALES ADVISOR - 04/11/2024 1:03 PM SOLAR SALES ADVISOR Hospital Encounter [facility] [address] [place] [address] Jaime Durant MD Discharge Disposition: Home or [...] Comments Blood Pressure 116/62 06/26/2024 9:53 AM SOLAR SALES ADVISOR Pulse 91 06/26/2024 9:53 AM SOLAR SALES ADVISOR Temperature - - Respiratory Rate 18 04/11/2024 2:13 PM SOLAR SALES ADVISOR Oxygen Saturation - - Inhaled Oxygen Concentration - - Weight 95.7 kg (211 lb) 04/11/2024 2:13 PM SOLAR SALES ADVISOR Height 165.1 cm (5' 5 ) 04/11/2024 2:13 PM SOLAR SALES ADVISOR Body Mass Index 35.11 04/11/2024 2:13 PM SOLAR SALES ADVISOR Plan of Treatment Health Maintenance Due Date [...] - COMPLETE Routine 06/14/2024 1 1:28 AM SOLAR SALES ADVISOR Cardiac arrhythmia during ([facility]) History of HELLP syndrome, currently ([facility]) Other obesity due to excess calories affecting in third trimester ([facility]) Previous delivery affecting ([facility]) Encounter for ultrasound ([facility]) History of pre-eclampsia in prior , currently ([facility]) History of delivery, currently ([facility]) Second ([facility]) History of gestational diabetes in prior , currently ([facility]) 32 weeks gestation of ([facility]) SONOGRAM - COMPLETE Routine 05/17/2024 1 1:04 AM SOLAR SALES ADVISOR Cardiac arrhythmia during ([facility]) History of HELLP syndrome, currently ([facility]) Other obesity due to excess calories affecting in third trimester ([facility]) Previous delivery affecting ([facility]) History of pre-eclampsia in prior , currently ([facility]) History of gestational diabetes in prior , currently ([facility]) History of delivery, currently ([facility]) 28 weeks gestation of ([facility]) SONOGRAM - COMPLETE Routine 04/11/2024 1 :20 PM SOLAR SALES ADVISOR Encounter for anatomic survey ([facility]) Palpitations History of pre-eclampsia in prior , currently ([facility]) History of gestational diabetes in prior , currently ([facility]) 23 weeks gestation of ([facility]) History of delivery, currently ([facility]) from Last 3 Months Results * SONOGRAM - COMPLETE (06/14/2024 11:28 AM SOLAR SALES ADVISOR) Only the most recent of3 resultswithin the time period is included. Linked Results Indication ======== Incomplete cardiac views Class I obesity Labile hypertension - no meds 06/14 LGA fetus Previous History ====== OB History 2. Para 1 [id number] 1. live 2022. Gest. age 36 w [...] 5 lb 6 oz EFW by Hadlock ([id number]) LGA Growth Overview Exam date [place] BPD [...] Thorax 4-chamber view. LVOT view. 3-vessel view. 0-ujlsjq-wrativp view. Situs. Aortic arch view. Bicaval view. [...] Growth in 4 w Coding ====== Procedures 64149: [place] [address]: Biophysical Profile W/O NST [employer] PACS Anatomical Region Laterality Modality Other 06/14/2024 11:2 8 AM SOLAR SALES ADVISOR Laura Betts CIVIL ATTORNEY-AMBULATORY ANALYST MFM ORDERABLES from Last 3 Months Care Teams Emergency Medical Dispatcher Relationship Specialty Start Date End Date Unknown, Provider PCP - General 04/11/24
== END 2024-07-10 13:25 | disposition home or self-care (01) ==
LOC: ANHOBOP 11:57 → ANHOBPP 11:58
PROVIDERS: Visit Provider Obstetrics & Gynecology
DX: O13.9 Gestational [pregnancy-induced] hypertension without significant proteinuria, unspecified trimester (principal); Z3A.00 Weeks of gestation of pregnancy not specified
CPT/HCPCS: 36415; 59025; 76819; 80053; 81001; 82570; 84156; 84550; 85025; 99199

== ENCOUNTER 2024-07-18 06:30 | Inpatient (IN) | payer MEDICAID, SELFPAY ==
[2024-07-18] VITALS (126 sets, daily range): BP systolic 84–149; BP diastolic 30–126; PULSE 33–159; TEMP 36.9–37.3; O2SAT 90–100
--- OUTSIDE RECORDS SUMMARY | 2024-07-18 06:41 | XMS_ITS | Clinical Summary ---
Author Organization [facility] Address [address] [place] [address] Care Team Providers Care Market Research Specialist Name Role Phone None, Provider MD Primary [...] Active Problems Problem Noted Date Diagnosed Date ([facility]) 05/01/2022 Comments Yes Social History Tobacco Use [...] declined 05/01/2022 How often do you attend religion or faith serv ices? Patient declined 05/01/2022 Do you belong to any clubs o r organizations such as religion groups, unions, fraUnii or athletic groups, or school groups? Patient [...] Health Questionnaire-2 Score 0 12/28/2023 [facility] - Occupational Stress [...] place to sleep or slept in a half-way (including now)? No 05/01/2022 Comments Yes Sex [...] 2024 Influenza Adult (#1) 2024 PHQ-2 (Physician Evans) 05/02/2024 12/28/2023 RSV Immunization or 60+ Years [...] 4:58 PM 04/15/2022 7:42 PM Care Teams Market Research Specialist Relationship Specialty Start Date End Date None, Provider, PCP - General 01/14/22
--- OUTSIDE RECORDS SUMMARY | 2024-07-18 06:41 | XMS_ITS | Clinical Summary ---
Author Organization [facility] Address [address] [place] [place] [address] Care Team Providers Care Policy Writer Name Role Phone Unknown, Provider Primary Care Provider Unavaila ble Source Comments [facility],non-owned Affiliates and Associated Physician Practices is amultiple site organization consisting of ambulatory clinics and hospital sitesin [place], [place], [place] and [place]. This disclosure is being madepursuant to the Care Everywhere program and may not contain all information available regarding this patient. Last updated 18.[facility] [employer] Allergies Active Allergy Reactions Criticality Noted Date [...] success rate is stated at 60-80%. The [facility] Network calculator for this patient estimates her [...] later in for TOLAC planning purposes at [place]. Estimated Date of Delivery Comme nts Yes 08/06/2024 Based on last me nstrual period of 10/31/2023 Encounters Date Type Department Care Team Description 06/26/2024 9:36 AM DIETIST - 06/26/2024 11:59 PM DIETIST Hospital Encounter [facility] Care [address] [place] [address] Gerard Bustamante MD Discharge Disposition: Home or Self Care 06/19/2024 11:02 AM DIETIST - 06/19/2024 11:59 PM DIETIST Hospital Encounter [facility] [address] [place] [address] Berta Valadez MD Discharge Disposition: Home or Self Care 06/19/2024 Travel 06/15/2024 Travel 06/14/2024 11:14 AM DIETIST - 06/14/2024 11:59 PM DIETIST Hospital Encounter [facility] [address] [place] [address] Gerard Bustamante MD Tomlinson, Tracy M, MD Discharge Disposition: Home or Self Care 05/17/2024 10:29 AM DIETIST - 05/17/2024 11:59 PM DIETIST Hospital Encounter [facility] [address] [place] [address] Mckay Hodge MD Discharge Disposition: Home or [...] Comments Blood Pressure 116/62 06/26/2024 9:53 AM DIETIST Pulse 91 06/26/2024 9:53 AM DIETIST Temperature - - Respiratory Rate 18 04/11/2024 2:13 PM DIETIST Oxygen Saturation - - Inhaled Oxygen Concentration - - Weight 95.7 kg (211 lb) 04/11/2024 2:13 PM DIETIST Height 165.1 cm (5' 5 ) 04/11/2024 2:13 PM DIETIST Body Mass Index 35.11 04/11/2024 2:13 PM DIETIST Plan of Treatment Health Maintenance Due Date Last Done Comments PAP SMEAR 1995 DTAP/TDAP/TD VACCINES (1 - Tdap) 2014 HEPATITIS B VACCINE (1 of 3 - 19+ 3-dose series) 2014 COVID-19 VACCINE ( - season) 2024 INFLUENZA VACCINE (#1) 2024 OB-ONE HOUR GLUCOSE 04/30/2024 DEPRESSION SCREENING 05/02/2024 OB-TDAP CURRENT 05/07/2024 OB-RHOGAM INJECTION 05/14/2024 OB-GROUP B STREP SCREEN 07/02/2024 ZOSTER VACCINE (1 of 2) 2045 HEPATITIS C SCREENING Completed 10/26/2021, 022 HIV SCREENING Completed 05/14/2024, 08/2023, 03/01/2022, Additional history exists HIB VACCINE Aged Out No longer eligi ble based on patient's age to complete this topic HPV VACCINE Aged Out No longer eligi ble based on patient's age to complete this topic MENINGOCOCCAL (Group B) VACCINE SHARED DECISION-MAKING Aged Out No longer eligible based on patient's age to complete this topic MENINGOCOCCAL GROUPS A/C/Y/W VACCINE Aged Out No longer eligible based on patient's age to complete this topic PNEUMOCOCCAL VACCINE Aged Out No long er eligible based on patient's age to complete this topic Respiratory Syncytial Virus (RSV) Vaccine Pt: or over 60 yrs (No Doses Required) Completed Procedures Procedure Name Priority Date/Time Associated Diagnosis Comments SONOGRAM - COMPLETE Routine 06/14/2024 1 1:28 AM DIETIST Cardiac arrhythmia during History of HELLP syndrome, currently Other obesity due to excess calories affecting in third trimester Previous delivery affecting Encounter for ultrasound History of pre-eclampsia in prior , currently History of delivery, currently Second History of gestational diabetes in prior , currently 32 weeks gestation of SONOGRAM - COMPLETE Routine 05/17/2024 1 1:04 AM DIETIST Cardiac arrhythmia during History of HELLP syndrome, currently Other obesity due to excess calories affecting in third trimester Previous delivery affecting History of pre-eclampsia in prior , currently History of gestational diabetes in prior , currently History of delivery, currently 28 weeks gestation of from Last 3 Months Results * SONOGRAM - COMPLETE (06/14/2024 11:28 AM DIETIST) Only the most recent of2 resultswithin the time period is included. Linked Results Indication ======== Incomplete cardiac views Class I obesity Labile hypertension - no meds 06/14 LGA fetus Previous History ====== OB History 2. Para 1 [id number] 1. live 2022. Gest. age 36 w [...] Hadlock Humerus 62.8 mm 36w 3d >99% [facility] HC / AC 1.03 Weight Calculation: EFW 2,424 g 92% Hadlock EFW (lb,oz) 5 lb 6 oz EFW by Hadlock ([id number]) LGA Growth Overview Exam date [place] BPD [...] Thorax 4-chamber view. LVOT view. 3-vessel view. 5-xuaddo-ijprjxu view. Situs. Aortic arch view. Bicaval view. [...] Growth in 4 w Coding ====== Procedures 89873: [place] [address]: Biophysical Profile W/O NST [employer] PACS Anatomical Region Laterality Modality Other 06/14/2024 11:2 8 AM DIETIST Laura Betts RIPRAP PLACER-MARINE DESIGN ENGINEER MFM ORDERABLES from Last 3 Months Care Teams Policy Writer Relationship Specialty Start Date End Date Unknown, Provider PCP - General 04/11/24
--- OUTSIDE RECORDS SUMMARY | 2024-07-18 06:41 | XMS_ITS | Data Portability ---
Author Organization [facility] KIMMIENeeraj Address [address] [place] [address] Care Team Providers Care Lead Javascript Engineer Name Role Phone AMRITA FRIEDA Primary Care Provider Assessment No assessment recorded. Plan of Treatment Reminders Order Date Submit Date Provider Last Modified By Organization Details Last Modified Time Details Appointments None recorded. Lab bacterial vaginosis + vaginitis panel, vaginal 2018 019 [facility], [address] [place], [place] [address]e[address] Kevin, [address], [place], [address], 9 07:15:49 urinalysi s, dipstick 2017 018 [email or web address] In-Office Order, Internal Use Only DO Not Attach Compendium DO Not Attach Compendium, Do Not Delete/merge, [id number] 8 11:24:49 pap, IG + CT/NG/TV + reflex HR HPV 2017 018 [facility], [address], [place], [address], 8 07:13:37 urinalysi s, dipstick 2016 017 mpass In-Office Order, Internal Use Only DO Not Attach Compendium DO Not Attach Compendium, Do Not Delete/merge, [id number] 7 12:48:00 test, urine 2016 017 mpass In-Office Order, Internal Use Only DO Not Attach Compendium DO Not Attach Compendium, Do Not Delete/merge, [id number] 7 12:48:00 Referral None recorded. Procedures None recorded. Surgeries None recorded. Imaging None recorded. Medication Orders amitripty line 25 mg tablet 2019 020 [facility], [address], [place], [place], [id number], 0 12:07:18 sumatript an 100 mg tablet 2019 020 [facility], [address], [place], [place], [id number], 0 12:07:18 butalbita l-acetami nophen-ca ffeine 50 mg-325 mg-40 mg tablet 2019 020 [facility], [address], [place], [place], [id number], 0 12:09:45 metronida zole 500 mg tablet 2018 019 [email or web address] [facility] #27193, [address], [place], [place], [id number], 0 11:36:52 Estarylla 0.25 mg-0.035 mg tablet 2018 019 [facility], [address], [place], [place], [id number], 9 14:49:15 Sprintec (28) 0.25 mg-0.035 mg tablet 2017 018 [facility], [address] [place], [place], [id number], 8 11:10:51 Sprintec (28) 0.25 mg-0.035 mg tablet 2016 017 mpass Not available 7 14:51:12 Patient TargetsNo targets recorded. Patient Instructions Encounter Date Encounter Id Patient Instructions Last Modified By Organization Details Last Modified Time 06/22/2016 [id number] Follow dressing instructions. Encouraged consistent condom use. mpass Not available 06/22/2016 12:36:33 12/29/2016 [id number] Start OC's. Encouraged consistent use of condoms expecially during the first cycle. mpass Not available 12/29/2016 10:21:50 Holly wants to start OC's. Discussed risks/benefits/si de effects/correct use of OC's. Holly voiced understanding. mpass Not available 12/29/2016 10:21:22 07/28/2018 [id number] bacterial vaginosis: care instructions [email or web address] Not available 07/28/2018 14:49:10 Reason for Referral None Reported. Results Created Date Observation Date Name Description Value Unit Range Abnormal Flag Note LastModifiedBy Organization Detail LastModifiedTime 06/22/1906/22/2016 urina lysis , dipst ick Leukocytes Negati ve Not Available In-Office Order Internal Use Only DO Not Attach Compendium DO Not Attach Compendium, Do Not Delete/merge, 06/22/2016 09:56:30 06/22/1906/22/2016 urina lysis , dipst ick Nitrite negati ve Not Available In-Office Order Internal Use Only DO Not Attach Compendium DO Not Attach Compendium, Do Not Delete/merge, 06/22/2016 09:56:30 06/22/1906/22/2016 urina lysis , dipst ick Urobilinogen .2 Not Available In-Of fice Order Internal Use Only DO Not Attach Compendium DO Not Attach Compendium, Do Not Delete/merge, 06/22/2016 09:56:30 06/22/1906/22/2016 urina lysis , dipst ick Protein Negati ve Not Available In-Office Order Internal Use Only DO Not Attach Compendium DO Not Attach Compendium, Do Not Delete/merge, 06/22/2016 09:56:30 06/22/1906/22/2016 urina lysis , dipst ick pH 6.0 [...] 06/22/2016 urina lysis , dipst ick Specific [place] 1.020 Not Available In-Off ice Order Internal [...] DO Not Attach Compendium, Do Not Delete/merge, [id number] 06/22/2016 09:29:45 05/18/19 18 05/20/2017 pap, IG + CT/NG /TV + refle x HR HPV diagnosis: Commen t NEGAT DEAN FOR INTRA EPITH ELIAL KANNAN N AND CHRIS SANTOS . Not Available [facility] ([facility]) [address] [facility], [place], [address], 05/21/2017 07:13:37 05/18/19 18 05/20/2017 pap, IG + CT/NG /TV + refle x HR HPV specimen adequacy: Commen t Satis facto ry for evalu ation . Endoc ervic al and/o r squam ous metap lasti c cells (endo cervi antoni compo nent) are prese nt. Not Available [facility] ([facility]) [address] [facility], [place], [address], 05/21/2017 07:13:37 05/18/19 18 05/20/2017 pap, IG + CT/NG /TV + refle x HR HPV clinician provided ICD10: Ulices wilder Z01.4 19 Not Available [facility] ([facility]) [address] [facility], [place], [address], 05/21/2017 07:13:37 05/18/19 18 05/20/2017 pap, IG + CT/NG /TV + refle x HR HPV performed by: Ulices Qureshi in, Cytot echno logis t (ASCP ) Not Available [facility] ([facility]) [address] [facility], [place], [address], 05/21/2017 07:13:37 05/18/19 18 05/20/2017 pap, IG + CT/NG /TV + refle x HR HPV . . Not Available [facility] ([facility]) [address] [place], [address], 05/21/2017 07:13:37 05/18/19 18 05/20/2017 pap, IG + CT/NG /TV + refle x HR HPV note: Commen t The Pap smear is a scree arvin test desig rom to aid in the detec tion of alexander ligna nt and malig nant condi tions of the uteri ne cervi x. It is not a diagn ostic proce dure and shoul d not be used as the sole means of detec ting cervi antoni cance r. Both false -posi tive and false -nega tive repor ts do occur . Not Available [facility] ([facility]) [address] [place], [address], 05/21/2017 07:13:37 05/18/19 18 05/20/2017 pap, IG + CT/NG /TV + refle x HR HPV test methodology: Commen t This liqui d based ThinP rep(R ) pap test was scree rom with the use of an image guide d syste m. Not Available [facility] ([facility]) [address] [facility], [place], [address], 05/21/2017 07:13:37 05/18/19 18 05/20/2017 pap, IG + CT/NG /TV + refle x HR HPV . Commen t The HPV DNA refle x crite almaz were not met with this speci men resul t there fore, no HPV testi ng was perfo rmed. Not Available [facility] ([facility]) [address] [facility], [place], [address], 05/21/2017 07:13:37 05/18/19 18 05/20/2017 pap, IG + CT/NG /TV + refle x HR HPV chlamydia, nuc. acid amp Negati ve negati ve Not Available [facility] ([facility]) [address] [facility], [place], [address], 05/21/2017 07:13:37 05/18/19 18 05/20/2017 pap, IG + CT/NG /TV + refle x HR HPV gonococcus, nuc. acid amp Negati ve negati ve Not Available [facility] ([facility]) [address] [facility], [place], [address], 05/21/2017 07:13:37 05/18/19 18 05/20/2017 pap, IG + CT/NG /TV + refle x HR HPV trich vag by NEW Negati ve negati ve Not Available [facility] ([facility]) [address] [facility], [place], [address], 05/21/2017 07:13:37 05/18/19 18 05/18/2017 urina lysis [...] DO Not Attach Compendium, Do Not Delete/merge, [id number] 05/18/2017 10:48:49 05/18/19 18 05/18/2017 urina lysis , dipst ick Specific [place] 1.025 Not Available In-Off ice Order Internal Use Only DO Not Attach Compendium DO Not Attach Compendium, Do Not Delete/merge, [id number] 05/18/2017 10:48:49 05/18/19 18 05/18/2017 urina lysis [...] DO Not Attach Compendium, Do Not Delete/merge, [id number] 05/18/2017 10:48:49 07/29/19 19 08/02/2018 bacte rial vagin osis + vagin itis panel , vagin al trich vag by NEW Negati ve negati ve Not Available [facility] ([facility]) [address], [place], [address], 08/03/2018 07:15:49 03/29/20 19 08/02/2018 bacte rial vagin osis + vagin itis panel , vagin al chlamydia trachomatis, NEW Negati ve negati ve Not Available [facility] ([facility]) [address] [facility], [place], [address], 08/03/2018 07:15:49 07/29/19 19 08/02/2018 bacte rial vagin osis + vagin itis panel , vagin al neisseria gonorrhoeae, NEW Negati ve negati ve Not Available [facility] ([facility]) [address] [facility], [place], [address], 08/03/2018 07:15:49 07/29/19 19 08/03/2018 bacte rial vagin osis + vagin itis panel , vagin al atopobium vaginae High - 2 score abnormal Not Available [facility] ([facility]) [address] [facility], [place], [address], 08/03/2018 07:15:49 07/29/19 19 08/03/2018 bacte rial vagin osis + vagin itis panel , vagin al bvab 2 High - 2 score abnormal Not Available [facility] ([facility]) [address] [place], [address], 08/03/2018 07:15:49 07/29/1908/03/2018 bacte rial vagin osis [...] e loretta cteri stics deter mined by LabSpontaneously rp. It has not been clear ed or appro katty by the Food and Drug Admin istra tion. The FDA has deter mined that such clear ance or appro terry is not neces anne-marie. Not Available [facility] ([facility]) [address] [facility], [place], [address], 08/03/2018 07:15:49 07/29/19 19 08/03/2018 bacte rial vagin osis + vagin itis panel , vagin al neeraj albicans, NEW Negati ve negati ve Not Available [facility] ([facility]) [address] [facility], [place], [address], 08/03/2018 07:15:49 07/29/19 19 08/03/2018 bacte rial vagin osis + vagin itis panel , vagin al neeraj glabrata, NEW Negati ve negati ve This test was devel oped and its perfo rmanc e loretta cteri stics deter mined by LabSpontaneously rp. It has not been clear ed or appro katty by the Food and Drug Admin istra tion. The FDA has deter mined that such clear ance or appro terry is not neces anne-marie. Not Available [facility] ([facility]) [address] [facility], [place], [address], 08/03/2018 07:15:49 Result Notes None recorded. Problems Name Problem SNOMED Code Status Onset Date Resolution Date Notes Provider Name and Address Organization Details Recorded Time Bacterial vaginosis 768107367 Active Marianela Pedersen [place] null, [place] - [facility] 6 08:49:53 Problem Notes None recorded. Procedures Surgical History Date Name Laterality Status Provider Name and Address Organization Details Recorded Time 8 Date of Last Pap Smear completed Dora Patel [place] [facility] 07/28/2018 13:59:04 7 Control Implant Removal completed Sarah Machado JANET-JUAN Attn: Accounting[address] [place], [address], [place] [facility] 12/29/2016 10:19:54 7 Control Implant Insertion completed Sarah Machado [facility] Attn: Accounting[address], [place], [address], [place] [facility] 06/22/2016 12:32:18 6 Depo Injection completed Abena Maurermons [place] [facility] 016 09:31:35 6 Depo Injection completed Abena [place]ons [place] [facility] 016 10:16:44 6 Depo Injection completed Abena Raymond [place] [facility] 016 10:07:09 6 Depo Injection completed Marianela [place] [facility] 07/07/19 16 11:09:47 5 Control Implant Removal completed Sarah Machado [facility] Attn: Accounting,[address] [facility], [place], [address], [place] [facility] 04/08/2015 10:16:29 Imaging Results None recorded. Procedure Notes None recorded. Medical Equipment None Reported. Allergies Allergen ID Allergen Name Allergen Category Reaction Reaction Severity Criticality Documentation Date Start Date Code Code System Note Provider Name and Address Organization Details Recorded Time 18361 latex environme nt,medica tion hives Not available Not available 03/30/2016 64284 91 RxNorm Not Available Not Available Not [...] Available Not Available Not Available Estarylla 0.25 mg-0.035 mg tablet TAKE 1 TABLET BY MOUTH EVERY DAY 2019 active Not Available Not Available Not Avai yon Vitals Date Recorded Body height Body mass index (BMI) Body weight Systolic blood pressure Diastolic blood pressure Provider Name and Address Organization Details Last Updated DateTime 05/18/2017 172.72 cm 25.7 kg/m2 10895.11 g 114 mm[Hg] 60 mm[Hg] Deanne Sherman [place] [facility] 8 10:48:41 Date Recorded Body weight Systolic blood pressure Diastolic blood pressure Provider Name and Address Organization Details Last Updated DateTime 07/28/2018 90946 g 132 mm[Hg] 92 mm[Hg] Kathy Mariscal [place] [facility] 07/28/2018 14:04:57 Date Recorded Body weight Body height Body mass index (BMI) Oxygen saturation Oxygen saturation in Arterial blood by Pulse oximetry Heart rate Body temperature Systolic blood pressure Diastolic blood pressure Provider Name and Address Organization Details Last Updated DateTime 0 86458.0 3 g 168.91 cm 28.7 kg/m2 99 % 99 % 78 /min 97.5 [degF] 130 mm[Hg] 80 mm[Hg] Elisabet Medellin MA [facility] 0 11:41:44 Date Recorded Body height Provider Name an d Address Organization Details Last Updated DateTime 06/22/2016 172.72 cm Marianela Pedersen MA [facility] SI 06/22/2016 09:20:50 Date Recorded Body height Provider Name an d Address Organization Details Last Updated DateTime 12/29/2016 172.72 cm Marianela Pedersen MA [facility] SI 12/29/2016 09:47:17 Date Recorded Body mass index (BMI) Body weight Systolic blood pressure Diastolic blood pressure Provider Name and Address Organization Details Last Updated DateTime 12/29/2016 25.1 kg/m2 17534.74 g 110 mm[Hg] 70 mm[Hg] Abena Raymond [facility] 12/29/2016 09:53:51 Social History Question Answer Notes LastModified by Organizat ion Details LastModified Time Tobacco Smoking Status Former Smoker Abena Maurermons [facility] 06/02/2016 09:33:35 Do You Have An Advance [...] not available 01/11/2020 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 Information not available 01/11/2020 Hard Of Hearing [...] N Blood Diseases N Hyperthyroidism N Blood Transfusion N MRSA N Blood disorders N Emphysema N Blood Clots N COPD N Depression N Pneumonia N Premature N Peripheral Arterial [...] Disorder N Colon Polyps N Heart Attack (NH) N Diabetes N Cardiomyopathy N Blood Transfusions [...] SNOMED-CT Code Diagnosis ICD10 Code Diagnosis Note [id number] Marinaela [place] [facility] [employer] ([facility] [address]) [address] [place] [address] 04/08/2015 09:34:08 04/08/2015 10:22:33 detection examination 97655148 Z32.00 Uses depot contraception 909088994 Z30.013 [id number] Sarah Machado [facility] [employer] ([facility] [address]) [address] [place] [address] 07/07/2015 10:59:07 07/07/2015 14:30:31 Uses depot contraception 656133572 Z30.42 [id number] [facility] ([facility] [address]) [address] [place] [address] 10/06/2015 09:33:20 10/06/2015 14:20:16 Uses depot contraception 894138704 Z30.42 [id number] Abena Simmons [employer] ([facility] [address]) [address] [place] [address] 01/06/2016 09:44:40 01/06/2016 10:27:05 Uses depot contraception 389644386 Z30.42 Gynecologi c examination 28451062 Z01.746 [id number] [facility] [employer] ([facility] [address]) [address] [place] [address] 03/30/2016 09:11:11 03/30/2016 10:02:32 Uses depot contraception 356114323 Z30.42 [id number] Sarah Machado [facility] Lance Resendez ([facility] [address]) [address] [place] [address] 06/02/2016 09:18:26 06/02/2016 14:15:43 Contraception education 856731477 Z30.09 [id number] Sarah Machado [facility] [employer] ([facility] [address]) [address] [facility] [place] [address] 06/22/2016 08:58:36 06/23/2016 08:56:17 Insertion of subcutaneous contraceptive 212274120 Z30.9 At increas ed risk of urinary tract infection 760779113 Z91.89 [id number] Sarah Machado [facility] Lance Resendez ([facility] [address]) [address] [facility] [place] [address] 12/29/2016 09:41:48 12/29/2016 13:21:52 Removal of subcutaneous contraceptive done 5723444772 45747 Z98.890 Surveillan ce of oral contraception 740143163 Z30.41 [id number] MD Lance Jackson ([place] [address]) [address] [facility] [place] [address] 05/18/2017 10:33:15 05/19/2017 11:52:59 At increased risk of urinary tract infection 080059531 Z91.89 Gynecologi c examination 58767142 Z01.419 CBE and pap smear performed Contraception care 03941 5005 Z30.40 [id number] Gallo Mas MD [place] [address] [facility] [address] [place] [address] 07/28/2018 13:51:54 07/28/2018 15:45:21 Contraception care 315354742 Z30.40 Bacterial vaginosis 4197 46645 N76.0 Gynecologi c examination 94373812 Z01.419 CBE and pelvic exam performed Venereal d isease screening 247037180 Z11.3 [id number] Frieda Gudino MD [facility] [address] [place] [address] 01/11/2020 11:27:34 01/14/2020 09:27:10 Migraine 93766404 G43.909 Gastritis 6129156 K29.70 history of excessive vomiting in the teen years after ingestion of unknown substance; still has a finicky stomach and tends to get dyspepsia. Has had endoscopie s done. Advised to not lie down for 1-2 hours after eating or drinking; avoid chocolate and peppermint at bedtime, avoid excessivel y spicy or greasy foods. 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 F41.8 amitriptyl ine may be helpful Health Concerns Section Related Observation LastModified by Organization Detai ls LastModified Time None Recorded Concern Status LastModified by Organization Details LastModified Time None Recorded Advance Directives Directive N: Payers Encounter Date Sequence Insurance Name Policy Number Policy Vogel Covered Member ID Vogel Member ID Guarantor Name 06/22/2016 1 [facility] - DOS PRIOR TO 2020 (MEDICAID REPLACEMENT - HMO) Holly Candice [id number] Holly D Candice 05/18/2017 SLIDING FEE SCHEDULE - DISCOUNT Holly D Candice 07/28/2018 2 *SELF PAY* Si erra D Candice 01/11/2020 2 *SELF PAY* Si erra D Candice 01/11/2020 1 [employer] (MEDICAID HMO) Holly D Candice [id number] Holly D Candice Notes Date Note Type [...] PMDD Gallo Mas MD Attn: Accounting[address] [place], [address], [facility] 05/18/2017 11:12:31 07/28/2018 text/html [...] MD Attn: Accounting[address] , [place], [address], [place] [facility] 07/28/2018 15:43:52 01/11/2020 text/html [...] appetite;fatigue Frieda Gudino MD Attn: Accounting[address] [place], [address], [place] [facility] 01/13/2020 20:15:19 OBGyn Episode No OBEpisode recorded.
--- OUTSIDE RECORDS SUMMARY | 2024-07-18 06:44 | XMS_ITS | Data Portability ---
Author Organization [facility] Address [address] [place] [address] [place] [address] Assessment Encounter Date Assessment Date Assessment LastModified by Organization Details LastModified Time 07/13/2024 07/13/2024 Patient is _36__weeks . Discussed plan. Not available 07/13/2024 12:24:17 Plan of Treatment Reminders Order Date Submit Date Provider Last Modified By Organization Details Last Modified Time Details Appointments NST 2024 09:00A M NST SCHEDULE Not [...] d. Imaging non-str ess test 2024 025 [email or web address] [place], [facility] [address], [place], [address], 07/16/2024 06:01:07 US, obstetr ic, biophys ical profile + non-str ess test 2024 025 [email or web address] [address], [address], [place], [address], 07/14/2024 10:55:25 non-str ess test 2024 025 [email or web address] [address], [place], [address], 07/09/2024 03:05:36 Medication Orders None recorde d. Patient TargetsNo targets recorded. Patient InstructionsNo instructions recorded. Reason for Referral None Reported. Results Created Date Observation Date Name Description Value Unit Range Abnormal Flag Note LastModifiedBy Organization Detail LastModifiedTime 07/07/1907/06/2024 CBC W/DIF F WBC 6.9 10'3/ uL 3.5-10 .5 Not Available [facility] (Lab) [address] [facility], [place], [address], 07/07/2024 05:11:49 07/07/19 25 07/06/2024 CBC W/DIF F RBC 4.07 10'6/ uL (based on docume nted legal sex) 3.80-5 .20 Not Available [facility] (Lab) [address] , [place], [address], 07/07/2024 05:11:49 07/07/19 25 07/06/2024 CBC W/DIF F HGB 11.8 g/dL (based on docume nted legal sex) 11.6-1 5.4 Not Available [facility] (Lab) [address] , [place], [address], 07/07/2024 05:11:49 07/07/19 25 07/06/2024 CBC W/DIF F HCT 36.1 % (based on docume nted legal sex) 34.0-4 5.0 Not Available [facility] (Lab) [address] [facility], [place], [address], 07/07/2024 05:11:49 07/07/19 25 07/06/2024 CBC W/DIF F MCV 88.7 fL 80.0-9 9.0 Not Available [facility] (Lab) [address] [facility], [place], [address], 07/07/2024 05:11:49 07/07/19 25 07/06/2024 CBC W/DIF F MCH 29.0 pg 27.0-3 4.0 Not Available [facility] (Lab) [address] [facility], [place], [address], 07/07/2024 05:11:49 07/07/19 25 07/06/2024 CBC W/DIF F MCHC 32.7 g/dL 32.0-3 5.5 Not Available [facility] (Lab) [address] [facility], [place], [address], 07/07/2024 05:11:49 07/07/19 25 07/06/2024 CBC W/DIF F RDW 12.7 % 11.0-1 5.0 Not Available [facility] (Lab) [address] [facility], [place], [address], 07/07/2024 05:11:49 07/07/1907/06/2024 CBC W/DIF F plt 303 10'3/ uL 150-40 0 Not Available [facility] (Lab) [address] [facility], [place], [address], 07/07/2024 05:11:49 07/07/1907/06/2024 CBC W/DIF F MPV 9.6 fL 8.8-12 .1 Not Available [facility] (Lab) [address] [facility], [place], [address], 07/07/2024 05:11:49 07/07/19 25 07/06/2024 CBC W/DIF F neutrophils 54.1 % 34.0-7 3.0 Not Available [facility] (Lab) [address] [place], [address], 07/07/2024 05:11:49 07/07/19 25 07/06/2024 CBC W/DIF F lymphocytes 38.3 % 15.0-5 0.0 Not Available [facility] (Lab) [address] [place], [address], 07/07/2024 05:11:49 07/07/19 25 07/06/2024 CBC W/DIF F monocytes 6.1 % 1.0-15 .0 Not Available [facility] (Lab) [address] [place], [address], 07/07/2024 05:11:49 07/07/19 25 07/06/2024 CBC W/DIF F eosinophils 0.4 % 0.0-8. 0 Not Available [facility] (Lab) [address] [place], [address], 07/07/2024 05:11:49 07/07/1907/06/2024 CBC W/DIF F basophils 0.4 % 0.0-2. 0 Not Available [facility] (Lab) [address] [place], [address], 07/07/2024 05:11:49 07/07/19 25 07/06/2024 CBC W/DIF [...] separ ately if prese nt. Not Available [facility] (Lab) [address] [place], [address], 07/07/2024 05:11:49 07/07/19 25 07/06/2024 CBC W/DIF F absolute neutrophils 3.7 10'3/ uL 1.5-8. 0 Not Available [facility] (Lab) [address] [facility], [place], [address], 07/07/2024 05:11:49 07/07/19 25 07/06/2024 CBC W/DIF F absolute lymphocytes 2.6 10'3/ uL 1.0-4. 0 Not Available [facility] (Lab) [address] [facility], [place], [address], 07/07/2024 05:11:49 07/07/19 25 07/06/2024 CBC W/DIF F absolute monocytes 0.4 10'3/ uL 0.2-1. 0 Not Available [facility] (Lab) [address] [facility], [place], [address], 07/07/2024 05:11:49 07/07/19 25 07/06/2024 CBC W/DIF F absolute eosinophils 0.0 10'3/ uL 0.0-0. 6 Not Available [facility] (Lab) [address] [facility], [place], [address], 07/07/2024 05:11:49 07/07/19 25 07/06/2024 CBC W/DIF F absolute basophils 0.0 10'3/ uL 0.0-0. 3 Not Available [facility] (Lab) [address] [place], [address], 07/07/2024 05:11:49 07/07/19 25 07/06/2024 CBC W/DIF [...] patie nt: https ://[email or web address]. [email or web address] [email or web address]/ derayanna 025 1:43 AM: This resul t has been final verif ied. No addit ional or barrett ed resul ts are expec kimmy. Not Available [facility] (Lab) [address] [facility], [place], [address], 07/07/2024 05:11:49 07/07/19 25 07/06/2024 BLOOD SMEAR EXAM, RBC MORPH OLOGY RBC morphology Review ed Not Available [facility] (Lab) [address] [place], [address], 07/07/2024 05:11:49 07/07/19 25 07/06/2024 BLOOD SMEAR EXAM, RBC MORPH OLOGY platelet morphology Review ed Not Available [facility] (Lab) [address] [place], [address], 07/07/2024 05:11:49 07/07/19 25 07/06/2024 URIC ACID uric acid 8.9 mg/dL 2.3-6. 6 high Not Available [facility] (Lab) [address] [place], [address], 07/07/2024 05:11:50 07/07/19 25 07/06/2024 CMP(C OMPRE HENSI VE METAB OLIC PANEL ) sodium 140 mmol/ L 133-14 6 Not Available [facility] (Lab) [address] [place], [address], 07/07/2024 05:11:50 07/07/19 25 07/06/2024 CMP(C OMPRE HENSI VE METAB OLIC PANEL ) potassium 4.2 mmol/ L 3.5-5. 1 Not Available [facility] (Lab) [address] [place], [address], 07/07/2024 05:11:50 07/07/19 25 07/06/2024 CMP(C OMPRE HENSI VE METAB OLIC PANEL ) chloride 108 mmol/ L 98-107 high Not Available [facility] (Lab) [address] [facility], [place], [address], 07/07/2024 05:11:50 07/07/19 25 07/06/2024 CMP(C OMPRE HENSI VE METAB OLIC PANEL ) carbon dioxide 22 mmol/ L 21-31 Not Available [facility] (Lab) [address] [facility], [place], [address], 07/07/2024 05:11:50 07/07/19 25 07/06/2024 CMP(C OMPRE HENSI VE METAB OLIC PANEL ) anion gap 10 mmol/ L 4-13 Not Available [facility] (Lab) [address] [facility], [place], [address], 07/07/2024 05:11:50 07/07/19 25 07/06/2024 CMP(C OMPRE HENSI VE METAB OLIC PANEL ) blood urea nitrogen 9 mg/dL 7-25 Not Available [facility] (Lab) [address] [facility], [place], [address], 07/07/2024 05:11:50 07/07/19 25 07/06/2024 CMP(C OMPRE HENSI VE METAB OLIC PANEL ) creatinine 0.78 mg/dL 0.60-1 .30 Not Available [facility] (Lab) [address] [facility], [place], [address], 07/07/2024 05:11:50 07/07/19 25 07/06/2024 CMP(C OMPRE HENSI VE METAB OLIC PANEL ) egfrcr (CKD-epi 2020) >90 mL/mi n/1.7 3_m2 >=60 Not Available [facility] (Lab) [address] [facility], [place], [address], 07/07/2024 05:11:50 07/07/19 25 07/06/2024 CMP(C OMPRE HENSI VE METAB OLIC PANEL ) calcium 9.5 mg/dL 8.3-10 .5 Not Available [facility] (Lab) [address] [place], [address], 07/07/2024 05:11:50 07/07/19 25 07/06/2024 CMP(C OMPRE HENSI VE METAB OLIC PANEL ) glucose 77 mg/dL 70-100 Not Available [facility] (Lab) [address] [facility], [place], [address], 07/07/2024 05:11:50 07/07/19 25 07/06/2024 CMP(C OMPRE HENSI VE METAB OLIC PANEL ) protein, total 5.5 g/dL 6.4-8. 3 low Not Available [facility] (Lab) [address] [facility], [place], [address], 07/07/2024 05:11:50 07/07/19 25 07/06/2024 CMP(C OMPRE HENSI VE METAB OLIC PANEL ) albumin 3.3 g/dL 3.5-5. 0 low Not Available [facility] (Lab) [address] [place], [address], 07/07/2024 05:11:50 07/07/19 25 07/06/2024 CMP(C OMPRE HENSI VE METAB OLIC PANEL ) ALT 22 units /L 9-43 Not Available [facility] (Lab) [address] [place], [address], 07/07/2024 05:11:50 07/07/19 25 07/06/2024 CMP(C OMPRE HENSI VE METAB OLIC PANEL ) alkaline phosphatase 196 units /L 34-104 high Not Available [facility] (Lab) [address] [place], [address], 07/07/2024 05:11:50 07/07/19 25 07/06/2024 CMP(C OMPRE HENSI VE METAB OLIC PANEL ) AST 37 units /L 13-39 Not Available [facility] (Lab) [address] [facility], [place], [address], 07/07/2024 05:11:50 07/07/19 25 07/06/2024 CMP(C OMPRE HENSI VE METAB OLIC PANEL ) bilirubin, total 0.3 mg/dL 0.2-1. 2 Not Available [facility] (Lab) [address] [facility], [place], [address], 07/07/2024 05:11:50 07/07/19 25 07/06/2024 PROTE IN/CR EATIN INE RATIO , URINE creatinine, urine 393.6 mg/dL R-No refer ence range estab lishe d for this assay Not Available [facility] (Lab) [address] [facility], [place], [address], 07/07/2024 05:11:50 07/07/19 25 07/06/2024 PROTE IN/CR EATIN INE RATIO , URINE protein, urine 53 mg/dL R-No refer ence range estab lishe d for this assay Not Available [facility] (Lab) [address] [facility], [place], [address], 07/07/2024 05:11:50 07/07/19 25 07/06/2024 PROTE IN/CR [...] fican t prote inuri a. Not Available [facility] (Lab) [address] [facility], [place], [address], 07/07/2024 05:11:50 07/07/19 25 07/06/2024 CULTU RE: GROUP B STREP SCREE N, REFLE X SUSCE PTIBI LITY result report SEE RESULT S BELOW Test: Cultu re: Group B Strep , Refle x Susce ptibi lity ([facility]/ [facility]/K H/[facility] ) Speci men Sourc e: Vagin a/Rec jaida Speci men Type: Vagin al/Re ctal Speci men Date: 025 1339 Resul t Date: 2024 1409 Resul t Statu s: Final resul t Abnor mal: No Resul ting Lab: [facility] [address] [facility] [address] Tel: CULTU RE ----- ----- ----- --- No Group B strep isola kimmy at 2 days (dinora ctive broth enhan cemen t) Not Available [facility] (Lab) [address] [facility], [place], [address], 07/09/2024 15:12:21 06/11/19 25 06/11/2024 non-s tress test No observ ation record ed. [address] [facility] [address], [address], 06/13/2024 11:20:56 06/11/19 25 06/11/2024 US, obste tric, follo w-up No observ ation record ed. [address] [facility], [place], [address], 06/13/2024 12:26:00 06/13/19 25 06/13/2024 non-s tress test No observ ation record ed. [facility] [address], [address], 06/13/2024 15:52:52 06/15/19 25 06/14/2024 US, obste tric, follo w-up No observ ation record ed. [email or web address] [facility] [address] [place] [address], [address], 07/04/2024 15:14:40 06/15/19 25 06/15/2024 non-s tress test No observ ation record ed. [email or web address] [place] [address], [place], [address], 06/15/2024 12:51:05 06/15/19 25 06/15/2024 US, obste tric, bioph ysica l profi le + non-s tress test No observ ation record ed. [facility] [address], [place], [address], 06/15/2024 17:10:29 06/15/19 25 06/15/2024 US, obste tric, follo w-up No observ ation record ed. [address], [place], [address], 06/18/2024 09:43:47 06/22/19 25 06/22/2024 non-s tress test No observ ation record ed. [email or web address] [place] [address], [place], [address], 06/22/2024 17:22:15 06/22/19 25 06/22/2024 US, obste tric, bioph ysica l profi le + non-s tress test No observ ation record ed. [facility] [address], [place], [address], 06/22/2024 17:56:41 06/22/19 25 06/22/2024 US, obste tric, bioph ysica l profi le + non-s tress test No observ ation record ed. [email or web address] [address], [place], [address], 06/22/2024 19:24:55 06/29/19 25 06/29/2024 US, obste tric, bioph ysica l profi le + non-s tress test No observ ation record ed. [facility] [address], [place], [address], 06/29/2024 18:37:30 06/29/19 25 06/29/2024 US, obste tric, follo w-up No observ ation record ed. [email or web address] [address] [facility], [place], [address], 07/01/2024 21:30:14 06/29/19 25 06/29/2024 non-s tress test No observ ation record ed. [email or web address] [place] [address], [place], [address], 06/29/2024 17:50:13 06/29/19 25 06/29/2024 non-s tress test No observ ation record ed. [email or web address] [place] [address], [place], [address], 06/29/2024 18:22:05 07/07/19 25 07/06/2024 US, obste tric, follo w-up No observ ation record ed. roger [address] [facility], [place], [address], 07/06/2024 17:37:39 07/07/19 25 07/06/2024 US, obste tric, follo w-up No observ ation record ed. [facility] [address], [place], [address], 07/06/2024 17:35:41 07/07/19 25 07/06/2024 US, obstshelia tric, bioph ysica l profi le + non-s tress test No observ ation record ed. [facility] [address], [place], [address], 07/06/2024 17:35:52 07/07/19 25 07/06/2024 non-s tress test No observ ation record ed. [email or web address] [place] [address], [place], [address], 07/06/2024 16:11:56 07/07/19 25 07/06/2024 non-s tress test No observ ation record ed. [email or web address] [place] [address], [place], [address], 07/06/2024 16:58:03 07/11/19 25 07/10/2024 US, obste tric, bioph ysica l profi le No observ ation record ed. [address], [place], [address], 07/11/2024 10:23:53 07/14/19 25 07/13/2024 non-s tress test No observ ation record ed. [place] [address], [place], [address], 07/13/2024 12:13:27 07/14/19 25 07/13/2024 US, obste tric, bioph ysica l profi le + non-s tress test No observ ation record ed. [email or web address] [place] [address], [place], [address], 07/13/2024 17:33:09 07/14/19 25 07/13/2024 US, obste tric, bioph ysica l profi le + non-s tress test No observ ation record ed. [email or web address] [address], [place], [address], 07/15/2024 17:05:27 Result Notes None recorded. Problems Name Problem SNOMED Code Status Onset Date Resolution Date Notes Provider Name and Address Organization Details Recorded Time Past pregnanc y history of pre-ecla mpsia 06663024489 9100 Active [facility] MFM rec weekly testing at 32wks elevated BP at home 06/12 143/75, 146/87, 137/92 Kellie thomas, [facility] 5 17:57:42 Migraine 43700126 Active exedrin tension/f ioricet do not work-imit juve to pharmacy Laura Betts CNM [address], [place], [address], [facility] 4 12:38:19 Past pregnanc y history of gestatio nal diabetes mellitus 497937688 Active Alison Sosa [facility], [facility] 4 10:06:47 History of alcohol abuse 797433095 Active 2023 clean since 2015 Alison thomas, [facility] 4 10:58:08 Pregnanc y 54735578 Active 2023 Alison Sosa [facility], [facility] 4 10:06:14 Past pregnanc y history of pre-ecla mpsia 44985357081 9100 Active [facility] MFM rec weekly testing at 32wks elevated BP at home 06/12 143/75, 146/87, 137/92 Kellie thomas, [facility] 5 17:57:42 Past pregnanc y history of gestatio nal diabetes mellitus 756682564 Active Alison thomas, [facility] 4 10:06:47 Migraine 08041383 Active exedrin tension/f ioricet do not work-imit juve to pharmacy Laura Betts CNM [address], [place], [address], [facility] 4 12:38:19 Obesity 712750136 Active bmi 32 Laura Betts CNM [address], [place], [address], [facility] 4 12:36:35 Alcoholi 5186732 Active history of abuse, sober since 2015 Laura Betts, [employer] [address], [place], [address], [facility] 4 14:17:06 Past pregnanc y history of section 480434250 Active 2022 due to preeclamp nisha, elevating liver enzymes Laura Betts, [employer] [address], [place], [address], [facility] 4 14:19:28 Palpitat ions 59963142 Active 72 hour holter monitor order faxed 03/02 Noe Outpatien t Cardiolog y- Referral faxed Cardiolog y consult Dr Fabian Liang 04/03/24 Make sure records faxed to [facility] 22:25:41 Palpitat ions 28567936 Active 72 hour holter monitor order faxed 03/02 Noe Outpatien t Cardiolog y- Referral faxed Cardiolog y consult Dr Fabian Liang 04/03/24 Make sure records faxed to [facility] Kellie thomas, [facility] 5 22:25:41 anatomy study Active incomplet e cardiac views x 2 referral faxed [facility] 12/3 to complete anatomy Scheduled [facility] 04/11 1:00PM Level II US and consult 05/17 10:30AM US only Kellie Mendoza martha, [facility] 5 12:38:29 anatomy study Active incomplet e cardiac views x 2 referral faxed [facility] 12/3 to complete anatomy Scheduled [facility] 04/11 1:00PM Level II US and consult 05/17 10:30AM US only Kellieevens Mendoza martha, [facility] 5 12:38:29 Pregnanc y-induce d hyperten [place] 94308401 Active ALEM Evans [address], [place], [address], [place] [facility] 17:03:29 Problem Notes None recorded. Procedures Surgical History Date Name Laterality Status Provider Name and Address Organization Details Recorded Time 4 Date of Last Pap Smear completed Alison Sosa [facility] 01/06/2024 10:44:49 3 Caesarean Section completed Alison Sosa [facility] 01/06/2024 10:44:50 Imaging Results Imaging Date Name Status LastModified by Organiz ation Details LastModified Time 06/11/2024 non-stress test completed [address], [address], 06/13/2024 11:20:56 06/11/2024 US, obstetric, follow-up completed [place] [address] [facility], [place], [address], 06/13/2024 12:26:00 06/13/2024 non-stress test completed [facility] [address] [facility] [address] [place] [address], [address], 06/13/2024 15:52:52 06/14/2024 US, obstetric, follow-up completed [email or web address] [place] [address] [facility] [address] [place] [address], [address], 07/04/2024 15:14:40 06/15/2024 non-stress test completed harry [place] [address], [place], [address], 06/15/2024 12:51:05 06/15/2024 US, obstetric, biophysical profile + non-stress test completed roger [place] [address], [place], [address], 06/15/2024 17:10:29 06/15/2024 US, obstetric, follow-up completed [email or web address] [address] [address], [place], [address], 06/18/2024 09:43:47 06/22/2024 non-stress test completed [address], [place], [address], 06/22/2024 17:22:15 06/22/2024 US, obstetric, biophysical profile + non-stress test completed [facility] [address], [place], [address], 06/22/2024 17:56:41 06/22/2024 US, obstetric, biophysical profile + non-stress test completed [email or web address] [address], [place], [address], 06/22/2024 19:24:55 06/29/2024 US, obstetric, biophysical profile + non-stress test completed [facility] [address], [place], [address], 06/29/2024 18:37:30 06/29/2024 US, obstetric, follow-up completed [email or web address] [address], [place], [address], 07/01/2024 21:30:14 06/29/2024 non-stress test completed [email or web address] [place] [address], [place], [address], 06/29/2024 17:50:13 06/29/2024 non-stress test completed [email or web address] [place] [address], [place], [address], 06/29/2024 18:22:05 07/06/2024 US, obstetric, follow-up completed [facility] [address], [place], [address], 07/06/2024 17:37:39 07/06/2024 US, obstetric, follow-up completed [place] [address], [place], [address], 07/06/2024 17:35:41 07/06/2024 US, obstetric, biophysical profile + non-stress test completed [facility] [address], [place], [address], 07/06/2024 17:35:52 07/06/2024 non-stress test completed [email or web address] [place] [address] [address], [place], [address], 07/06/2024 16:11:56 07/06/2024 non-stress test completed [email or web address] [place] [address] [address], [place], [address], 07/06/2024 16:58:03 07/10/2024 US, obstetric, biophysical profile completed [address], [place], [address], 07/11/2024 10:23:53 07/13/2024 non-stress test completed [email or web address] [place] [address] [address], [place], [address], 07/13/2024 12:13:27 07/13/2024 US, obstetric, biophysical profile + non-stress test completed [facility] [address], [place], [address], 07/13/2024 17:33:09 07/13/2024 US, obstetric, biophysical profile + non-stress test completed [email or web address] [address], [place], [address], 07/15/2024 17:05:27 Procedure Notes None recorded. Medical Equipment None Reported. Allergies Allergen ID Allergen Name Allergen Category Reaction Reaction Severity Criticality Documentation Date Start Date Code Code System Note Provider Name and Address Organization Details Recorded Time 21426 latex environme nt,medica tion itching mild Not available 01/06/2024 43927 91 RxNorm Alison Sosa [facility] 4 10:44:49 Medications Name [...] Updated DateTime 07/06/2024 166.37 cm 38 kg/m2 246629.4 3 g 122 mm[Hg] 79 mm[Hg] Catalina Castaneda [facility] 5 12:37:31 Date Recorded Body height Body mass index (BMI) Body weight Systolic blood pressure Diastolic blood pressure Provider Name and Address Organization Details Last Updated DateTime 07/06/2024 166.37 cm 38 kg/m2 027507.4 3 g 122 mm[Hg] 79 mm[Hg] Alison Sosa [facility] 5 15:58:53 Date Recorded Body height Body mass index (BMI) Body weight Systolic blood pressure Diastolic blood pressure Provider Name and Address Organization Details Last Updated DateTime 07/13/2024 166.37 cm 39 kg/m2 432589.9 8 g 128 mm[Hg] 82 mm[Hg] Laura Betts CNM [address], [place], [address], [facility] 12:17:08 Social History Question Answer Notes LastModified by Organizat ion Details LastModified Time Tobacco Smoking Status Former Smoker Alison Sosa null, [facility] 01/06/2024 10:53:38 Do You Have An Advance Directive? No [email or web address] Information not available 05/04/2024 What Is Your Level Of Alcohol Consumption? None 8 Year Sober [email or web address] Information not available 01/06/2024 If You Are , What Was Your Level Of Alcohol Consumption Prior To ? None [email or web address] Information not available 01/06/2024 Are You Blind Or Do You Have Difficulty Seeing? No Information not available 01/06/2024 What Is Your Level Of Caffeine Consumption? Moderate [email or web address] Information not available 05/14/2024 How Much Tobacco Do You Chew? None [email or web address] Information not available 01/06/2024 In The 14 Days Before Symptom Onset, Have You Had Close Contact With A Laboratory-confi rmed COVID-19 While That Case Was Ill? No [email or web address] Information not available 01/06/2024 In The 14 Days Before Symptom Onset, Have You Had Close Contact With A Person Who Is Under Investigation For COVID-19 While That Person Was Ill? No [email or web address] Information not available 01/06/2024 Have You Been To An Area Known To Be High Risk For COVID-19? No [email or web address] Information not available 01/06/2024 Are You Deaf Or Do You Have Serious Difficulty Hearing? No [email or web address] Information not available 01/06/2024 What Type Of Diet Are You Following? REGULAR Information not available 01/06/2024 What Is The Highest Grade Or Level Of School You Have Completed Or The Highest Degree You Have Received? 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 No [email or web address] Information not available 01/06/2024 Do You Use Protection During Sex? No [email or web address] Information not available 01/06/2024 Do You Use Your Seat Belt Or Car Seat Routinely? Yes [email or web address] Information not available 01/06/2024 Do You Have Smoke And Carbon Monoxide Detectors In Your Home? Yes [email or web address] Information not available 01/06/2024 How Much Tobacco Do You Smoke? No [email or web address] Information not available 01/06/2024 Do You Feel Stressed (tense, Restless, Nervous, Or Anxious, Or Unable To Sleep At Night)? [id number] Information not available 01/06/2024 Do You Use Any Illicit Or Recreational Drugs? No Marjuana [email or web address] Information not available 01/06/2024 Do You Use Sunscreen Routinely? Yes [email or web address] Information not available 01/06/2024 Has Tobacco Cessation Counseling Been Provided? Yes [email or web address] Information not available 01/06/2024 On What Date Was Tobacco Cessation Counseling Provided? 07/13/2024 Information not available 07/13/2024 Have You Used IV Drugs? No [email or web address] Information not available 01/06/2024 Do You Or Have You Ever Used Any Other Forms Of Tobacco Or Nicotine? No [email or web address] Information not available 01/06/2024 Sex: Unknown Functional Status Question Answer Note LastModified by Organizat ion Details LastModified Time Do you have difficulty walking or climbing stairs? No Information not available 01/06/2024 Are you able to walk? YESWOREST [email or web address] Information not available 01/06/2024 Are you able to care for yourself? Yes [email or web address] Information not available 01/06/2024 Do you have difficulty dressing or bathing? No Information not available 01/06/2024 What is your exercise level? Moderate [email or web address] Information not available 01/06/2024 Mental Status None recorded. Family History Relationship Description Onset Age of this Age Resolved Age Notes LastModified by Organization Details LastModified Time Unspecified Relation Family history unknown [email or web address] Not available 06/30 10:51:13 Unspecified Relation Malignant tumor of breast great matern al aunt, great patern al aunt Not available 06/01/2024 09:40:33 Paternal Grandmother Malignant tumor of breast [email or web address] Not available 2024 09:40:33 Medical History Condition Response Other N Blood Transfusion N Dermatologic Disorders N Gestational Diabetes Y Anxiety Disorder N Autoimmune disease N Arthritis N Polyps N Infertility N Acid Reflux (GERD) N Cancer N Varicosities N Stroke N Neurologic/Epilepsy N Fibromyalgia N Headaches Y Kidney Disease N Heart Problems N Kidney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
--- NOTE | 2024-07-18 07:30 | P.HP_ITS ---
H&P: HPI History of Present Illness Date/Time: 07/18/24 07:30 Chief Complaint: pt presents for TOLAC at 37.2, with gestational HTN, bp currently normotensive, denies headache, swelling, epigastric pain, visual changes. history of alcholism and has been sober since 2016. hx heart palpitations and has referral in for cardiology. past history of section for preeclampsia with severe features including worsening liver enzymes. Past history of GDM with first . discussed TOLAC and risk of uterine rupture Review of Systems Review of Systems: All systems reviewed & are unremarkable except as noted in HPI and below COUNTS INCLUDE 234 BEDS AT THE [facility] Past Medical History Medical History (Updated 07/18/24 @ 07:49 by Laura Betts CNM) COVID-19 History of sinus problem Strep throat Ear infection Seasonal allergies Surgical History Surgical History (Updated 07/18/24 @ 07:49 by Laura Betts CNM) Previous section Family History Family History (Updated 07/06/24 @ 12:39 by Hanane Rudd RN) Grandparent Hypertension Breast cancer Social History Social History (System 06/13/24 @ 13:21 by Dottie Horowitz) Smoking status: Never smoker Alcohol intake: former Alcohol use details: no alcohol for 7 years Substance use: never Substance use type: does not use Living arrangements: with family Gender identity (if verbalized by the patient): Female Spiritual care concerns: No Meds Home Medications and Allergies Home Medications ?Medication ?Instructions ?Recorded ?Confirmed ?Type aspirin 81 mg capsule 162 mg PO DAILY 07/06/24 07/06/24 History ferrous sulfate 27 mg iron tablet 27 mg PO DAILY 07/06/24 07/06/24 History (High Potency Iron) vits no.130-ferrous fum 1 tablet PO DAILY 07/06/24 07/06/24 History 27 mg iron-folic acid 800 mcg tablet ( Vitamin) Allergies Allergy/AdvReac Type Severity Reaction Status Date / Time latex AdvReac Mild Rash Verified 07/06/24 12:31 Vital Signs Vital Signs - 24 hr 07/18/24 07:27 Pulse Rate 81 Blood Pressure 127/75 Exam Const: General: cooperative, healthy appearing and comfortable Neck: Neck: normal visual inspection Chest: Chest palpation & inspection: normal inspection of the chest Resp: Effort & Inspection: normal respiratory effort Cardio: Rate: regular rate Rhythm: regular rhythm GI: Other: gravid/soft Back/Spine/Pelvis: Back: no CVA tenderness Skin: General skin exam: normal color and no rashes or lesions noted Neuro: General: oriented to person and patient oriented x3 Extrem: General: normal to inspection Psych: Appearance: grossly normal Assessment and Plan Assessment and plan (1) Gestational hypertension affecting second : Code(s): O13.9 - Gestational [-induced] hypertension without significant proteinuria, unspecified trimester Status: Acute
[2024-07-18 07:35] LABS: Basophils Percent Auto 0.1 % (0.2-1.2); Eosinophils Percent Auto 0.4 % (0-4.4); Hematocrit 33.9 % (37.0-47.0); Hemoglobin 11.4 g/dL (12.0-15.0); Immature Granulocyte Absolute 0.02 K/mm3 (0.00-0.031); Immature Granulocyte Percent A 0.3 % (0-0.5); Lymphocytes Absolute Auto 2.63 K/mm3 (0.9-3.2); Lymphocytes Percent Auto 34.7 % (18.3-44.2); Mean Corpuscular HGB Conc 33.6 g/dl (32-36); Mean Corpuscular Hemoglobin 29.8 pg (26-34); Mean Corpuscular Volume 88.5 fl (80-100); Mean Platelet Volume 9.6 fl (7.4-10.4); Monocytes Absolute Auto 0.5 K/mm3 (0.1-0.6); Neutrophils Absolute Auto 4.4 K/mm3 (1.3-6.7); Neutrophils Percent Auto 57.5 % (45.5-73.1); Platelet Count Result 234 k/mm3 (150-375); Red Blood Count 3.83 M/mm3 (4.2-5.4); Red Cell Distribution Width 13.2 % (11.5-14.5); White Blood Count 7.6 K/mm3 (4.5-10.0)
[2024-07-18] MEDS: OXYTOCIN 30 UNITS/NS 500 ML 30 UNITS/500 ML BAG IV CONT (07:41)
[2024-07-18] MEDS: LACTATED RINGERS 1,000 ML 125 ML IV CONT ×4 (07:42→21:50)
[2024-07-18 07:46] LABS: Alanine Aminotransferase 41 U/L (6-35); Alkaline Phosphatase 222 U/L (38-126); Anion Gap 6 mmol/L (4-12); Aspartate Amino Transferase 46 U/L (14-36); Bilirubin,Total 0.3 mg/dL (0.2-1.3); Blood Urea Nitrogen 6 mg/dL (7-17); Calcium 8.6 mg/dL (8.4-10.2); Carbon Dioxide 22 mmol/L (22-30); Chloride 107 mmol/L (98-107); Estimated Glomerular Filt Rate > 60; Glucose 94 mg/dL (65-110); Potassium 3.5 mmol/L (3.4-5.0); Sodium 135 mmol/L (137-145); Uric Acid 6.7 mg/dL (2.5-7.5)
--- NOTE | 2024-07-18 07:51 | LDADM ---
This patient, Holly Howard, was admitted to Labor/Delivery/Recovery 102 on 07/18/24 at 06:308 Plans for labor, pain management and were discussed with patient. Patient/family oriented to hospital policies and general routines including ID bracelet, bed and alarms, visiting hours, pain management, procedures, bathroom and other care routines, personal items, smoking policy, room service/diet and guest tray routines, security routines, and visiting hours. Patient/Family are encouraged to report perceived risks to care and to ask questions if they do not understand what they are told or what they should do. See OBIX for further documentation.
[2024-07-18 08:27] LABS: HIV 1/2 Ab P24 Ag Result Negative (Negative)
[2024-07-18 09:54] LABS: Syphilis IgG/IgM Antibody Negative (Negative)
[2024-07-18] MEDS: fentaNYL CITRATE INJ (*CRX) 100 MCG/2 ML VIAL 50 MCG IV PUSH (12:18)
--- NOTE | 2024-07-18 12:39 | PM.OBPNLAB ---
Pain Control Date/time seen: 07/18/24 12:39 Comments: FHR category 1 SVE /-2 Yepez bulb placed with 40cc saline, pt nathan well
[2024-07-18] MEDS: CALCIUM CARBONATE (TUMS) 500 MG (200 MG ELEMENTAL) PO ×2 (17:18→23:37)
--- NOTE | 2024-07-18 18:12 | PM.OBPNLAB ---
Pain Control Date/time seen: 07/18/24 18:12 Comments: Category 1 FHR tracing SVE /-2 AROM small amount of clear, odorless fluid, anticipate vaginal delivery, IUPC placed
--- NOTE | 2024-07-18 19:52 | WPDANESEPP ---
Anes - Eval Pre Procedure Procedure: Labor Epidural Date/Time: 07/18/24 19:52 Surgeon: Kyle Preop Diagnosis: Labor Pain Pre Op Diagnosis: IOL Patient Data Age: 29 Gender: F Height: 1.66 m Weight: 108 kg Last Vital Signs Temp 36.9 C 07/18/24 18:09 Pulse 63 07/18/24 19:31 BP 125/77 07/18/24 19:31 Pulse Ox 97 07/18/24 19:52 Allergies Allergy/AdvReac Type Severity Reaction Status Date / Time latex AdvReac Mild Rash Verified 07/06/24 12:31 Home Medications ?Medication ?Instructions ?Recorded ?Confirmed ?Type aspirin 81 mg capsule 162 mg PO DAILY 07/06/24 07/18/24 History ferrous sulfate 27 mg iron tablet 27 mg PO DAILY 07/06/24 07/18/24 History (High Potency Iron) vits no.130-ferrous fum 1 tablet PO DAILY 07/06/24 07/18/24 History 27 mg iron-folic acid 800 mcg tablet ( Vitamin) Laboratory Tests 07/18/24 07/18/24 07:21 07:22 WBC 7.6 K/mm3 (4.5-10.0) RBC 3.83 L M/mm3 (4.2-5.4) Hgb 11.4 L g/dL (12.0-15.0) Hct 33.9 L % (37.0-47.0) MCV 88.5 fl (80-100) MCH 29.8 pg (26-34) MCHC 33.6 g/dl (32-36) RDW 13.2 % (11.5-14.5) Plt Count 234 k/mm3 (150-375) MPV 9.6 fl (7.4-10.4) Immature Gran % (Auto) 0.3 % (0-0.5) Neut % (Auto) 57.5 % (45.5-73.1) Lymph % (Auto) 34.7 % (18.3-44.2) [place] % (Auto) 7.0 % (2.6-8.5) Eos % (Auto) 0.4 % (0-4.4) Baso % (Auto) 0.1 L % (0.2-1.2) Lymph # (Auto) 2.63 K/mm3 (0.9-3.2) [place] # (Auto) 0.5 K/mm3 (0.1-0.6) Eos # (Auto) 0.0 K/mm3 (0-0.3) Baso # (Auto) 0.0 K/mm3 (0.0-0.1) Abs Immat Gran (auto) 0.02 K/mm3 (0.00-0.031) Absolute Neuts (auto) 4.4 K/mm3 (1.3-6.7) Absolute Nucleated RBC 0.000 K/mm3 (0.0-0.012) Nucleated RBC % 0.0 % (0.0-0.2) Sodium 135 L mmol/L (137-145) Potassium 3.5 mmol/L (3.4-5.0) Chloride 107 mmol/L (98-107) Carbon Dioxide 22 mmol/L (22-30) Anion Gap 6 mmol/L (4-12) BUN 6 L mg/dL (7-17) Creatinine 0.64 L mg/dL (0.7-1.0) Estim Creat Clear Calc Not Reportable Estimated GFR > 60 (59 - ) Glucose 94 mg/dL (65-110) Uric Acid 6.7 mg/dL (2.5-7.5) Calcium 8.6 mg/dL (8.4-10.2) Total Bilirubin 0.3 mg/dL (0.2-1.3) AST 46 H U/L (14-36) ALT 41 H U/L (6-35) Alkaline Phosphatase 222 H U/L (38-126) Total Protein 6.0 L g/dL (6.3-8.2) Albumin 3.0 L g/dL (3.5-5.1) Syphilis IgG/IgM Ab Negative (Negative) HIV 1&2 Ab/P24 Ag 4thGn Negative (Negative) Blood Type A Positive Antibody Screen Negative : gestational age (, AVI 08/06/24) Patient hx anesthesia problems: none Family hx anesthesia problems: none Results Review: All pre-operative results and documents have been reviewed as part of the pre-operative evaluation. [facility] Past Medical History Medical History (Updated 07/18/24 @ 07:49 by Laura Betts CNM) COVID-19 History of sinus problem Strep throat Ear infection Seasonal allergies Surgical History Surgical History (Updated 07/18/24 @ 07:49 by Laura Betts CNM) Previous section Family History Family History (Updated 07/06/24 @ 12:39 by Hanane Rudd RN) Grandparent Hypertension Breast cancer Social History Social History (System 06/13/24 @ 13:21 by Dottie Horowitz) Smoking status: Former smoker Tobacco type: cigarettes Smoking end date: 05/02/14 Alcohol intake: former Alcohol use details: no alcohol for 7 years Substance use: never Substance use type: does not use Do You Feel Safe in your Home?: Yes Lack of Transportation: No Lack of Food: Never True Current Housing: I Have Housing Concerned About Future Housing: No Difficulty Paying Gas/Electric Bills: No Difficulty Paying for Meds: No Currently Unemployed: No Education: Trade/Vocational Certificate Difficulty w/ Childcare or Family Care: No Living arrangements: with family Gender identity (if verbalized by the patient): Female Spiritual care concerns: No Exam Day of Procedure 07/18/24 19:52 Patient weight: obese Heart: regular rate and rhythm Lungs: normal air movement Airway: Mallampati scale class II Neurological: alert and oriented
[2024-07-19] VITALS (128 sets, daily range): BP systolic 82–145; BP diastolic 36–109; PULSE 37–140; RESP 16; TEMP 36.6–37.6; O2SAT 87–100
[2024-07-19] MEDS: LACTATED RINGERS 1,000 ML 125 ML IV CONT (01:56)
--- NOTE | 2024-07-19 03:56 | PM.OBPRVD ---
OB - Vaginal Delivery Note Procedure Delivery date: 07/19/24 Events: Gestational Hypertension and Previous Delivery Induction method: AROM and Per Pitocin Protocol Delivery monitor: External FHT and Internal Uterine Route of delivery: Episiotomy description: None Laceration Description: Superficial Specimen: No Quantitative Blood Loss (ml): 250 Anesthesia type: Epidural Disposition: Floor Complications: No immediate complications Baby Date of : 07/19/24 Time of : 03:45 Gestational Age by Date: 37 gender: Male presentation: vertex position: Left Occiput Anterior Placenta delivery description: Spontaneous Cord Vessel Description: 3 Vessels score one minute: 8 score five minutes: 9
[2024-07-19] MEDS: OXYTOCIN 30 UNITS/NS 500 ML 30 UNITS/500 ML BAG 125 UNITS IV CONT (04:20)
[2024-07-19] MEDS: WITCH HAZEL 40 PADS 1 PAD TOPICAL (06:50)
[2024-07-19] MEDS: BENZOCAINE 20% AER SPR (*SP) 56 GM CAN 1 SPRAY TOPICAL (06:50)
--- NOTE | 2024-07-19 09:55 | PC.NURSE ---
Introductions were made and communication board updated. Consulted with patient to assess needs related to . Mother reports that she breastfed her first child for 14 months and is confident with . Mother will call this RN to assess a feeding with next feeding. Discussed the benefits of skin to skin, stimulating with massage touch, changing positions to encourage wakefulness, how to watch for early feeding cues, responsive feeding, feeding on demand (aiming for 8-12 times in 24 hours, about every 2-3 hours), milk production, building/maintaining a milk supply, duration of feeding, signs of adequate intake/output and how to record on the feeding sheet. Mother voiced understanding of skin to skin, stimulating with massage touch, responsive feedings, hand expressed colostrum, talking to infant to encourage if it has been 2 -2.5 hours since the start of the last , to call if infant does not latch, or if there is discomfort with .
[2024-07-19] MEDS: ACETAMINOPHEN 325 MG TABLET 650 MG PO (17:12)
[2024-07-19 20:23] LABS: Hematocrit 29.6 % (37.0-47.0); Hemoglobin 9.8 g/dL (12.0-15.0)
[2024-07-20] MEDS: IBUPROFEN 600 MG TABLET PO ×2 (05:25→19:14)
[2024-07-20 05:45] VITALS: BP 100/64; PULSE 74; RESP 16; TEMP 37.1; O2SAT 99
--- NOTE | 2024-07-20 07:10 | PC.NURSE ---
Patient called out for a latch check. She has some soreness and initial latch on tenderness. Baby latches fairly well, he could be a little deeper if he opened his mouth wider. Discussed with mom normal expectations for nipple soreness and milk production. She breastfed her first child for 14 months. Mom handles baby very well and latched independently. Mom states she had a nipple aversion at the end of her last experience, but is not having any strong aversions or discomfort since delivery. She has a breast pump at home. Reported to RN.
--- NOTE | 2024-07-20 07:30 | P.PNOB_ITS ---
OB - PN: Subj Subjective Date/time seen: 07/20/24 07:30 Interval history: pp day 1 desires d/c bp normotensive breast feeding well OB - PN: Obj Data Labs 07/19/24 20:11 07/18/24 07:22 Labs: Laboratory Results - last 24 hr 07/19/24 20:11 Hgb 9.8 L Hct 29.6 L OB - PN A/P Plan day: 1 Plan: routine care and discharge home Time Spent With Patient Time: Total time spent is greater than 50% in coordination of care (as documented) at patient's floor/unit and/or counseling patient: Review of Systems 2 Review of Systems: All systems reviewed & are unremarkable except as noted in HPI and below Exam 2 Const: General: cooperative, healthy appearing and comfortable Chest: Chest palpation & inspection: normal inspection of the chest Resp: Effort & Inspection: normal respiratory effort Cardio: Rate: regular rate Rhythm: regular rhythm GI: Other: soft
--- NOTE | 2024-07-20 07:32 | P.DS_ITS ---
DS: Admitting Diagnosis Discharge Date 07/20/24 Admitting Diagnosis IOL DS: Discharge Diagnosis Discharge Diagnosis (1) Vaginal delivery: Code(s): O80 - Encounter for full-term uncomplicated delivery Status: Acute OB - DS: Summary OB Procedures : None OB Procedures Intrapartum: Spontaneous Vag Delivery OB Procedures: : None Peripartum Data Laceration Description: Superficial Episiotomy description: None Time Spent with Patient Time attestation: Total time spent providing and/or coordinating discharge services: DS: Data Data Completed and Pending Labs on day of discharge: Labs from last 24 hours 07/19/24 20:11 Hgb 9.8 L Hct 29.6 L Discharge Plan Discharge Attending physician on discharge: Jed Wright Discharging Clinician: Laura Betts Patient Disposition: Home, Self-Care Activity: pelvic rest Diet: regular Patient Instructions: Antibiotic Form Patient Language: Belarusian Stand Alone Forms: General Discharge Information Follow-up/Referrals: Laura Betts, ALEMM [Certified Nurse Pocket And 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
[2024-07-20 08:35] VITALS: BP 139/66; PULSE 73; RESP 18; TEMP 36.2; O2SAT 97
[2024-07-20] MEDS: MULTIVIT/MIN/PREN/FOL AC/IRON TABLET 1 TAB PO (10:47)
[2024-07-20] MEDS: POLYSACCHARIDE IRON COMPLEX 150 MG CAPSULE PO ×2 (10:47→19:14)
[2024-07-20 12:01] VITALS: BP 135/60; PULSE 66; RESP 16; TEMP 36.6; O2SAT 98
--- NOTE | 2024-07-20 15:51 | WPDANLDPN2 ---
Anes-Prog Note L&D Date/Time: 07/20/24 15:51 Comfortable throughout: labor and delivery Neuraxial method: epidural Epidural/Spinal procedure site: clean & non-tender Neuro status: Neuro function grossly intact. Cardiovascular status: normal Respiratory status: normal Airway patency: baseline Mental status: baseline Post-Op hydration status: normal Vital Signs: Last Vital Signs Temp 36.6 C 07/20/24 12:01 Pulse 66 07/20/24 12:01 Resp 16 07/20/24 12:01 BP 135/60 07/20/24 12:01 Pulse Ox 98 07/20/24 12:01 O2 Del Method Room Air 07/19/24 20:00 Pain score (VAS): 2 I/O: Intake & Output 07/19/24 07/20/24 07/20/24 23:59 07:59 15:59 Intake Total 2000 1500 Output Total 3000 1440 Balance -1000 60 Post-procedural complaints: none Patient feedback: Patient satisfied with anesthetic care.
[2024-07-20 17:15] VITALS: BP 107/65; PULSE 68; RESP 20; O2SAT 100
[2024-07-20] MEDS: ACETAMINOPHEN 325 MG TABLET 650 MG PO (19:13)
[2024-07-20] MEDS: DOCUSATE SODIUM 100 MG CAPSULE PO (19:14)
[2024-07-20 20:45] VITALS: BP 108/68; PULSE 72; RESP 16; TEMP 36.5; O2SAT 98
[2024-07-21 00:25] VITALS: BP 100/50; PULSE 67; RESP 16; TEMP 37; O2SAT 98
[2024-07-21 05:05] VITALS: BP 104/66; PULSE 82; RESP 16; TEMP 36.6; O2SAT 98
[2024-07-21 08:00] VITALS: BP 107/52; PULSE 63; RESP 18; TEMP 36.7; O2SAT 99
--- NOTE | 2024-07-21 08:22 | P.PNOB_ITS ---
OB - PN: Subj Subjective Date/time seen: 07/21/24 08:22 Interval history: pp day 1 desires d/c bp normotensive breast feeding well Patient comments: no complaints, pain well controlled and tolerating diet OB - PN: Obj Data Labs 07/19/24 20:11 07/18/24 07:22 OB - PN A/P Plan day: 2 Plan: routine care and discharge home Time Spent With Patient Time: Total time spent is greater than 50% in coordination of care (as documented) at patient's floor/unit and/or counseling patient: Exam 2 Const: General: comfortable and no acute distress Resp: Effort & Inspection: normal respiratory effort Auscultation: no rales, no rhonchi and no wheezes Cardio: Rate: regular rate Heart sounds: no click, no murmurs and no rubs GI: GI Palp: Yes Soft to palpation and No Tenderness to palpation present (GI) Auscultation: normal bowel sounds Extrem: General: normal to inspection, no pedal edema and no calf tenderness
--- NOTE | 2024-07-21 08:50 | PC.NURSE ---
Consulted with mother concerning needs and she shared her ability to independently latch infant optimally without pain. Observed appropriate latch on the left breast at this time. Mother is feeding appropriately for growth of infant and understands stimulating to eat if needed. Infant has had appropriate feedings in the last 24 hours meets the outcomes for weight, output, blood sugar and jaundice at this time. The branch services manager does recommend supplementation due to weight loss of 7%. Reviewed pumping (she has a pump at home), supplementation amounts and frequency, and to continue with supplementation after each until seen by the branch services manager. Reinforced understanding of milk production, transition of milk, signs of adequate intake, transition of stool, prevention/relief of engorgement, plugged ducts, mastitis, responsive , community resources (declines [facility] referral), and when to call a provider using the resource of the feeding sheet along with the mom and baby guide. Mother voiced understanding of the information shared, is confident to continue effectively her infant at home, when to call for assistance, denies any additional assistance or education at this time. Reported to the Primary RN.
[2024-07-21] MEDS: ACETAMINOPHEN 325 MG TABLET 650 MG PO (12:01)
[2024-07-21] MEDS: IBUPROFEN 600 MG TABLET PO (12:02)
[2024-07-21] MEDS: DOCUSATE SODIUM 100 MG CAPSULE PO (12:03)
[2024-07-21] MEDS: MULTIVIT/MIN/PREN/FOL AC/IRON TABLET 1 TAB PO (12:03)
[2024-07-21] MEDS: POLYSACCHARIDE IRON COMPLEX 150 MG CAPSULE PO (12:03)
[2024-07-23 11:29] VITALS: BP 131/70; PULSE 89; RESP 18; TEMP 36.5; O2SAT 100
== END 2024-07-21 12:10 | disposition home or self-care (01) | DRG 560 ==
LOC: ANHLDR 06:41 → ANHOB2 07-20 07:31 → ANHLDR 07-23 10:33 → ANHOB2 07-23 10:33
PROVIDERS: Admitting Provider Obstetrics & Gynecology; Referring Provider Advanced Practice Midwife; Visit Provider Advanced Practice Midwife
DX: O34.211 Maternal care for low transverse scar from previous cesarean delivery (principal); Z37.0 Single live birth; Z3A.37 37 weeks gestation of pregnancy; O13.4 Gestational [pregnancy-induced] hypertension without significant proteinuria, complicating childbirth
CPT/HCPCS: 36415; 80053; 84550; 85014; 85018; 85025; 86593; 86703; 86850; 86900; 86901; A9270; G0432; J2590; J2795; J3010; J7120